=== PATIENT | female | born 1965 | race African-American/Black ===

== ENCOUNTER 2024-12-04 21:33 | Emergency (ER) | payer MEDICARE, OTHER, SELFPAY ==
[2024-12-04] VITALS (8 sets, daily range): BP systolic 94–129; BP diastolic 64–80; PULSE 68–78; RESP 17–19; TEMP 36.4; O2SAT 94–100
--- NOTE | 2024-12-04 21:43 | ECG_ITS ---
Test Date: 2024-12-04 21:49:19 Measurements Intervals [place] Rate: 69 P: 38 GA: 133 QRS: -4 QRSD: 92 T: 44 QT: 422 QTc: 454 Interpretive Statements SINUS RHYTHM VOLTAGE CRITERIA FOR LVH CONSIDER INFERIOR INFARCT, AGE INDETERMINATE ABNORMAL ECG No previous ECG available for comparison Electronically Signed On 12-05-2024 06:18:14 CDT by Butch Guadalupe D.O.
[2024-12-04] MEDS: SODIUM CHLORIDE 0.9% IV 1,000 ML 999 ML IV CONT (21:56)
[2024-12-04 22:01] LABS: Basophils Absolute Auto 0.1 K/mm3 (0.0-0.1); Basophils Percent Auto 0.8 % (0.2-1.2); Eosinophils Absolute Auto 0.1 K/mm3 (0-0.3); Eosinophils Percent Auto 1.2 % (0-4.4); Hematocrit 37.5 % (37.0-47.0); Hemoglobin 10.9 g/dL (12.0-15.0); Immature Granulocyte Absolute 0.06 K/mm3 (0.00-0.031); Immature Granulocyte Percent A 0.6 % (0-0.5); Lymphocytes Absolute Auto 1.97 K/mm3 (0.9-3.2); Lymphocytes Percent Auto 18.1 % (18.3-44.2); Mean Corpuscular HGB Conc 29.1 g/dl (32-36); Mean Corpuscular Hemoglobin 24.2 pg (26-34); Mean Corpuscular Volume 83.3 fl (80-100); Mean Platelet Volume 10.3 fl (7.4-10.4); Monocytes Absolute Auto 0.6 K/mm3 (0.1-0.6); Monocytes Percent Auto 5.7 % (2.6-8.5); Neutrophils Percent Auto 73.6 % (45.5-73.1); Platelet Count Result 242 k/mm3 (150-375); Red Cell Distribution Width 16.8 % (11.5-14.5); White Blood Count 10.9 K/mm3 (4.5-10.0)
[2024-12-04 22:11] LABS: Alanine Aminotransferase 29 U/L (6-35); Albumin Level 4.1 g/dL (3.5-5.1); Alkaline Phosphatase 106 U/L (38-126); Anion Gap 13 mmol/L (4-12); Aspartate Amino Transferase 27 U/L (14-36); Bilirubin,Total 0.2 mg/dL (0.2-1.3); Blood Urea Nitrogen 18 mg/dL (7-17); Calcium 9.1 mg/dL (8.4-10.2); Carbon Dioxide 19 mmol/L (22-30); Chloride 111 mmol/L (98-107); Estimated CRCL calculation 48 ml/min; Estimated Glomerular Filt Rate 40; Glucose 166 mg/dL (65-110); Potassium 3.7 mmol/L (3.4-5.0); Sodium 143 mmol/L (137-145)
[2024-12-04 22:18] LABS: Anisocytosis 1+; Band Neutrophils Percent 0 % (0-6); Hypochromasia 1+; Ovalocytes 1+; Platelet Estimate Adequate (Adequate); Schistocytes None Seen
--- OUTSIDE RECORDS SUMMARY | 2024-12-04 22:45 | XMS_ITS | Clinical Summary ---
Author Organization [facility] [employer] Address [address] [facility] [place] [address] Care Team Providers Care Machine Maintenance Servicer Name Role Phone Damián Montemayor MD Unavailable Teetee Khoury MD Unavailable [phone] Starla Garcia MD Unavailable [phone] Sadie Ryan MD Unavailable Pedro Mclain MD Primary Care Provider Antoinette Chan MD Unavailable [phone] Destiny Manzanares APRN-HEALTH ADVISOR Unavailable [phone] Source Comments [facility],non-owned Affiliates and Associated Physician Practices is amultiple site organization consisting of ambulatory clinics and hospital sitesin [place], [place], [place] and [place]. This disclosure is being madepursuant to the Care Everywhere program and may not contain all information available regarding this patient. Last updated 18.[facility] [employer] Allergies Active Allergy Reactions Criticality Noted Date Comments Pioglitazone Itching 08/11/2019 Metoclopramide Nausea and/or Vomiting,Unknown 12/22/2010 PT TOLERATES AND TAKE AT HOME Penicillins Rash Low 12/18/2008 Tolerates cephalosporins Dulaglutide Vomiting 08/19/2020 Medications * Be aware that medications may not be up to date on this document. Alwaysverify current medications with the patient. Medication Sig Dispensed Refills Start Date End Date Status Blood Pressure Monitoring (BLOOD PRESSURE KIT) DEVIIndications:E ssential hypertension Use 1 Each once daily 1 device 1 1 Active glucose (Dex4) 4 g chew tabletIndications :Type 2 diabetes mellitus with peripheral vascular disease (HCC) Take 4 (four) tablets by mouth as needed (Hypoglycemia) 400 tablet 3 3 Active Blood Glucose Monitoring Suppl (Blood Glucose Monitor System) w/Device KITIndications:Ty pe 2 diabetes mellitus with peripheral vascular disease (HCC) Use 1 Each once daily 1 Each 1 3 Active Lancets Micro Thin 33G MISCIndications:T ype 2 diabetes mellitus with peripheral vascular disease (HCC) Use 1 Each 4 times daily 400 Each 3 3 Active vitamin D, ergocalciferol, (Drisdol) 1.25 MG (74217 UT) capsuleIndication s:Vitamin D Deficiency Take 1 (one) capsule by mouth every 7 days Reasons: Vitamin D Deficiency 12 capsule 4 4 Active zolpidem (Ambien) 10 MG tabletIndications :Insomnia Take 0.5 (one-half) tablet to 1 (one) tablet by mouth at bedtime Reasons: Trouble Sleeping 45 tablet 1 4 Active ondansetron (Zofran) 4 MG tabletIndications :Cyclic vomiting syndrome Take 1 (one) tablet by mouth every 6 hours as needed for Nausea/Vomiting 30 tablet 5 4 Active insulin degludec (Tresiba FlexTouch) 200 UNIT/ML penIndications:Ty pe 2 diabetes mellitus with stage 3a chronic kidney disease, with long-term current use of insulin ([facility]) Inject 36 (thirty six) Units subcutaneously at bedtime 4 Active insulin aspart (NovoLOG FLEXPEN) penIndications:Ty pe 2 Diabetes Mellitus Inject subq before meals BRK-30 U, lunch 22U, and 22 dinner+ scale TDD 180 U. Reasons: Type 2 Diabetes 4 Active busPIRone (Buspar) 15 MG tablet Take 1 (one) tablet by mouth 3 times daily Active LORazepam (Ativan) 1 MG tablet Take 1 (one) tablet by mouth every 12 hours as needed for Anxiety Active acetaminophen (Tylenol) 325 MG tablet Take 2 (two) tablets by mouth every 6 hours as needed Maximum allowable Acetaminophen amount = 4 Grams (4000 mg) / 24 hours. 4 Active calcium carbonate (Tums) 500 MG chew tablet Take 2 (two) tablets by mouth every 4 hours as needed 4 Active paliperidone palmitate ER (Invega Sustenna) 234 MG/1.5ML injection Inject 234 (two hundred thirty four) mg into muscle every 28 days 1.5 mL 5 Active pantoprazole EC (Protonix) 40 MG tabletIndications :Gastroesophageal reflux disease without esophagitis Take 1 (one) tablet by mouth once daily 30 tablet 4 5 Active collagenase (Santyl) 250 UNIT/GM ointmentIndicatio ns:Decubitus ulcer of left foot, stage 3 (HCC),Decubitus ulcer of right foot, stage 3 (HCC) Apply to affected area once daily 30 g 3 5 Active Insulin Pen Needle (BD Pen Needle Joann U/F) 32G X 4 MM MISCIndications:T ype 2 diabetes mellitus with stage 3a chronic kidney disease, with long-term current use of insulin ([facility]) Use 1 Each 4 times daily With insulin DX E11.22 200 Each 11 5 Active blood glucose test stripIndications: Type 2 diabetes mellitus with stage 3a chronic kidney disease, with long-term current use of insulin ([facility]) Use 1 (one) strip 4 times daily - before meals & nightly Freestyle 400 strip 3 5 Active gabapentin (Neurontin) 600 MG tabletIndications :Type 2 diabetes mellitus with stage 3a chronic kidney disease, with long-term current use of insulin ([facility]) Take 1 (one) tablet by mouth 2 times daily 60 tablet 5 5 Active atorvastatin (Lipitor) 40 MG tablet Take 1 (one) tablet by mouth once daily 90 tablet 1 5 Active Continuous Glucose Sensor (FreeStyle Fay 3 Plus Sensor) MISCIndications:T ype 2 diabetes mellitus with stage 3a chronic kidney disease, with long-term current use of insulin ([facility]) Use 1 Each every 15 days 6 Each 1 5 Active loperamide (Imodium) 2 MG capsuleIndication s:Diarrhea TAKE ONE CAPSULE BY MOUTH FOUR TIMES A DAY NEEDED FOR DIARRHEA Reasons: Diarrhea 120 capsule 2 5 Active pancrelipase (Zenpep) 43707-747327 units capsule Take 2 (two) capsules by mouth 3 times daily with meals. May also take 1 (one) capsule as needed with food for Digestion (for snacks). Do not crush or chew.. 300 capsule 5 5 Active pancrelipase (Zenpep) 60933-432559 units capsule Take 2 (two) capsules by mouth 3 times daily with meals. May also take 1 (one) capsule as needed with food for Digestion (for snacks). Do not crush or chew.. 240 capsule 5 4 11/28/19 25 Discontinue d(Reorder) loperamide (Imodium) 2 MG capsuleIndication s:Diarrhea, unspecified type TAKE ONE CAPSULE BY MOUTH FOUR TIMES A DAY NEEDED FOR DIARRHEA 120 capsule 1 4 11/28/19 25 Discontinue d(Reorder) collagenase (Santyl) 250 UNIT/GM ointment Apply to affected area 2 times daily for 30 days 3.5cm Length x 4 cm width x 0.5 cm depth 30 g 2 5 11/08/19 25 Additional Information Patient not taking.Reported on 10/28/2024 atorvastatin (Lipitor) 40 MG tablet Take 1 (one) tablet by mouth once daily 90 tablet 1 5 11/09/19 25 Discontinue d(Reorder) gabapentin (Neurontin) 600 MG tabletIndications :Type 2 diabetes mellitus with stage 3a chronic kidney disease, with long-term current use of insulin (HCC) Take 1 (one) tablet by mouth 2 times daily 60 tablet 5 5 11/09/19 25 Discontinue d(Reorder) Active Problems Problem Noted Date Diagnosed Date Decubitus ulcer of right foot, stage 4 5 Decubitus ulcer of left foot, stage 3 09/25/2024 Type 2 diabetes mellitus wit h hyperglycemia, without long-term current use of insulin 09/19/2024 Type 2 diabetes mellitus with obesity 09/19/2024 Cellulitis, unspecified cellulitis site 08/19/20 Diabetic polyneuropathy asso ciated with diabetes mellitus due to underlying condition 08/19/2024 Wound of left foot 08/19/2024 Diarrhea of infectious origin 07/02/2023 Class 1 obesity due to exces s calories without serious comorbidity with body mass index (BMI) of 34.0 to 34.9 in adult 05/09/2023 S/P gastric bypass 10/04/2022 Chest pain, musculoskeletal 05/09/2022 Abscess, gluteal, right 05/02/2022 Fecal smearing 12/27/2021 Candidiasis of anus 12/13/2021 Blister 12/13/2021 Boil of buttock 11/29/2021 Primary insomnia 11/29/2021 SOB (shortness of breath) 05/24/2021 Medicare annual wellness visit, subsequent 05/24 Gastroesophageal reflux disease without esophagi tis 11/18/2020 Toe amputation status, right 05/09/2019 Great toe amputation status, left 05/09/2019 Hx of Clostridium difficile infection 09/10/2018 Chronic fatigue 09/10/2018 Vitamin D deficiency 07/03/2018 Malaise and fatigue 07/03/2018 Atherosclerosis of aorta 06/28/2018 Overview (06/28/2018): Ct abd pelvis 12/18/17 Esophagitis 03/04/2018 Mixed hyperlipidemia 12/03/2017 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 File category: Scan. Associated with: Note written by from [facility] on 07/06/2021. Type 2 diabetes mellitus with peripheral vascula r disease 07/24/2017 Overview (07/24/2017): Office Visit 04/20/15 Dr. Shady Jamil Bipolar I disorder with depression 01/17/2014 Overview (07/22/2021): IOP 07/19/2021 (12 hours) [facility] Jh Ellis MD Last attending Treatment team Bipolar I disorder with depression Principal problem Generalized anxiety disorder 11/11/2012 Cyclic vomiting syndrome 11/11/2012 Essential hypertension 05/21/2012 Overview (05/21/2012): Dx.ed 2012 Neuropathy in diabetes 05/21/2012 Resolved Problems Problem Noted Date Diagnosed Date Resolved Date BMI 38.0-38.9,adult 11/06/2022 05/09/20 23 Stage 3a chronic kidney disease 05/09/2022 09/19/2024 Other osteomyelitis of right foot 12/13/2021 09/19/2024 Vita infection 12/13/2021 12/13/2021 BMI 40.0-44.9, adult 11/29/2021 023 M Obesity 07/22/2021 11/29/2021 Overview (07/22/2021): Body Mass Index: 42.36 kg/m Abnormal 1.727 m (5' 8 ) as of 05/24/2021 126.4 kg (278 lb 9.6 oz) as of 05/24/2021 Type 2 diabetes mellitus wit h hypoglycemia, without long-term current use of insulin 05/24/2021 09/29/2021 Body mass index (BMI)40.0-44.9, adult 05/24/2021 09/19/2024 Obesity (BMI 35.0-39.9 without comorbidity) 02/20/2020 11/29/2021 Hypercholesterolemia 05/08/2019 021 Type 2 diabetes mellitus wit h stage 3a chronic kidney disease, with long-term current use of insulin 06/28/2018 09/19/2024 Overview (07/22/2021): Component Latest Ref Rng & Units 04/25/2021 12/06/2020 08/31/2020 02/10/2020 eGFR by MDRD >60 mL/min/1.73m2 40 (L) 57 (L) 47 (L) 46 (L) DARIUSZ (acute kidney injury) 06/02/2018 DARIUSZ (acute kidney injury) 01/21/2018 Cyclical vomiting with nausea 01/21/2018 03/04/2018 Nausea and vomiting 01/14/2018 02/05/20 18 Abdominal pain, epigastric 12/18/2017 0 12/19/2017 Nausea and vomiting 12/18/2017 12/20/19 18 Intractable vomiting with nausea 12/18/2017 12/19/2017 Moderate episode of recurren t major depressive disorder 02/01/2016 12/03/2017 Upper GI bleed 01/28/2016 12/03/2017 Acute blood loss anemia 01/28/201610/2017 SIRS (systemic inflammatory response syndrome) 01/28/2016 12/03/2017 Hyperglycemia due to type 2 diabetes mellitus 01/28/20 16 12/03/2017 Intractable vomiting 03/02/2015 018 Cyclical vomiting, intractable 05/07/2014 12/03/2017 Acute renal failure (ARF) 05/07/2014 Electrolyte imbalance 05/07/20142017 Diabetic foot ulcer 04/08/2014 12/04/19 18 Anxiety 03/03/2014 12/03/2017 Diabetes mellitus 03/03/2014 07/24/2017 Hyperglycemia 03/03/2014 09/12/2017 MDD (major depressive disorder) 09/01/2013 12/03/2017 Anxiety attack 12/08/2012 12/03/2017 Nausea and vomiting in adult 12/08/2012 12/03/2017 Depression 11/11/2012 12/03/2017 Diabetic hypoglycemia 08/15/20122017 Esophageal reflux 02/07/2012 12/03/2017 Irritable colon 02/07/2012 12/03/2017 Anemia 12/20/2010 12/03/2017 Constipation 08/26/2010 08/23/2015 [place]'s gland cyst 06/29/2010 8 Hypopotassemia 07/16/2009 12/03/2017 Nausea with vomiting 05/25/2009 018 Overview (05/21/2012): Dx.ed 2006 DM type 2 (diabetes mellitus, type 2) 12/18/2008 12/03/2017 Overview (05/21/2012): Dx.ed 2006 On insulin since 2008 Screening for cervical cancer 12/18/2008 12/03/2017 Overview (12/18/2008): 2007 results not in chart Encounters Date Type Department Care Team Description 12/02/2024 Telephone [facility] . [facility]ound [facility] [id number] [facility] [address] [phone] Matilda Lockhart, valve pipe irrigator 12/01/2024 8:34 AM CDT - 12/01/2024 10:06 AM CDT Hospital Encounter [facility] . Wound Care [address] [address] [place] [phone] Liam Miller MD Christensen, Kyle, Discharge Disposition: Home or Self Care 12/01/2024 Travel 11/27/2024 Refill [facility] - [address] [address] [place] [phone] Kerri Sotelo, CUSTOMS HOUSE BROKER-HEALTH ADVISOR MEDICATION REFILL 11/25/2024 Orders Only [facility] Endocrinology [address] [place] [address], [facility] [address] [place] [phone] Anabel Gay, C[employer] HOU[employer] BROKER-HEALTH ADVISOR Type 2 diabetes mellitus with stage 3a chronic kidney disease, with long-term current use of insulin 11/24/[address], [facility] [address] [place] [address] Teetee Khoury MD Refill Request 11/18/2024 6:37 AM CDT - 11/18/2024 11:59 PM CDT Hospital Encounter [facility] - Laboratory [address] [place] [address] Lenny Nava, Discharge Disposition: Home or Self Care 11/17/2024 9:13 AM CDT - 11/17/2024 11:59 PM CDT Hospital Encounter [facility] . Wound Care [address] [address] [place] [address] Lenny Nava, Discharge Disposition: Home or Self Care 11/17/2024 Travel 11/12/2024 Telephone [facility] . Wound Care [address] [address] [place] [phone] Portia Correa, patient safety sitter (Orthotics) 11/11/2024 Orders Only [facility] . Wound Care [address] [address] [place] [phone] Portia Correa, RN Decubitus ulcer of left foot, stage 3 ; Ulcers of both lower legs with fat layer exposed; Decubitus ulcer of right foot, stage 3; Wound of left foot; Diabetic polyneuropathy associated with diabetes mellitus due to underlying condition 11/08/2024 Refill [facility] Endocrinology [address] [place] [address], [address] [place] [phone] Teetee Khoury MD MEDICATION REFILL 11/08/2024 Refill [facility] Endocrinology [address] [place] [address], [facility] [address] [place] [phone] Anabel Gay, C[employer] BROKER-HEALTH ADVISOR MEDICATION REFILL 11/07/2024 Telephone [facility] - Surgery [address] [place] [address], [facility] [address] [place] [phone] Lenny Nava DO Question 11/03/2024 Travel 11/03/2024 Refill [facility] Endocrinology [address] [place] [address], [address] [place] [phone] Anabel Gay, C[employer] BROKER-HEALTH ADVISOR MEDICATION REFILL 10/31/2024 Refill [facility] - [place] [address] [address] , [facility] [address] [place] [phone] aDmián Montemayor MD MEDICATION REFILL 10/28/2024 1:00 PM FLANGING ROLL OPERATOR Office Visit [facility] Endocrinology [address] [place] [address], [facility] [address] [place] [phone] Anabel Gay, C[employer] BROKER-HEALTH ADVISOR Type 2 diabetes mellitus with stage 3a chronic kidney disease, with long-term current use of insulin (Primary Dx); Vitamin D deficiency; Mixed hyperlipidemia; Essential hypertension 10/27/2024 10:00 AM FLANGING ROLL OPERATOR - 10/27/2024 11:59 PM FLANGING ROLL OPERATOR Hospital Encounter [facility] . Wound Care [address] [address] [place] [phone] Nava, Lenny, DO Discharge Disposition: Home or Self Care 10/27/2024 Orders Only [facility] . Wound Care [address] [address] [place] [phone] Portia Correa RN 10/27/2024 Travel 10/23/2024 Refill [facility] [address] [address], [address] [place] [phone] Kerri Sotelo, C[employer]SE BROKER-HEALTH ADVISOR MEDICATION REFILL 10/23/2024 Refill [facility] - Endocrinology [address] [place] [address], [address] [place] [phone] Anabel Gay, C[employer] HOUSE BROKER-HEALTH ADVISOR MEDICATION REFILL 10/21/2024 Refill [facility] [address] [address] [place] [phone] Kerri Sotelo, C[employer] BROKER-HEALTH ADVISOR Refill Request 10/13/2024 10:25 AM FLANGING ROLL OPERATOR - 10/13/2024 11:59 PM FLANGING ROLL OPERATOR Hospital Encounter [facility] . Wound Care [address] [address], [address] [place] [phone] Lenny Nava, DO Discharge Disposition: Home or Self Care 10/13/2024 Travel 10/11/2024 Refill [facility] . Wound Care [address], [address] [place] [address] Lenny Nava, DO MEDICATION REFILL 10/08/2024 Refill [facility] [address], [address] [place] [address] Kerri Sotelo, C[employer]SE BROKER-HEALTH ADVISOR MEDICATION REFILL 10/08/2024 Refill [facility] [address] [place] [address] Kerri Sotelo, CUST[employer] HOUSE BROKER-HEALTH ADVISOR MEDICATION REFILL 10/08/2024 Refill [facility] . Wound Care [address], [address] [place] [phone] Padmini Chavez, C[employer] HOUSE BROKER-HEALTH ADVISOR MEDICATION REFILL 10/06/2024 Travel 10/03/2024 Refill [facility] [place] [address] [address] , [address] [place] [address] Kerri Sotelo, CUST[employer] HOUSE BROKER-HEALTH ADVISOR MEDICATION REFILL 09/29/2024 Telephone [facility] . Wound Care [address] [address] [place] [phone] Lenny Nava DO Medication Request 09/25/2024 8:12 AM FLANGING ROLL OPERATOR - 09/25/2024 11:59 PM FLANGING ROLL OPERATOR Hospital Encounter [facility] . Wound Care [address], [facility] [address] [place] [phone] Lenny Nava, Discharge Disposition: Home or Self Care 09/25/2024 Travel 09/22/2024 Refill [facility] - Endocrinology [address] [place] [address], [address] [place] [phone] Anabel Gay, C[employer] BROKER-HEALTH ADVISOR MEDICATION REFILL 09/19/2024 10:30 AM FLANGING ROLL OPERATOR Office Visit [facility] - Family Medicine [address] 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 Wound Care [address], [facility] [address] [place] [phone] Lenny Nava, Discharge Disposition: Home or Self Care 09/18/2024 Travel 09/17/2024 Telephone [facility] - Surgery [address] [facility], [address] [place] [phone] Lenny Nava DO Question 09/15/2024 Travel 09/15/2024 Orders Only [facility] [address] [place] [address] Jh Ellis MD 09/15/2024 Orders Only [facility] [address] [place] [address] Jh Ellis MD 09/11/2024 9:41 AM FLANGING ROLL OPERATOR - 09/11/2024 11:59 PM FLANGING ROLL OPERATOR Hospital Encounter [facility] . Wound Care [address] [facility] , [address] [place] [phone] Lenny Nava, Discharge Disposition: Home or Self Care 09/11/2024 Travel from Last 3 Months Immunizations Name Administration Dates Next Due [place] primary monoval ent 12+ yr 0.3mL Purple cap 08/03/2021,12/19/2020,11/28/2020 INFLUENZA VACCINE 10/04/2012 INFLUENZA VACCINE, QUADR. (F LUZONE; FLULAVAL; FLUARIX; AFLURIA QUADRIVALENT; 6MO+), 0.5 ML (IIV4) 11/06/2022 INFLUENZA VACCINE, TRIV. (FL UZONE; FLULAVAL; FLUARIX; AFLURIA TRIVALENT; 6MO+), 0.5 ML (IIV3) 09/19/2024 PNEUMOCOCCAL PCV7 CONJ, PEDS 11/06/2022( Deferred: Patient Refused),10/04/2012 Family History Medical History Relation Name Comments Cancer Father lung dx around age 68 Diabetes - Type 2 Father Stroke Father Cancer - Breast Maternal Aunt 1 Cancer - Breast Maternal Aunt 2 Diabetes Maternal Grandmother Diabetes Mother CVA Paternal Grandmother Diabetes - Type 2 Sister Heart Failure Sister CHF Hypertension Sister Relation Name Status Comments Father Maternal Aunt 1 Maternal Aunt 2 Maternal Grandmother Mother Alive Paternal Grandmother Sister Social History Tobacco Use Types Packs/Day Years Used Date Smoking Tobacco: Former Cigarettes Q uit: 09/27/1994 Passive Smoke Exposure: Never Smokeless Tobacco: Never Tobacco Cessation:Counseling Given: Not Answered Alcohol Use Standard Drinks/Week Comments No 0 (1 standard drink = 0.6 oz pur e alcohol) AUDIT-C Answer Date Recorded Q1: How often do you have a drink containing alcohol? Never 08/19/2024 Q2: How many drinks containi ng alcohol do you have on a typical day when you are drinking? Patient does not drink Q3: How often do you have si x or more drinks on one occasion? Never 08/19/2024 Overall Financial Resource Strain (CARDIA) Answe r Date Recorded How hard is it for you to pa y for the very basics like food, housing, medical care, and heating? Not very hard 08/20/2024 PHQ-2 Answer Date Recorded Patient Health Questionnaire-2 Score 3 09/19/2024 [facility] - Occupational Stress Questionnaire Answer Date Recorded Do you feel stress - tense, restless, nervous, or anxious, or unable to sleep at night because your mind is troubled all the time - these days? Only a little 08/20/2024 Hunger Vital Sign Answer Date Recorded Within the past 12 months, y ou worried that your food would run out before you got the money to buy more. Never true 08/20/20 24 Within the past 12 months, t he food you bought just didn't last and you didn't have money to get more. Never true 08/20/2024 PRAPARE - Transportation Answer Date Re corded In the past 12 months, has l ack of transportation kept you from medical appointments or from getting medications? No 08/03 In the past 12 months, has l ack of transportation kept you from meetings, work, or from getting things needed for daily living? No 08/20/2024 Housing Stability Vital Sign Answer Chaparro e Recorded In the last 12 months, was t here a time when you were not able to pay the mortgage or rent on time? No 03/13/2023 In the last 12 months, how many places have you lived? 1 03/13/2023 In the last 12 months, was t here a time when you did not have a steady place to sleep or slept in a residential (including now)? No 03/13/2023 Housing Stability Vital Sign Answer Chaparro e Recorded In the last 12 months, was t here a time when you were not able to pay the mortgage or rent on time? No 08/20/2024 In the past 12 months, how m any times have you moved where you were living? 0 08/20/2024 At any time in the past [address] [facility], were you homeless or living in a residential (including now)? No 08/20/2024 Sex and Gender Information Value Date Recorded Sex Assigned at Not on file Gender Identity Not on file Sexual Orientation Not on file Last Filed Vital Signs Vital Sign Reading Time Taken Comments Blood Pressure 153/95 12/01/2024 10:36 AM CDT Pulse 82 12/01/2024 10:36 AM CDT Temperature 36 C (96.8 F) 12/01/2024 8:54 AM CDT Respiratory Rate 20 12/01/2024 10:36 AM CDT Oxygen Saturation 98% 12/01/2024 8:54 AM CDT Inhaled Oxygen Concentration - - Weight 99 kg (218 lb 3.2 oz) 12/01/2024 10:36 AM CDT Height 172.7 cm (5' 8 ) 12/01/2024 10:36 AM CDT Body Mass Index 33.18 12/01/2024 10:36 AM CDT Plan of Treatment Upcoming Encounters Date Type Department Care Team (Late st Contact Info) Description 12/11/2024 10:30 AM CDT Appointment [facility] . Wound Care [address] [address]ch, [facility] [address] [place] [id number] 01/27/2025 1:00 PM CDT Office Visit [facility] - Endocrinology [address] [place] [address], [address] [place] [address] Teetee Khoury [place] [id number] [place] [address] [address] [place] [address] 02/26/2025 11:00 AM CDT Office Visit [facility] [place] [address] Sirisha Finch, [facility] [address] [place] [phone] Kerri Sotelo, [employer]ER-HEALTH ADVISOR [id number] [place] [address] [address] [place] [address] 03/19/2025 10:45 AM CDT Office Visit [facility] - Family [facility] [address] [place], [place] [id number] [place] [address] [place] [address] Health Maintenance Due Date Last Done Comments COLOGUARD (AGES 45-75) - COLON CA SCREENING 1965 CT COLONOGRAPHY - COLON CA SCREENING 1965 FIT - COLON CA SCREENING 1965 FLEX SIG - COLON CA SCREENING 1965 HIV SCREENING 1980 DTAP/TDAP/TD VACCINES (1 - Tdap) 1984 PNEUMOCOCCAL VACCINE 50+ (1 of 2 - PCV) 1984 COVID-19 VACCINE (4 - season) 2024 08/03/2021, 12/19/2020, 11/28/2020 DIABETES - URINE PROTEIN SCREENING 09/03/2024 12/21/2023, 10/12/2023, 04/20/2023, Additional history exists DIABETES RETINOPATHY SCREENING 03/12/2025 03/12/2024, 09/05/2023, 02/21/2023, Additional history exists DIABETES-HGB A1C 04/27/2025 10/28/2024, , 03/11/2024, Additional history exists DIABETES-SERUM CREATININE 08/20/20252023, 08/19/2024, 08/12/2024, Additional history exists MEDICARE AWV 12 MONTHS 09/19/2025 09/19/2024, 09/19/2024, 05/09/2023, Additional history exists MAMMOGRAM 10/16/2025 10/16/2023, 10/04, 10/16/2023, Additional history exists DIABETES-FOOT EXAM WITH MONOFILAMENT 10/29/2025 10/29/2024, 04/21/2014 PAP with HPV 06/06/2029 06/06/2024, 12/09/2020, 01/20/2015, Additional history exists COLON MONITORING 09/08/2030 09/08/2020, 09/08/2020 COLONOSCOPY - COLON CA SCREENING 09/08/2030 09/08/2020, 09/08/2020, 12/28/2008 (Previously completed) Colorectal Cancer Screening 09/08/2030 HEPATITIS C SCREENING Completed 07/29/2010 INFLUENZA VACCINE Completed 09/19/2024, , 10/04/2012 HEPATITIS B VACCINE Discontinued HIB VACCINE Aged Out No longer eligi ble based on patient's age to complete this topic HPV VACCINE Aged Out No longer eligi ble based on patient's age to complete this topic MENINGOCOCCAL (Group B) VACCINE SHARED DECISION-MAKING Aged Out No longer eligible based on patient's age to complete this topic MENINGOCOCCAL GROUPS A/C/Y/W VACCINE Aged Out No longer eligible based on patient's age to complete this topic ZOSTER VACCINE Discontinued Goals Goal Patient Goal Type Associated Problems Recent Progress Patient-Stated? Author Blood Pressure < 140/90 Blood Pressure 153/95(2024 10:36 AM CDT) No Tammy Gurrola HEMOGLOBIN A1C < 7.0 Result Component 8.5( 2:45 PM CDT) No Kerri Shay Procedures Procedure Name Priority Date/Time Associated Diagnosis Comments PATHOLOGY TISSUE EXAM (STL) Routine 11/17/2024 10:05 AM CDT Decubitus ulcer of left foot, stage 3 CULTURE ANAEROBE Routine 11/17/2024 10:0 4 AM CDT Decubitus ulcer of left foot, stage 3 CULTURE WOUND+GRAM STAIN Routine 11/17/2024 10:03 AM CDT Decubitus ulcer of left foot, stage 3 HEMOGLOBIN A1C - POINT OF CARE (AMB) Routine 10/28/2024 Type 2 diabetes mellitus with stage 3a chronic kidney disease, with long-term current use of insulin GLUCOSE - POINT OF CARE (AMB) STL Routine 10/28/2024 Type 2 diabetes mellitus with stage 3a chronic kidney disease, with long-term current use of insulin GLUCOSE TESTING AT HOME Routine 10/15/2024 10:32 AM FLANGING ROLL OPERATOR GLUCOSE TESTING AT HOME Routine 09/19/2024 10:18 AM FLANGING ROLL OPERATOR BASIC METABOLIC PANEL (CALCIUM TOTAL) Routine 08/20/2024 5:05 AM FLANGING ROLL OPERATOR PAP IG LB +HPV APTIMA REFLEX 16,18/45 Routine 06/06/2024 2:00 PM CDT Well woman exam with routine gynecological exam Screening for HPV (human papillomavirus) EYE EXAM 03/12/2024 MICROALB/CREAT RATIO URINE RANDOM PANEL Routine 12/21/2023 2:45 PM CDT Diabetic polyneuropathy associated with diabetes mellitus due to underlying condition MAMMOGRAM 10/16/2023 ENDOSCOPY, COLON, SCREENING Routine 09/08/2020 7:05 AM FLANGING ROLL OPERATOR Special screening for malignant neoplasms, colon from Last 3 Months or Most Recently Relevant to Health Maintenance Results * PATHOLOGY TISSUE EXAM (STL) (11/17/2024 10:05 AM CDT) Case Report Surgical Pathology Report Case: [id number] Authorizing Provider: Lenny Nava DO Collected: 11/17/2024 10:05 AM Ordering Location: [facility] Received: 11/18/2024 06:39 AM - Laboratory Pathologist: Michael Jackson MD Specimen: Tissue, right lateral foot wound 11/19/2024 10:54 AM CDT [facility] Final Diagnosis Right lateral foot wound, debridement: -- Acute osteomyelitis with necroinflammatory material and granulation tissue 11/19/2024 10:54 AM CDT [facility] Gross Description Received in formalin in a sterile container labeled Jatin Scott, right lateral foot wound, is a 0.9 x 0.5 x 0.1 cm red-stark skin shave. The specimen is bisected and entirely submitted in cassette A1. CH/eh 11/19/2024 10:54 AM CDT [facility] Microscopic Description Microscopic examination substantiates the above cited diagnosis. 11/19/2024 10:54 AM CDT [facility] Disclaimer All histochemical and/or immunohistochemical results are interpreted with controls that demonstrate appropriate staining reactions before reporting results. Note on use of immunocytochemistry reagents: This test was developed and its performance characteristic determined by [facility], Department of Laboratory Medicine. It has not been cleared or approved by the U.S. Food and Drug Administration (FDA). The FDA has determined that such clearance or approval is not necessary. The test is used for clinical purpose. It should not be regarded as investigational or for research. This laboratory is certified to perform high complexity testing. The performance characteristics of the IHC/ADRIEN assays have been validated on formalin-fixed paraffin embedded tissues only. The assays have not been validated on decalcified tissues. Results should be interpreted with caution. 11/19/2024 10:54 AM CDT [facility] Embedded Images 11/19/2024 10:54 AM CDT [facility] Pathology/Cytolo gy TISSUE SPECIMEN / Unknown 11/17/2024 10:05 AM CDT 11/18/2024 6:39 AM CDT Lenny Nava DO LAB - PATHOLOGY/CYTO LOGY ORDERABLES Performing Organization Address City/[facility]/ZIP Co de Phone Number [facility] [address] [place] [address] * (ABNORMAL) CULTURE ANAEROBE (11/17/2024 10:04 AM CDT) Culture Moderate Prevotella disiens(A) MATTHEW 11/26/2024 12:58 PM CDT [facility] MICRO[facility] Comment:Beta-lactamase posit kyung Microbiology TISSUE SPECIMEN / Unknown Collection / Unknown 11/17/2024 10:04 AM CDT 11/17/2024 5:18 PM CDT Lenny Nava DO LAB - MICROBIOLOGY O RDERABLES [facility] MICRO[facility]Y [address] [place], [place] [address], [facility] [phone] * (ABNORMAL) CULTURE WOUND+GRAM STAIN (11/17/2024 10:03 AM CDT) Culture Moderate Staphylococcus aureus(A) MATTHEW 11/21/2024 7:29 AM T [facility]CRO[facility] Comment:Staphylococcus aureu s methicillin-susceptible (MSSA) detected by penicillin binding protein immunoassay. Culture Moderate Streptococcus agalactiae (Group B)(A) MATTHEW 11/21/2024 7:29 AM T [facility]CRO[facility] Culture Moderate normal skin korina MATTHEW 11/21/2024 7:29 AM T [facility]CRO[facility] Gram Stain Light Gram-positive cocci 11/21/2024 7:29 AM T [facility] Gram Stain No polymorphonuclear cells 11/21/2024 7:29 AM T [facility]CRO[facility] Gram Stain Rare Squamous epithelial cells 11/21/2024 7:29 AM T [facility]CRO[facility] Microbiology TISSUE SPECIMEN / Unknown Collection / Unknown 11/17/2024 10:03 AM CDT 11/17/2024 5:18 PM CDT Narrative [facility] - 11/21/2024 7:29 AM CDT Susceptibility testing of penicillin, other beta-lactam antibiotics, and vancomycin is not necessary for beta-hemolytic streptococci groups A,B,C and G because resistant strains have not been recognized. Organism Antibiotic Method Susceptibility Staphylococcus aureus Cefazolin MATTHEW Susceptible Staphylococcus aureus Clindamycin MATTHEW 0.25 ug/mL: Susceptible Staphylococcus aureus Doxycycline MATTHEW <=0.5 ug/mL: Susceptible Staphylococcus aureus Inducible Clindamy ary Resistance MATTHEW NEG ug/mL: Neg Staphylococcus aureus Oxacillin MATTHEW 0.5 ug/mL: Susceptible Staphylococcus aureus Trimethoprim-sulfa methoxa zole MATTHEW <=10 ug/mL: Susceptible Staphylococcus aureus Vancomycin MATTHEW <=0.5 ug/mL: Susceptible Comment: Staphylococcus sensitivity to oxacillin predicts susceptibility for nafcillin, ampicillin/sulbactam, amoxicillin/clavulanate, piperacillin/tazobactam, all cephalosporins (except ceftazidime, ceftazidime/avibactam, ceftolozane/tazobactam), and all carbapenems. Streptococcus agalactiae (Group B) Ampicillin MATTHEW <=0.25 ug/mL: Susceptible Streptococcus agalactiae (Group B) Cefotaxime MATTHEW <=0.12 ug/mL: Susceptible Streptococcus agalactiae (Group B) Ceftriaxone MATTHEW <=0.12 ug/mL: Susceptible Streptococcus agalactiae (Group B) Clindamycin MATTHEW >=1 ug/mL: Resistant Streptococcus agalactiae (Group B) Erythromycin MATTHEW >=8 ug/mL: Resistant Streptococcus agalactiae (Group B) Inducible Clindamycin Resistance MATTHEW NEG ug/mL: Neg Streptococcus agalactiae (Group B) Penicillin G MATTHEW <=0.06 ug/mL: Susceptible Streptococcus agalactiae (Group B) Vancomycin MATTHEW 0.5 ug/mL: Susceptible Lenny Nava DO LAB - MICROBIOLOGY O RDERABLES [facility] MICRO[facility]OLOG[facility] [address] [place] [address], [facility] [phone] * (ABNORMAL) GLUCOSE - POINT OF CARE (AMB) STL (10/28/2024) Pathologist [facility] Glucose 69 60 - 100 mg/dL Lot # [id number] Expiration Date [id number] QC Verified No(A) Yes Blood BLOOD SPECIMEN / Unknown 10/28/2024 [facility] - POINT OF [facility] RE ORDERABLES * HEMOGLOBIN A1C - POINT OF CARE (HgbA1C) (10/28/2024) Pathologist [facility] Hemoglobin A1c POCT 6.9 % Expiration Date 04/03/2026 Lot # [id number] QC Verified Yes Yes Blood BLOOD SPECIMEN / Unknown 10/28/2024 [facility] - POINT OF PA RE ORDERABLES * GLUCOSE TESTING AT HOME (10/15/2024 10:32 AM FLANGING ROLL OPERATOR) Only the most recent of2 resultswithin the time period is included. Teetee Khoury MD NURSING - COMMUN ICATION * (ABNORMAL) BASIC METABOLIC PANEL (CALCIUM TOTAL) (08/20/2024 5:05 AM [facility]) Glucose 56(L) 70 - 99 mg/dL 08/20/2024 5:49 AM [facility] Sodium 142 136 - 145 mmol/L 08/20/2024 5:49 AM [facility] Potassium 3.9 3.5 - 5.1 mmol/L 08/20/2024 5:49 AM [facility] Chloride 111(H) 98 - 107 mmol/L 08/20/2024 5:49 AM [facility] CO2 24 22 - 29 mmol/L 08/20/2024 5:49 AM [facility] Calcium 8.9 8.4 - 10.4 mg/dL 08/20/2024 5:49 AM [facility] Anion Gap 7 6 - 16 mmol/L 08/20/2024 5:49 AM [facility] BUN 11 7 - 26 mg/dL 08/20/2024 5:49 AM [facility] Creatinine 1.11 0.57 - 1.11 mg/dL 08/20/2024 5:49 AM [facility] eGFR by CKD-EPI 57(L) >=90 mL/min/1.7 3 m2 08/20/2024 5:49 AM [facility] Blood BLOOD SPECIMEN / Unknown Venipuncture / Unknown 08/20/2024 5:05 AM FLANGING ROLL OPERATOR 08/20/2024 5:22 AM [facility] Adeola Werner C[employer]ER-HEALTH ADVISOR LAB - CHEMISTR Y ORDERABLES [facility] [address] [place] [address] * PAP IG LB +HPV APTIMA REFLEX 16,18/45 (06/06/2024 2:00 PM CDT) Diagnosis Comment [facility] INSURANCE BILL Comment:NEGATIVE FOR INTRAEP ITHELIAL LESION OR MALIGNANCY. Specimen Adequacy Comment [facility] INSURANCE BILL Comment: Satisfactory for evaluation. Endocervical and/or squamous metaplastic cells (endocervical component) are present. Clinician Provided ICD10 Comment [facility] INSURANCE BILL Comment: Z01.419 Z11.51 Performed by Comment [facility] INSURANCE BILL Comment:Yolanda Rai, Cyto technologist (ASCP) Comment . [facility] INSURANCE BILL Note Comment [facility] INSURANCE BILL Comment: The Pap smear is a screening test designed to aid in the detection of premalignant and malignant conditions of the uterine cervix. It is not a diagnostic procedure and should not be used as the sole means of detecting cervical cancer. Both false-positive and false-negative reports do occur. [facility] CPT Code Automation Comment [facility] INSURANCE BILL Comment: This liquid based ThinPrep(R) pap test was screened with the use of an image guided system. Human papillomavirus Aptima Negative Negative [facility] INSURANCE BILL Comment: This nucleic acid amplification test detects fourteen high-risk HPV types (16,18,31,33,35,39,45,51,52,56,58,59,66,68) without differentiation. HPV Genotype Reflexed Comment [facility] INSURANCE BILL Comment:Criteria not met, HP V Genotype not performed. PART OF UTERINE CERVIX / Unknown 06/06/2024 2:00 PM CDT 06/06/2024 Comment:Cervix Release to [facility] Narrative [facility] INSURANCE BILL - 06/12/2024 3:10 PM CDT Performed at: 01 - [address] [id number] Hairspring Inspector: Anahi Griffin MD, Phone: [phone] Performed at: 02 - [address] [id number] Hairspring Inspector: Anahi Griffin MD, Phone: [phone] Specimen Comment: [id number] Specimen Comment: No. of containers..01 ThinPrep Vial Trevor Newsome MD LAB - PATHOLOGY/CYTO LOGY ORDERABLES [facility] INSURANCE BILL [address] [place] [address] * EYE EXAM (03/12/2024) Anatomical Region Laterality Modality Other 03/12/2024 Narrative 03/12/2024 Ordered by an unspecified provider. Scanned Document SCANNING ONLY * MICROALB/CREAT RATIO URINE RANDOM PANEL (12/21/2023 2:45 PM CDT) Creatinine Urine 45.9 Not Estab. mg/dL [facility] INSURANCE BILL Microalbumin Urine 9.9 Not Estab. ug/mL [facility] INSURANCE BILL Microalbumin/Crea tinine Ratio 22 0 - 29 mg/g creat [facility] INSURANCE BILL Comment: Normal: 0 - 29 Moderately increased: 30 - 300 Severely increased: >300 Urine URINE SPECIMEN OBTAINED BY CLEAN CATCH PROCEDURE / Unknown 12/21/2023 2:45 PM CDT 12/21/2023 Narrative Resulting Agency Comment Lab Testing performed at: [email or web address] [address] [facility] [id number] Pedro Mclain MD LAB - URINE CHEMISTR Y ORDERABLES [facility] [address] [place] [address] * MAMMOGRAM (10/16/2023) Anatomical Region Laterality Modality Other 10/16/2023 Narrative 10/16/2023 Ordered by an unspecified provider. Scanned Document SCANNING ONLY * ENDOSCOPY, COLON, SCREENING (09/08/2020 7:05 AM FLANGING ROLL OPERATOR) Report Endoscopy POC _ Patient Name: Jatin Scott Procedure Date: 09/08/2020 7:05 AM Date of : 1965 Admit Type: Outpatient Age: 55 Gender: Female Attending MD: Damián Montemayor MD _ Procedure: Colonoscopy Indications: Screening for colorectal malignant neoplasm, Last colonoscopy: 2008 Providers: Damián Montemayor MD (Doctor) Referring MD: Pedro Mclain MD (Referring MD) Medicines: Monitored Anesthesia Care Complications: No immediate complications. Estimated blood loss: None. _ Procedure: Pre-Anesthesia Assessment: - Prior to the procedure, a History and Physical was performed, and patient medications and allergies were reviewed. The patient is competent. The risks and benefits of the procedure and the sedation options and risks were discussed with the patient. All questions were answered and informed consent was obtained. Patient identification and proposed procedure were verified by the physician, the nurse and the food dehydrator operator in the procedure room. Mental Status Examination: alert and oriented. Airway Examination: normal oropharyngeal airway and neck mobility. Respiratory Examination: clear to auscultation. CV Examination: normal. Prophylactic Antibiotics: The patient does not require prophylactic antibiotics. Prior Anticoagulants: The patient has taken no previous anticoagulant or antiplatelet agents. ASA Grade Assessment: III - A patient with severe systemic disease. After reviewing the risks and benefits, the patient was deemed in satisfactory condition to undergo the procedure. The anesthesia plan was to use monitored anesthesia care (MAC). Immediately prior to administration of medications, the patient was re-assessed for adequacy to receive sedatives. The heart rate, respiratory rate, oxygen saturations, blood pressure, adequacy of pulmonary ventilation, and response to care were monitored throughout the procedure. The physical status of the patient was re-assessed after the procedure. After I obtained informed consent, the scope was passed under direct vision. Throughout the procedure, the patient's blood pressure, pulse, and oxygen saturations were monitored continuously. The Colonoscope was introduced through the anus and advanced to the cecum, identified by appendiceal orifice and ileocecal valve. The colonoscopy was performed without difficulty. The patient tolerated the procedure well. The quality of the bowel preparation was excellent. The ileocecal valve, appendiceal orifice, and rectum were photographed. Findings: The digital rectal exam was normal. Pertinent negatives include no palpable rectal lesions. Two sessile polyps were found in the rectum. The polyps were 3 to 4 mm in size. These polyps were removed with a cold biopsy forceps. Resection and retrieval were complete. The sigmoid colon, descending colon, transverse colon, ascending colon, cecum, appendiceal orifice and ileocecal valve appeared normal. _ Impression: - Two 3 to 4 mm polyps in the rectum, removed with a cold biopsy forceps. Resected and retrieved. - The sigmoid colon, descending colon, transverse colon, ascending colon, cecum, appendiceal orifice and ileocecal valve are normal. Recommendation: - Await pathology results. - Repeat colonoscopy in 5 years for surveillance if polyps are adenomas. - Return to primary care physician as previously scheduled. - Try Benefiber 1 tbsp in 8oz water daily for intermittent diarrhea. Likely secondary to medication side effects vs D-IBS vs diabetic colonopathy. - Resume previous diet. - Continue present medications. - Patient has a contact number available for emergencies. The signs and symptoms of potential delayed complications were discussed with the patient. Return to normal activities tomorrow. Written discharge instructions were provided to the patient. Procedure Code(s): --- Professional --- 13960, Colonoscopy, flexible; with biopsy, single or multiple --- Technical --- 48529, Colonoscopy, flexible; with biopsy, single or multiple Diagnosis Code(s): --- Professional --- Z12.11, Encounter for screening for malignant neoplasm of colon K62.1, Rectal polyp --- Technical --- Z12.11, Encounter for screening for malignant neoplasm of colon K62.1, Rectal polyp CPT copyright 2017 [employer]. All rights reserved. The codes documented in this report are preliminary and upon [email or web address] driver review may be revised to meet current compliance requirements. Dr. Damián Montemayor MD Damián Montemayor MD 09/08/2020 8:29:57 AM This report has been signed electronically. Number of Addenda: 0 Note Initiated On: 09/08/2020 7:05 AM [facility] 09/08/2020 7:05 AM FLANGING ROLL OPERATOR Damián Montemayor MD GI PROCEDURE ORDERA BLES [facility] [place] [place] [address] from Last 3 Months or Most Recently Relevant to Health Maintenance Additional Health Concerns Infection Onset Date Last Indicated C Diff Hx 01/22/2018 10/04/2022 Advance Directives * Full Code (Latest Code Status on File) Date Activated Date Inactivated Comments 08/19/2024 11:19 AM 08/22/2024 9:29 PM * Full Code Date Activated Date Inactivated Comments 10/04/2022 1:58 PM 10/07/2022 4:59 PM * Full Code Date Activated Date Inactivated Comments 06/02/2018 7:40 AM 06/05/2018 4:14 PM * Full Code Date Activated Date Inactivated Comments 01/21/2018 9:12 PM 01/24/2018 2:36 PM * Full Code Date Activated Date Inactivated Comments 01/14/2018 4:55 PM 01/16/2018 1:28 PM Care Teams Machine Maintenance Servicer Relationship Specialty [place] [address] [place] [address] PCP - General Internal Medicine 02/20/20 Destiny Manzanares, C[employer]S HOUSE BROKER-HEALTH ADVISOR [address] [place] [address] PCP - Attributed-MSSP 06/03/24 Damián Montemayor MD Gastroenterology 08/07/12 [place] [address] [place] [address] Endocrinology 03/23/15 [place] [address] [place] [address] Ophthalmology 11/27/16 [place] [address] [place] [address] Psychiatry 04/02/17 [place] [address] [place] [address] Nephrology 09/21/21
--- OUTSIDE RECORDS SUMMARY | 2024-12-04 22:45 | XMS_ITS ---
Author Organization [facility] Address [address] [address] Care Team Providers Care Special Education Assistant Name Role Phone Pedro Mclain Primary Care Provider UnavailFUNMI Becerra Unavailable [phone] CHICHI ROBERTO Unavailable [phone] Allergies Allergen (clinical drug ingredient) Drug/Non Drug Allergy documented on EMR Reaction Allergy Type Onset Date Status pioglitazone Actos Unknown Drug Allergy Acti ve metoclopramide Reglan Unknown Drug Allergy Ac tive dulaglutide Trulicity Unknown Drug Allergy Activ e Penicillin Unknown Drug Allergy Active Medications Medication SIG (Take, Route, Frequency, Duration) Notes Start Date End Date Status Sodium Bicarbonate 650 MG as directed Or ally Twice a day 04/15/2024 Active Tresiba FlexTouch 200 UNIT/ML 54 Subcutaneous at bedtime A ctive Ondansetron HCl 4 MG 1 tablet as needed Orally Once a day Active Invega Sustenna 156 MG/ML 156 Intramuscular Active LORazepam 1 MG 1 Oral three times a day Active Lipitor 20 MG 1 tablet Orally Once a day Active NovoLOG FlexPen 100 UNIT/ML as directed Subcutaneous TID Active busPIRone HCl 7.5 MG 1 tablet Orally Twi ce a day Active Venlafaxine HCl ER 150 MG 1 capsule with food Orally Once a day Active Pantoprazole Sodium 40 MG 1 tablet Orally Once a day Active Vitamin D (Ergocalciferol) 1.25 MG (13404 UT) 1 capsule Orally ONCE A WEEK Active Zolpidem Tartrate 10 MG 1/2-1 tablet at bedtime as needed Orally Once a day Active Problems Problem Type SNOMED Code ICD Code Onset Dates Problem Status W/U Status Risk Notes Problem 47129705 Chronic metabolic acidosis (E87.22) Active confirmed Vital Signs Blood pressure systolic 110 mm Hg 04/15/20 24 Blood pressure diastolic 60 mm Hg 024 Heart Rate 80 /min 04/15/2024 Respiratory Rate 18 /min 04/15/2024 Height 68 in 04/15/2024 Weight 228 lbs 04/15/2024 BMI 34.66 kg/m2 04/15/2024 Weight-kg 103.42 kg 04/15/2024 Encounters Encounter Location Date Provider [facility] [address] [address] 04/15/2024 ROBERTO CADET Chronic kidney disea se, stage 3a N18.31 ; Proteinuria, unspecified R80.9 ; Hypertension with renal disease I12.9 ; Type 2 diabetes mellitus without complications E11.9 ; Atherosclerosis of aorta I70.0 ; Renal osteodystrophy N25.0 ; Nephrolithiasis N20.0 ; Dyslipidemia E78.5 and Chronic metabolic acidosis E87.22 Assessments Encounter Date Diagnosis (ICD Code) Assessment Notes Treatment Notes Treatment Clinical Notes Section Notes 04/15/2024 Chronic kidney disease, stage 3a (ICD-10 - N18.31) -secondary to long-standing hypertension and diabetes -Serum creatinine 1.2 -Discussed moderate protein restriction -completed dietitian visit.- 01/09/22- [facility]. -Continue PAIGE inhibitor -Continue Farxiga. Creatinine relatively stable. 04/15/2024 Proteinuria, unspecified (ICD-10 - R80.9) 24 hour urine revealed minimal proteinuria of 183 mg.Will check is periodically 04/15/2024 Hypertension with renal disease (ICD-10 - I12.9) -continue lisinopril Currently she is not requiring any antihypertensive meds 04/15/2024 Type 2 diabetes mellitus without complications (ICD-10 - E11.9) 04/15/2024 Atherosclerosis of aorta (ICD-10 - I70.0) 04/15/2024 Renal osteodystrophy (ICD-10 - N25.0) 04/15/2024 Nephrolithiasis (ICD-10 - N20.0) 04/15/2024 Dyslipidemia (ICD-10 - E78.5) Her ldl is good at 54.She is on lipitor 20 mg a day 04/15/2024 Chronic metabolic acidosis (ICD-10 - E87.22) Her bicarbonate has been persistently low.Will start her on sodium bicarbonate supplements.Correct ion of her acidemia will correct her high k as well.She has been advised on moderate protein restriction.She has been also told not to drink any dark jonelle Plan Of Treatment Medication Medication Name Sig Start Date Stop Date Notes Sodium Bicarbonate 650 MG as directed Orally Twice a day 0 04/15/2024 Treatment Notes Assessment Notes Chronic kidney disease, stage 3a Creatin ine relatively stable. Proteinuria, unspecified 24 hour urine r evealed minimal proteinuria of 183 mg.Will check is periodically Hypertension with renal disease Currentl y she is not requiring any antihypertensive meds Dyslipidemia Her ldl is good at 5 4.She is on lipitor 20 mg a day Chronic metabolic acidosis Her bicarbona te has been persistently low.Will start her on sodium bicarbonate supplements.Correction of her acidemia will correct her high k as well.She has been advised on moderate protein restriction.She has been also told not to drink any dark jonelle Next Appt Details Follow Up: 4 Months, Reason: Provider Name:FUNMI LEOE , 01/13/2025 11:15:00 AM, [address], [address], Progress Notes * TYLERJATIN RDOB:1965 (58 yo F)Acc No.[id number]:04/15/2024 Progress Notes Patient: JATIN KELLER Provider: Racheal CADET MD :1965 A ge:58 Y S ex:Female Date:04/15/2024 Address:[address] [place], [place] [id number] Pcp:Pedro Mclain Subjective: * Chief Complaints: * * HPI: H PI: 04/15/2024 [age] yof with ckd stage 3a,Htn,T2D,PVD here for followup.24 hour urine reealed 183 mg of proteinuria.Her creatinine has increased from 1.1 to 1.2.Her bicarbonate is around 19 with a k of 5.Her hbaic is 7.3 and her last ldl was 54.She is doing fine but does have a significant protein intake in her diet.She has gained two pounds since last visit. M ay 2023 [age]-year-old with medical history significant for CKD stage IIIa, hypertension, diabetes mellitus type 2, diabetic neuropathy neuropathy, retinopathy, peripheral vascular disease with history of right big toe amputation here for follow-up. . P atient serum creatinine usually runs 1.9 with GFR 71 but improvement of kidney function noted from 02/17. Was last seen here in July 2023 and again renal function has improved with creatinine now 1.3. She is still struggling with diabetic control with her last A1c being 8.5 . A ssessment notes . 07/10/2023-patient here for follow-up. Last [...] decrease that to once a day. * Medical History: * Surgical History: * Hospitalization/Major Diagno stic Procedure: * Medications: T akingZolpidem Tartrate 10 MG Tablet 1/2-1 tablet at bedtime as needed Orally Once a day Vitamin D (Ergocalciferol) 1.25 MG (99088 UT) Capsule 1 capsule Orally ONCE A WEEK Venlafaxine HCl ER 150 MG Capsule Extended Release 24 Hour 1 capsule with food Orally Once a day Pantoprazole Sodium 40 MG Tablet Delayed Release 1 tablet Orally Once a day NovoLOG FlexPen(Insulin Aspart) 100 UNIT/ML Solution Pen-injector as directed Subcutaneous TID busPIRone HCl 7.5 MG Tablet 1 tablet Orally Twice a day Lipitor(Atorvastatin Calcium) 20 MG Tablet 1 tablet Orally Once a day LORazepam 1 MG Tablet 1 Oral three times a day Ondansetron HCl 4 MG Tablet 1 tablet as needed Orally Once a day Invega Sustenna(Paliperidone Palmitate ER) 156 MG/ML Suspension Prefilled Syringe 156 Intramuscular Tresiba FlexTouch 200 UNIT/ML Solution Pen-injector 54 Subcutaneous at bedtime Medication List reviewed and reconciled with the patientTaking Zolpidem Tartrate 10 MG Tablet 1/2-1 tablet at bedtime as needed Orally Once a day Taking Vitamin D (Ergocalciferol) 1.25 MG (21658 UT) Capsule 1 capsule Orally ONCE A WEEK Taking Venlafaxine HCl ER 150 MG Capsule Extended Release 24 Hour 1 capsule with food Orally Once a day Taking Pantoprazole Sodium 40 MG Tablet Delayed Release 1 tablet Orally Once a day Taking NovoLOG FlexPen(Insulin Aspart) 100 UNIT/ML Solution Pen-injector as directed Subcutaneous TID Taking busPIRone HCl 7.5 MG Tablet 1 tablet Orally Twice a day Taking Lipitor(Atorvastatin Calcium) 20 MG Tablet 1 tablet Orally Once a day Taking LORazepam 1 MG Tablet 1 Oral three times a day Taking Ondansetron HCl 4 MG Tablet 1 tablet as needed Orally Once a day Taking Invega Sustenna(Paliperidone Palmitate ER) 156 MG/ML Suspension Prefilled Syringe 156 Intramuscular Taking Tresiba FlexTouch 200 UNIT/ML Solution Pen-injector 54 Subcutaneous at bedtime Medication List reviewed and reconciled with the patient * Allergies: A ctos: Unknown - AllergyReglan: Unknown - AllergyTrulicity: Unknown - AllergyPenicillin: Unknown - Allergyno[Allergies Verified] Objective: * Vitals: H t (ft'in): 5'8, Ht: 68 in, Wt:228lbs, BMI:34.66Index, BP:110/60mm Hg, HR:80/min, RR:18/min, Wt-k.42 kg, Body Surface Area: 2.23. * Examination: G eneral Examination: General appearance: a lert, pleasant, well-nourished and in no acute distress. Heart: r egular rate and rhythm without murmurs, gallops, clicks or rubs. Lungs: c lear to auscultation bilaterally, with good air movement and no rales, rhonchi or wheezes. Extremities: n ormal extremity with no clubbing, cyanosis or edema. Assessment: * Assessment: 1. C hronic kidney disease, stage 3a - N18.31 (Primary), -secondary to long-standing hypertension and diabetes-Serum creatinine 1.2-Discussed moderate protein restriction-completed dietitian visit.- 01/09/22- [facility].-Continue PAIGE inhibitor-Continue Farxiga. 2 . P roteinuria, unspecified - R80.9 3 . H ypertension with renal disease - I12.9, -continue lisinopril 4 . T ype 2 diabetes mellitus without complications - E11.9 5 . A therosclerosis of aorta - I70.0 6 . R enal osteodystrophy - N25.0 7 . N ephrolithiasis - N20.0 8 . D yslipidemia - E78.5 9 . C hronic metabolic acidosis - E87.22 Plan: * Treatment: 2. P roteinuria, unspecified Notes: 24 hour urine revealed minimal proteinuria of 183 mg.Will check is periodically 3. H ypertension with renal disease Notes: Currently she is not requiring any antihypertensive meds 4. D yslipidemia Notes: Her ldl is good at 54.She is on lipitor 20 mg a day 5. C hronic metabolic acidosis Notes: Her bicarbonate has been persistently low.Will start her on sodium bicarbonate supplements.Correction of her acidemia will correct her high k as well.She has been advised on moderate protein restriction.She has been also told not to drink any dark jonelle * Procedure Codes: * Follow Up: 4 Months * * Sign off status: Completed true * Provider: Racheal CADET MD Date: 0 04/15/2024 Generated for Harriet lira/Shannon/Evelineitting on: 0 12/04/2024 10:45 PM CDT History and Physical Notes * HPI (History of Present Illness) Category Sub-Category Detail Notes Category Not es HPI 04/15/2024 58 yof with ckd stage 3a,Htn,T2D,PVD [...] leasant, well-nourished and in no acute distress Heart: regular rate and rhy thm without murmurs, gallops, clicks or rubs Lungs: clear to auscultatio n bilaterally, with good air movement and no rales, rhonchi or wheezes Extremities: normal extremity wit h no clubbing, cyanosis or edema
--- OUTSIDE RECORDS SUMMARY | 2024-12-04 22:45 | XMS_ITS | Patient Health Record ---
Author Organization [facility] Address [address] [place] [address] Care Team Providers Care Attendant Self Service Store Name Role Phone Pedro Mclain Primary Care Provider UnavailFUNMI Becerra Unavailable [phone] CHICHIROBERTO CERNA Unavailable [phone] Allergies Allergen (clinical drug ingredient) Drug/Non Drug Allergy documented on EMR Reaction Allergy Type Onset Date Status pioglitazone Actos Unknown Drug Allergy Acti ve metoclopramide Reglan Unknown Drug Allergy Ac tive dulaglutide Trulicity Unknown Drug Allergy Activ e Penicillin Unknown Drug Allergy Active Results Component Value Reference Range Notes Renal Panel [id number] Reviewed date:04/16/2024 12:26:59 PM Interpretation: Performing Lab:[facility], [address] [facility], Phone - [phone], Director - Bala Notes/Report: A courtesy copy of this report has been sent to [phone] Glucose 242 70-99 mg/dL BUN 11 6-24 mg/dL Creatinine 1.21 0.57-1.00 mg/dL eGFR 52 >59 mL/min/1.73 BUN/Creatinine Ratio 9 9-23 Sodium 139 134-144 mmol/L Potassium 5.0 3.5-5.2 mmol/L Chloride 105 96-106 mmol/L Carbon Dioxide, Total 19 20-29 mmol/L Calcium 9.5 8.7-10.2 mg/dL Phosphorus 3.1 3.0-4.3 mg/dL Albumin 3.9 3.8-4.9 g/dL Protein Total, Qn, 24-Hr Uri [id number] Reviewed date:04/16/2024 12:26:59 PM Interpretation: Performing Lab:[facility], [address] [facility], Phone - [phone], Director - Bala Notes/Report: A courtesy copy of this report has been sent to [phone] Protein,Total,Urine 12.2 Not Estab. mg/dL Prot,24hr calculated 183 30-150 mg/24 hr Lipid Panel-[id number] Reviewed date:04/16/2024 12:26:59 PM Interpretation: Performing Lab:[facility] [place], [address] [facility], Phone - [phone], Director - Bala Notes/Report: A courtesy copy of this report has been sent to [phone] Cholesterol, Total 134 100-199 mg/dL Triglycerides 75 0-149 mg/dL HDL Cholesterol 65 >39 mg/dL VLDL Cholesterol Graeme 15 5-40 mg/dL LDL Chol Calc ([facility]) 54 0-99 mg/dL Reason For Referral No Information Medications Medication SIG (Take, Route, Frequency, Duration) Notes Start Date End Date Status Invega Sustenna 234 MG/1.5ML 1.5 mL Intramuscular Active Tresiba FlexTouch 200 UNIT/ML 54 Subcutaneous at bedtime A ctive Zolpidem Tartrate 10 MG 1/2-1 tablet at bedtime as needed Orally Once a day Active Vitamin D (Ergocalciferol) 1.25 MG (47533 UT) 1 capsule Orally ONCE A WEEK Active Venlafaxine HCl ER 150 MG 1 capsule with food Orally Once a day Active Pantoprazole Sodium 40 MG 1 tablet Orally Once a day Active NovoLOG FlexPen 100 UNIT/ML as directed Subcutaneous TID Active busPIRone HCl 7.5 MG 1 tablet Orally Twi ce a day Active Lipitor 20 MG 1 tablet Orally Once a day Active LORazepam 1 MG 1 Oral three times a day Active Ondansetron HCl 4 MG 1 tablet as needed Orally Once a day Active Immunizations Vaccine Route Administration Date Status Comme nts Influenza, high dose seasonal Unknown 12/21/2020 Refuse d Problems Problem Type SNOMED Code ICD Code Onset Dates Problem Status W/U Status Risk Notes Problem Renal osteodystrophy (08931392) Renal osteodystrophy (N25.0) Active confirmed Problem 529681000 Chronic kidney disease, stage 3a (N18.31) Active confirmed -secondary to long-standing hypertension and diabetes -Serum creatinine 1.2 -Discussed moderate protein restriction -completed dietitian visit.- 01/09/22- [facility]. -Continue PAIGE inhibitor -Continue Farxiga. Problem Dyslipidemia (518549617) Dyslipidemia (E78.5) Active confirmed Problem Nephrolithiasis (41670150) Nephrolithiasis (N20.0) Active confirmed Problem Chronic kidney disease due to hypertension (947341886481474) Hypertension with renal disease (I12.9) Active confirmed -continue lisinopril Problem 02757433 Chronic metaboli c acidosis (E87.22) Active confirmed Problem Type II diabetes mellitus without complication (307569888) Type 2 diabetes mellitus without complications (E11.9) 2020 Active confirmed Problem Atherosclerosis of aorta (23269040) Atherosclerosis of aorta (I70.0) 2020 Active confirmed Problem Proteinuria (56483017) Proteinuria, unspecified (R80.9) 2020 Active confirmed Vital Signs Heart Rate 82 /min 09/16/2024 Respiratory Rate 18 /min 09/16/2024 Blood pressure diastolic 60 mm Hg 09/16/2024 Weight-kg 101.42 kg 09/16/2024 Height 68 in 09/16/2024 Blood pressure systolic 110 mm Hg 09/16/2024 Weight 223.6 lbs 09/16/2024 BMI 33.99 kg/m2 09/16/2024 Encounters Encounter Location Date Provider Diagnosis [address] [address] 09/16/2024 FUNMIZULEYMA DAWKINS Chronic kidney disea se, stage 3a N18.31 ; Proteinuria, unspecified R80.9 ; Hypertension with renal disease I12.9 ; Type 2 diabetes mellitus without complications E11.9 ; Atherosclerosis of aorta I70.0 ; Renal osteodystrophy N25.0 ; Nephrolithiasis N20.0 ; Dyslipidemia E78.5 and Chronic metabolic acidosis E87.[address] [address] 01/15/2024 FUNMIZULEYMA DAWKINS Chronic kidney disea se, stage 3a N18.31 ; Proteinuria, unspecified R80.9 ; Hypertension with renal disease I12.9 ; Type 2 diabetes mellitus without complications E11.9 ; Atherosclerosis of aorta I70.0 ; Renal osteodystrophy N25.0 ; Nephrolithiasis N20.0 and Dyslipidemia E78.5 [facility] [address] [address] 04/15/2024 ROBERTO CADET Chronic kidney disea se, stage 3a N18.31 ; Proteinuria, unspecified R80.9 ; Hypertension with renal disease I12.9 ; Type 2 diabetes mellitus without complications E11.9 ; Atherosclerosis of aorta I70.0 ; Renal osteodystrophy N25.0 ; Nephrolithiasis N20.0 ; Dyslipidemia E78.5 and Chronic metabolic acidosis E87.22 Assessments Encounter Date Diagnosis (ICD Code) Assessment Notes Treatment Notes Treatment Clinical Notes Section Notes 01/15/2024 Proteinuria, unspecified (ICD-10 - R80.9) . #Chronic kidney disease with improved renal function with GFR improving from 47% in November 2021 and now 71. Etiology renal renal disease longstanding hypertension and diabetes. Better diabetic control over the past 1 to 2 years. Serum creatinine has also improved from 1.3 in 2021 and is now 0.93. #Dyslipidemia #Type 2 diabetes mellitus #Anxiety #Proteinuria screening . Recommendation Continue current medications We will check 24-hour urine for protein on next visit Diabetic control stressed Continue current plan 01/15/2024 Chronic kidney disease, stage 3a (ICD-10 - N18.31) -secondary to long-standing hypertension and diabetes -Serum creatinine 1.2 -Discussed moderate protein restriction -completed dietitian visit.- 01/09/22- [facility]. -Continue PAIGE inhibitor -Continue [facility]. . #Chronic kidney disease with improved renal function with GFR improving from 47% in November 2021 and now 71. Etiology renal renal disease longstanding hypertension and diabetes. Better diabetic control over the past 1 to 2 years. Serum creatinine has also improved from 1.3 in 2021 and is now 0.93. #Dyslipidemia #Type 2 diabetes mellitus #Anxiety #Proteinuria screening . Recommendation Continue current medications We will check 24-hour urine for protein on next visit Diabetic control stressed Continue current plan 04/15/2024 Proteinuria, unspecified (ICD-10 - R80.9) 24 hour urine revealed minimal proteinuria of 183 mg.Will check is periodically 04/15/2024 Chronic kidney disease, stage 3a (ICD-10 - N18.31) -secondary to long-standing hypertension and diabetes -Serum creatinine 1.2 -Discussed moderate protein restriction -completed dietitian visit.- 01/09/22- [facility]. -Continue PAIGE inhibitor -Continue Farxiga. Creatinine relatively stable. 09/16/2024 Chronic kidney disease, stage 3a (ICD-10 - N18.31) -secondary to long-standing hypertension and diabetes -Serum creatinine 1.2 -Discussed moderate protein restriction -completed dietitian visit.- 01/09/22- [facility]. -Continue PAIGE inhibitor -Continue Farxiga. 09/16/2024 Proteinuria, unspecified (ICD-10 - R80.9) 04/15/2024 Hypertension with renal disease (ICD-10 - I12.9) -continue lisinopril Currently she is not requiring any antihypertensive meds 01/15/2024 Hypertension with renal disease (ICD-10 - I12.9) -continue lisinopril . #Chronic kidney disease with improved renal function with GFR improving from 47% in November 2021 and now 71. Etiology renal renal disease longstanding hypertension and diabetes. Better diabetic control over the past 1 to 2 years. Serum creatinine has also improved from 1.3 in 2021 and is now 0.93. #Dyslipidemia #Type 2 diabetes mellitus #Anxiety #Proteinuria screening . Recommendation Continue current medications We will check 24-hour urine for protein on next visit Diabetic control stressed Continue current plan 01/15/2024 Type 2 diabetes mellitus without complications (ICD-10 - E11.9) . #Chronic kidney disease with improved renal function with GFR improving from 47% in November 2021 and now 71. Etiology renal renal disease longstanding hypertension and diabetes. Better diabetic control over the past 1 to 2 years. Serum creatinine has also improved from 1.3 in 2021 and is now 0.93. #Dyslipidemia #Type 2 diabetes mellitus #Anxiety #Proteinuria screening . Recommendation Continue current medications We will check 24-hour urine for protein on next visit Diabetic control stressed Continue current plan 04/15/2024 Type 2 diabetes mellitus without complications (ICD-10 - E11.9) 09/16/2024 Hypertension with renal disease (ICD-10 - I12.9) -continue lisinopril 04/15/2024 Atherosclerosis of aorta (ICD-10 - I70.0) 09/16/2024 Type 2 diabetes mellitus without complications (ICD-10 - E11.9) 01/15/2024 Atherosclerosis of aorta (ICD-10 - I70.0) . #Chronic kidney disease with improved renal function with GFR improving from 47% in November 2021 and now 71. Etiology renal renal disease longstanding hypertension and diabetes. Better diabetic control over the past 1 to 2 years. Serum creatinine has also improved from 1.3 in 2021 and is now 0.93. #Dyslipidemia #Type 2 diabetes mellitus #Anxiety #Proteinuria screening . Recommendation Continue current medications We will check 24-hour urine for protein on next visit Diabetic control stressed Continue current plan 01/15/2024 Renal osteodystrophy (ICD-10 - N25.0) . #Chronic kidney disease with improved renal function with GFR improving from 47% in November 2021 and now 71. Etiology renal renal disease longstanding hypertension and diabetes. Better diabetic control over the past 1 to 2 years. Serum creatinine has also improved from 1.3 in 2021 and is now 0.93. #Dyslipidemia #Type 2 diabetes mellitus #Anxiety #Proteinuria screening . Recommendation Continue current medications We will check 24-hour urine for protein on next visit Diabetic control stressed Continue current plan 09/16/2024 Atherosclerosis of aorta (ICD-10 - I70.0) 04/15/2024 Renal osteodystrophy (ICD-10 - N25.0) 09/16/2024 Renal osteodystrophy (ICD-10 - N25.0) 01/15/2024 Nephrolithiasis (ICD-10 - N20.0) . #Chronic kidney disease with improved renal function with GFR improving from 47% in November 2021 and now 71. Etiology renal renal disease longstanding hypertension and diabetes. Better diabetic control over the past 1 to 2 years. Serum creatinine has also improved from 1.3 in 2021 and is now 0.93. #Dyslipidemia #Type 2 diabetes mellitus #Anxiety #Proteinuria screening . Recommendation Continue current medications We will check 24-hour urine for protein on next visit Diabetic control stressed Continue current plan 04/15/2024 Nephrolithiasis (ICD-10 - N20.0) 09/16/2024 Nephrolithiasis (ICD-10 - N20.0) 04/15/2024 Dyslipidemia (ICD-10 - E78.5) Her ldl is good at 54.She is on lipitor 20 mg a day 01/15/2024 Dyslipidemia (ICD-10 - E78.5) . #Chronic kidney disease with improved renal function with GFR improving from 47% in November 2021 and now 71. Etiology renal renal disease longstanding hypertension and diabetes. Better diabetic control over the past 1 to 2 years. Serum creatinine has also improved from 1.3 in 2021 and is now 0.93. #Dyslipidemia #Type 2 diabetes mellitus #Anxiety #Proteinuria screening . Recommendation Continue current medications We will check 24-hour urine for protein on next visit Diabetic control stressed Continue current plan 04/15/2024 Chronic metabolic acidosis (ICD-10 - E87.22) Her bicarbonate has been persistently low.Will start her on sodium bicarbonate supplements.Correc tion of her acidemia will correct her high k as well.She has been advised on moderate protein restriction.She has been also told not to drink any dark jonelle 09/16/2024 Dyslipidemia (ICD-10 - E78.5) 09/16/2024 Chronic metabolic acidosis (ICD-10 - E87.22) Plan Of Treatment Next Appt Details Provider Name:FUNMI DAWKINS , 01/13/2025 11:15:00 AM, [address], [address], Insurance Providers Payer Name Payer Address Payer Phone Subscriber Number Group Number Insured Name Patient Relationship to Insured Coverage Start Date Coverage End Date MEDICARE PART A AND B [id number] JATIN SCOTT Self - patient is the insured [facility] [id number] JATIN SCOTT Self - patient is the insured Medical (General) History Medical History History ICD Code hypertension Type 2 diabetes mellitus with neuropathy and nephropathy and retinopathy Retinopathy with left eye laser Photocoa gulation peripheral vascular disease with left bi g toe and right big toe amputation dyslipidemia
--- OUTSIDE RECORDS SUMMARY | 2024-12-04 22:45 | XMS_ITS | Encounter Summary ---
Author Organization [facility] Address [address] [facility] [place] [address] Care Team Providers Care Telephone Station Repairer Name Role Phone Damián Montemayor MD Unavailable [phone] Teetee Khoury MD Unavailable Starla Garcia MD Unavailable [phone] Sadie Ryan MD Unavailable [phone] Pedro Mclain MD Primary Care Provider [phone] Antoinette Chan MD Unavailable Destiny Manzanares TAKER OUT-OIL LEASE BROKER Unavailable [phone] Encounter Details Date Type Department Care Team (Late st Contact Info) Description 11/25/2024 Orders Only [facility] - Endocrinology [address] [place] [address], [address] [place] [address] Anabel Gay, TAKER OUT-OIL LEASE BROKER [address] [facility] [address] [place] [address] Type 2 diabetes mellitus with stage 3a chronic kidney disease, with long-term current use of insulin Social History Tobacco Use Types Packs/Day Years Used Date Smoking Tobacco: Former Cigarettes Q uit: 09/27/1994 Passive Smoke Exposure: Never Smokeless Tobacco: Never Alcohol Use Standard Drinks/Week Comments No 0 [...] Recorded Patient Health Questionnaire-2 Score 3 09/19/2024 [facility] - Occupational Stress [...] place to sleep or slept in a intermediate (including now)? No 03/13/2023 Housing Stability Vital Sign Answer Chaparro e Recorded In the last 12 months, was t here a time when you were not able to pay the mortgage or rent on time? No 08/20/2024 In the past 12 months, how m any times have you moved where you were living? 0 08/20/2024 At any time in the past 12 m [facility], were you homeless or living in a intermediate (including now)? No 08/20/2024 Sex and Gender Information Value Date Recorded Sex Assigned at Not on file Gender Identity Not on file Sexual Orientation Not on file documented as of this encounter Functional Status Functional Status Response Date of Assess ment Is person deaf or have serious hearing difficult y? No 08/20/2024 Is person blind or have serious difficulty seein g? No 08/20/2024 Does person have serious dif ficulty walking/climbing stairs? No 08/20/2024 Does person have difficulty dressing/bathing? No 08/20/2024 Does person have difficulty doing errands alone? No 08/20/2024 Cognitive Status Response Date of Assessm ent Does person have difficulty concentrating/remembering/making decisions? No 08/20/2024 documented as of this encounter Plan of Treatment Upcoming Encounters Date Type Department Care Team (Late st Contact Info) Description 12/11/2024 10:30 AM CDT Appointment [facility] . Wound Care [address] [address], [facility] [address] [place] [address] 01/27/2025 1:00 PM CDT Office Visit [facility] - Endocrinology [address] [place] [address], [address] [place] [address] [place]ee [place]houry [place] [address] [place] [address] [address] [place], [place] [id number] 02/26/2025 11:00 AM CDT Office [place] [facility] [place] [address] Sirisha Finch, [facility] [address] [place] [phone] Kerri Sotelo, TAKER OUT-OIL LEASE BROKER [address] [facility] [address] [place] [address] 03/19/2025 10:45 AM CDT Office Visit [facility] - Family Medicine [address] [facility] [address] [place], [place] [phone] Pedro Mclain MD [facility] SIRISHA FINCH [facility] [address] [place] [address] documented as of this encounter Goals Goal Patient Goal Type Associated Problems Recent Progress Patient-Stated? Author Blood Pressure < 140/90 Blood Pressure 153/95(2024 10:36 AM CDT) No Tammy Gurrola HEMOGLOBIN A1C < 7.0 Result Component 8.5( 2:45 PM CDT) No Kerri Shay documented as of this encounter Visit Diagnoses Diagnosis Type 2 diabetes mellitus with stage 3a chronic kidney disease, with long-term current use of insulin (HCC)- Primary documented in this encounter Additional Health Concerns Infection Onset Date Last Indicated Resolved Time C Diff Hx 01/22/2018 10/04/2022 documented as of this encounter Care Teams Telephone Station Repairer Relationship Specialty Start [place] [address] [place] [address] PCP - General Internal Medicine 02/20/20 Destiny Manzanares, TAKER OUT-OIL LEASE BROKER [address] [place] [address] PCP - Attributed-MSSP 06/03/24 Damián Montemayor MD Gastroenterology 08/07/12 [place] [address] [place] [address] Endocrinology 03/23/15 [place] [address] [facility] [address] [place] [address] Ophthalmology 11/27/16 [place] [address] [facility] [address] [place] [address] Psychiatry 04/02/17 [place] [address] [address] Nephrology 09/21/21 documented as of this encounter
--- OUTSIDE RECORDS SUMMARY | 2024-12-04 22:45 | XMS_ITS ---
Author Organization [facility] Address [address] [place] [address] Care Team Providers Care Wind Turbine Erector Name Role Phone Pedro Mclain Primary Care Provider FUNMI Griffin [phone] Encounters Encounter Location Date Provider Diagnosis [facility] [id number] [place] [address] 07/15/2024 FUNMI CHAN Plan Of Treatment Next Appt Details Provider Name:FUNMI CHAN , 01/13/2025 11:15:00 AM, [address] [facility], [place], [address], Progress Notes * JATIN SCOTT RDOB:1965 (59 yo F)Acc No.[id number]:07/15/2024 Progress Notes Patient: Diane VAISHALIJATIN Provider: Rah Chan MD :1965 A ge:59 Y S ex:Female Date:07/15/2024 [facility] [facility] [facility] Pcp:Pedro Mclain Subjective: * Chief Complaints: * * Active Problem List N18.31 Chronic kidney disea se, stage 3a Modified On:12/01/2022W/U Status:confirmed R80.9 Proteinuria, unspeci fied Onset Date:12/17/2020Modified On:12/01/2022/U Status:confirmedClinical Status:active I12.9 Hypertension with re nal disease Modified On:12/01/2022U Status:confirmed E11.9 Type 2 diabetes malik itus without complications Onset Date:12/17/2020Modified On:12/01/2022 Status:confirmedClinical Status:active I70.0 Atherosclerosis of a justin Onset Date:12/17/2020Modified On:12/01/2022 Status:confirmedClinical Status:active N25.0 Renal osteodystrophy Modified On:12/01/2022 Status:confirmed N20.0 Nephrolithiasis Modified On:12/01/2022 Status:confirmed E78.5 Dyslipidemia Modified On:12/01/2022 Status:confirmed E87.22 Chronic metabolic ac idosis Modified On:04/16/2024U Status:confirmed * Medical History: Objective: * Vitals: Assessment: Plan: * Treatment: * * Electronic signature of JONH CHAN MD on 12/04/2024 at 10:45 PM CDT Sign off status: Pending * Provider: Rah Chan MD Date: 1 09/14/2023 Generated for Harriet lira/Shannon/Evelineitting on: 0 12/04/2024 10:45 PM CDT
--- OUTSIDE RECORDS SUMMARY | 2024-12-04 22:45 | XMS_ITS | Encounter Summary ---
Author Organization [facility] Address [address] [facility] [place] [address] Care Team Providers Care Shear Scrapman Name Role Phone Damián Montemayor MD Unavailable [phone] Primo Jamil MD Primary Care Provider [phone] Teetee Khoury MD Unavailable [phone] Primo Jamil MD Primary Care Provider [phone] Brandy Alvarado RN Unavailable [phone] Kerri Hampton RN Unavailable Starla Garcia MD Unavailable [phone] Sadie Ryan MD Unavailable [phone] Shahriar Naranjo MD Primary Care Provider [phone] Shahriar Naranjo MD Unavailable [phone] Pedro Mclain MD Primary Care Provider [phone] Antoinette Chan MD Unavailable [phone] Pedro Mclain MD Unavailable Shannan Walker MATERIALS MANAGEMENT SUPERVISOR-STRIKER OFF Unavailable Un available Pedro Mclain MD Unavailable Shannan Walker MATERIALS MANAGEMENT SUPERVISOR-STRIKER OFF Unavailable Un available Pedro Mclain MD Unavailable Ciera Nava RN Unavailable [phone] Brandy, Ciera L RN Unavailable [phone] Ciera Nava RN Unavailable [phone] Kerri Sotelo MATERIALS MANAGEMENT SUPERVISOR-STRIKER OFF Unavailable Pedro Mclain MD Unavailable Noah Juliana Sadie RN Unavailable [phone] Destiny Manzanares MATERIALS MANAGEMENT SUPERVISOR-STRIKER OFF Unavailable Bibi Ojeda MATERIALS MANAGEMENT SUPERVISOR-STRIKER OFF Unavailable Shahriar Naranjo MD Unavailable Primo Jamil MD Unavailable Encounter Details Date Type Department Care Team (Late Contact Info) Description 08/25/2013 [facility] Outpatient Visit [facility] Endocrinology [address] [address] Teetee Khoury MD [address] [place] [address] Social History Tobacco Use Types Packs/Day Years Used Date Smoking Tobacco: Former Cigarettes Q uit: 09/27/1994 Smokeless Tobacco: Never Alcohol Use Standard Drinks/Week Comments No 0 (1 standard drink = 0.6 oz pur e alcohol) Sex and Gender Information Value Date Recorded Sex Assigned at Not on file Gender Identity Not on file Sexual Orientation Not on file documented as of this encounter Plan of Treatment Upcoming Encounters Date Type Department Care Team (Late Contact Info) Description 12/11/2024 10:30 AM CDT Appointment [facility] . Wound Care [address] [address] , [address] [phone] 01/27/2025 1:00 PM CDT Office Visit [facility] Endocrinology [address] [place] [address], [address] [address] [place] [address] [place] [address] 02/26/2025 11:00 AM CDT Office [place] [facility] [place] [address] [address] [place] [address] Kerri Sotelo, MATERIALS MANAGEMENT SUPERVISOR-STRIKER OFF [address] [facility] [address] [place] [address] 03/19/2025 10:45 AM CDT Office Visit [facility] - Family Medicine [address] [facility] [address] [place] [address] [place] [address] [facility] [address] [place] [address] documented as of this encounter Visit Diagnoses Not on filedocumented in this encounter Additional Health Concerns Infection Onset Date Last Indicated Resolved Time C DIFF 01/22/2018 06/02/2018 10/04/2022 8:52 AM BLACK PULLER C Diff Hx 01/22/2018 10/04/2022 CDIFF Under Investigation 07/02/2023 07/05/2023 12:09 PM CDT documented as of this encounter Care Teams Shear Scrapman Relationship Specialty Start Date End Date Primo Jamli MD PCP - General Internal Medicine 03/02/15 05/20/15 Primo Jamil MD PCP - General Internal Medicine 07/26/15 07/02/18 [place]riar Naranjo [place] [id number] [place] [address] [address] [place] [address] PCP - General Family Medicine 07/03/18 02/09/20 Shahriar Naranjo MD [facility] [place] [address] PCP - Attributed-MSSP 06/03/19 12/07/19 [place] [address] [place] [address] PCP - General Internal Medicine 02/20/20 [place] [address] [place] [address] PCP - Attributed-MSSP 09/03/21 10/03/21 Shannan Walker, MATERIALS MANAGEMENT SUPERVISOR-STRIKER OFF Retired per [id number] PCP - Attributed-MSSP 10/04/2111/03 [place] [address] [place] [address] PCP - Attributed-MSSP 12/02/21 12/31/21 Shannan Walker, MATERIALS MANAGEMENT SUPERVISOR-STRIKER OFF Retired per [id number] PCP - Attributed-MSSP 01/01/2202/03 [place] [address] [place] [address] PCP - Attributed-MSSP 03/03/22 12/02/23 Kerri Sotelo, MATERIALS MANAGEMENT SUPERVISOR-STRIKER OFF [address] [place] [address] PCP - Attributed-MSSP 12/03/23 05/03/24 [place] [address] [place] [address] PCP - Attributed-MSSP 05/04/24 06/02/24 Destiny Manzanares, MATERIALS MANAGEMENT SUPERVISOR-STRIKER OFF [address] [facility] [address] [place] [address] PCP - Attributed-MSSP 06/03/24 Bibi Ojeda MATERIALS MANAGEMENT SUPERVISOR-STRIKER OFF [address] [facility] [address] [place] [address] PCP - Attributed-MSSP 04/03/19 06/02/19 Shahriar Naranjo MD [address] [place] [address] PCP - Attributed-MSSP 02/01/19 04/02/19 Primo Jamil MD [address] [facility] [address] [place] [address] PCP - Attributed-[employer] [place] [employer] 10/26/17 02/04/19 Damián Montemayor MD Gastroenterology 08/07/12 [place] [address] [place] [address] Endocrinology 03/23/15 [place] [address] [facility] [address] [place], [place] [phone] Tractor DriverBrush Clearer Surveying 08/03/15 06/02/18 [place] [address] [facility] [address] [place] [address] Marina PorterCustomer Relationship Specialist 10/12/15 03/02/16 [place] [address] [facility] [address] [place] [address] Ophthalmology 11/27/16 [place] [address] [phone] Psychiatry 04/02/17 [place] [address] [place] [address] Nephrology 09/21/21 Ciera Nava RN Marina PorterCustomer Relationship Specialist 10/09/22 11/01/22 Ciera Nava RN Marina PorterCustomer Relationship Specialist 12/15/22 01/11/23 Ciera Nava RN Marina PorterCustomer Relationship Specialist 01/12/23 12/05/23 Juliana Zamora RN Marina PorterCustomer Relationship Specialist 08/25/24 08/26/24 documented as of this encounter
--- OUTSIDE RECORDS SUMMARY | 2024-12-04 22:45 | XMS_ITS ---
Author Organization [facility] Address [address] [address] Care Team Providers Care 911 Emergency Dispatcher Name Role Phone Pedro Mclain Primary Care Provider FUNMI Griffin Unavailable [phone] Allergies Allergen (clinical drug ingredient) Drug/Non Drug [...] day Active Vitamin D (Ergocalciferol) 1.25 MG (18945 UT) 1 capsule Orally ONCE A WEEK [...] 09/16/2024 Encounters Encounter Location Date Provider Diagnosis [facility] [place] [address] 09/16/2024 FUNMI CHAN Chronic kidney disea se, [...] Treatment Future Test Test Name Order Date [id number] 12/28/2024 Next Appt Details Follow Up: 4 Months, Reason: Provider Name:FUNMI CHAN , 01/13/2025 11:15:00 AM, [address] [facility] [address], [place], [address], Progress Notes * JATIN SCOTT RDOB:1965 (59 yo F)Acc No.[id number]:09/16/2024 Progress Notes Patient: JATIN KELLER Provider: Rah Chan MD :1965 A ge:59 Y S ex:Female Date:09/16/2024 Address:[address] [place], [place] [address] Pcp:Pedro Mclain Subjective: * Chief Complaints: * [...] I12.9 Hypertension with re nal disease Modified On:12/01/2022/U Status:confirmed E11.9 Type 2 diabetes malik itus without complications Onset Date:12/17/2020Modified On:12/01/2022/U Status:confirmedClinical Status:active I70.0 Atherosclerosis of a justin Onset Date:12/17/2020Modified On:12/01/2022U Status:confirmedClinical Status:active N25.0 Renal osteodystrophy Modified On:12/01/2022U Status:confirmed N20.0 Nephrolithiasis Modified On:12/01/2022/U Status:confirmed E78.5 Dyslipidemia Modified On:12/01/2022U Status:confirmed E87.22 [...] , Taking Vitamin D (Ergocalciferol) 1.25 MG (90677 UT) Capsule 1 capsule Orally ONCE A [...] tablet Orally Twice a day , Taking Lipitor(Atorvastatin Calcium) 20 MG Tablet 1 [...] MD Date: 0 09/16/2024 Generated for Harriet lira/Shannon/Dean on: 0 12/04/2024 10:45 PM CDT History [...]
--- OUTSIDE RECORDS SUMMARY | 2024-12-04 22:45 | XMS_ITS | Clinical Summary ---
Author Organization [facility] Address [address] [place] [address] Phone Care Team Providers Care Manager Motor Name Role Phone Balbir Jaimes DO, Reynal Leon Primary Care Provi karen Allergies Active Allergy Reactions Criticality Noted Date Comments Metoclopramide Nausea and Vomiting Low 12/22/2010 Morphine Confusion Low 07/14/2009 Penicillins Unknown 05/28/2009 Medications metformin (GLUCOPHAGE) 500 mg Oral Tab Take 500 mg by mouth 2 times daily with meals. Active lisinopril (PRINIVIL) 10 mg Oral Tab Take 1 Tab by mouth daily. 30 Tab 0 9 Active pantoprazole (PROTONIX) 40 mg Oral TbEC Take 1 Tab by mouth 2 times daily. 60 Tab 2 0 Active busPIRone (BUSPAR) 5 mg Oral tablet Take 5 mg by mouth 4 times daily. 1 Active insulin glargine (LANTUS) 100 unit/mL Inject 18 Units by subcutaneous injection daily at bedtime. 10 mL 2 1 Active ondansetron (ZOFRAN ODT) [address] 1 Tab inside cheek every 8 hours as needed. 45 Tab 0- 1 Active amLODIPine (NORVASC) 10 mg Oral tablet Take 1 Tab by mouth daily. 30 Tab 1 1 Active rizatriptan (MAXALT) 10 mg Oral Tab Take 0.5 Tabs by mouth every 2 hours as needed (Maximum 30 mg in 24 hours.). 10 Tab 0 1 Active Active Problems Problem Noted Date Diagnosed Date Cyclic vomiting syndrome 01/20/2011 Anemia 12/20/2010 Metabolic acidosis, increased anion gap (IAG) Dehydration 08/26/2010 Constipation 08/26/2010 Nausea & vomiting 08/01/2010 HTN (hypertension) 07/16/2009 Diabetes type 2, uncontrolled 07/16/2009 Hypokalemia 07/16/2009 Leukocytosis 07/16/2009 Resolved Problems Problem Noted Date Diagnosed Date Resolved Date Vomiting 01/17/2011 01/26/2011 Hyponatremia 12/31/2010 01/26/2011 Nausea alone 12/22/2010 01/26/2011 Hyperglycemia 12/19/2010 01/26/2011 Nausea, vomiting and diarrhea 12/19/2010 01/26/2011 Nausea & vomiting 09/02/2010 01/26/2011 Hypokalemia 09/02/2010 01/26/2011 DM (diabetes mellitus) 09/02/201001/26 HTN (hypertension) 09/02/2010 1 Encounters Date Type Department Care Team Description 10/07/2024 External Device Data STL ABSTRACTION Provider, Abstract 09/25/2024 External Device Data STL ABSTRACTION Provider, Abstract 09/09/2024 External Device Data ST[facility] ABSTRACTION Provider, Abstract from Last 3 Months Family History Medical History Relation Name Comments Healthy Brother 1 Healthy Brother 2 Healthy Daughter 1 Healthy Daughter 2 Hypertension Father Unknown Maternal Grandfather Hypertension Maternal Grandmother Unknown Maternal Grandmother Hypertension Mother Healthy Paternal Grandfather Unknown Paternal Grandmother Healthy Sister 1 Diabetes Sister 2 Unknown Sister 2 Relation Name Status Comments Brother 1 Alive Brother 2 Alive Daughter 1 Alive Daughter 2 Alive Father Alive Maternal Grandfather Maternal Grandmother Mother Alive Paternal Grandfather Alive Paternal Grandmother Sister 1 Alive Sister 2 Social History Tobacco Use Types Packs/Day Years Used Date Smoking Tobacco: Former Cigarettes 0 05/29/1985 - 05/29/1995 Smokeless Tobacco: Never Alcohol Use Standard Drinks/Week Comments No 0 (1 standard drink = 0.6 oz pur e alcohol) Comments No Sex and Gender Information Value Date Recorded Sex Assigned at Not on file Legal Sex Female 5:47 AM AFTERNOON NANNY Gender Identity Not on file Sexual Orientation Not on file Last Filed Vital Signs Vital Sign Reading Time Taken Comments Blood Pressure 120/74 01/27/2011 9:00 AM CDT Pulse 77 01/27/2011 9:00 AM CDT Temperature 36.6 C (97.9 F) 01/27/2011 9:00 AM CDT Respiratory Rate 14 01/27/2011 9:00 AM CDT Oxygen Saturation 97% 01/27/2011 9:00 AM CDT Inhaled Oxygen Concentration - - Weight 90.7 kg (200 lb) 01/26/2011 2:15 AM CDT Height 177.8 cm (5' 10 ) 01/26/2011 10:21 AM CDT Body Mass Index 28.7 01/26/2011 2:15 AM CDT Plan of Treatment Health Maintenance Due Date Last Done Comments DIABETES MICROALBUMIN ANNUAL SCREEN 1983 LDL CHOLESTEROL ANNUAL 1983 DTAP/TDAP/TD VACCINES (1 - Tdap) 1984 HEPATITIS B VACCINES (1 of 3 - 19+ 3-dose series) 1984 HPV/Cotest (21-29) 1986 CERVICAL CANCER SCREENING 1995 HPV/Cotest (30-65) 1995 PAP SMEAR 1995 FIT-DNA Q 3 years 2010 FIT/FOBT Q 1 year 2010 Flex Sig/CT Colonography Q 5 years 2010 ZOSTER VACCINE (1 of 2) 2015 COVID-19 Vaccine (2023-2 5 season) 2024 08/03/2021, 12/19/2020, 11/28/2020 BREAST CANCER SCREENING 10/16/2024 10/16/19 24, 08/22/2022, 08/22/2022, Additional history exists DIABETES HBA1C Q 6 MONTHS 01/20/20252023, 03/11/2024, 12/21/2023, Additional history exists DIABETES ANNUAL RETINAL EXAM 03/12/2025 03/12/2024 DIABETES ANNUAL FOOT EXAM 07/23/2025 07/23/2024 COLORECTAL SCREENING 09/08/2030 09/08/2020 Colorectal Cancer Screening 09/08/2030 INFLUENZA VACCINE Completed 09/19/2024, 11/06/2022 Procedures Procedure Name Priority Date/Time Associated Diagnosis Comments MAMMO 3D CARLA SCREEN BILAT W OR WO CAD Routine 10/16/2023 1:27 PM AFTERNOON NANNY Encounter for screening mammogram for malignant neoplasm of breast HEMOGLOBIN A1C Routine 01/23/2011 7:26 AM CDT from Last 3 Months or Most Recently Relevant to Health Maintenance Results * MAMMO 3D CARLA SCREEN BILAT W OR WO CAD (10/16/2023 1:27 PM AFTERNOON NANNY) Anatomical Region Laterality Modality Breast Bilateral Mammography 10/16/2023 1:27 PM AFTERNOON NANNY Impressions 10/16/2023 2:56 PM AFTERNOON NANNY IMPRESSION: BI-RADS Category 1, negative mammogram. Recommend yearly bilateral screening mammogram. Narrative 10/16/2023 2:56 PM AFTERNOON NANNY EXAM: MAMMO 3D CARLA SCREEN BILAT W OR WO CAD DATE: 10/16/2023 CLINICAL HISTORY: Screening in an asymptomatic patient with no personal or family history of breast cancer TECHNIQUE: Bilateral full field digital mammography and digital tomosynthesis were performed in the CC and MLO projections. Comparison was made to prior bilateral mammograms performed August 22, 2022 and August 18, 2021. CAD was utilized. FINDINGS: Scattered fibroglandular densities are present. The parenchymal pattern is unchanged compared to the prior exams. There is no new suspicious asymmetry or mass, area of architectural distortion or suspicious microcalcification. Pedro Mclain MD MAMMO ORDERABLES Final Result * (ABNORMAL) HEMOGLOBIN A1C (01/23/2011 7:26 AM CDT) HEMOGLOBIN A1C 8.5(H) 4.1 - 6.1 % of Hgb [facility] EST. AVG GLUCOSE, A1C 197 mg/dL [facility] Comment: The reported estimated average glucose (eAG) based on the HbA1c determination is calculated using the ADAG study equation. Further interpretative information is available in the Laboratory Services Policy Manual on the [facility] Intranet at: [email or web address] Blood specimen (specimen) 01/23/2011 7:26 AM CDT 01/23/2011 7:32 AM CDT us Marixa Melendez MD CHEMISTRY ORDERABLES Final Re sult [facility] CLIA# [id number] [address] [place] [address] from Last 3 Months or Most Recently Relevant to Health Maintenance Insurance Member Subscriber Plan / Payer (Ef fective 2021-Present) Name:Cinthya Scott Relation to Subscriber:Self Name:Cinthya Scott Payer ID:Not on file Group ID:Not on file Type:OR Address: [address] [facility] [place] [address] MEDICARE PART A AND B Advance Directives For more information, please contact: [phone] * Full Code (Latest Code Status on File) Date Activated Date Inactivated Comments 01/26/2011 8:34 AM 01/27/2011 2:00 PM * Full Code Date Activated Date Inactivated Comments 01/23/2011 4:01 AM 01/24/2011 1:38 PM * Full Code Date Activated Date Inactivated Comments 01/22/2011 11:07 PM 01/23/2011 4:01 AM * Full Code Date Activated Date Inactivated Comments 01/17/2011 9:01 AM 01/21/2011 2:17 PM * Full Code Date Activated Date Inactivated Comments 12/31/2010 12:52 AM 01/03/2011 11:04 AM Care Teams Manager Motor Relationship Specialty Start Date End Date Nikita Mcgregor Sr., DO PCP - General 05/28/09
--- OUTSIDE RECORDS SUMMARY | 2024-12-04 22:45 | XMS_ITS | Encounter Summary ---
Author Organization [facility] Address [address] [place] [address] Care Team Providers Care Avionics Test Technician Name Role Phone Damián Montemayor MD Unavailable [phone] Teetee Khoury MD Unavailable [phone] Primo Jamil MD Primary Care Provider [phone] Brandy Alvarado RN Unavailable [phone] Starla Garcia MD Unavailable [phone] Sadie Ryan MD Unavailable [phone] Shahriar Naranjo MD Primary Care Provider [phone] Shahriar Naranjo MD Unavailable [phone] Pedro Mclain MD Primary Care Provider [phone] Antoinette Chan MD Unavailable [phone] Pedro Mclain MD Unavailable Shannan Walker COREMAKER EXPERIMENTAL-ROCKET SCIENTIST Unavailable Un available Pedro Mclain MD Unavailable Shannan Walker COREMAKER EXPERIMENTAL-ROCKET SCIENTIST Unavailable Un available Pedro Mclain MD Unavailable Ciera Nava RN Unavailable [phone] Ciera Nava RN Unavailable [phone] Ciera Nava RN Unavailable [phone] Kerri Sotelo COREMAKER EXPERIMENTAL-ROCKET SCIENTIST Unavailable Pedro Mclain MD Unavailable Juliana Zamora RN Unavailable [phone] LeightonDestiny sibley COREMAKER EXPERIMENTAL-ROCKET SCIENTIST Unavailable Bibi Ojeda COREMAKER EXPERIMENTAL-ROCKET SCIENTIST Unavailable Shahriar Naranjo MD Unavailable Primo Jamil MD Unavailable Encounter Details Date Type Department Care Team (Late Contact Info) Description 01/11/2018 Lab Requisition [facility] [address] [place] [address] Shahriar Naranjo MD [address] [place] [address] Social History Tobacco Use Types Packs/Day Years [...] or have serious hearing difficult y? No 12/18/2017 Is person blind or have serious difficulty seein g? No 12/18/2017 Does person have serious dif ficulty walking/climbing stairs? No 12/18/2017 Does person have difficulty dressing/bathing? No 12/18/2017 Does person have difficulty doing errands alone? No 12/18/2017 Cognitive Status Response Date of Assessm ent Does person have difficulty concentrating/remembering/making decisions? No 12/18/2017 documented as of this encounter Plan of Treatment Upcoming Encounters Date Type Department Care Team (Late Contact Info) Description 12/11/2024 10:30 AM CDT Appointment [facility] . Wound Care [address] [facility] , [address] [phone] 01/27/2025 1:00 PM CDT Office Visit [facility] - Endocrinology [address], [address] [place] [address] [place] [address] [facility] [address] [place] [address] 02/26/2025 11:00 AM CDT Office Visit [facility] [place] [id number] [place] [address] , [address] [place] [address] Kerri Sotelo, COREMAKER EXPERIMENTAL-ROCKET SCIENTIST [address] [facility] [address] [place] [address] 03/19/2025 10:45 AM CDT Office Visit [facility] - Family Medicine [address] [facility] [address] [place] [address] Pedro Mclain MD [id number] [place] [address] [address] [place] [address] documented as of this encounter Goals Goal Patient Goal Type Associated Problems Recent Progress Patient-Stated? Author Blood Pressure < 140/90 Blood Pressure 153/95(2024 10:36 AM CDT) No Tammy Gurrola HEMOGLOBIN A1C < 7.0 Result Component 8.5( 2:45 PM CDT) No Kerri Shay documented as of this encounter Procedures Procedure Name Priority Date/Time Associated Diagnosis Comments CK BLOOD Routine 01/11/2018 3:43 PM CDT documented in this encounter Results * CK BLOOD (01/11/2018 3:43 PM CDT) CK 190 35 - 232 U/L 01/11/2018 3:43 PM CDT [facility] Blood BLOOD SPECIMEN / Unknown Venipuncture / Unknown 01/11/2018 3:43 PM CDT 01/11/2018 2:58 PM CDT Shahriar Naranjo MD LAB - CHEMISTRY IFEOMA BUCHANAN [facility] [address] [place] [address] documented in this encounter Visit Diagnoses Not on filedocumented in this encounter Additional Health Concerns Infection Onset Date Last Indicated Resolved Time C DIFF 01/22/2018 06/02/2018 10/04/2022 8:52 AM COIL FINISHER C Diff Hx 01/22/2018 10/04/2022 CDIFF Under Investigation 07/02/2023 07/05/2023 12:09 PM CDT documented as of this encounter Care Teams Avionics Test Technician Relationship Specialty Start [place] [address] [facility] [address] [place], [place] [id number] PCP - General Internal Medicine 07/26/15 07/02/18 [place] [address] [facility] [address] [place] [address] PCP - General Family Medicine 07/03/18 02/09/20 Shahriar Naranjo MD [facility] [place] [address] PCP - Attributed-MSSP 06/03/19 12/07/19 [place] [address] [place] [address] PCP - General Internal Medicine 02/20/20 [place] [address] [place] [address] PCP - Attributed-MSSP 09/03/21 10/03/21 Shannan Walker, COREMAKER EXPERIMENTAL-ROCKET SCIENTIST Retired per [id number] PCP - Attributed-MSSP 10/04/2111/03 [place] [address] [place] [address] PCP - Attributed-MSSP 12/02/21 12/31/21 Shannan Walker, COREMAKER EXPERIMENTAL-ROCKET SCIENTIST Retired per [id number] PCP - Attributed-MSSP 01/01/2202/03 [place] [address] [place] [address] PCP - Attributed-MSSP 03/03/22 12/02/23 Kerri Sotelo, COREMAKER EXPERIMENTAL-ROCKET SCIENTIST [address] [facility] [address] [place] [address] PCP - Attributed-MSSP 12/03/23 05/03/24 [place] [address] [place] [address] PCP - Attributed-MSSP 05/04/24 06/02/24 Destiny Manzanares, COREMAKER EXPERIMENTAL-ROCKET SCIENTIST [address] [place] [address] PCP - Attributed-MSSP 06/03/24 Bibi Ojeda, COREMAKER EXPERIMENTAL-ROCKET SCIENTIST [address] [place] [address] PCP - Attributed-MSSP 04/03/19 06/02/19 Shahriar Naranjo MD [address] [place] [address] PCP - Attributed-MSSP 02/01/19 04/02/19 Primo Jamil MD [address] [facility] [address] [place] [address] PCP - Attributed-[place] [employer] 10/26/17 02/04/19 Damián Montemayor MD Gastroenterology 08/07/12 [place] [address] [place] [address] Endocrinology 03/23/15 [place] [address] [facility] [address] [place], [place] [id number] [employer] Boat CaptainBottle Packing Machine Cleaner 08/03/15 06/02/18 [place] [address] [facility] [address] [address] [place] [address] Ophthalmology 11/27/16 [place] [address] [facility] [address] [place] [address] Psychiatry 04/02/17 [place] [address] [place] [address] Nephrology 09/21/21 Ciera Nava RN Videotape Recording EngineerFitter Machinist 10/09/22 11/01/22 Ciera Nava RN Videotape Recording EngineerFitter Machinist 12/15/22 01/11/23 Ciera Nava RN Videotape Recording EngineerFitter Machinist 01/12/23 12/05/23 Juliana Zamora RN Videotape Recording EngineerFitter Machinist 08/25/24 08/26/24 documented as of this encounter
--- NOTE | 2024-12-04 22:48 | ED.SYNCOPE ---
HPI - Syncope General Chief Complaint: Syncope Stated Complaint: SYNCOPAL EPISODE S/P BM Time Seen by Provider: 12/04/24 22:25 History of Present Illness HPI narrative: 59-year-old female with a past medical history including diabetes. Patient presents to the emergency department after a syncopal episode at home. Patient reports that she was bearing down to have a bowel movement and began feeling dizzy. She stood up quickly after this episode and had a syncopal event. Patient lost consciousness briefly and regained consciousness without any significant concerns. Patient adamantly did not want to go the hospital but her family made her come. Patient has no symptoms at this time, denies any nausea, vomiting, headache, vision change, neck pain, abdominal pain, back pain. She has a wound VAC to her right lower extremity from recent diabetic ulcer that was debrided but she is not having any issues with this and there is no purulent drainage. She has outpatient follow-up regularly scheduled with her doctors. Patient was noted to have some slight relative hypotension in triage which improved without any intervention while placed on the monitor. No tachycardia or fever. Patient denies any symptoms at this time. No head trauma or falls. No anticoagulation use. Related Data Allergies Allergy/AdvReac Type Severity Reaction Status Date / Time Penicillins Allergy Mild Unknown Verified 12/04/24 21:40 Review of Systems Review of Systems: As reviewed above in HPI Exam Narrative: GENERAL: [Well-appearing, well-nourished, and in no acute distress.] HEAD: [Normocephalic, atraumatic.] EYES: [PERRLA and EOMI.] ENT: Nares clear, no rhinorrhea or epistaxis. Mucous membranes moist. Poor dentition NECK: Supple. CHEST: [Clear to auscultation. No respiratory distress.] HEART: [Regular rate and rhythm]. No murmur heard. [Normal peripheral pulses.] ABDOMEN: [Soft, nondistended], [nontender], [No rigidity or guarding] EXTREMITIES: Normal range of motion. [No edema.] Wound VAC to the right lower extremity calf, no purulent drainage, no tenderness with palpation. No distal leg swelling. 2+ pulses. SKIN: Warm, dry, no rash. NEURO: [No focal deficits]. Alert and oriented [x3.] PSYCH: [Normal mood and affect.] Course Vital Signs Vital signs: Vital Signs Temperature 36.4 C 12/04/24 21:30 Pulse Rate 72 12/04/24 21:30 Respiratory Rate 17 12/04/24 21:30 Blood Pressure 94/65 L 12/04/24 21:30 Pulse Oximetry 100 12/04/24 21:30 Oxygen Delivery Room Air 12/04/24 21:30 Temperature 36.4 C 12/04/24 21:30 Pulse Rate 78 12/04/24 22:38 Respiratory Rate 19 12/04/24 22:18 Blood Pressure 103/80 12/04/24 22:38 Pulse Oximetry 100 12/04/24 22:18 Oxygen Delivery Room Air 12/04/24 21:42 MDM - Syncope MDM Narrative Medical decision making narrative: 59-year-old female with a past medical history including diabetes. She presents after syncopal event that sounds vasovagal in origin. She states that she was bearing down to have a large bowel movement and began feeling dizzy. She stood up suddenly and then syncopized. No head trauma or falls. She regained consciousness quickly. Did not want to come to the hospital by her family encouraged her to. She has no symptoms at this time. Denies any headache, vision change, nausea, vomiting, abdominal pain. No complications from her wound VAC that she has to her right lower extremity. No signs of infection. She follows up regularly for this. Patient's initial blood pressure was soft in triage but resolved without any intervention. She was provided fluid bolus and workup was ordered including electrolytes, CBC, EKG. Suspicion presently is for vasovagal event secondary to the increased intrathoracic pressure from bearing down having a large bowel movement and this could be combined with the fact that she stood up suddenly and possibly had a orthostatic event. Orthostatic vitals were done here without any concern. Workup shows no significant leukocytosis. Hemoglobin of 10.9 with no baseline. Normal platelet count. Electrolytes are largely within normal limits. No anion gap. Creatinine 1.36 with no baseline. Likely CKD as she has a history of diabetes. Glucose 166. Normal LFTs. EKG shows sinus rhythm, no ST segment elevations, depressions or inversions. No signs of ectopy. Patient re-evaluated after fluids, remains hemodynamically stable and asymptomatic while here in the emergency department. Ambulates unassisted. Repeat vital signs show blood pressure 129/73, heart rate 76, 99 on room air. Patient wishes to go home at this time. Given patient's unremarkable workup and lack of symptoms I believe she can be safely discharged home as she has a benign explanation to her syncopal event. Patient and family were comfortable with this plan and they were given strict return precautions. Medical Records Attestation: I reviewed the patient's medical records. Lab Data Attestation: I reviewed the patient's lab results. 12/04/24 21:57 12/04/24 21:57 Labs: Lab Results 12/04/24 Range/Units 21:57 WBC 10.9 H (4.5-10.0) K/mm3 RBC 4.50 (4.2-5.4) M/mm3 Hgb 10.9 L (12.0-15.0) g/dL Hct 37.5 (37.0-47.0) % MCV 83.3 (80-100) fl MCH 24.2 L (26-34) pg MCHC 29.1 L (32-36) g/dl RDW 16.8 H (11.5-14.5) % Plt Count 242 (150-375) k/mm3 MPV 10.3 (7.4-10.4) fl Immature Gran % (Auto) 0.6 H (0-0.5) % Neut % (Auto) 73.6 H (45.5-73.1) % Lymph % (Auto) 18.1 L (18.3-44.2) % [place] % (Auto) 5.7 (2.6-8.5) % Eos % (Auto) 1.2 (0-4.4) % Baso % (Auto) 0.8 (0.2-1.2) % Lymph # (Auto) 1.97 (0.9-3.2) K/mm3 [place] # (Auto) 0.6 (0.1-0.6) K/mm3 Eos # (Auto) 0.1 (0-0.3) K/mm3 Baso # (Auto) 0.1 (0.0-0.1) K/mm3 Abs Immat Gran (auto) 0.06 H (0.00-0.031) K/mm3 Absolute Neuts (auto) 8.0 H (1.3-6.7) K/mm3 Absolute Nucleated RBC 0.000 (0.0-0.012) K/mm3 Band Neutrophils % 0 (0-6) % Nucleated RBC % 0.0 (0.0-0.2) % Platelet Estimate Adequate (Adequate) Hypochromasia 1+ Anisocytosis 1+ Ovalocytes 1+ Schistocytes None seen Sodium 143 (137-145) mmol/L Potassium 3.7 (3.4-5.0) mmol/L Chloride 111 H (98-107) mmol/L Carbon Dioxide 19 L (22-30) mmol/L Anion Gap 13 H (4-12) mmol/L BUN 18 H (7-17) mg/dL Creatinine 1.36 H (0.7-1.0) mg/dL Estim Creat Clear Calc 48 ml/min Estimated GFR 40 L (59 - ) Glucose 166 H (65-110) mg/dL Calcium 9.1 (8.4-10.2) mg/dL Total Bilirubin 0.2 (0.2-1.3) mg/dL AST 27 (14-36) U/L ALT 29 (6-35) U/L Alkaline Phosphatase 106 (38-126) U/L Total Protein 8.0 (6.3-8.2) g/dL Albumin 4.1 (3.5-5.1) g/dL Discharge Plan Discharge Clinical Impression: Vasovagal syncope, Syncope due to orthostatic hypotension Patient Disposition: Home, Self-Care Condition: Stable Instructions: Antibiotic Form, Syncope (ED) Additional Instructions: Follow-up with your regular doctor. Return with any new or worsening concerns or any recurrence of your syncopal event. Maintain good hydration, electrolyte solutions or water for rehydration. Patient Language: Japanese Follow-up/Referrals: UNKNOWN,DOCTOR [Primary Care Provider] - Time of Disposition: 23:00
== END 2024-12-04 23:16 | disposition home or self-care (01) ==
PROVIDERS: Emergency Provider Student in an Organized Health Care Education/Training Program
DX: I95.1 Orthostatic hypotension (principal); E11.9 Type 2 diabetes mellitus without complications
CPT/HCPCS: 36415; 80053; 85025; 93005; 96360; 99284; J7030

== ENCOUNTER 2025-07-02 08:51 | Inpatient (IN) | payer MEDICARE, OTHER, SELFPAY ==
--- OUTSIDE RECORDS SUMMARY | 2024-07-15 06:00 | XMS_ITS ---
Author Organization [facility] Address [address] [place] [id number] Care Team Providers Care Motor Room Controller Name Role Phone Pedro Mclain Primary Care Provider FUNMI Griffin [phone] Encounters Encounter Location Date Provider Diagnosis [address] [id number] 07/15/2024 FUNMI CHAN Plan Of Treatment No Information Progress Notes * JATIN SCOTT RDOB:1965 (60 yo F)Acc No.[id number]:07/15/2024 Progress Notes Patient: Diane VAISHALI JATIN Kent Provider: Rah Chan MD :1965 A ge:59 Y S ex:Female Date:07/15/2024 Address:[address] [facility] Pcp:Pedro Mclain Subjective: * Chief Complaints: * * Active Problem List N18.31 Chronic kidney disea se, stage 3a Modified On:12/01/2022/U Status:confirmed R80.9 Proteinuria, unspeci fied Onset Date:12/17/2020Modified On:12/01/2022U Status:confirmedClinical Status:active I12.9 Hypertension with re nal disease Modified On:12/01/2022U Status:confirmed E11.9 Type 2 diabetes malik itus without complications Onset Date:12/17/2020Modified On:12/01/2022U Status:confirmedClinical Status:active I70.0 Atherosclerosis of a justin Onset Date:12/17/2020Modified On:12/01/2022U Status:confirmedClinical Status:active N25.0 Renal osteodystrophy Modified On:12/01/2022U Status:confirmed N20.0 Nephrolithiasis Modified On:12/01/2022U Status:confirmed E78.5 Dyslipidemia Modified On:12/01/2022U Status:confirmed E87.22 Chronic metabolic ac idosis Modified On:04/16/2024/U Status:confirmed * Medical History: Objective: * Vitals: Assessment: Plan: * Treatment: * * Electronic signature of JONH CHAN MD on 07/02/2025 at 09:10 AM CDT Sign off status: Pending * Provider: Rah Chan MD Date: 09/14/2023 Generated for Harriet lira/Shannon/Evelineitting on: 09:10 AM CDT
--- OUTSIDE RECORDS SUMMARY | 2024-09-16 08:00 | XMS_ITS ---
Author Organization [facility] Address [address] [address] Care Team Providers Care Burlap Worker Name Role Phone Pedro Mclain Primary Care Provider FUNMI Griffin Unavailable [phone] Allergies Allergen (clinical drug ingredient) Drug/Non Drug Allergy documented on EMR Reaction Allergy Type Onset Date Status pioglitazone Actos Unknown Drug Allergy Acti ve metoclopramide Reglan Unknown Drug Allergy Ac tive dulaglutide Trulicity Unknown Drug Allergy Activ e Penicillin Unknown Drug Allergy Active REASON FOR VISIT FOLLOW-UP VISIT, General ROS/Exam Medications Medication SIG (Take, Route, Frequency, Duration) Notes Start Date End Date Status Invega Sustenna 234 MG/1.5ML 1.5 mL Intramuscular Active Tresiba FlexTouch 200 UNIT/ML 54 Subcutaneous at bedtime A ctive Lipitor 20 MG 1 tablet Orally Once a day Active LORazepam 1 MG 1 Oral three times a day Active Ondansetron HCl 4 MG 1 tablet as needed Orally Once a day Active Vitamin D (Ergocalciferol) 1.25 MG (74947 UT) 1 capsule Orally ONCE A WEEK Active Venlafaxine HCl ER 150 MG 1 capsule with food Orally Once a day Active Pantoprazole Sodium 40 MG 1 tablet Orally Once a day Active NovoLOG FlexPen 100 UNIT/ML as directed Subcutaneous TID Active busPIRone HCl 7.5 MG 1 tablet Orally Twi ce a day Active Zolpidem Tartrate 10 MG 1/2-1 tablet at bedtime as needed Orally Once a day Active Vital Signs Blood pressure systolic 110 mm Hg 09/16/19 25 Blood pressure diastolic 60 mm Hg 025 Heart Rate 82 /min 09/16/2024 Respiratory Rate 18 /min 09/16/2024 Height 68 in 09/16/2024 Weight 223.6 lbs 09/16/2024 BMI 33.99 kg/m2 09/16/2024 Weight-kg 101.42 kg 09/16/2024 Encounters Encounter Location Date Provider Diagnosis [facility] [address] [address] 09/16/2024 FUNMI CHAN Chronic kidney disea se, stage 3a N18.31 ; Proteinuria, unspecified R80.9 ; Hypertension with renal disease I12.9 ; Type 2 diabetes mellitus without complications E11.9 ; Atherosclerosis of aorta I70.0 ; Renal osteodystrophy N25.0 ; Nephrolithiasis N20.0 ; Dyslipidemia E78.5 and Chronic metabolic acidosis E87.22 Assessments Encounter Date Diagnosis (ICD Code) Assessment Notes Treatment Notes Treatment Clinical Notes Section Notes 09/16/2024 Chronic kidney disease, stage 3a (ICD-10 - N18.31) -secondary to long-standing hypertension and diabetes -Serum creatinine 1.2 -Discussed moderate protein restriction -completed dietitian visit.- 01/09/22- [facility]. -Continue PAIGE inhibitor -Continue Farxiga. 09/16/2024 Proteinuria, unspecified (ICD-10 - R80.9) 09/16/2024 Hypertension with renal disease (ICD-10 - I12.9) -continue lisinopril 09/16/2024 Type 2 diabetes mellitus without complications (ICD-10 - E11.9) 09/16/2024 Atherosclerosis of aorta (ICD-10 - I70.0) 09/16/2024 Renal osteodystrophy (ICD-10 - N25.0) 09/16/2024 Nephrolithiasis (ICD-10 - N20.0) 09/16/2024 Dyslipidemia (ICD-10 - E78.5) 09/16/2024 Chronic metabolic acidosis (ICD-10 - E87.22) Plan Of Treatment Future Test Test Name Order Date [id number] 12/28/2024 Next Appt Details Follow Up: 4 Months, Reason: Progress Notes * JATIN SCOTT RDOB:1965 (60 yo F)Acc No.[id number]:09/16/2024 Progress Notes Patient: JATIN KELLER Provider: Rah Chan MD :1965 A ge:59 Y S ex:Female Date:09/16/2024 [facility] [facility] Pcp:Pedro Mclain Subjective: * Chief Complaints: * 1 . FOLLOW-UP VISIT. 2. General ROS/Exam. * HPI: H PI: . 59-year-old with medical history significant for CKD hypertension diabetes peripheral vascular disease peripheral neuropathy proteinuria metabolic acidosis here for follow-up. Since her last visit patient has developed bilateral heel ulcers and is following up with surgery for that. Apparently according to her her ulcers are pretty deep and she is supposed to see surgery every week. Currently she is doing wet-to-dry dressings. She has been advised to not bear any weight. Labs reviewed, renal function stable, acidosis at this time has resolved. According the patient she is not taking sodium bicarbonate tablets at this time. No changes made in medications I will see her back in 4 months. 04/15/2024 58 yof with ckd stage 3a,Htn,T2D,PVD here for followup.24 hour urine reealed 183 mg of proteinuria.Her creatinine has increased from 1.1 to 1.2.Her bicarbonate is around 19 with a k of 5.Her hbaic is 7.3 and her last ldl was 54.She is doing fine but does have a significant protein intake in her diet.She has gained two pounds since last visit. January 15, 2024 58-year-old with medical history significant for CKD stage IIIa, hypertension, diabetes mellitus type 2, diabetic neuropathy neuropathy, retinopathy, peripheral vascular disease with history of right big toe amputation here for follow-up. . Patient serum creatinine usually runs 1.9 with GFR 71 but improvement of kidney function noted from 02/17. Was last seen here in July 2023 and again renal function has improved with creatinine now 1.3. She is still struggling with diabetic control with her last A1c being 8.5 . Assessment notes . 07/10/2023-patient here for follow-up. Last seen here in March 2023. Patient with chronic kidney disease stage IIIa with GFR 53 creatinine 1.2, type 2 diabetes mellitus, diabetic nephropathy, diabetic retinopathy, peripheral vascular disease with left big toe wound right big toe amputation. Since her last visit no new complaints. Reviewed all her test results with her with creatinine 1.93 and GFR now 71. Overall renal function has improved. Diabetic control is slowly improving with A1c 7.2 now and previously 7.5. 24-hour urine protein has improved from 675 mg in 2020 and is now 90. 03/20/2023-patient here for follow-up. No complaints of chest tightness shortness of breath fevers or chills. Serum creatinine 1.2 with GFR 53 mm/min. Urine protein to creatinine ratio at 124, vitamin D at 32.9, PTH at 70. Patient has been doing protein shakes a day with each shake and eating 30 g of protein. I have asked her to decrease that to once a day. * ROS: G eneral / Constitutional: Change in appetite d enies. L ightheadedness d enies. W eakness d enies. R espiratory: Hemoptysis d enies. S hortness of breath at rest d enies. G astrointestinal: Abdominal pain d enies. C hange in bowel habits d enies. V omiting d enies. H ematology: Bleeding problems d enies. W eight loss d enies.? M usculoskeletal: Joint stiffness d enies. S kin: Ulcerations d enies. * Active Problem List N18.31 Chronic kidney disea se, stage 3a Modified On:12/01/2022U Status:confirmed R80.9 Proteinuria, unspeci fied Onset Date:12/17/2020Modified On:12/01/2022U Status:confirmedClinical Status:active I12.9 Hypertension with re nal disease Modified On:12/01/2022U Status:confirmed E11.9 Type 2 diabetes malik itus without complications Onset Date:12/17/2020Modified On:12/01/2022U Status:confirmedClinical Status:active I70.0 Atherosclerosis of a justin Onset Date:12/17/2020Modified On:12/01/2022/U Status:confirmedClinical Status:active N25.0 Renal osteodystrophy Modified On:03/31/2023W/U Status:confirmed N20.0 Nephrolithiasis Modified On:12/01/2022/U Status:confirmed E78.5 Dyslipidemia Modified On:12/01/2022/U Status:confirmed E87.22 Chronic metabolic ac idosis Modified On:04/16/2024/U Status:confirmed * Medical History: H ypertension, 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 * Medications: T aking Zolpidem Tartrate 10 MG Tablet 1/2-1 tablet at bedtime as needed Orally Once a day , Taking Vitamin D (Ergocalciferol) 1.25 MG (50955 UT) Capsule 1 capsule Orally ONCE A WEEK , Taking Venlafaxine HCl ER 150 MG Capsule Extended Release 24 Hour 1 capsule with food Orally Once a day , Taking Pantoprazole Sodium 40 MG Tablet Delayed Release 1 tablet Orally Once a day , Taking NovoLOG FlexPen(Insulin Aspart) 100 UNIT/ML Solution Pen-injector as directed Subcutaneous TID , Taking busPIRone HCl 7.5 MG Tablet 1 tablet Orally Twice a day , Taking Lipitor 20 MG Tablet 1 tablet Orally Once a day , Taking LORazepam 1 MG Tablet 1 Oral three times a day , Taking Ondansetron HCl 4 MG Tablet 1 tablet as needed Orally Once a day , Taking Invega Sustenna(Paliperidone Palmitate ER) 234 MG/1.5ML Suspension Prefilled Syringe 1.5 mL Intramuscular , Taking Tresiba FlexTouch 200 UNIT/ML Solution Pen-injector 54 Subcutaneous at bedtime , Medication List reviewed and reconciled with the patient * Allergies: A ctos: Unknown - Allergy, Reglan: Unknown - Allergy, Trulicity: Unknown - Allergy, Penicillin: Unknown - Allergy. Objective: * Vitals: H t (ft'in): 5'8, Ht: 68 in, Wt:223.6lbs, BMI:33.99Index, BP:110/60mm Hg, HR:82/min, RR:18/min, Wt-k.42 kg, Body Surface Area: 2.2. * Examination: G eneral Examination: General appearance: a lert, pleasant, well-nourished and in no acute distress . Head: n ormocephalic, atraumatic. Eyes: p upils equal, round, reactive to light and accommodation. Ears: n ormal. Throat: c lear. Neck / thyroid: c arotid pulses are normal and without bruits neck is supple, with full range of motion and no cervical lymphadenopathy trachea midline . Skin: s kin is warm and dry, with no rashes, good skin turgor and normal hair distribution with no suspicious skin lesions . Heart: r egular rate and rhythm without murmurs, gallops, clicks or rubs no jugular venous distention . Lungs: c lear to auscultation bilaterally, with good air movement and no rales, rhonchi or wheezes . Chest: c hest wall with no costochondral junction tenderness, no rib deformity and normal shape and expansion . Breasts: n ot examined . Abdomen: s oft with good bowel sounds, nontender, and no masses or hepatosplenomegaly . Extremities: n ormal extremity with no clubbing, cyanosis or edema . Peripheral pulses: n ormal 2+ arterial pulses . Neurologic: n onfocal alert and oriented . Psych: a lert and oriented x 3 . Assessment: * Assessment: 1. C hronic kidney disease, stage 3a - N18.31 (Primary) N otes :-secondary to long-standing hypertension and diabetes-Serum creatinine 1.2-Discussed moderate protein restriction-completed dietitian visit.- 01/09/22- [facility].-Continue PAIGE inhibitor-Continue Farxiga. 2 . P roteinuria, unspecified - R80.9 3 . H ypertension with renal disease - I12.9 N otes :-continue lisinopril 4 . T ype 2 diabetes mellitus without complications - E11.9 5 . A therosclerosis of aorta - I70.0 6 . R enal osteodystrophy - N25.0 ? 7 . N ephrolithiasis - N20.0 8 . D yslipidemia - E78.5 ?9. C hronic metabolic acidosis - E87.22 Plan: * Treatment: * Follow Up: 4 Months * * Electronic signature of JONH CHAN MD on 07/02/2025 at 09:11 AM CDT Sign off status: Pending * Provider: Rah Chan MD Date: 0 09/16/2024 Generated for Harriet lira/Shannon/eTransmitting on: 1 09:11 AM CDT History and Physical Notes * HPI (History of Present Illness) Category Sub-Category Detail Notes Category Not es HPI . 59-year-old with medical history significant for CKD hypertension diabetes peripheral vascular disease peripheral neuropathy proteinuria metabolic acidosis here for follow-up. Since her last visit patient has developed bilateral heel ulcers and is following up with surgery for that. Apparently according to her her ulcers are pretty deep and she is supposed to see surgery every week. Currently she is doing wet-to-dry dressings. She has been advised to not bear any weight. Labs reviewed, renal function stable, acidosis at this time has resolved. According the patient she is not taking sodium bicarbonate tablets at this time. No changes made in medications I will see her back in 4 months. 04/15/2024 58 yof with ckd stage 3a,Htn,T2D,PVD here for followup.24 hour urine reealed 183 mg of proteinuria.Her creatinine has increased from 1.1 to 1.2.Her bicarbonate is around 19 with a k of 5.Her hbaic is 7.3 and her last ldl was 54.She is doing fine but does have a significant protein intake in her diet.She has gained two pounds since last visit. January 15, 2024 58-year-old with medical history significant for CKD stage IIIa, hypertension, diabetes mellitus type 2, diabetic neuropathy neuropathy, retinopathy, peripheral vascular disease with history of right big toe amputation here for follow-up. . Patient serum creatinine usually runs 1.9 with GFR 71 but improvement of kidney function noted from 02/17. Was last seen here in July 2023 and again renal function has improved with creatinine now 1.3. She is still struggling with diabetic control with her last A1c being 8.5 . Assessment notes . 07/10/2023-patient here for follow-up. Last seen here in March 2023. Patient with chronic kidney disease stage IIIa with GFR 53 creatinine 1.2, type 2 diabetes mellitus, diabetic nephropathy, diabetic retinopathy, peripheral vascular disease with left big toe wound right big toe amputation. Since her last visit no new complaints. Reviewed all her test results with her with creatinine 1.93 and GFR now 71. Overall renal function has improved. Diabetic control is slowly improving with A1c 7.2 now and previously 7.5. 24-hour urine protein has improved from 675 mg in 2020 and is now 90. 03/20/2023-patient here for follow-up. No complaints of chest tightness shortness of breath fevers or chills. Serum creatinine 1.2 with GFR 53 mm/min. Urine protein to creatinine ratio at 124, vitamin D at 32.9, PTH at 70. Patient has been doing protein shakes a day with each shake and eating 30 g of protein. I have asked her to decrease that to once a day. Examination Category Sub-Category Detail Notes Category Not es General Examination General appearance: alert, p leasant, well-nourished and in no acute distress Head: normocephalic, atrau matic Eyes: pupils equal, round, reactive to light and accommodation Ears: normal Throat: clear Neck / thyroid: carotid pulses are n ormal and without bruits neck is supple, with full range of motion and no cervical lymphadenopathy trachea midline Heart: regular rate and rhy thm without murmurs, gallops, clicks or rubs no jugular venous distention Chest: chest wall with no c ostochondral junction tenderness, no rib deformity and normal shape and expansion Lungs: clear to auscultatio n bilaterally, with good air movement and no rales, rhonchi or wheezes Abdomen: soft with good bowel sounds, nontender, and no masses or hepatosplenomegaly Neurologic: nonfocal alert and o riented Skin: skin is warm and dry , with no rashes, good skin turgor and normal hair distribution with no suspicious skin lesions Extremities: normal extremity wit h no clubbing, cyanosis or edema Peripheral pulses: normal 2+ arterial p ulses Breasts: not examined Psych: alert and oriented x 3
--- OUTSIDE RECORDS SUMMARY | 2025-01-13 06:15 | XMS_ITS ---
Author Organization [facility] Address [address] [address] Care Team Providers Care Cold Mill Supervisor Name Role Phone Pedro Mclain Primary Care Provider FUNMI Griffin Unavailable [phone] Allergies Allergen (clinical drug ingredient) Drug/Non Drug Allergy documented on EMR Reaction Allergy Type Onset Date Status pioglitazone Actos Unknown Drug Allergy Acti ve metoclopramide Reglan Unknown Drug Allergy Ac tive dulaglutide Trulicity Unknown Drug Allergy Activ e Penicillin Unknown Drug Allergy Active REASON FOR VISIT FOLLOW-UP VISIT, General ROS/Exam Medications Medication SIG (Take, Route, Frequency, Duration) Notes Start Date End Date Status Tresiba FlexTouch 200 UNIT/ML 54 Subcutaneous at bedtime A ctive Invega Sustenna 234 MG/1.5ML 1.5 mL Intramuscular Active Ondansetron HCl 4 MG 1 tablet as needed Orally Once a day Active LORazepam 1 MG 1 Oral three times a day Active Lipitor 20 MG 1 tablet Orally Once a day Active Vitamin D (Ergocalciferol) 1.25 MG (84670 UT) 1 capsule Orally ONCE A WEEK Active busPIRone HCl 7.5 MG 1 tablet Orally Twi ce a day Active NovoLOG FlexPen 100 UNIT/ML as directed Subcutaneous TID Active Pantoprazole Sodium 40 MG 1 tablet Orally Once a day Active Venlafaxine HCl ER 150 MG 1 capsule with food Orally Once a day Active Zolpidem Tartrate 10 MG 1/2-1 tablet at bedtime as needed Orally Once a day Active Encounters Encounter Location Date Provider Diagnosis [address] [address] 01/13/2025 FUNMI CHAN Chronic kidney disea se, stage 3a N18.31 ; Proteinuria, unspecified R80.9 ; Hypertension with renal disease I12.9 ; Type 2 diabetes mellitus without complications E11.9 ; Atherosclerosis of aorta I70.0 ; Renal osteodystrophy N25.0 ; Nephrolithiasis N20.0 ; Dyslipidemia E78.5 and Chronic metabolic acidosis E87.22 Assessments Encounter Date Diagnosis (ICD Code) Assessment Notes Treatment Notes Treatment Clinical Notes Section Notes 01/13/2025 Chronic kidney disease, stage 3a (ICD-10 - N18.31) -secondary to long-standing hypertension and diabetes -Serum creatinine 1.2 -Discussed moderate protein restriction -completed dietitian visit.- 01/09/22- [facility]. -Continue PAIGE inhibitor -Continue Farxiga. 01/13/2025 Proteinuria, unspecified (ICD-10 - R80.9) 01/13/2025 Hypertension with renal disease (ICD-10 - I12.9) -continue lisinopril 01/13/2025 Type 2 diabetes mellitus without complications (ICD-10 - E11.9) 01/13/2025 Atherosclerosis of aorta (ICD-10 - I70.0) 01/13/2025 Renal osteodystrophy (ICD-10 - N25.0) 01/13/2025 Nephrolithiasis (ICD-10 - N20.0) 01/13/2025 Dyslipidemia (ICD-10 - E78.5) 01/13/2025 Chronic metabolic acidosis (ICD-10 - E87.22) Plan Of Treatment No Information Progress Notes * JATIN SCOTT RDOB:1965 (60 yo F)Acc No.[id number]:01/13/2025 Progress Notes Patient: Diane VAISHALIJATIN Provider: Rah Chan MD :1965 A ge:59 Y S ex:Female Date:01/13/2025 [facility] [facility] Pcp:Pedro Mclain Subjective: * Chief Complaints: * 1 . FOLLOW-UP VISIT. 2. General ROS/Exam. * ROS: G eneral / Constitutional: Change [...] I12.9 Hypertension with re nal disease Modified On:12/01/2022 Status:confirmed E11.9 Type 2 diabetes malik itus without complications Onset Date:12/17/2020Modified On:12/01/2022U Status:confirmedClinical Status:active I70.0 Atherosclerosis of a justin Onset Date:12/17/2020Modified On:12/01/2022U Status:confirmedClinical Status:active N25.0 Renal osteodystrophy Modified On:12/01/2022U Status:confirmed N20.0 Nephrolithiasis Modified On:12/01/2022U Status:confirmed E78.5 Dyslipidemia Modified On:12/01/2022U Status:confirmed E87.22 Chronic metabolic ac idosis Modified On:04/16/2024U Status:confirmed * Medical History: H ypertension, 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 * Medications: T aking Zolpidem Tartrate 10 MG Tablet 1/2-1 tablet at bedtime as needed Orally Once a day , Taking Vitamin D (Ergocalciferol) 1.25 MG (88746 UT) Capsule 1 capsule Orally ONCE A [...] Penicillin: Unknown - Allergy. Objective: * Vitals: * Examination: G eneral Examination: General appearance: [...] acidosis - E87.22 Plan: * Treatment: * * Electronic signature of JONH CHAN MD on 07/02/2025 at 09:10 AM CDT Sign off status: Pending * Provider: Rah Chan MD Date: 0 01/13/2025 Generated for Harriet lira/Shannon/eTransmitting on: 09:10 AM CDT History and Physical Notes * Examination Category Sub-Category Detail Notes Category Not [...]
[2025-07-02] VITALS (15 sets, daily range): BP systolic 76–169; BP diastolic 53–87; PULSE 87–115; RESP 14–25; TEMP 36.6–37.1; O2SAT 96–100; BMI 33.1
--- NOTE | ~2025-07-02 | NM_ITS ---
EXAMINATION: NM_HEPATWOEF_NM DATE: 07/03/2025 10:51 INDICATION: Gallstones, nausea and vomiting COMPARISON: None. TECHNIQUE: 5 mCi Tc-99m mebrofenin (Choletec) was administered intravenously. Scintigraphic images of the abdomen were obtained for one hour. Additional scintigram obtained at 1 hour and 15 minute. FINDINGS: There is normal clearance of radiotracer from the blood pool. There is homogeneous tracer uptake by the liver. Activity progresses to the gallbladder and common bile duct. Minimal activity seen within the duodenum on the 1 hour 15 minute delayed images. IMPRESSION: 1. Patent cystic duct evidenced by activity accumulation in the gallbladder. 2. Delayed passage of activity from the common bile duct into the small bowel with only trace activity evident in the duodenum on the 1 hour and 15 minute images raising some concern for biliary obstruction at the level of the distal common bile duct. Correlate with liver function tests and if there is clinical concern for biliary obstruction would consider MRCP for further evaluation. Reviewed, dictated and finalized at location A. IMPRESSION: 1. Patent cystic duct evidenced by activity accumulation in the gallbladder. 2. Delayed passage of activity from the common bile duct into the small bowel w ith only trace activity evident in the duodenum on the 1 hour and 15 minute fadi ges raising some concern for biliary obstruction at the level of the distal com mon bile duct. Correlate with liver function tests and if there is clinical con cern for biliary obstruction would consider MRCP for further evaluation.
--- NOTE | ~2025-07-02 | US_ITS ---
US abdomen limited Indication: gallstones, nausea and vomitting Comparison: None Technique: Kidd-scale and color Doppler images were obtained. Findings: LIVER: Unremarkable, liver contours intact, no lesions. Normal echogenicity. . The liver measures 14.4 cm, no liver lesions identified. GALLBLADDER/BILIARY: There is a probable gallbladder polyp measuring 8 x 7 x 7 mm, there is no wall thickening or pericholecystic fluid. CBD 2.9 mm. [place] sign negative. PANCREAS: Pancreas limited by bowel gas. Right Kidney: Right kidney was not imaged. Impression: Probable gallbladder polyp. No acute process. Reviewed, dictated and finalized at location P. Impression: Probable gallbladder polyp. No acute process.
--- NOTE | ~2025-07-02 | MR_ITS ---
EXAMINATION: MR MRCP wo/w con/w 3D wo ind DATE: 07/05/2025 08:07 INDICATION: Dilated bile duct. TECHNIQUE: Magnetic resonance imaging (MRI) of the abdomen was performed without and with 20 mL MultiHance intravenous contrast. Sequences included coronal T2- weighted FS FSE, coronal T2-weighted FSE, axial T1-weighted LAVA, coronal FS FIESTA, axial dual-echo T1-weighted SPGR, coronal lava-FLEX, sagittal T2- weighted FSE, axial T2-weighted FSE, and axial DWI. Thick-slab T2-weighted FSE images were obtained for magnetic resonance cholangiopancreatography (MRCP). Maximum intensity projection 3-D reconstructions of the volumetric data were created by the technologist. Postcontrast sequences included coronal LAVA-flex and time course of axial T1-weighted LAVA. COMPARISON: CT 07/02/2025 FINDINGS: ABDOMEN MRI: The liver is normal. There are gallstones in the gallbladder, which is normal in size. The spleen, pancreas, adrenal glands, and kidneys are normal. There are no dilated loops of bowel. There are no pathologically enlarged lymph nodes. There is no free intraperitoneal fluid. ABDOMEN MRCP: The common duct is dilated to 10 mm. No choledocholithiasis. IMPRESSION: 1. Enlarged common duct. No choledocholithiasis. 2. Cholelithiasis. Reviewed, dictated and finalized at location E. GN TRANSFERRER
--- NOTE | ~2025-07-02 | CT_ITS ---
EXAMINATION: CT chest abdomen pelvis w con DATE: 07/02/2025 10:56 INDICATION: Nausea, vomiting, and diarrhea. Leukocytosis. TECHNIQUE: Computed tomography (CT) of the chest, abdomen, and pelvis was performed with 100 mL Omnipaque 350 intravenous contrast. Automated exposure control and iterative reconstruction technique were employed. The dose-length product was 957.84 mGy-cm. COMPARISON: None FINDINGS: CHEST CT: The lungs demonstrate mild atelectasis. There are pneumatoceles in right lower lobe. No pleural effusion. The heart size is normal. There are coronary artery calcifications. No pericardial effusion. There is mild thoracic spondylosis. ABDOMEN/PELVIS CT: The liver and spleen are normal. There are gallstones in the gallbladder, which is distended. The common duct is dilated to 10 mm. There are changes of gastric bypass procedure. The pancreas, adrenal glands, and kidneys are normal. There are small fibroids in the uterus. The appendix is normal. There are no dilated loops of bowel. There are no pathologically enlarged lymph nodes. There is no free intraperitoneal fluid. There is a left inguinal hernia containing fat. There is mild lumbar spondylosis. IMPRESSION: 1. Cholelithiasis. Gallbladder distention may be secondary to fasting or acute cholecystitis. Correlate with physical exam. 2. Mildly dilated common duct. Reviewed, dictated and finalized at location E.
--- OUTSIDE RECORDS SUMMARY | 2025-07-02 09:11 | XMS_ITS | Patient Health Record ---
Author Organization [facility] Address [address] [place] [address] Care Team Providers Care Geophysical Drafter Name Role Phone Pedro Mclain Primary Care Provider FUNMI Griffin Unavailable [phone] Allergies Allergen (clinical drug ingredient) Drug/Non Drug Allergy documented on EMR Reaction Allergy Type Onset Date Status pioglitazone Actos Unknown Drug Allergy Acti ve metoclopramide Reglan Unknown Drug Allergy Ac tive dulaglutide Trulicity Unknown Drug Allergy Activ e Penicillin Unknown Drug Allergy Active Reason For Referral No Information Medications Medication SIG (Take, Route, Frequency, Duration) Notes Start Date End Date Status Vitamin D (Ergocalciferol) 1.25 MG (69538 UT) 1 capsule Orally ONCE A WEEK Active Zolpidem Tartrate 10 MG 1/2-1 tablet at bedtime as needed Orally Once a day Active Tresiba FlexTouch 200 UNIT/ML 54 Subcutaneous at bedtime A ctive Invega Sustenna 234 MG/1.5ML 1.5 mL Intramuscular Active Ondansetron HCl 4 MG 1 tablet as needed Orally Once a day Active LORazepam 1 MG 1 Oral three times a day Active Lipitor 20 MG 1 tablet Orally Once a day Active busPIRone HCl 7.5 MG 1 tablet Orally Twi ce a day Active NovoLOG FlexPen 100 UNIT/ML as directed Subcutaneous TID Active Pantoprazole Sodium 40 MG 1 tablet Orally Once a day Active Venlafaxine HCl ER 150 MG 1 capsule with food Orally Once a day Active Immunizations Vaccine Route Administration Date Status Comme nts Influenza, high dose seasonal Unknown 12/21/2020 Refuse d Problems Problem Type SNOMED Code ICD Code Onset Dates Problem Status W/U Status Risk Notes Problem Renal osteodystrophy (81971331) Renal osteodystrophy (N25.0) Active confirmed Problem Chronic kidney disease stage 3A (disorder) (404605628) Chronic kidney disease, stage 3a (N18.31) Active confirmed -secondary to long-standing hypertension and diabetes -Serum creatinine 1.2 -Discussed moderate protein restriction -completed dietitian visit.- 01/09/22- [facility]. -Continue PAIGE inhibitor -Continue Far. Problem Dyslipidemia (503827068) Dyslipidemia (E78.5) Active confirmed Problem Nephrolithiasis (52882830) Nephrolithiasis (N20.0) Active confirmed Problem Chronic kidney disease due to hypertension (989356888166199) Hypertension with renal disease (I12.9) Active confirmed -continue lisinopril Problem Chronic metabolic acidosis (7654123819556626 ) Chronic metabolic acidosis (E87.22) Active confirmed Problem Type II diabetes mellitus without complication (177677186) Type 2 diabetes mellitus without complications (E11.9) 2020 Active confirmed Problem Atherosclerosis of aorta (64064688) Atherosclerosis of aorta (I70.0) 2020 Active confirmed Problem Proteinuria (72702268) Proteinuria, unspecified (R80.9) 2020 Active confirmed Vital Signs Heart Rate 82 /min 09/16/2024 Respiratory Rate 18 /min 09/16/2024 Blood pressure diastolic 60 mm Hg 09/16/2024 Weight-kg 101.42 kg 09/16/2024 Height 68 in 09/16/2024 Blood pressure systolic 110 mm Hg 09/16/2024 Weight 223.6 lbs 09/16/2024 BMI 33.99 kg/m2 09/16/2024 Encounters Encounter Location Date Provider Diagnosis 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
--- OUTSIDE RECORDS SUMMARY | 2025-07-02 09:11 | XMS_ITS | Clinical Summary ---
Author Organization [facility] Address [address] [place] [address] Phone Care Team Providers Care Student Development Advisor Name Role Phone Balbir Jaimes DO, Reynal [...] (diabetes mellitus) 09/02/201001/26 HTN (hypertension) 09/02/2010 1 Family History Medical History Relation Name Comments [...] on file Legal Sex Female 5:47 AM [employer] HAT [employer] Gender Identity Not on file Sexual Orientation [...] 2:15 AM CDT Height 177.8 cm (5' 10) 01/26/2011 10:21 AM CDT Body Mass Index 28.7 01/26/2011 2:15 AM CDT Plan of Treatment Health Maintenance Due Date Last Done Comments DIABETES MICROALBUMIN ANNUAL SCREEN 1983 LDL CHOLESTEROL ANNUAL 1983 DTAP/TDAP/TD VACCINES (1 - Tdap) 1984 HPV/Cotest (21-29) 1986 CERVICAL CANCER SCREENING 1995 HPV/Cotest (30-65) 1995 PAP SMEAR 1995 FIT-DNA Q 3 years 2010 FIT/FOBT Q 1 year 2010 Flex Sig/CT Colonography Q 5 years 2010 RSV VACCINE (60+ or ) (1 - Risk 50-74 years 1-dose series) 2015 ZOSTER VACCINE (1 of 2) 2015 BREAST CANCER SCREENING 10/16/2024 10/16/19 24, 08/22/2022, 08/22/2022, Additional history exists INFLUENZA VACCINE (#1) 2025 09/19/2024, 2022 COVID-19 Vaccine (2024- season) 2025 08/03/2021, 12/19/2020, 11/28/2020 DIABETES HBA1C Q 6 MONTHS 10/30/20252024, 01/27/2025, 10/28/2024, Additional history exists DIABETES ANNUAL RETINAL EXAM 01/08/2026 01/08/2025 DIABETES ANNUAL FOOT EXAM 04/29/2026 04/29/2025 COLORECTAL SCREENING 09/08/2030 09/08/2020 Colorectal Cancer Screening 09/08/2030 HEPATITIS B VACCINES Aged Out No long er eligible based on patient's age to complete this topic Procedures Procedure Name Priority Date/Time Associated Diagnosis Comments MAMMO 3D CARLA SCREEN BILAT W OR WO CAD Routine 10/16/2023 1:27 PM [employer] Encounter for screening mammogram for malignant neoplasm of breast HEMOGLOBIN A1C Routine 01/23/2011 7:26 AM CDT from Last 3 Months or Most Recently Relevant to Health Maintenance Results * MAMMO 3D CARLA SCREEN BILAT W OR WO CAD (10/16/2023 1:27 PM [employer]KER) Anatomical Region Laterality Modality Breast Bilateral Mammography 10/16/2023 1:27 PM [employer]KER Impressions 10/16/2023 2:56 PM [employer] H[employer] B[employer]KER IMPRESSION: BI-RADS Category 1, negative mammogram. Recommend yearly bilateral screening mammogram. Narrative 10/16/2023 2:56 PM [employer] H[employer] B[employer] MAKER EXAM: MAMMO 3D CARLA SCREEN BILAT W [...] 8.5(H) 4.1 - 6.1 % of Hgb [facility] EST. AVG GLUCOSE, A1C 197 mg/dL [facility] Comment: The reported estimated average glucose (eAG) based on the HbA1c determination is calculated using the ADAG study equation. Further interpretative information is available in the Laboratory Services Policy Manual on the [facility] Intranet at: [email or web address] Blood specimen (specimen) 01/23/2011 7:26 AM CDT 01/23/2011 7:32 AM CDT Marixa Melendez MD CHEMISTRY ORDERABLES Final Re sult [facility] CLIA# [id number] [address] [place] [address] from Last 3 Months or Most Recently Relevant to Health Maintenance Insurance Member Subscriber Plan / Payer (Ef fective 2021-Present) Name:Cinthya Scott Relation to Subscriber:Self Name:Cinthya Scott Payer ID:Not on file Group ID:Not on file Type:[place] Address: [address] [facility] MEDICARE PART A AND B Advance Directives For more information, please contact: [phone] * Full Code (Latest Code Status on [...] 12:52 AM 01/03/2011 11:04 AM Care Teams Student Development Advisor Relationship Specialty Start Date End Date Nikita Mcgregor Sr., DO PCP - General 05/28/09
--- NOTE | 2025-07-02 09:14 | ED.NAVMDI ---
HPI - Nausea/Vomiting/Diarrhea General Chief complaint: Nausea/Vomiting/Diarrhea <Kyle Mendoza APRN - Last Filed: 07/02/25 15:02> Stated complaint: N/V <Kyle Mendoza APRN - Last Filed: 07/02/25 15:02> Time Seen by Provider: 07/02/25 09:00 <Kyle Mendoza APRN - Last Filed: 07/02/25 15:02> Source: patient <Kyle Mendoza APRN - Last Filed: 07/02/25 15:02> Mode of arrival: ambulatory <Kyle Mendoza APRN - Last Filed: 07/02/25 15:02> Limitations: no limitations <Kyle Mendoza APRN - Last Filed: 07/02/25 15:02> History of Present Illness HPI Narrative: Cinthya is a 60-year-old female patient presenting to the clinic today with complaints of nausea, vomiting, dizziness, diarrhea, and low BP x2 days. She denies any blood in her stool or vomit. She denies any fevers, chills, body aches, abdominal pain, URI symptoms, or any urinary symptoms. No chest pain or shortness of breath. History diabetes. Has not taken any medications to alleviate her symptoms. <Kyle Mendoza APRN - Last Filed: 07/02/25 15:02> Related Data Home medications: Home Medications ?Medication ?Instructions ?Recorded ?Confirmed ?Last Taken ?Type atorvastatin 40 mg tablet (Lipitor) 40 mg PO DAILY 07/02/25 07/02/25 Unknown History buspirone 15 mg tablet 15 mg PO TID 07/02/25 07/02/25 Unknown History ergocalciferol (vitamin D2) 1,250 1,250 mcg PO WEEKLY 07/02/25 07/02/25 Unknown History mcg (50,000 unit) capsule gabapentin 600 mg tablet 600 mg PO Q6H PRN neuropathy 07/02/25 07/02/25 Unknown History insulin aspart U-100 100 unit/mL 32 unit subcut TID 07/02/25 07/02/25 Unknown History (3 mL) subcutaneous pen (Novolog FlexPen U-100 Insulin aspart) insulin degludec 100 unit/mL (3 64 unit subcut DAILY@0800 07/02/25 07/02/25 Unknown History mL) subcutaneous pen (Tresiba FlexTouch U-100 insulin) [id number]-[id number] 2 cap PO TID 07/02/25 07/02/25 Unknown History (pork)36,000-114,000-180k unit capsule,del rel (Creon) drtkmm-[id number](pork) 2 cap PO TID 07/02/25 07/02/25 Unknown History 40,000-126,000-168k unit capsule,del rel (Zenpep) loperamide 2 mg tablet 2 mg PO QID PRN loose stool 07/02/25 07/02/25 Unknown History (Anti-Diarrheal (loperamide)) lorazepam 2 mg tablet (Ativan) 2 mg PO Q6H PRN anxiety 07/02/25 07/02/25 Unknown History meclizine 25 mg tablet 25 mg PO BID 07/02/25 07/02/25 Unknown History ondansetron 4 mg disintegrating 4 mg PO Q6H 07/02/25 07/02/25 Unknown History tablet paliperidone 3 mg tablet,extended 3 mg PO ONCE 07/02/25 07/02/25 Unknown History release 24 hr (Invega) pantoprazole 40 mg tablet,delayed 40 mg PO QAM 07/02/25 07/02/25 Unknown History release venlafaxine 100 mg tablet 100 mg PO DAILY@0800 07/02/25 07/02/25 Unknown History venlafaxine 75 mg capsule,extended 150 mg PO DAILY 07/02/25 07/02/25 Unknown History release 24 hr zolpidem 10 mg tablet 10 mg PO HS PRN insomnia 07/02/25 07/02/25 Unknown History <Kyle Mendoza APRN - Last Filed: 07/02/25 15:02> Allergies/Adverse reactions: Allergies Allergy/AdvReac Type Severity Reaction Status Date / Time Penicillins Allergy Mild Unknown Verified 07/02/25 15:06 <Kyle Mendoza APRN - Last Filed: 07/02/25 15:02> Review of Systems Review of Systems: Pertinent positives per HPI. Patient denies any fever, chills, rash, headache, visual changes, dizziness, cough, runny nose, sore throat, shortness of breath, chest pain, palpitations, nausea, vomiting, diarrhea, constipation, abdominal pain, or any urinary issues. <Kyle Mendoza APRN - Last Filed: 07/02/25 15:02> [facility] Past Medical History Medical History: Medical History (Updated 07/02/25 @ 13:20 by Marilee Dyer PA-C) Insulin dependent diabetes mellitus <Kyle Mendoza APRN - Last Filed: 07/02/25 15:02> Family History Family History: Family History (Updated 07/02/25 @ 15:48 by Ignacia Garrett RN) Other Unknown family medical history <Kyle Mendoza APRN - Last Filed: 07/02/25 15:02> Social History Social History: Social History Smoking status: Former smoker Tobacco type: cigarettes Alcohol intake: former Substance use: never Lack of Transportation: No Lack of Food: Never True Current Housing: I Have Housing Concerned About Future Housing: No Difficulty Paying Gas/Electric Bills: No Difficulty Paying for Meds: No Currently Unemployed: No Education: High School Diploma/GED Difficulty w/ Childcare or Family Care: No Spiritual care concerns: No <Kyle Mendoza APRN - Last Filed: 07/02/25 15:02> Comments At the time of my signature, I reviewed and agree with the nursing past medical, surgical, social, and family history. There is no relevant family history pertinent to the patient complaint. <Kyle Mendoza APRN - Last Filed: 07/02/25 15:02> Exam Narrative: General: Well-developed, obese, in no apparent distress Head: Normocephalic, atraumatic Eyes: Pupils equally round and reactive to light bilaterally, EOM intact, sclera and conjunctive clear, no discharge, lids normal Ears: TMs intact and clear, ear canals clear, no drainage, grossly hearing normal. Nose: Nares patent, no discharge, no inflammation, no sinus tenderness. Mouth: Oropharynx without lesions or masses, good dentition, mucous membranes dry Neck: Supple, trachea midline, no enlargement of anterior or posterior cervical nodes, no thyroid masses or goiter palpable. Cardio: Regular rate and rhythm, s1 and s2 normal, no murmur appreciated. Resp: Clear to auscultation bilaterally anteriorly and posteriorly, no rhonchi, rales, wheezing or rubs Abdomen: Soft, pliable, bowel sounds present in all quadrants, non-tender to palpation, no organomegly, no CVAT tenderness. <Kyle Mendoza APRN - Last Filed: 07/02/25 15:02> Course Course Emergency Course: Portions of this record may have been created with voice recognition software. <Kyle Mendoza APRN - Last Filed: 07/02/25 15:02> MATERIAL MAN/PA Physician Supervision I reviewed the notes, discussed with patient and agree with the management <Du Hurtado MD - Last Filed: 07/02/25 19:10> Vital Signs Vital signs: Vital Signs Pulse Rate 115 H 07/02/25 09:19 Respiratory Rate 15 07/02/25 09:19 Blood Pressure 89/59 L 07/02/25 09:19 Pulse Oximetry 100 07/02/25 09:19 Temperature 36.6 C 07/02/25 14:40 Pulse Rate 105 H 07/02/25 14:40 Respiratory Rate 18 07/02/25 14:40 Blood Pressure 153/87 H 07/02/25 14:40 Pulse Oximetry 97 07/02/25 14:40 Oxygen Delivery Room Air 07/02/25 09:33 Vital signs reviewed <Kyle Mendoza APRN - Last Filed: 07/02/25 15:02> Vital Signs Pulse Rate 115 H 07/02/25 09:19 Respiratory Rate 15 07/02/25 09:19 Blood Pressure 89/59 L 07/02/25 09:19 Pulse Oximetry 100 07/02/25 09:19 Temperature 36.6 C 07/02/25 14:40 Pulse Rate 105 H 07/02/25 14:40 Respiratory Rate 18 07/02/25 14:40 Blood Pressure 153/87 H 07/02/25 14:40 Pulse Oximetry 97 07/02/25 14:40 Oxygen Delivery Room Air 07/02/25 09:33 <Du Hurtado MD - Last Filed: 10/30/25 19:10> MDM - Nausea/Vomiting/Diarrhea MDM Narrative Medical decision making narrative: At the time of visit patient is resting on the exam stretcher. Patient appears to be nontoxic. Presenting to the clinic today with complaints of nausea, vomiting, dizziness, diarrhea, and low BP x2 days. She denies any blood in her stool or vomit. She denies any fevers, chills, body aches, abdominal pain, URI symptoms, or any urinary symptoms. No chest pain or shortness of breath. History diabetes. Has not taken any medications to alleviate her symptoms. On exam patient has soft pliable abdomen, nontender to palpation, patient appears dry. Bowel sounds present all 4 quadrants Labs: CBC shows white blood cell count was 17.1, H&H of 12.3 in 39.3, platelet count is 276, left side shift, sodium levels 137, potassium is 4.1, chloride 100, carbon dioxide 23, BUN 16, creatinine is elevated at 1.42, GFR is 38, glucose is 299, AST is 58, ALT is 64, lipase is 131, urinalysis shows cloudy urine with 4+ protein, 3+ glucose, trace of ketone, 3+ blood, negative for leuko Estrace, 3-5 red blood cells, 6-10 white blood cells, rare bacteria. Diagnostics: CTA of chest, abdomen and pelvis shows acute cholelithiasis with gallstones. Medications: Cefepime 1 g IV piggyback ordered Plan: Patient has hypovolemia related to nausea vomiting, weakness, gallstones with possible acute cholecystitis. Discussed patient's case with Dr. Parham. Recommend admission to the hospital for IV fluids, and IV antibiotics, and general surgery consult. Patient updated of results and is agreeable to admission. Discussed patient's case with Carlos MATERIAL MAN-hospitalist and she accepts patient for admission to Med/Surg. Discussed patient's case with Dr. Mcgrath- will have someone see her in the hospital- hida scan ordered. Dr. Mcgrath PA here at patient bedside to assess patient at 1240. <Kyle Mendoza APRN - Last Filed: 07/02/25 15:02> Differential Diagnosis Differential diagnosis: Likely traveler's diarrhea, food poisoning, gastroenteritis, clostridium difficile infection, drug-induced nausea and vomiting, dehydration and other (Acute cholecystitis, gallstones) <Kyle Mendoza APRN - Last Filed: 07/02/25 15:02> Lab Data Result diagrams: 07/02/25 10:12 07/02/25 10:12 <Kyle Mendoza APRN - Last Filed: 07/02/25 15:02> Labs: Lab Results 07/02/25 07/02/25 07/02/25 Range/Units 09:23 10:12 11:20 WBC 17.1 H (4.5-10.0) K/mm3 RBC 4.84 (4.2-5.4) M/mm3 Hgb 12.3 (12.0-15.0) g/dL Hct 39.3 (37.0-47.0) % MCV 81.2 (80-100) fl MCH 25.4 L (26-34) pg MCHC 31.3 L (32-36) g/dl RDW 14.1 (11.5-14.5) % Plt Count 276 (150-375) k/mm3 MPV 10.8 H (7.4-10.4) fl Immature Gran % (Auto) 0.5 (0-0.5) % Neut % (Auto) 83.4 H (45.5-73.1) % Lymph % (Auto) 10.6 L (18.3-44.2) % [place] % (Auto) 5.4 (2.6-8.5) % Eos % (Auto) 0.0 (0-4.4) % Baso % (Auto) 0.1 L (0.2-1.2) % Lymph # (Auto) 1.82 (0.9-3.2) K/mm3 [place] # (Auto) 0.9 H (0.1-0.6) K/mm3 Eos # (Auto) 0.0 (0-0.3) K/mm3 Baso # (Auto) 0.0 (0.0-0.1) K/mm3 Abs Immat Gran (auto) 0.09 H (0.00-0.031) K/mm3 Absolute Neuts (auto) 14.2 H (1.3-6.7) K/mm3 Absolute Nucleated RBC 0.000 (0.0-0.012) K/mm3 Nucleated RBC % 0.0 (0.0-0.2) % Sodium 137 (137-145) mmol/L Potassium 4.1 (3.4-5.0) mmol/L Chloride 100 (98-107) mmol/L Carbon Dioxide 23 (22-30) mmol/L Anion Gap 14 H (4-12) mmol/L BUN 16 (7-17) mg/dL Creatinine 1.42 H (0.7-1.0) mg/dL Estim Creat Clear Calc 45 ml/min Estimated GFR 38 L (59 - ) Glucose 299 H (65-110) mg/dL POC Capillary Glucose 313 H (65-105) mg/dl Calcium 9.9 (8.4-10.2) mg/dL Total Bilirubin 0.6 (0.2-1.3) mg/dL AST 58 H (14-36) U/L ALT 64 H (6-35) U/L Alkaline Phosphatase 111 (38-126) U/L Total Protein 9.2 H (6.3-8.2) g/dL Albumin 4.6 (3.5-5.1) g/dL Lipase 131 (23-300) U/L Urine Color Yellow (Yellow) Urine Appearance Cloudy H (Clear) Urine pH 5.5 (5.0-9.0) Ur Specific [place] 1.038 H (1.001-1.035) Urine Protein 4+ H (Negative) mg/dL Urine Glucose (UA) 3+ H (Negative) mg/dL Urine Ketones Trace H (Negative) mg/dL Ur Blood (Man) 3+ H (Negative) Urine Nitrate Negative (Negative) Urine Bilirubin Negative (Negative) Urine Urobilinogen 0.2 (<2.0) mg/dL Add Ur Microanalysis Reviewed Leukocyte Esterase Rfl Negative (Negative) NÉSTOR/UL Urine RBC 3-5 H (0-2) /hpf Urine WBC 6-10 H (0-3) /hpf Ur Squamous Epith Cells Few (Few) /hpf Urine Bacteria Rare /hpf Urine Casts >20 Hyaline Casts Present (None) /lpf Urine Yeast (Budding) Present H (None) /hpf POC Urine HCG, Qual (Negative) 10/30/25 Range/Units 11:32 WBC (4.5-10.0) K/mm3 RBC (4.2-5.4) M/mm3 Hgb (12.0-15.0) g/dL Hct (37.0-47.0) % MCV (80-100) fl MCH (26-34) pg MCHC (32-36) g/dl RDW (11.5-14.5) % Plt Count (150-375) k/mm3 MPV (7.4-10.4) fl Immature Gran % (Auto) (0-0.5) % Neut % (Auto) (45.5-73.1) % Lymph % (Auto) (18.3-44.2) % [place] % (Auto) (2.6-8.5) % Eos % (Auto) (0-4.4) % Baso % (Auto) (0.2-1.2) % Lymph # (Auto) (0.9-3.2) K/mm3 [place] # (Auto) (0.1-0.6) K/mm3 Eos # (Auto) (0-0.3) K/mm3 Baso # (Auto) (0.0-0.1) K/mm3 Abs Immat Gran (auto) (0.00-0.031) K/mm3 Absolute Neuts (auto) (1.3-6.7) K/mm3 Absolute Nucleated RBC (0.0-0.012) K/mm3 Nucleated RBC % (0.0-0.2) % Sodium (137-145) mmol/L Potassium (3.4-5.0) mmol/L Chloride (98-107) mmol/L Carbon Dioxide (22-30) mmol/L Anion Gap (4-12) mmol/L BUN (7-17) mg/dL Creatinine (0.7-1.0) mg/dL Estim Creat Clear Calc ml/min Estimated GFR (59 - ) Glucose (65-110) mg/dL POC Capillary Glucose (65-105) mg/dl Calcium (8.4-10.2) mg/dL Total Bilirubin (0.2-1.3) mg/dL AST (14-36) U/L ALT (6-35) U/L Alkaline Phosphatase (38-126) U/L Total Protein (6.3-8.2) g/dL Albumin (3.5-5.1) g/dL Lipase (23-300) U/L Urine Color (Yellow) Urine Appearance (Clear) Urine pH (5.0-9.0) Ur Specific [place] (1.001-1.035) Urine Protein (Negative) mg/dL Urine Glucose (UA) (Negative) mg/dL Urine Ketones (Negative) mg/dL Ur Blood (Man) (Negative) Urine Nitrate (Negative) Urine Bilirubin (Negative) Urine Urobilinogen (<2.0) mg/dL Add Ur Microanalysis Leukocyte Esterase Rfl (Negative) NÉSTOR/UL Urine RBC (0-2) /hpf Urine WBC (0-3) /hpf Ur Squamous Epith Cells (Few) /hpf Urine Bacteria /hpf Urine Casts Hyaline Casts (None) /lpf Urine Yeast (Budding) (None) /hpf POC Urine HCG, Qual Negative (Negative) <Kyle Mendoza, DATA DELIVERABLES MANAGER - Last Filed: 07/02/25 15:02> Lab Results 07/02/25 07/02/25 07/02/25 Range/Units 09:23 10:12 11:20 WBC 17.1 H (4.5-10.0) K/mm3 RBC 4.84 (4.2-5.4) M/mm3 Hgb 12.3 (12.0-15.0) g/dL Hct 39.3 (37.0-47.0) % MCV 81.2 (80-100) fl MCH 25.4 L (26-34) pg MCHC 31.3 L (32-36) g/dl RDW 14.1 (11.5-14.5) % Plt Count 276 (150-375) k/mm3 MPV 10.8 H (7.4-10.4) fl Immature Gran % (Auto) 0.5 (0-0.5) % Neut % (Auto) 83.4 H (45.5-73.1) % Lymph % (Auto) 10.6 L (18.3-44.2) % [place] % (Auto) 5.4 (2.6-8.5) % Eos % (Auto) 0.0 (0-4.4) % Baso % (Auto) 0.1 L (0.2-1.2) % Lymph # (Auto) 1.82 (0.9-3.2) K/mm3 [place] # (Auto) 0.9 H (0.1-0.6) K/mm3 Eos # (Auto) 0.0 (0-0.3) K/mm3 Baso # (Auto) 0.0 (0.0-0.1) K/mm3 Abs Immat Gran (auto) 0.09 H (0.00-0.031) K/mm3 Absolute Neuts (auto) 14.2 H (1.3-6.7) K/mm3 Absolute Nucleated RBC 0.000 (0.0-0.012) K/mm3 Nucleated RBC % 0.0 (0.0-0.2) % Sodium 137 (137-145) mmol/L Potassium 4.1 (3.4-5.0) mmol/L Chloride 100 (98-107) mmol/L Carbon Dioxide 23 (22-30) mmol/L Anion Gap 14 H (4-12) mmol/L BUN 16 (7-17) mg/dL Creatinine 1.42 H (0.7-1.0) mg/dL Estim Creat Clear Calc 45 ml/min Estimated GFR 38 L (59 - ) Glucose 299 H (65-110) mg/dL POC Capillary Glucose 313 H (65-105) mg/dl Calcium 9.9 (8.4-10.2) mg/dL Total Bilirubin 0.6 (0.2-1.3) mg/dL AST 58 H (14-36) U/L ALT 64 H (6-35) U/L Alkaline Phosphatase 111 (38-126) U/L Total Protein 9.2 H (6.3-8.2) g/dL Albumin 4.6 (3.5-5.1) g/dL Lipase 131 (23-300) U/L Urine Color Yellow (Yellow) Urine Appearance Cloudy H (Clear) Urine pH 5.5 (5.0-9.0) Ur Specific [place] 1.038 H (1.001-1.035) Urine Protein 4+ H (Negative) mg/dL Urine Glucose (UA) 3+ H (Negative) mg/dL Urine Ketones Trace H (Negative) mg/dL Ur Blood (Man) 3+ H (Negative) Urine Nitrate Negative (Negative) Urine Bilirubin Negative (Negative) Urine Urobilinogen 0.2 (<2.0) mg/dL Add Ur Microanalysis Reviewed Leukocyte Esterase Rfl Negative (Negative) NÉSTOR/UL Urine RBC 3-5 H (0-2) /hpf Urine WBC 6-10 H (0-3) /hpf Ur Squamous Epith Cells Few (Few) /hpf Urine Bacteria Rare /hpf Urine Casts >20 Hyaline Casts Present (None) /lpf Urine Yeast (Budding) Present H (None) /hpf POC Urine HCG, Qual (Negative) 07/02/25 Range/Units 11:32 WBC (4.5-10.0) K/mm3 RBC (4.2-5.4) M/mm3 Hgb (12.0-15.0) g/dL Hct (37.0-47.0) % MCV (80-100) fl MCH (26-34) pg MCHC (32-36) g/dl RDW (11.5-14.5) % Plt Count (150-375) k/mm3 MPV (7.4-10.4) fl Immature Gran % (Auto) (0-0.5) % Neut % (Auto) (45.5-73.1) % Lymph % (Auto) (18.3-44.2) % [place] % (Auto) (2.6-8.5) % Eos % (Auto) (0-4.4) % Baso % (Auto) (0.2-1.2) % Lymph # (Auto) (0.9-3.2) K/mm3 [place] # (Auto) (0.1-0.6) K/mm3 Eos # (Auto) (0-0.3) K/mm3 Baso # (Auto) (0.0-0.1) K/mm3 Abs Immat Gran (auto) (0.00-0.031) K/mm3 Absolute Neuts (auto) (1.3-6.7) K/mm3 Absolute Nucleated RBC (0.0-0.012) K/mm3 Nucleated RBC % (0.0-0.2) % Sodium (137-145) mmol/L Potassium (3.4-5.0) mmol/L Chloride (98-107) mmol/L Carbon Dioxide (22-30) mmol/L Anion Gap (4-12) mmol/L BUN (7-17) mg/dL Creatinine (0.7-1.0) mg/dL Estim Creat Clear Calc ml/min Estimated GFR (59 - ) Glucose (65-110) mg/dL POC Capillary Glucose (65-105) mg/dl Calcium (8.4-10.2) mg/dL Total Bilirubin (0.2-1.3) mg/dL AST (14-36) U/L ALT (6-35) U/L Alkaline Phosphatase (38-126) U/L Total Protein (6.3-8.2) g/dL Albumin (3.5-5.1) g/dL Lipase (23-300) U/L Urine Color (Yellow) Urine Appearance (Clear) Urine pH (5.0-9.0) Ur Specific [place] (1.001-1.035) Urine Protein (Negative) mg/dL Urine Glucose (UA) (Negative) mg/dL Urine Ketones (Negative) mg/dL Ur Blood (Man) (Negative) Urine Nitrate (Negative) Urine Bilirubin (Negative) Urine Urobilinogen (<2.0) mg/dL Add Ur Microanalysis Leukocyte Esterase Rfl (Negative) NÉSTOR/UL Urine RBC (0-2) /hpf Urine WBC (0-3) /hpf Ur Squamous Epith Cells (Few) /hpf Urine Bacteria /hpf Urine Casts Hyaline Casts (None) /lpf Urine Yeast (Budding) (None) /hpf POC Urine HCG, Qual Negative (Negative) <Du Hurtado MD - Last Filed: 07/02/25 19:10> Discharge Plan Discharge Clinical Impression: Hypovolemia, Acute nausea with nonbilious vomiting, Elevated liver function tests, Acute cholecystitis, Gallstones, Weakness <Kyle Mendoza APRN - Last Filed: 07/02/25 15:02> Patient Disposition: Still a Patient <Kyle Mendoza APRN - Last Filed: 07/02/25 15:02> Condition: Stable <Kyle Mendoza APRN - Last Filed: 07/02/25 15:02> Time of Disposition: 12:32 <Kyle Mendoza APRN - Last Filed: 07/02/25 15:02> 12:32 <Du Hurtado MD - Last Filed: 07/02/25 19:10> Quality NIHSS Nursing Documentation ED NIHSS nursing documentation: reviewed/agree <Kyle Mendoza APRN - Last Filed: 07/02/25 15:02>
[2025-07-02] MEDS: ONDANSETRON INJ 4 MG/2 ML VIAL IV PUSH ×4 (10:15→21:08)
[2025-07-02] MEDS: SODIUM CHLORIDE 0.9% IV 1,000 ML 999 ML IV CONT ×2 (10:15→11:39)
[2025-07-02 10:20] LABS: Hematocrit 39.3 % (37.0-47.0); Hemoglobin 12.3 g/dL (12.0-15.0); Immature Granulocyte Percent A 0.5 % (0-0.5); Lymphocytes Absolute Auto 1.82 K/mm3 (0.9-3.2); Mean Corpuscular HGB Conc 31.3 g/dl (32-36); Mean Corpuscular Hemoglobin 25.4 pg (26-34); Mean Corpuscular Volume 81.2 fl (80-100); Nucleated Red Blood Cells Absolute Auto 0.000 K/mm3 (0.0-0.012); Nucleated Red Blood Cells Perc 0.0 % (0.0-0.2); Platelet Count Result 276 k/mm3 (150-375); Red Blood Count 4.84 M/mm3 (4.2-5.4); White Blood Count 17.1 K/mm3 (4.5-10.0)
--- OUTSIDE RECORDS SUMMARY | 2025-07-02 10:23 | XMS_ITS | Encounter Summary ---
Author Organization [facility] Address [address] [facility] [place] [address] Care Team Providers Care Road Test Examiner Name Role Phone Damián Montemayor MD Unavailable [phone] Teetee Khoury MD Unavailable [phone] Primo Jamil MD Primary Care Provider [phone] Brandy Alvarado RN Unavailable [phone] Starla Garcia MD Unavailable [phone] Sadie Ryan MD Unavailable [phone] Shahriar Naranjo MD Primary Care Provider [phone] Shahriar Naranjo MD Unavailable [phone] Pedro Mclain MD Primary Care Provider [phone] Antoinette Chan MD Unavailable Pedro Mclain MD Unavailable Shannan Walker PROCESS SAFETY ENGINEER-GAMES DEALER Unavailable Un available Pedro Mclain MD Unavailable Shannan Walker PROCESS SAFETY ENGINEER-GAMES DEALER Unavailable Un available Pedro Mclain MD Unavailable Ciera Nava RN Unavailable [phone] Ciera Nava RN Unavailable [phone] Ciera Nava RN Unavailable [phone] Kerri Sotelo PROCESS SAFETY ENGINEER-GAMES DEALER Unavailable Pedro Mclain MD Unavailable Juliana Zamora RN Unavailable [phone] Destiny Manzanares PROCESS SAFETY ENGINEER-GAMES DEALER Unavailable [phone] Bibi Ojeda PROCESS SAFETY ENGINEER-GAMES DEALER Unavailable Shahriar Naranjo MD Unavailable [phone] Primo Jamil MD Unavailable Pedro Mclain MD Unavailable Encounter Details Date Type Department Care Team (Late st Contact Info) Description 01/11/[address] [facility] [address] [place], [place] [id number] Shahriar Naranjo MD [address] [place] [address] Social History Tobacco Use Types Packs/Day Years Used Date Smoking Tobacco: Former Cigarettes Q uit: 09/27/1994 Smokeless Tobacco: Never Alcohol Use Standard Drinks/Week Comments No 0 (1 standard drink = 0.6 oz pur e alcohol) Comments No Sex and Gender Information Value Date Recorded Sex Assigned at Not on file Legal Sex Female 6:08 AM RUBBER BOOTS AND SHOES REPAIRER Gender Identity Not on file Sexual Orientation Not on file documented as of this encounter Functional Status * Is person deaf or have serious hearing difficulty? Answer Date of Assessment Author No 12/18/2017 11:38 AM Elin Khan RN * Is person blind or have serious difficulty seeing? Answer Date of Assessment Author No 12/18/2017 11:38 AM Elin Khan RN * Does person have serious difficulty walking/climbing stairs? Answer Date of Assessment Author No 12/18/2017 11:38 AM Elin Khan RN * Does person have difficulty dressing/bathing? Answer Date of Assessment Author No 12/18/2017 11:38 AM Elin Khan RN * Does person have difficulty doing errands alone? Answer Date of Assessment Author No 12/18/2017 11:38 AM Elin Khan, RN documented as of this encounter Mental Status * Does person have difficulty concentrating/remembering/making decisions? Answer Entry Date Author No 12/18/2017 11:38 AM CDT Elin Austin RN documented in this encounter Plan of Treatment Upcoming Encounters Date Type Department Care Team (Late st Contact Info) Description 08/31/2025 11:00 AM RUBBER BOOTS AND SHOES REPAIRER Office Visit [facility] - Endocrinology [id number] [place] [address], [address] [place] [address] [place] [id number] [place] [address] [address] [place] [address] 09/24/2025 10:45 AM RUBBER BOOTS AND SHOES REPAIRER Office Visit [facility] - Family Medicine [address] [place] [address] [address] [place] [address] Pedro Mclain MD [address] [place] [address] [address] [place] [address] 12/17/2025 11:00 AM CDT Office Visit [facility] - GI [address] [place] [address] , [facility] [address] [place] [address] Kerri Sotelo, PROCESS SAFETY ENGINEER-GAMES DEALER [id number] [place] [address] [address] [place] [address] documented as of this encounter Goals Goal Patient Goal Type Associated Problems Recent Progress Patient-Stated? Author Blood Pressure < 140/90 Blood Pressure 115/79(2024 10:47 AM CDT) No Tammy Gurrola HEMOGLOBIN A1C < 7.0 Result Component 8.5( 2:45 PM CDT) No Kerri Shay documented as of this encounter Procedures Procedure Name Priority Date/Time Associated Diagnosis Comments CK BLOOD Routine 01/11/2018 3:43 PM CDT documented in this encounter Results * CK BLOOD (01/11/2018 3:43 PM CDT) CK 190 35 - 232 U/L 01/11/2018 3:[address] [facility] Blood BLOOD SPECIMEN / Unknown Venipuncture / Unknown 01/11/2018 3:43 PM CDT 01/11/2018 2:58 PM CDT Shahriar Naranjo MD LAB - CHEMISTRY ORDERABLES F inal Result [facility] [address] [place] [address] documented in this encounter Visit Diagnoses Not on filedocumented in this encounter Additional Health Concerns Infection Onset Date Last Indicated Resolved Time C DIFF 01/22/2018 06/02/2018 10/04/2022 8:52 AM RUBBER BOOTS AND SHOES REPAIRER C Diff Hx 01/22/2018 10/04/2022 CDIFF Under Investigation 07/02/2023 07/05/2023 12:09 PM CDT documented as of this encounter Care Teams Road Test Examiner Relationship Specialty [place] [address] [address] PCP - General Internal Medicine 07/26/15 07/02/18 [place] [address] [address] PCP - General Family Medicine 07/03/18 02/09/20 Shahriar Naranjo MD [facility] [place] [address] PCP - Attributed-MSSP 06/03/19 12/07/19 [place] [address] [address] PCP - General Internal Medicine 02/20/20 [place] [address] [place] [address] PCP - Attributed-MSSP 09/03/21 10/03/21 Shannan Walker, PROCESS SAFETY ENGINEER-GAMES DEALER Retired per [id number] PCP - Attributed-MSSP 10/04/2111/03 [place] [address] [address] [facility] [address] [place] [address] PCP - Attributed-MSSP 12/02/21 12/31/21 Shannan Walker, PROCESS SAFETY ENGINEER-GAMES DEALER Retired per [id number] PCP - Attributed-MSSP 01/01/2202/03 [place] [address] [place] [address] PCP - Attributed-MSSP 03/03/22 12/02/23 Kerri Sotelo, PROCESS SAFETY ENGINEER-GAMES DEALER [address] [facility] [address] [place] [address] PCP - Attributed-MSSP 12/03/23 05/03/24 [place] [address] [address] [facility] [address] [place] [address] PCP - Attributed-MSSP 05/04/24 06/02/24 Destiny Manzanares, PROCESS SAFETY ENGINEER-GAMES DEALER [address] [place] [address] PCP - Attributed-MSSP 06/03/24 12/31/24 Bibi Ojeda, PROCESS SAFETY ENGINEER-GAMES DEALER [address] [place] [address] PCP - Attributed-MSSP 04/03/19 06/02/19 Shahriar Naranoj MD [address] [place] [address] PCP - Attributed-MSSP 02/01/19 04/02/19 Primo Jamil MD [address] [facility] [address] [place] [address] PCP - Attributed-[place] [employer] 10/26/17 02/04/19 [place] [address] [facility] [address] [place] [address] PCP - Attributed-MSSP 01/01/25 Damián Montemayor MD Gastroenterology 08/07/12 [place] [address] [facility] [address] [place] [address] Endocrinology 03/23/15 [place] [address] [address] [place] [address] Pesticide ChemistTube Rebuilder 08/03/15 06/02/18 [place] [address] [place] [address] Ophthalmology 11/27/16 [place] [address] [place] [address] Psychiatry 04/02/17 [place] [address] [place] [address] Nephrology 09/21/21 Ciera Nava RN Copier OperatorFactory Manager 10/09/22 11/01/22 Ciera Nava RN Copier OperatorFactory Manager 12/15/22 01/11/23 Ciera Nava RN Copier OperatorFactory Manager 01/12/23 12/05/23 Juliana Zamora RN Copier OperatorFactory Manager 08/25/24 08/26/24 documented as of this encounter
--- OUTSIDE RECORDS SUMMARY | 2025-07-02 10:23 | XMS_ITS | Encounter Summary ---
Author Organization [facility] Address [address] [facility] [place] [address] Care Team Providers Care Cloth Folder Machine Name Role Phone Damián Montemayor MD Unavailable [phone] Primo Jamil MD Primary Care Provider [phone] Teetee Khoury MD Unavailable [phone] Primo Jamil MD Primary Care Provider [phone] Brandy Alvarado RN Unavailable [phone] Kerri Hampton RN Unavailable Starla Garcia MD Unavailable [phone] Sadie Ryan MD Unavailable [phone] Shahriar Naranjo MD Primary Care Provider [phone] Shahriar Naranjo MD Unavailable [phone] Pedro Mclain MD Primary Care Provider [phone] Antoinette Chan MD Unavailable [phone] Pedro Mclain MD Unavailable Shannan Walker MAILING CLERK-NEWS VIDEOTAPE EDITOR Unavailable Un available Pedro Mclain MD Unavailable Shannan Walker MAILING CLERK-NEWS VIDEOTAPE EDITOR Unavailable Un available Pedro Mclain MD Unavailable Ciera Nava RN Unavailable [phone] Brandy, Ciera L RN Unavailable [phone] Ciera Nava RN Unavailable [phone] RajKerri jarvis MAILING CLERK-NEWS VIDEOTAPE EDITOR Unavailable Pedro Mclain MD Unavailable Juliana Zamora Sadie RN Unavailable [phone] Destiny Manzanares MAILING CLERK-NEWS VIDEOTAPE EDITOR Unavailable Bibi Ojeda MAILING CLERK-NEWS VIDEOTAPE EDITOR Unavailable [phone] Shahriar Naranjo MD Unavailable Primo Jamil MD Unavailable Pedro Mclain MD Unavailable Encounter Details Date Type Department Care Team (Late st Contact Info) Description 08/25/2013 [facility] Outpatient Visit [facility] - Endocrinology [address] [place] [address] Teetee Khoury MD [address] [place] [address] Social History Tobacco Use Types Packs/Day Years Used Date Smoking Tobacco: Former Cigarettes Q uit: 09/27/1994 Smokeless Tobacco: Never Alcohol Use Standard Drinks/Week Comments No 0 (1 standard drink = 0.6 oz pur e alcohol) Comments No Sex and Gender Information Value Date Recorded Sex Assigned at Not on file Legal Sex Female 6:08 AM STENCIL CUTTER Gender Identity Not on file Sexual Orientation Not on file documented as of this encounter Plan of Treatment Upcoming Encounters Date Type Department Care Team (Late Contact Info) Description 08/31/2025 11:00 AM STENCIL CUTTER Office Visit [facility] - Endocrinology [address] [place] [address] Teetee Khoury MD [address] [place] [address] 09/24/2025 10:45 AM STENCIL CUTTER Office Visit [facility] - Family Medicine [address] [place], [place] [address], [place] [address] [place] [address] [facility] [address] [place] [address] 12/17/2025 11:00 AM CDT Office Visit [facility] - [address] [facility] , [facility] [address] [place] [address] Kerri Sotelo, MAILING CLERK-NEWS VIDEOTAPE EDITOR [address] [facility] [address] [place] [address] documented as of this encounter Visit Diagnoses Not on filedocumented in this encounter Additional Health Concerns Infection Onset Date Last Indicated Resolved Time C DIFF 01/22/2018 06/02/2018 10/04/2022 8:52 AM STENCIL CUTTER C Diff Hx 01/22/2018 10/04/2022 CDIFF Under Investigation 07/02/2023 07/05/2023 12:09 PM CDT documented as of this encounter Care Teams Cloth Folder Machine Relationship Specialty Start Date End Date Primo Jamil MD PCP - General Internal Medicine 03/02/15 05/20/15 Primo Jamil MD PCP - General Internal Medicine 07/26/15 07/02/18 Shahriar Naranjo MD [address] [place] [address] [address] [place] [address] PCP - General Family Medicine 07/03/18 02/09/20 Shahriar Naranjo MD [facility] [place] [address] PCP - Attributed-MSSP 06/03/19 12/07/19 [place] [address] [place] [address] PCP - General Internal Medicine 02/20/20 [place] [address] [place] [address] PCP - Attributed-MSSP 09/03/21 10/03/21 Shannan Walker, MAILING CLERK-NEWS VIDEOTAPE EDITOR Retired per [id number] PCP - Attributed-MSSP 10/04/2111/03 [place] [address] [place] [address] PCP - Attributed-MSSP 12/02/21 12/31/21 Shannan Walker, MAILING CLERK-NEWS VIDEOTAPE EDITOR Retired per [id number] PCP - Attributed-MSSP 01/01/2202/03 [place] [address] [place] [address] PCP - Attributed-MSSP 03/03/22 12/02/23 Kerri Sotelo, MAILING CLERK-NEWS VIDEOTAPE EDITOR [address] [facility] [address] [place] [address] PCP - Attributed-MSSP 12/03/23 05/03/24 [place] [address] [place] [address] PCP - Attributed-MSSP 05/04/24 06/02/24 Destiny Manzanares, MAILING CLERK-NEWS VIDEOTAPE EDITOR [address] [place] [address] PCP - Attributed-MSSP 06/03/24 12/31/24 Bibi Ojeda APRN-NEWS VIDEOTAPE EDITOR [address] [facility] [address] [place] [address] PCP - Attributed-MSSP 04/03/19 06/02/19 Shahriar Naranjo MD [address] [place] [address] PCP - Attributed-MSSP 02/01/19 04/02/19 Primo Jamil MD [address] [facility] [address] [place] [address] PCP - Attributed-[place] [employer] 10/26/17 02/04/[address] [place] [address] [facility] [address] [place] [address] PCP - Attributed-MSSP 01/01/25 Damián Montemayor MD Gastroenterology 08/07/12 [place] [address] [facility] [address] [place], [place] [address] Endocrinology 03/23/15 [place] [address] [facility] [address] [place] [address] Dicer Machine OperatorMailing Jogger 08/03/15 06/02/18 [place] [address] [facility] [address] [place] [address] Pe Electrical EngineerRadioactive Waste Disposal Dispatcher 10/12/15 03/02/16 [place] [address] [facility] [address] [place] [address] Ophthalmology 11/27/16 [place] [address] [facility] [address] [place] [address] Psychiatry 04/02/17 [place] [address] [facility] [place] [address] Nephrology 09/21/21 Ciera Nava RN Pe Electrical EngineerRadioactive Waste Disposal Dispatcher 10/09/22 11/01/22 Ciera Nava RN Pe Electrical EngineerRadioactive Waste Disposal Dispatcher 12/15/22 01/11/23 Ciera Nava RN Pe Electrical EngineerRadioactive Waste Disposal Dispatcher 01/12/23 12/05/23 Juliana Zamora RN Pe Electrical EngineerRadioactive Waste Disposal Dispatcher 08/25/24 08/26/24 documented as of this encounter
--- OUTSIDE RECORDS SUMMARY | 2025-07-02 10:23 | XMS_ITS | Encounter Summary ---
Author Organization [facility] Address [address] [place] [address] Care Team Providers Care Game Programer Name Role Phone Damián Montemayor MD Unavailable [phone] Teetee Khoury MD Unavailable Starla Garcia MD Unavailable [phone] Sadie Ryan MD Unavailable [phone] Pedro Mclain MD Primary Care Provider [phone] Antoinette Chan MD Unavailable [phone] Pedro Mclain MD Unavailable Reason for Referral * Evaluate & Treat - Authorized Specialty Diagnoses / Procedures Referred By Contac t Referred To Contact Endocrinology Diagnoses Diabetic polyneuropathy associated with diabetes mellitus due to underlying condition (HCC) Type 2 diabetes mellitus with peripheral vascular disease (HCC) H/[place] diabetic [place] [address] [address] Phone: tel: fax: [facility] [address] [place] [address] Phone: tel: fax: Referral ID Status Reason Start Date Expiration Date Visits Requested Visits Authorized [id number] Authorized Specialty Services Required 01/07/2025 01/07/2026 1 1 Scheduling Instructions [facility] [place] [address] [id number] Sig: Measure and fit for orthotic and shoes: Extra depth, Extra width Diagnosis: Diabetic polyneuropathy associated with diabetes mellitus due to underlying condition (HCC) (primary encounter diagnosis) Type 2 diabetes mellitus with peripheral vascular disease (HCC) H/O diabetic foot ulcer Teetee Khoury MD 01/07/2025 9:21 PM Encounter Details Date Type Department Care Team (Late st Contact Info) Description 01/05/2025 Telephone [facility] - Endocrinology [address] [place] [address], [address] [place] [address] [place]ee [place] [id number] [place] [address] [address] [place] [address] Social History Tobacco Use Types Packs/Day [...] Recorded Patient Health Questionnaire-2 Score 3 09/19/2024 [facility] - Occupational Stress [...] place to sleep or slept in a custodial (including now)? No 03/13/2023 Housing Stability Vital [...] time in the past [address] [facility], were you homeless or living in a custodial (including now)? No 08/20/2024 Comments No Sex and Gender Information Value Date Recorded Sex Assigned at Not on file Legal Sex Female 6:08 AM CHRONIC SPECIALIST Gender Identity Not on file Sexual Orientation Not on file Occupation Industry Job Start Date Job End Date Not on file Not on file Not on file Not on file documented as of this encounter Functional Status * Is person deaf or have serious hearing difficulty? Answer Date of Assessment Author No 08/20/2024 12:11 PM Kika Praedes RN * Is person blind or have serious difficulty seeing? Answer Date of Assessment Author No 08/20/2024 12:11 PM Kika Paredes RN * Does person have serious difficulty walking/climbing stairs? Answer Date of Assessment Author No 08/20/2024 12:11 PM CHRONIC SPECIALIST Flaker, Kika R, RN * Does person have difficulty dressing/bathing? Answer Date of Assessment Author No 08/20/2024 12:11 PM Kika Paredes RN * Does person have difficulty doing errands alone? Answer Date of Assessment Author No 08/20/2024 12:11 PM Kika Paredes RN documented as of this encounter Mental Status * Does person have difficulty concentrating/remembering/making decisions? Answer Entry Date Author No 08/20/2024 12:11 PM Kika Paredes RN documented in this encounter Miscellaneous Notes * Telephone Encounter - Dick Rod MA - 01/08/2025 8:49 AM CDT Spoke with patient and . They requested referral for Orthotics go to [facility]. Faxed order and chart notes to fax number on form that patient dropped off to the office. * Telephone Encounter - Teetee Khoury MD - 01/07/2025 9:15 PM CDT Shoes ordered * Telephone Encounter - Angela Sutherland - 01/05/2025 11:28 AM CDT Pt is requesting a rx for diabetic shoes. Insurance copy requires dr. Khoury to send the rx. Form has been scanned into media and this is an urgent request. documented in this encounter Plan of Treatment Upcoming Encounters Date Type Department Care Team (Late st Contact Info) Description 08/31/2025 11:00 AM CHRONIC SPECIALIST Office Visit [facility] - Endocrinology [address] [place] [address], [address] [place] [address] Teetee Khoury MD [address] [place] [address] [place] [address] 09/24/2025 10:45 AM CHRONIC SPECIALIST Office Visit [facility] - Family Medicine [address] [facility] [address] [place] [address] [place] [address] [address] [facility] [address] [place] [address] 12/17/2025 11:00 AM CDT Office [place] [facility] [place] [address] [address] [place] [place] [address] Kerri Sotelo, SALES OFFICE ADMINISTRATOR-LATIN TEACHER [address] [facility] [address] [place] [address] Scheduled Referrals Name Type Priority Associated Diagnoses Orde r Schedule AMB REFERRAL FOR ORTHOTICS/PROSTHE TICS Outpatient Referral Routine Diabetic polyneuropathy associated with diabetes mellitus due to underlying condition (HCC) Type 2 diabetes mellitus with peripheral vascular disease (HCC) H/O diabetic foot ulcer 1 Occurrences starting 01/07/2025 until 01/07/2026 documented as of this encounter Goals Goal Patient Goal Type Associated Problems Recent Progress Patient-Stated? Author Blood Pressure < 140/90 Blood Pressure 115/79(2024 10:47 AM CDT) Tammy Dozier HEMOGLOBIN A1C < 7.0 Result Component 8.5( 2:45 PM CDT) No Kerri Shay documented as of this encounter Visit Diagnoses Diagnosis Diabetic polyneuropathy associated with diabetes mellitus due to underlying condition (HCC)- Primary Type 2 diabetes mellitus with peripheral vascular disease (HCC) H/O diabetic foot ulcer Personal history of other endocrine, metabolic, and immunity disorders documented in this encounter Additional Health Concerns Infection Onset Date Last Indicated Resolved Time C Diff Hx 01/22/2018 10/04/2022 documented as of this encounter Care Teams Game Programer Relationship Specialty Start [place] [address] [address] [facility] [address] [place] [address] PCP - General Internal Medicine 02/20/20 [place] [address] [address] [place] [address] PCP - Attributed-MSSP 01/01/25 Damián Montemayor MD Gastroenterology 08/07/12 [place] [address] [employer] [address] [place] [address] Endocrinology 03/23/15 [place] [address] [facility] [address] [place] [address] Ophthalmology 11/27/16 [place] [address] [facility] [employer] [address] [place] [address] Psychiatry 04/02/17 [place] [address] [facility] [place] [address] Nephrology 09/21/21 documented as of this encounter
--- OUTSIDE RECORDS SUMMARY | 2025-07-02 10:23 | XMS_ITS | Clinical Summary ---
Author Organization [facility] Address [address] [place] [address] Phone Care Team Providers Care Drug Safety Assistant Name Role Phone Balbir Jaimes DO, Reynal [...] on file Legal Sex Female 5:47 AM INTEGRATED LOGIST[employer] PROGRAMS DIRECTOR Gender Identity Not on file Sexual Orientation [...] OR WO CAD Routine 10/16/2023 1:27 PM INTEGRATED LOGIST[employer] PROGRAMS DIRECTOR Encounter for screening mammogram for malignant neoplasm of breast HEMOGLOBIN A1C Routine 01/23/2011 7:26 AM CDT from Last 3 Months or Most Recently Relevant to Health Maintenance Results * MAMMO 3D CARLA SCREEN BILAT W OR WO CAD (10/16/2023 1:27 PM INTEGRATED LOGISTICS PROGRAMS DIRECTOR) Anatomical Region Laterality Modality Breast Bilateral Mammography 10/16/2023 1:27 PM INTEGRATED LOGISTICS PROGRAMS DIRECTOR Impressions 10/16/2023 2:56 PM INTEGRATED LOGISTICS PROGRAMS DIRECTOR IMPRESSION: BI-RADS Category 1, negative mammogram. Recommend yearly bilateral screening mammogram. Narrative 10/16/2023 2:56 PM INTEGRATED LOGISTICS PROGRAMS DIRECTOR EXAM: MAMMO 3D CARLA SCREEN BILAT W [...] 8.5(H) 4.1 - 6.1 % of Hgb [facility] EST. AVG GLUCOSE, A1C 197 mg/dL [facility] Comment: The reported estimated average glucose (eAG) based on the HbA1c determination is calculated using the ADAG study equation. Further interpretative information is available in the Laboratory Services Policy Manual on the [facility] Intranet at: [email or web address] Blood specimen (specimen) 01/23/2011 7:26 AM CDT 01/23/2011 7:32 AM CDT Marixa Melendez MD CHEMISTRY ORDERABLES Final Re sult [facility] CLIA# [id number] [address] [place] [address] from Last 3 Months or Most Recently Relevant to Health Maintenance Insurance Member Subscriber Plan / Payer (Ef fective 2021-Present) Name:Cinthya Scott Relation to Subscriber:Self Name:Cinthya Scott Payer ID:Not on file Group ID:Not on file Type:MD Address: [address] [facility] MEDICARE PART A AND B Advance Directives For more information, please contact: [phone] * Full Code (Latest Code Status on [...] 12:52 AM 01/03/2011 11:04 AM Care Teams Drug Safety Assistant Relationship Specialty Start Date End Date Nikita Mcgregor Sr., DO PCP - General 05/28/09
--- OUTSIDE RECORDS SUMMARY | 2025-07-02 10:23 | XMS_ITS | Clinical Summary ---
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 This disclosure is being madepursuant to the Care Everywhere program and may not contain all information available regarding this patient. Last updated 18.[facility] Allergies Active Allergy Reactions Criticality Noted Date Comments Pioglitazone Itching 08/11/2019 Metoclopramide Nausea and/or Vomiting,Unknown 12/22/2010 PT TOLERATES AND TAKE AT HOME Penicillins Rash Low 12/18/2008 Tolerates cephalosporins Dulaglutide Vomiting 08/19/2020 Medications * This document contains information received from the source organization and may not represent a complete record from that organization. * Be aware that medications may not be up to date on this document. Alwaysverify current medications with the patient. glucose (Dex4) 4 g chew tabletIndication s:Type 2 diabetes mellitus with peripheral vascular disease (HCC) Take 4 (four) tablets by mouth as needed (Hypoglycemia) 400 tablet 3 10/03/19 23 Active Blood Glucose Monitoring Suppl (Blood Glucose Monitor System) w/Device KITIndications:T ype 2 diabetes mellitus with peripheral vascular disease (HCC) Use 1 Each once daily 1 Each 1 10/03/19 23 Active Lancets Micro Thin 33G MISCIndications: Type 2 diabetes mellitus with peripheral vascular disease (HCC) Use 1 Each 4 times daily 400 Each 3 10/03/19 23 Active zolpidem (Ambien) 10 MG tabletIndication s:Insomnia Take 0.5 (one-half) tablet to 1 (one) tablet by mouth at bedtime Reasons: Trouble Sleeping 45 tablet 1 06/23/20 24 Active ondansetron (Zofran) 4 MG tabletIndication s:Cyclic vomiting syndrome Take 1 (one) tablet by mouth every 6 hours as needed for Nausea/Vomiting 30 tablet 5 06/26/20 24 Active busPIRone (Buspar) 15 MG tablet Take 1 (one) tablet by mouth 3 times daily Active LORazepam (Ativan) 1 MG tablet Take 1 (one) tablet by mouth every 12 hours as needed for Anxiety Active acetaminophen (Tylenol) 325 MG tablet Take 2 (two) tablets by mouth every 6 hours as needed Maximum allowable Acetaminophen amount = 4 Grams (4000 mg) / 24 hours. 08/22/20 24 Active calcium carbonate (Tums) 500 MG chew tablet Take 2 (two) tablets by mouth every 4 hours as needed 08/22/20 24 Active paliperidone palmitate ER (Invega Sustenna) 234 MG/1.5ML injection Inject 234 (two hundred thirty four) mg into muscle every 28 days 1.5 mL 09/15/19 25 Active collagenase (Santyl) 250 UNIT/GM ointmentIndicati ons:Decubitus ulcer of left foot, stage 3 (HCC),Decubitus ulcer of right foot, stage 3 (HCC) Apply to affected area once daily 30 g 3 10/14/19 25 Active Insulin Pen Needle (BD Pen Needle Joann U/F) 32G X 4 MM MISCIndications: Type 2 diabetes mellitus with stage 3a chronic kidney disease, with long-term current use of insulin (HCC) Use 1 Each 4 times daily With insulin DX E11.22 200 Each 11 10/28/19 25 Active blood glucose test stripIndications :Type 2 diabetes mellitus with stage 3a chronic kidney disease, with long-term current use of insulin ([facility]) Use 1 (one) strip 4 times daily - before meals & nightly Freestyle 400 strip 3 10/28/19 25 Active gabapentin (Neurontin) 600 MG tabletIndication s:Type 2 diabetes mellitus with stage 3a chronic kidney disease, with long-term current use of insulin ([facility]) Take 1 (one) tablet by mouth 2 times daily 60 tablet 5 11/11/19 25 Active atorvastatin (Lipitor) 40 MG tablet Take 1 (one) tablet by mouth once daily 90 tablet 1 11/11/19 25 Active insulin aspart (NovoLOG FLEXPEN) penIndications:T ype 2 Diabetes Mellitus Inject subq before meals BRK-30 U, lunch 22U, and 22 dinner+ scale TDD 180 U. Reasons: Type 2 Diabetes 80 mL 3 12/30/19 25 Active glucagon (Glucagen) injection Inject 1 (one) mg into muscle as directed If needed to use this also call 911: May repeat in 10 - 15 min if no respond and EMS has not arrived: 6 Each 3 01/28/20 25 Active Continuous Glucose Sensor (FreeStyle Fay 3 Plus Sensor) MISCIndications: Type 2 diabetes mellitus with stage 3a chronic kidney disease, with long-term current use of insulin ([facility]) Use 1 Each every 15 days 6 Each 2 03/13/20 25 Active insulin degludec (Tresiba FlexTouch) 200 UNIT/ML penIndications:T ype 2 diabetes mellitus with stage 3a chronic kidney disease, with long-term current use of insulin ([facility]) Inject 36 (thirty six) Units subcutaneously at bedtime 30 mL 1 03/27/20 25 Active vitamin D, ergocalciferol, (Drisdol) 1.25 MG (37931 UT) capsule Take 1 (one) capsule by mouth every 7 days (once a week) 12 capsule 3 04/22/20 25 Active meclizine (Antivert) 25 MG tablet Take 1 (one) tablet by mouth 2 times daily 60 tablet 4 04/24/20 25 Active pantoprazole EC (Protonix) 40 MG tabletIndication s:Gastroesophage al reflux disease without esophagitis Take 1 (one) tablet by mouth once daily 90 tablet 3 06/18/20 25 Active pancrelipase (Creon 36,000) 56193-199177 units capsuleIndicatio ns:Pancreatic Insufficiency Take 2 (two) capsules by mouth 3 times daily with meals. May also take 1 (one) capsule as needed with food for Digestion (for snacks). Reasons: Pancreatic Insufficiency. 300 capsule 11 06/18/20 25 Active loperamide (Imodium) 2 MG capsuleIndicatio ns:Diarrhea, unspecified type TAKE ONE CAPSULE BY MOUTH FOUR TIMES A DAY NEEDED FOR DIARRHEA 120 capsule 06/18/20 25 Active pancrelipase (Creon 36,000) 29394-169494 units capsuleIndicatio ns:Pancreatic Insufficiency Take 2 (two) capsules by mouth 3 times daily with meals. May also take 1 (one) capsule as needed with food for Digestion (for snacks). Reasons: Pancreatic Insufficiency. 300 capsule 11 03/30/20 25 025 Discontin ued(Reord er) loperamide (Imodium) 2 MG capsuleIndicatio ns:Diarrhea, unspecified type TAKE ONE CAPSULE BY MOUTH FOUR TIMES A DAY NEEDED FOR DIARRHEA 120 capsule 04/24/20 25 025 Discontin ued(Reord er) pantoprazole EC (Protonix) 40 MG tabletIndication s:Gastroesophage al reflux disease without esophagitis Take 1 (one) tablet by mouth once daily 30 tablet 11 04/24/20 25 025 Discontin ued(Reord er) Active Problems Problem Noted Date Diagnosed Date Decubitus ulcer of right foot, stage 4 5 Decubitus ulcer of left foot, stage 3 09/25/2024 Type 2 diabetes mellitus wit h hyperglycemia, without long-term current use of insulin 09/19/2024 Type 2 diabetes mellitus with obesity 09/19/2024 Overview (06/03/2025): IMO 06/03/2025 Cellulitis, unspecified cellulitis site 08/19/20 24 Wound of left foot 08/19/2024 Diarrhea of [...] 01/17/2014 Overview (07/22/2021): IOP 07/19/2021 (12 hours) [facility] Jh Ellis MD Last attending Treatment team Bipolar I disorder with depression Principal problem Generalized anxiety disorder 11/11/2012 Cyclic vomiting syndrome 11/11/2012 Essential hypertension 05/21/2012 Overview (05/21/2012): Dx.ed 2011 Neuropathy in diabetes 05/21/2012 Resolved Problems Problem Noted Date Diagnosed Date Resolved Date Diabetic polyneuropathy asso ciated with diabetes mellitus due to underlying condition 08/19/2024 03/24/2025 BMI 38.0-38.9,adult 11/06/2022 05/09/20 23 Stage 3a chronic kidney disease 05/09/2022 09/19/2024 Other osteomyelitis of right foot 12/13/2021 09/19/2024 Vita infection 12/13/2021 12/13/2021 BMI 40.0-44.9, adult 11/29/2021 023 M Obesity 07/22/2021 11/29/2021 Overview (07/22/2021): Body Mass Index: 42.36 kg/m Abnormal 1.727 m (5' 8) as of 05/24/2021 126.4 kg (278 lb [...] 12/18/2017 0 12/19/2017 Nausea and vomiting 12/18/2017 04/18/20 18 Intractable vomiting with nausea 12/18/2017 12/19/2017 Moderate episode of recurren t major depressive disorder 02/01/2016 12/03/2017 Upper GI bleed 01/28/2016 12/03/2017 Acute blood loss anemia 01/28/2016 0410/2017 SIRS (systemic inflammatory response syndrome) 01/28/2016 12/03/2017 [...] 12/03/2017 Anemia 12/20/2010 12/03/2017 Constipation 08/26/2010 08/23/2015 [place]'s gland cyst 06/29/2010 8 Hypopotassemia 07/16/2009 12/03/2017 Nausea with vomiting 05/25/2009 018 Overview (05/21/2012): Dx.ed 2006 DM type 2 (diabetes mellitus, type 2) 12/18/2008 12/03/2017 Overview (05/21/2012): Dx.ed 2006 On insulin since 2008 Screening for cervical cancer 12/18/2008 12/03/2017 Overview (12/18/2008): 2007 results not in chart Encounters * This document contains information received from the source organization and may not represent a complete record from that organization. Date Type Department Care Team Description 06/18/2025 11:00 AM CDT Office Visit [facility] [address] [place] [phone] Kerri Sotelo APRN-ALLYSON Cyclic vomiting syndrome (Primary Dx); Gastroesophageal reflux disease without esophagitis; Diarrhea, unspecified type; S/P gastric bypass; Pancreatic insufficiency (HCC) 06/18/2025 Travel 05/21/2025 Travel 04/29/2025 11:00 AM CDT Office Visit [facility] - Endocrinology [address] [place] [address], [address] [place] [phone] Anabel Gay, LINER ASSEMBLER-ALLYSON Type 2 diabetes mellitus with stage 3a chronic kidney disease, with long-term current use of insulin (HCC) (Primary Dx); Mixed hyperlipidemia 04/24/2025 Refill [facility] [address] [place] [phone] Kerri Sotelo APRN-ALLYSON MEDICATION REFILL 04/24/2025 Refill [facility] Medicine [address] [place] [address] [address] [place] [address] Pedro Mclain MD MEDICATION REFILL 04/23/2025 Refill [facility] [address] [place] [phone] Kerri Sotelo APRN-SIMULATION TECH MEDICATION REFILL 04/23/2025 Travel 04/22/[address] [place] [address] Pedro Mclain MD MEDICATION REFILL 04/09/2025 10:50 AM CDT - 04/09/2025 11:59 PM CDT Hospital Encounter [facility] . Wound Care [address] [place] [phone] Lenny Nava DO Discharge Disposition: Home or Self Care 04/09/2025 Travel 04/01/2025 Refill [facility] [address], [address] [address] Kerri Sotelo, LINER ASSEMBLER-SIMULATION TECH Refill Request from Last 3 Months Immunizations Immunization Administration Dates Next Due Covid Who is Undercover Spy primary monoval ent 12+ yr 0.3mL Purple [...] Recorded Patient Health Questionnaire-2 Score 3 09/19/2024 [facility] [place] of Occupat ional Health - Occupational Stress [...] place to sleep or slept in a usp (including now)? No 03/13/2023 Housing Stability Vital Sign Answer Chaparro e Recorded In the last 12 months, was t here a time when you were not able to pay the mortgage or rent on time? No 08/20/2024 In the past 12 months, how m any times have you moved where you were living? 0 08/20/2024 At any time in the past 12 m [facility], were you homeless or living in a usp (including now)? No 08/20/2024 Comments No Sex and Gender Information Value Date Recorded Sex Assigned at Not on file Legal Sex Female 6:08 AM STUCCO APPLICATOR Gender Identity Not on file Sexual Orientation Not on file Occupation Industry Job Start Date Job End Date Not on file Not on file Not on file Not on file Last Filed Vital Signs Vital Sign Reading Time Taken Comments Blood Pressure 115/79 06/18/2025 10:47 AM CDT Pulse 74 06/18/2025 10:47 AM CDT Temperature 36.6 C (97.8 F) 04/09/2025 10:55 AM CDT Respiratory Rate 18 04/23/2025 2:34 PM CDT Oxygen Saturation 97% 06/18/2025 10:47 AM CDT Inhaled Oxygen Concentration - - Weight 99.5 kg (219 lb 6.4 oz) 06/18/2025 10:47 AM CDT Height 172.7 cm (5' 8) 06/18/2025 10:14 AM CDT Body Mass Index 33.36 06/18/2025 10:14 AM CDT Plan of Treatment Upcoming Encounters Date Type Department Care Team (Late st Contact Info) Description 08/31/2025 11:00 AM STUCCO APPLICATOR Office Visit [facility] - Endocrinology [address] [place] [address], [address] [place] [phone] [place] [address] [place] [address] [address] [place], [place] [id number] 09/24/2025 10:45 AM STUCCO APPLICATOR Office Visit [facility] - Family Medicine [id number] [place] [address] [address] [place], [place] [id number] Pedro Mclain MD [address] [place] [address] [address] [place] [phone] 12/17/2025 11:00 AM CDT Office Visit [facility] [place] [id number] [place], [place] [address]letha [address], [facility] [address] [place] [address] Kerri Sotelo, LINER ASSEMBLER-SIMULATION TECH [id number] [place] [address] [address] [place] [address] Health Maintenance Due Date Last Done Comments COLOGUARD (AGES 45-75) - COLON CA SCREENING 1965 CT COLONOGRAPHY - COLON CA SCREENING 1965 FIT - COLON CA SCREENING 1965 FLEX SIG - COLON CA SCREENING 1965 HIV SCREENING 1980 DTAP/TDAP/TD VACCINES (1 - Tdap) 1984 PNEUMOCOCCAL VACCINE 50+ (1 of 2 - PCV) 1984 COVID-19 VACCINE (4 - season) 2025 08/03/2021, 12/19/2020, 11/28/2020 INFLUENZA VACCINE (#1) 2025 , 11/06/2022, 10/04/2012 Respiratory Syncytial Virus (RSV) Vaccine Pt: or over 60 yrs (1 - Risk 60-74 years 1-dose series) 2025 MEDICARE AWV 12 MONTHS 09/19/2025 09/19/2024, 09/19/2024, 05/09/2023, Additional history exists MAMMOGRAM 10/16/2025 10/16/2023, 10/04, 10/16/2023, Additional history exists DIABETES-HGB A1C 10/30/2025 04/29/2025, , 10/28/2024, Additional history exists DIABETES RETINOPATHY SCREENING 01/08/2026 01/08/2025 (Done Outside Per Report), 01/08/2025, 12/23/2024, Additional history exists DIABETES - URINE PROTEIN SCREENING 04/27/2026 04/27/2025, 12/21/2023, 10/12/2023, Additional history exists DIABETES-SERUM CREATININE 04/27/20262024, 08/20/2024, 08/19/2024, Additional history exists DIABETES-FOOT EXAM WITH MONOFILAMENT 04/29/2026 04/29/2025, 04/21/2014 PAP with HPV 06/06/2029 06/06/2024, 12/0 09/2020, 01/20/2015, Additional history exists COLON MONITORING 09/08/2030 09/08/2020, 09/08/2020 COLONOSCOPY - COLON CA SCREENING 09/08/2030 09/08/2020, 09/08/2020, 12/28/2008 (Previously completed) Colorectal Cancer Screening 09/08/2030 HEPATITIS C SCREENING Completed 07/29/2010 HEPATITIS B VACCINE Discontinued HIB VACCINE Aged [...] Procedure Name Priority Date/Time Associated Diagnosis Comments GLUCOSE TESTING AT HOME Routine 06/01/2025 11:13 AM CDT HEMOGLOBIN A1C - POINT OF CARE (AMB) Routine 04/29/2025 12:07 PM CDT Type 2 diabetes mellitus with stage 3a chronic kidney disease, with long-term current use of insulin ([facility]) GLUCOSE - POINT OF CARE (AMB) STL Routine 04/29/2025 12:06 PM CDT Type 2 diabetes mellitus with stage 3a chronic kidney disease, with long-term current use of insulin ([facility]) MICROALB/CREAT RATIO URINE RANDOM PANEL Routine 04/27/2025 10:01 AM CDT Type 2 diabetes mellitus with stage 3a chronic kidney disease, with long-term current use of insulin ([facility]) VITAMIN D 25-HYDROXY Routine 04/27/2025 10:01 AM CDT Type 2 diabetes mellitus with stage 3a chronic kidney disease, with long-term current use of insulin ([facility]) Vitamin D deficiency LIPID PROFILE Routine 04/27/2025 10:01 AM CDT Type 2 diabetes mellitus with stage 3a chronic kidney disease, with long-term current use of insulin ([facility]) COMPREHENSIVE METABOLIC PANEL Routine 04/27/2025 10:01 AM CDT Type 2 diabetes mellitus with stage 3a chronic kidney disease, with long-term current use of insulin ([facility]) FRUCTOSAMINE Routine 04/27/2025 10:01 AM CDT Type 2 diabetes mellitus with stage 3a chronic kidney disease, with long-term current use of insulin (HCC) EYE EXAM 01/08/2025 PAP IG LB +HPV APTIMA REFLEX 16,18/45 Routine 06/06/2024 2:00 PM CDT Well woman exam with routine gynecological exam Screening for HPV (human papillomavirus) MAMMOGRAM 10/16/2023 ENDOSCOPY, COLON, SCREENING Routine 09/08/2020 7:05 AM STUCCO APPLICATOR Special screening for malignant neoplasms, colon from Last 3 Months or Most Recently Relevant to Health Maintenance Results * GLUCOSE TESTING AT HOME (06/01/2025 11:13 AM CDT) Teetee Khoury MD NURSING - COMMUNICATION Final Result * HEMOGLOBIN A1C - POINT OF CARE (HgbA1C) (04/29/2025 12:07 PM CDT) Hemoglobin A1c POCT 7.2 % Expiration Date 10/29/2026 Lot # [id number] QC Verified Yes Yes Blood BLOOD SPECIMEN / Unknown 04/29/2025 12:07 PM CDT Anabel Gay APRN-SIMULATION TECH LAB - POINT OF CARE ORDER CALEB Final Result * GLUCOSE - POINT OF CARE (AMB) STL (04/29/2025 12:06 PM CDT) Glucose 69 60 - 100 mg/dL Comment:gave apple juice Lot # [id number] Expiration Date 06/02/2026 QC Verified Yes Yes Blood BLOOD SPECIMEN / Unknown 04/29/2025 12:06 PM CDT Anabel Gay APRN-SIMULATION TECH LAB - POINT OF CARE ORDER CALEB Final Result * MICROALB/CREAT RATIO URINE RANDOM PANEL (04/27/2025 10:01 AM CDT) Creatinine Urine 170.2 Not Estab. mg/dL [facility] INSURANCE BILL Microalbumin Urine 29.3 Not Estab. ug/mL [facility] INSURANCE BILL Microalbumin/Crea tinine Ratio 17 0 - 29 mg/g creat [facility] INSURANCE BILL Comment: Normal: 0 - 29 Moderately increased: 30 - 300 Severely increased: >300 Urine URINE SPECIMEN OBTAINED BY CLEAN CATCH PROCEDURE / Unknown 04/27/2025 10:01 AM CDT 04/27/2025 Narrative [facility] INSURANCE BILL - 04/28/2025 1:10 PM CDT Performed at: [address] [id number] Strategic Account Executive: Iam Avila PhD, Phone: [phone] [facility] - URINE CHEMISTRY ORD ERABLES Final Result Performing Organization Address [facility] Co de Phone Number [facility] INSURANCE BILL [address] [place] [address] * (ABNORMAL) FRUCTOSAMINE (04/27/2025 10:01 AM CDT) Fructosamine 316(H) 0 - 285 umol/L [facility] INSURANCE BILL Comment: Published reference interval for apparently healthy subjects between age 20 and 60 is 205 - 285 umol/L and in a poorly controlled diabetic population is 228 - 563 umol/L with a mean of 396 umol/L. Blood BLOOD SPECIMEN / Unknown 04/27/2025 10:01 AM CDT 04/27/2025 Narrative [facility] INSURANCE BILL - 04/28/2025 8:11 AM CDT Performed at: [address] [id number] Strategic Account Executive: Iam Avila PhD, Phone: [phone] Anabel Gay [facility] - CHEMISTRY ORDERABLE S Final Result Performing Organization Address [facility] Co de Phone Number [facility] INSURANCE BILL [address] [place] [address] * VITAMIN D 25-HYDROXY (04/27/2025 10:01 AM CDT) Vitamin D, 25 Hydroxy 36.6 30.0 - 100.0 ng/mL [facility] INSURANCE BILL Comment: Vitamin D deficiency has been defined by the [place] of Medicine and an Endocrine Society practice guideline as a level of serum 25-OH vitamin D less than 20 ng/mL (1,2). The Endocrine Society went on to further define vitamin D insufficiency as a level between 21 and 29 ng/mL (2). 1. IOM ([place] of Medicine). 2010. Dietary reference intakes for calcium and D. [place]: The National Academies Press. 2. Jessica MF, Eugenie CHURCH, Kylah WEBBER, et al. Evaluation, treatment, and prevention of vitamin D deficiency: an Endocrine Society clinical practice guideline. JCEM. 2010; 96(7):1911-30. Blood BLOOD SPECIMEN / Unknown 04/27/2025 10:01 AM CDT 04/27/2025 Narrative [facility] INSURANCE BILL - 04/28/2025 7:09 AM CDT Performed at: [address] [id number] Strategic Account Executive: Iam Avila PhD, Phone: [phone] us Anabel Gay LINER ASSEMBLER-SIMULATION TECH LAB - CHEMISTRY ORDERABLE S Final Result [facility] INSURANCE BILL [address] [place] [address] * (ABNORMAL) COMPREHENSIVE METABOLIC PANEL (04/27/2025 10:01 AM CDT) Glucose 221(H) 70 - 99 mg/dL [facility] INSURANCE BILL BUN 13 6 - 24 mg/dL [facility] INSURANCE BILL Creatinine 1.35(H) 0.57 - 1.00 mg/dL [facility] INSURANCE BILL eGFR by CKD-EPI 45(L) >59 mL/min/1.7 3 [facility] INSURANCE BILL BUN/Creatinine Ratio 10 9 - 23 [facility] INSURANCE BILL Sodium 139 134 - 144 mmol/L [facility] INSURANCE BILL Potassium 5.2 3.5 - 5.2 mmol/L [facility] INSURANCE BILL Chloride 106 96 - 106 mmol/L [facility] INSURANCE BILL CO2 19(L) 20 - 29 mmol/L [facility] INSURANCE BILL Calcium 9.6 8.7 - 10.2 mg/dL [facility] INSURANCE BILL Protein Total 7.5 6.0 - 8.5 g/dL [facility] INSURANCE BILL Albumin 3.8 3.8 - 4.9 g/dL [facility] INSURANCE BILL Globulin Total 3.7 1.5 - 4.5 g/dL [facility] INSURANCE BILL Bilirubin Total 0.4 0.0 - 1.2 mg/dL [facility] INSURANCE BILL Alkaline Phosphatase 113 44 - 121 IU/L [facility] INSURANCE BILL AST 24 0 - 40 IU/L [facility] INSURANCE BILL ALT 21 0 - 32 IU/L [facility] INSURANCE BILL Blood BLOOD SPECIMEN / Unknown 04/27/2025 10:01 AM CDT 04/27/2025 Narrative [facility] INSURANCE BILL - 04/28/2025 7:09 AM CDT Performed at: [address] [id number] Strategic Account Executive: Iam Avila PhD, Phone: [phone] us Anabel Gay LINER ASSEMBLER-SIMULATION TECH LAB - CHEMISTRY ORDERABLE S Final Result [facility] INSURANCE BILL [address] [place] [address] * LIPID PROFILE (04/27/2025 10:01 AM CDT) Cholesterol 140 100 - 199 mg/dL [facility] INSURANCE BILL Triglycerides 98 0 - 149 mg/dL [facility] INSURANCE BILL HDL Cholesterol 62 >39 mg/dL [facility] INSURANCE BILL VLDL Calculated 18 5 - 40 mg/dL [facility] INSURANCE BILL LDL Calculated 60 0 - 99 mg/dL [facility] INSURANCE BILL Blood BLOOD SPECIMEN / Unknown 04/27/2025 10:01 AM CDT 04/27/2025 Narrative [facility] INSURANCE BILL - 04/28/2025 7:09 AM CDT Performed at: [address] [id number] Strategic Account Executive: Iam Avila PhD, Phone: [phone] us Anabel Gay LINER ASSEMBLER-SIMULATION TECH LAB - CHEMISTRY ORDERABLE S Final Result [facility] INSURANCE BILL [address] [place] [address] * EYE EXAM (01/08/2025) Anatomical Region Laterality Modality Other 01/08/2025 Narrative 01/08/2025 Ordered by an unspecified provider. us Scanned Document SCANNING ONLY Final Result * PAP IG LB +HPV APTIMA REFLEX 16,18/45 (06/06/2024 2:00 PM CDT) Diagnosis Comment [facility] INSURANCE BILL Comment:NEGATIVE FOR INTRAEP ITHELIAL LESION OR MALIGNANCY. Specimen Adequacy Comment [facility] INSURANCE BILL Comment: Satisfactory for evaluation. Endocervical and/or squamous metaplastic cells (endocervical component) are present. Clinician Provided ICD10 Comment [facility] INSURANCE BILL Comment: Z01.419 Z11.51 Performed by Comment [facility] INSURANCE BILL Comment:Yolanda Rai, Cyto technologist (ASCP) Comment . [facility] INSURANCE BILL Note Comment [facility] INSURANCE BILL Comment: The Pap smear is a screening test designed to aid in the detection of premalignant and malignant conditions of the uterine cervix. It is not a diagnostic procedure and should not be used as the sole means of detecting cervical cancer. Both false-positive and false-negative reports do occur. [facility] CPT Code Automation Comment [facility] INSURANCE BILL Comment: This liquid based ThinPrep(R) pap test was screened with the use of an image guided system. Human papillomavirus Aptima Negative Negative [facility] INSURANCE BILL Comment: This nucleic acid amplification test detects fourteen high-risk HPV types (16,18,31,33,35,39,45,51,52,56,58,59,66,68) without differentiation. HPV Genotype Reflexed Comment [facility] INSURANCE BILL Comment:Criteria not met, HP V Genotype not performed. PART OF UTERINE CERVIX / Unknown 06/06/2024 2:00 PM CDT 06/06/2024 Comment:Cervix Release to pa t Narrative [facility] INSURANCE BILL - 06/12/2024 3:10 PM CDT Performed at: 01 [address] [id number] Strategic Account Executive: Anahi Griffin MD, Phone: [phone] Performed at: - [address] [place], [place] [id number] Strategic Account Executive: Anahi Griffin MD, Phone: [phone] Specimen Comment: [id number] Specimen Comment: No. of containers..01 ThinPrep Vial us Trevor Newsome MD LAB - PATHOLOGY/CYTOLOGY IFEOMA BUCHANAN Final Result [facility] INSURANCE BILL [address] [place] [address] * MAMMOGRAM (10/16/2023) Anatomical Region Laterality Modality Other 10/16/2023 Narrative 10/16/2023 Ordered by an unspecified provider. us Scanned Document SCANNING ONLY Final Result * ENDOSCOPY, COLON, SCREENING (09/08/2020 7:05 AM STUCCO APPLICATOR) Report Endoscopy POC _ Patient Name: Jatin [...] by the physician, the nurse and the seam stay stitcher in the procedure room. Mental Status Examination: [...] the patient. Procedure Code(s): --- Professional --- 78661, Colonoscopy, flexible; with biopsy, single or multiple --- Technical --- 11624, Colonoscopy, flexible; with biopsy, single or multiple Diagnosis Code(s): --- Professional --- Z12.11, Encounter for screening for malignant neoplasm of colon K62.1, Rectal polyp --- Technical --- Z12.11, Encounter for screening for malignant neoplasm of colon K62.1, Rectal polyp CPT copyright 2017 [employer]. All rights reserved. The codes documented in this report are preliminary and upon cement rubber review may be revised to meet current compliance requirements. Dr. Damián Montemayor MD Damián Montemayor MD 09/08/2020 8:29:57 AM This report has been signed electronically. 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 [place] [id number] [place] [address] PCP - General Internal Medicine 02/20/20 [place] [id number] [place] [address] PCP - Attributed-MSSP 01/01/25 Damián Montemayor MD Gastroenterology 08/07/12 [place] [id number] [employer] [place] [address] Endocrinology 03/23/15 [place] [id number] [facility] [address] [place] [address] Ophthalmology 11/27/16 [place] [id number] [address] [place] [address] Psychiatry 04/02/17 [place] [id number] [facility] [place] [address] Nephrology 09/21/21
[2025-07-02 10:31] LABS: Alanine Aminotransferase 64 U/L (6-35); Albumin Level 4.6 g/dL (3.5-5.1); Alkaline Phosphatase 111 U/L (38-126); Anion Gap 14 mmol/L (4-12); Aspartate Amino Transferase 58 U/L (14-36); Bilirubin,Total 0.6 mg/dL (0.2-1.3); Blood Urea Nitrogen 16 mg/dL (7-17); Calcium 9.9 mg/dL (8.4-10.2); Carbon Dioxide 23 mmol/L (22-30); Chloride 100 mmol/L (98-107); Estimated CRCL calculation 45 ml/min; Estimated Glomerular Filt Rate 38; Glucose 299 mg/dL (65-110); Lipase 131 U/L (23-300); Potassium 4.1 mmol/L (3.4-5.0); Sodium 137 mmol/L (137-145); Total Protein 9.2 g/dL (6.3-8.2)
[2025-07-02 11:36] LABS: BEDSIDEPREGUCG Negative (Negative)
[2025-07-02 12:00] LABS: Add Urine Microscopic? YES; Appearance Urine Cloudy (Clear); Budding Yeast Urine Present /hpf; Glucose Urine UA 3+ mg/dL (Negative); Leukocyte Esterase Ur Negative LEU/UL (Negative); Need Manual Microscopic Reviewed; Nitrate Urine Negative (Negative); Non Pathogenic Casts >20; Specific Grav Ur 1.038 (1.001-1.035)
[2025-07-02] MEDS: CEFEPIME 1 GM in SODIUM CHLORIDE 0.9% IV 50 ML 100 ML IVPB (12:22)
--- NOTE | 2025-07-02 12:56 | P.CONGS_ITS ---
Assessment and Plan Assessment and plan (1) Gallstones: Code(s): K80.20 - Calculus of gallbladder without cholecystitis without obstruction Status: Acute Assessment and Plan: Patient presented to the ED with 2 days of mid-abdominal pain and nausea/vomiting. She also endorses some diarrhea, but notes that this has been chronic. She has history of gastric bypass surgery in 2022. Labs in the ED revealed a white blood cell count of 17.1. Normal bilirubin, but slightly elevated AST/ALT. Imaging revealed cholelithiasis with gallbladder distention. Mildly dilated common duct at 10 mm. Upon exam, patient is not focally tender to right upper quadrant. She localizes her pain more to her periumbilical/epigastric region. Denies any pain radiating to her back. Still feeling very nauseous. * Patient is being admitted to the hospital. HIDA scan ordered. Will await results and plan treatment accordingly - conservative management vs laparoscopic cholecystectomy vs cholecystostomy tube. * Continue IV antibiotics, as well as pain and nausea control. * Keep patient NPO for time being. (2) Elevated liver function tests: Code(s): R79.89 - Other specified abnormal findings of blood chemistry Status: Acute Assessment and Plan: See above. (3) Insulin dependent diabetes mellitus: Status: Acute (4) Hypovolemia: Code(s): E86.1 - Hypovolemia Status: Acute Assessment and Plan: Tachycardic and hypotensive of upon arrival. Continuing to improve. Continue IV fluids. Plan Discussed patient's case and plan of care with Dr. Mcgrath. History of Present Illness Consult details Consult date: 07/02/25 Reason for consult: other (gallstones) Requesting physician: Kyle Mendoza APRN Narrative: Patient is a 60-year-old female with history of insulin-dependent diabetes who we have been asked to see in surgical consultation for gallstones. Patient states she began having mid abdominal pain, as well as nausea and vomiting 2 days ago. Symptoms continued to worsen, ultimately leading her to present to the ED today. Upon arrival, labs revealed a white blood cell count of 17.1. Bilirubin normal, but AST and ALT slightly elevated at 58 and 64 respectively. Normal lipase. Afebrile. A CT was obtained and demonstrated cholelithiasis within a distended gallbladder. Common duct dilated to 10 mm. Patient denies any recent sick contacts, travel outside of the country, new foods. Abdominal surgical history includes a gastric bypass in 2022. She does endorse some chronic diarrhea. Last bowel movement around 4:00 a.m. Patient last ate 2 days ago. She had ribs, spinach, and potatoes, which she has eaten in the past without any issues. Denies ever being told she had any gallbladder issues. Denies any back pain. Upon interview with patient today she states that she is still feeling very nauseous. She localizes the pain to her periumbilical and epigastric region. FOR[facility]LY [facility], [facility] Past Medical History Medical History (Updated 07/02/25 @ 13:20 by Marilee Dyer PA-C) Insulin dependent diabetes mellitus Meds Home Medications and Allergies Allergies Allergy/AdvReac Type Severity Reaction Status Date / Time Penicillins Allergy Mild Unknown Verified 07/02/25 09:36 Vital Signs Vital Signs - 24 hr 07/02/25 09:19 07/02/25 09:23 07/02/25 09:25 Temperature Pulse Rate 115 H 87 93 Respiratory Rate 15 22 H 21 H Blood Pressure 89/59 L 103/62 76/53 L Pulse Oximetry 100 100 100 Oxygen Delivery 07/02/25 09:33 07/02/25 09:33 07/02/25 09:38 Temperature 98.7 F Pulse Rate 111 H 88 88 Respiratory Rate 14 25 H Blood Pressure 97/53 L 84/58 L 103/62 Pulse Oximetry 98 98 Oxygen Delivery Room Air 07/02/25 09:39 07/02/25 10:02 07/02/25 10:48 Temperature Pulse Rate 93 101 H 97 Respiratory Rate 24 H 25 H Blood Pressure 76/53 L 135/71 103/70 Pulse Oximetry 98 98 Oxygen Delivery 07/02/25 11:20 Temperature Pulse Rate 100 Respiratory Rate 14 Blood Pressure 118/65 Pulse Oximetry 98 Oxygen Delivery Exam 2 Const: General: uncomfortable Eyes: General: appearance normal, both eyes and all related structures Neck: Neck: supple and no JVD Resp: Effort & Inspection: normal respiratory effort Cardio: Rate: tachycardic GI: Inspection: non-distended and obesity GI Palp: Yes abdominal tenderness (periumbilical/epigastric) and Yes Soft to palpation Auscultation: Hypoactive bowel sounds present Rectal Exam: deferred Skin: General skin exam: normal color Extrem: General: normal to inspection Psych: Mental Status: mental status grossly normal Results Labs 07/02/25 10:12 07/02/25 10:12 Labs: Abnormal lab results 07/02/25 07/02/25 07/02/25 Range/Units 09:23 10:12 11:20 WBC 17.1 H (4.5-10.0) K/mm3 MCH 25.4 L (26-34) pg MCHC 31.3 L (32-36) g/dl MPV 10.8 H (7.4-10.4) fl Neut % (Auto) 83.4 H (45.5-73.1) % Lymph % (Auto) 10.6 L (18.3-44.2) % Baso % (Auto) 0.1 L (0.2-1.2) % [place] # (Auto) 0.9 H (0.1-0.6) K/mm3 Abs Immat Gran (auto) 0.09 H (0.00-0.031) K/mm3 Absolute Neuts (auto) 14.2 H (1.3-6.7) K/mm3 Anion Gap 14 H (4-12) mmol/L Creatinine 1.42 H (0.7-1.0) mg/dL Estimated GFR 38 L (59 - ) Glucose 299 H (65-110) mg/dL POC Capillary Glucose 313 H (65-105) mg/dl AST 58 H (14-36) U/L ALT 64 H (6-35) U/L Total Protein 9.2 H (6.3-8.2) g/dL Urine Appearance Cloudy H (Clear) Ur Specific [place] 1.038 H (1.001-1.035) Urine Protein 4+ H (Negative) mg/dL Urine Glucose (UA) 3+ H (Negative) mg/dL Urine Ketones Trace H (Negative) mg/dL Ur Blood (Man) 3+ H (Negative) Urine RBC 3-5 H (0-2) /hpf Urine WBC 6-10 H (0-3) /hpf Urine Yeast (Budding) Present H (None) /hpf Diabetes panel 07/02/25 Range/Units 10:12 Sodium 137 (137-145) mmol/L Potassium 4.1 (3.4-5.0) mmol/L Chloride 100 (98-107) mmol/L Carbon Dioxide 23 (22-30) mmol/L BUN 16 (7-17) mg/dL Creatinine 1.42 H (0.7-1.0) mg/dL Glucose 299 H (65-110) mg/dL Calcium 9.9 (8.4-10.2) mg/dL AST 58 H (14-36) U/L ALT 64 H (6-35) U/L Alkaline Phosphatase 111 (38-126) U/L Total Protein 9.2 H (6.3-8.2) g/dL Albumin 4.6 (3.5-5.1) g/dL Calcium panel 07/02/25 Range/Units 10:12 Calcium 9.9 (8.4-10.2) mg/dL Albumin 4.6 (3.5-5.1) g/dL Pituitary panel 07/02/25 Range/Units 10:12 Sodium 137 (137-145) mmol/L Potassium 4.1 (3.4-5.0) mmol/L Chloride 100 (98-107) mmol/L Carbon Dioxide 23 (22-30) mmol/L BUN 16 (7-17) mg/dL Creatinine 1.42 H (0.7-1.0) mg/dL Glucose 299 H (65-110) mg/dL Calcium 9.9 (8.4-10.2) mg/dL Adrenal panel 07/02/25 Range/Units 10:12 Sodium 137 (137-145) mmol/L Potassium 4.1 (3.4-5.0) mmol/L Chloride 100 (98-107) mmol/L Carbon Dioxide 23 (22-30) mmol/L BUN 16 (7-17) mg/dL Creatinine 1.42 H (0.7-1.0) mg/dL Glucose 299 H (65-110) mg/dL Calcium 9.9 (8.4-10.2) mg/dL Total Bilirubin 0.6 (0.2-1.3) mg/dL AST 58 H (14-36) U/L ALT 64 H (6-35) U/L Alkaline Phosphatase 111 (38-126) U/L Total Protein 9.2 H (6.3-8.2) g/dL Albumin 4.6 (3.5-5.1) g/dL All other labs normal.
--- NOTE | 2025-07-02 14:30 | ADMGEN ---
This patient, Cinthya Morocho, was admitted to [facility] Surg Room 328-01. Patient/family oriented to hospital policies and general routines including ID bracelet, bed and alarms, visiting hours, pain management, procedures, bathroom and other care routines, personal items, smoking policy, room service/diet, and visiting hours. Information on how to activate the Rapid Response Team has been discussed. Patient/Family are encouraged to report perceived risks to care and to ask questions if they do not understand what they are told or what they should do.
[2025-07-02] MEDS: SODIUM CHLORIDE 0.9% IV 1,000 ML 125 ML IV CONT ×2 (15:31→23:58)
[2025-07-02] MEDS: INSULIN ASPART (*BKC) 100 UNITS/ML SUB-Q ×2 (17:02→23:53)
--- NOTE | 2025-07-02 18:03 | PM.IMHP ---
H&P: HPI History of Present Illness Date/Time: 07/02/25 18:03 Chief Complaint: N/V/D Narrative: 60-year-old female past medical history of DM 2, ? schizophrenia, neuropathy, hyperlipidemia, cyclic vomiting syndrome presents to the ED on 07/02/2025 with complaints of nausea, vomiting, dizziness, diarrhea and hypotension for the past 2 days. Denies any abdominal pain. Denies chest pain or shortness of breath. Patient states she has not seen any blood in her vomit or stool. Denies fevers, chills, body aches. Orthostatic blood pressures positive. It appears [facility] as [facility]. Initial vital signs 89/59, HR 115, respirations 15, afebrile and 100% on room air Labs significant for leukocytosis, anion gap 14, creatinine 1.4, glucose 299, AST 58, ALT 64 UA with 4+ protein, 3+ glucose, trace ketones, 3+ blood, WBC 6-10, urine yeast. Rare bacteria. Culture pending Chest abdomen pelvis CT shows cholelithiasis. Gallbladder distention may be secondary to fasting or acute cholecystitis. Mildly dilated common duct Abdominal ultrasound reads a probable gallbladder polyp. No acute process Review of Systems Review of Systems: All systems reviewed & are unremarkable except as noted in HPI and below PMFSH Past Medical History Medical History (Updated 07/02/25 @ 22:55 by Suzette Cheng APRN) Diabetic gastroparesis Schizophrenia Insulin dependent diabetes mellitus Family History Family History (Updated 07/02/25 @ 15:48 by Ignacia Garrett RN) Other Unknown family medical history Social History Social History Smoking status: Former smoker Tobacco type: cigarettes Alcohol intake: former Substance use: never Lack of Transportation: No Lack of Food: Never True Current Housing: I Have Housing Concerned About Future Housing: No Difficulty Paying Gas/Electric Bills: No Difficulty Paying for Meds: No Currently Unemployed: No Education: High School Diploma/GED Difficulty w/ Childcare or Family Care: No Spiritual care concerns: No Meds Home Medications and Allergies Home Medications ?Medication ?Instructions ?Recorded ?Confirmed ?Type atorvastatin 40 mg tablet (Lipitor) 40 mg PO DAILY 07/02/25 07/02/25 History buspirone 15 mg tablet 15 mg PO TID 07/02/25 07/02/25 History ergocalciferol (vitamin D2) 1,250 1,250 mcg PO WEEKLY 07/02/25 07/02/25 History mcg (50,000 unit) capsule gabapentin 600 mg tablet 600 mg PO Q6H PRN neuropathy 07/02/25 07/02/25 History insulin aspart U-100 100 unit/mL 32 unit subcut TID 07/02/25 07/02/25 History (3 mL) subcutaneous pen (Novolog FlexPen U-100 Insulin aspart) insulin degludec 100 unit/mL (3 64 unit subcut DAILY@0800 07/02/25 07/02/25 History mL) subcutaneous pen (Tresiba FlexTouch U-100 insulin) khlmjq-eowvefua-vayqmfv 2 cap PO TID 07/02/25 07/02/25 History (pork)36,000-114,000-180k unit capsule,del rel (Creon) pwscob-vnhiisqz-nyjwwio(pork) 2 cap PO TID 07/02/25 07/02/25 History 40,000-126,000-168k unit capsule,del rel (Zenpep) loperamide 2 mg tablet 2 mg PO QID PRN loose stool 07/02/25 07/02/25 History (Anti-Diarrheal (loperamide)) lorazepam 2 mg tablet (Ativan) 2 mg PO Q6H PRN anxiety 07/02/25 07/02/25 History meclizine 25 mg tablet 25 mg PO BID 07/02/25 07/02/25 History ondansetron 4 mg disintegrating 4 mg PO Q6H 07/02/25 07/02/25 History tablet paliperidone 3 mg tablet,extended 3 mg PO ONCE 07/02/25 07/02/25 History release 24 hr (Invega) pantoprazole 40 mg tablet,delayed 40 mg PO QAM 07/02/25 07/02/25 History release venlafaxine 100 mg tablet 100 mg PO DAILY@0800 07/02/25 07/02/25 History venlafaxine 75 mg capsule,extended 150 mg PO DAILY 07/02/25 07/02/25 History release 24 hr zolpidem 10 mg tablet 10 mg PO HS PRN insomnia 07/02/25 07/02/25 History Allergies Allergy/AdvReac Type Severity Reaction Status Date / Time Penicillins Allergy Mild Unknown Verified 07/02/25 15:06 Vital Signs Vital Signs - 24 hr 07/02/25 09:19 07/02/25 09:23 07/02/25 09:25 Temperature Pulse Rate 115 H 87 93 Respiratory Rate 15 22 H 21 H Blood Pressure 89/59 L 103/62 76/53 L Pulse Oximetry 100 100 100 Oxygen Delivery 07/02/25 09:33 07/02/25 09:33 07/02/25 09:38 Temperature 98.7 F Pulse Rate 111 H 88 88 Respiratory Rate 14 25 H Blood Pressure 97/53 L 84/58 L 103/62 Pulse Oximetry 98 98 Oxygen Delivery Room Air 07/02/25 09:39 07/02/25 10:02 07/02/25 10:48 Temperature Pulse Rate 93 101 H 97 Respiratory Rate 24 H 25 H Blood Pressure 76/53 L 135/71 103/70 Pulse Oximetry 98 98 Oxygen Delivery 07/02/25 11:20 07/02/25 13:04 07/02/25 13:55 Temperature Pulse Rate 100 106 H 101 H Respiratory Rate 14 15 18 Blood Pressure 118/65 161/68 H 169/69 H Pulse Oximetry 98 100 97 Oxygen Delivery 07/02/25 14:21 07/02/25 14:40 Temperature 97.9 F Pulse Rate 99 105 H Respiratory Rate 17 18 Blood Pressure 165/87 H 153/87 H Pulse Oximetry 100 97 Oxygen Delivery Exam Narrative: GENERAL: Appears uncomfortable HEAD: Normocephalic, atraumatic. EYES: PERRLA. Conjunctivae clear. NOSE: Normal no drainage. THROAT: Pharynx clear, no exudate. NECK: Trachea midline. No adenopathy, no masses. RESPIRATORY: Airway patent, respirations nonlabored. CTA. CARDIOVASCULAR: Regular rate and rhythm BREASTS: Defer GASTROINTESTINAL: Abdomen is soft and nontender. No organomegaly. Bowel sounds normal in all quadrants. GENITOURINARY: Defer MUSCULOSKELETAL: Moves all extremities. No gross deformities. No calf tenderness. SKIN: Warm, dry, normal color. NEURO: A&O X4. Patient slow to respond PSYCHIATRIC: Flat affect H&P: Results Labs Labs: Short CBC 07/02/25 Range/Units 10:12 WBC 17.1 H (4.5-10.0) K/mm3 Hgb 12.3 (12.0-15.0) g/dL Hct 39.3 (37.0-47.0) % Plt Count 276 (150-375) k/mm3 BMP 07/02/25 10:12 Sodium 137 Potassium 4.1 Chloride 100 Carbon Dioxide 23 BUN 16 Creatinine 1.42 H Glucose 299 H Calcium 9.9 Liver Function 07/02/25 Range/Units 10:12 Total Bilirubin 0.6 (0.2-1.3) mg/dL AST 58 H (14-36) U/L ALT 64 H (6-35) U/L Alkaline Phosphatase 111 (38-126) U/L Albumin 4.6 (3.5-5.1) g/dL Urine 07/02/25 Range/Units 11:20 Urine Color Yellow (Yellow) Urine Appearance Cloudy H (Clear) Urine pH 5.5 (5.0-9.0) Ur Specific [place] 1.038 H (1.001-1.035) Urine Protein 4+ H (Negative) mg/dL Urine Glucose (UA) 3+ H (Negative) mg/dL Assessment and Plan Assessment and plan (1) Cyclical vomiting syndrome: Code(s): R11.15 - Cyclical vomiting syndrome unrelated to migraine Status: Acute Assessment and Plan: Nausea, vomiting, dizziness, diarrhea and hypotension for the past 2 days without abdominal pain. No blood seen in vomit or stool. Patient tells me this has been happening for years and was told that she has cyclic vomiting syndrome. Her most recent episode last month. She states that this happens almost monthly but she does not always require a visit to the emergency department. Vomiting initially thought to be possibly a bleed due to cholecystitis. General surgery consulted. However, imaging is not consistent with cholecystitis and patient has no abdominal pain. Church sign negative. Chest abdomen pelvis CT shows cholelithiasis. Gallbladder distention may be secondary to fasting or acute cholecystitis. Mildly dilated common duct. Abdominal ultrasound reads a probable gallbladder polyp. No acute process. General surgery does not recommend any interventions. HIDA scan ordered and will likely be performed on 07/03. -NPO except for meds-advanced as tolerated -Reglan IV push q.6 hours scheduled. -control nausea with Zofran p.r.n. -Patient likely has gastroparesis as well (2) Insulin dependent diabetes mellitus: Status: Acute Assessment and Plan: Hyperglycemic on admit. No A1c on record. - hypoglycemia protocol - POC blood glucose q.6h while NPO - home medication: NovoLog 32 units t.i.d., Tresiba 64 units daily - correct regimen ordered: High-dose corrective scale - A1C ordered (3) Hypovolemia: Code(s): E86.1 - Hypovolemia Status: Acute Assessment and Plan: Related to nausea and vomiting. Initial BP 89/59, HR 115 -2 L NS bolus -NS @ 125 started on 07/02 -trend blood glucose and add dextrose to fluids if patient remains NPO Plan Diet: NPO with sips for meds GI prophylaxis: Pantoprazole DVT prophylaxis: SCDs lines/drains: PIV Fluids: 2 L NS bolus. NS at 125 started on 07/02 Code status: Full
[2025-07-02] MEDS: METOCLOPRAMIDE HCL INJ 10 MG/2 ML VIAL 5 MG IV PUSH (23:51)
[2025-07-03] MEDS: ZOLPIDEM TARTRATE (*CRX) 5 MG TABLET 10 MG PO (01:21)
[2025-07-03] MEDS: INSULIN ASPART (*BKC) 100 UNITS/ML SUB-Q ×4 (05:22→23:28)
[2025-07-03 06:00] VITALS: BP 172/64; PULSE 102; RESP 16; TEMP 36.3; O2SAT 96
[2025-07-03 06:21] LABS: Hematocrit 36.7 % (37.0-47.0); Hemoglobin 11.7 g/dL (12.0-15.0); Immature Granulocyte Percent A 0.3 % (0-0.5); Lymphocytes Absolute Auto 1.42 K/mm3 (0.9-3.2); Mean Corpuscular HGB Conc 31.9 g/dl (32-36); Mean Corpuscular Hemoglobin 25.8 pg (26-34); Mean Corpuscular Volume 80.8 fl (80-100); Nucleated Red Blood Cells Absolute Auto 0.000 K/mm3 (0.0-0.012); Nucleated Red Blood Cells Perc 0.0 % (0.0-0.2); Platelet Count Result 249 k/mm3 (150-375); Red Blood Count 4.54 M/mm3 (4.2-5.4); White Blood Count 13.3 K/mm3 (4.5-10.0)
[2025-07-03 06:44] LABS: Alanine Aminotransferase 46 U/L (6-35); Albumin Level 4.0 g/dL (3.5-5.1); Alkaline Phosphatase 113 U/L (38-126); Anion Gap 8 mmol/L (4-12); Aspartate Amino Transferase 72 U/L (14-36); Bilirubin,Total 0.5 mg/dL (0.2-1.3); Blood Urea Nitrogen 15 mg/dL (7-17); Calcium 8.9 mg/dL (8.4-10.2); Carbon Dioxide 26 mmol/L (22-30); Chloride 102 mmol/L (98-107); Estimated CRCL calculation 56 ml/min; Estimated Glomerular Filt Rate 49; Glucose 291 mg/dL (65-110); Magnesium 1.7 mg/dL (1.6-2.3); Potassium 3.5 mmol/L (3.4-5.0); Sodium 136 mmol/L (137-145); Total Protein 7.8 g/dL (6.3-8.2)
[2025-07-03 06:49] LABS: Hemoglobin A1C 7.0 % (<5.7)
[2025-07-03] MEDS: SODIUM CHLORIDE 0.9% IV 1,000 ML 125 ML IV CONT ×2 (08:37→21:05)
--- NOTE | 2025-07-03 09:03 | P.PNGS_ITS ---
Progress Note: A&P Assessment and Plan (1) Gallstones: Code(s): K80.20 - Calculus of gallbladder without cholecystitis without obstruction Status: Acute Assessment and Plan: * RUQ US demonstrated a gallbladder polyp with no other acute process. Patient denies nay abdominal pain or nausea. HIDA scan ordered. Will await results and plan treatment accordingly. Unlikely gallbladder-related as patient's clinical picture, labs and imaging point towards alternate etiology of patient's initial symptoms. * Keep patient NPO until HIDA scan. Will likely advance diet once results are back. (2) Elevated liver function tests: Code(s): R79.89 - Other specified abnormal findings of blood chemistry Status: Acute Assessment and Plan: See above. (3) Insulin dependent diabetes mellitus: Status: Acute (4) Hypovolemia: Code(s): E86.1 - Hypovolemia Status: Acute Assessment and Plan: Tachycardic and hypotensive of upon arrival. Continuing to improve. Continue IV fluids. Plan Discussed patient's case and plan of care with Dr. Mcgrath. Subjective Subjective Date/Time Seen: 07/03/25 09:03 Patient reports: no new complaints Interval history: Patient sleeping comfortably in bed. Difficult to arouse, but more responsive once sat up. Denies any abdominal pain, nausea or vomiting. Endorses BM overnight. WBC 13.3. Exam Const: General: comfortable and no acute distress Eyes: General: appearance normal, both eyes and all related structures GI: Inspection: obesity GI Palp: No abdominal tenderness and Yes Soft to palpation Auscultation: Hypoactive bowel sounds present Rectal Exam: deferred Objective Data Vital Signs Vital Signs: Vital Signs - 24 hr 07/02/25 09:19 07/02/25 09:23 07/02/25 09:25 Temperature Pulse Rate 115 H 87 93 Respiratory Rate 15 22 H 21 H Blood Pressure 89/59 L 103/62 76/53 L Pulse Oximetry 100 100 100 Oxygen Delivery 07/02/25 09:33 07/02/25 09:33 07/02/25 09:38 Temperature 98.7 F Pulse Rate 111 H 88 88 Respiratory Rate 14 25 H Blood Pressure 97/53 L 84/58 L 103/62 Pulse Oximetry 98 98 Oxygen Delivery Room Air 07/02/25 09:39 07/02/25 10:02 07/02/25 10:48 Temperature Pulse Rate 93 101 H 97 Respiratory Rate 24 H 25 H Blood Pressure 76/53 L 135/71 103/70 Pulse Oximetry 98 98 Oxygen Delivery 07/02/25 11:20 07/02/25 13:04 07/02/25 13:55 Temperature Pulse Rate 100 106 H 101 H Respiratory Rate 14 15 18 Blood Pressure 118/65 161/68 H 169/69 H Pulse Oximetry 98 100 97 Oxygen Delivery 07/02/25 14:21 07/02/25 14:40 07/02/25 21:08 Temperature 97.9 F Pulse Rate 99 105 H Respiratory Rate 17 18 Blood Pressure 165/87 H 153/87 H Pulse Oximetry 100 97 Oxygen Delivery Room Air 07/02/25 21:40 07/02/25 23:36 07/03/25 06:00 Temperature 98.1 F 97.3 F L Pulse Rate 98 102 H Respiratory Rate 16 16 Blood Pressure 165/85 H 172/64 H Pulse Oximetry 96 96 96 Oxygen Delivery Room Air Intake/Output Intake/Output: Intake & Output 06/30/25 07/01/25 07/02/25 07/03/25 23:59 23:59 23:59 23:59 Intake Total 2981.3 1000 Output Total 650 Balance 2331.3 1000 Meds/Results Medications: Active Medications Generic Name Dose Route Start Last Admin Trade Name Freq PRN Reason Stop Dose Admin Lipase/Protease/Amylase 6 cap 07/03/25 08:00 Lipase/Amylase/Protease 12,000 Units Cap PO TIDWM [facility] [place] Atorvastatin Calcium 40 mg 07/03/25 09:00 Atorvastatin 40 Mg Tablet PO DAILY [facility] Buspirone HCl 15 mg 07/03/25 09:00 Buspirone Hcl 5 Mg Tablet PO TID [facility] Dextrose 12.5 gm 07/02/25 16:42 Dextrose 50% 25 Gm/50 Ml Syringe IV PUSH PRN PRN Hypoglycemia Protocol Gabapentin 600 mg 07/02/25 21:43 Gabapentin 300 Mg Capsule PO Q6H PRN neuropathy Glucagon 1 mg 07/02/25 16:42 Glucagon For Inj 1 Mg Vial IM PRN PRN Hypoglycemia Protocol Glucose 15 gm 07/02/25 16:42 Glucose Oral Gel 15 Gm Of Glucse In 37.5 Gm Tube PO PRN PRN Hypoglycemia Protocol Sodium Chloride 1,000 mls @ 125 mls/hr 07/02/25 12:35 07/03/25 08:37 Normal Saline Iv IV CONT 125 mls/hr .Q8H CLARISSA Administration Dextrose 1,000 mls @ 100 mls/hr 07/02/25 16:42 Dextrose 5% 1,000 Ml IVPB PRN PRN Hypoglycemia Protocol Insulin Aspart 4 - 8 units 07/02/25 18:00 07/03/25 05:22 Insulin Aspart (*Bkc) 100 Units/Ml SUB-Q 5 units Q6HR CLARISSA Administration Protocol Loperamide HCl 2 mg 07/02/25 21:43 Loperamide Hcl 2 Mg Capsule PO QID PRN Loose Stool Lorazepam 2 mg 07/02/25 21:43 Lorazepam (*Crx) 1 Mg Tablet PO Q6H PRN Anxiety Metoclopramide HCl 5 mg 07/03/25 00:00 07/03/25 05:23 Metoclopramide Hcl Inj 10 Mg/2 Ml Vial IV PUSH Not Given Q6HR CLARISSA Ondansetron HCl 4 mg 07/02/25 16:35 07/02/25 21:08 Ondansetron Inj 4 Mg/2 Ml Vial IV PUSH 4 mg Q4H PRN Administration Nausea And Vomiting Pantoprazole Sodium 40 mg 07/03/25 09:00 Pantoprazole 40 Mg Tablet PO QAM CLARISSA Zolpidem Tartrate 10 mg 07/02/25 21:43 07/03/25 01:21 Zolpidem Tartrate (*Crx) 5 Mg Tablet PO 10 mg HS PRN Administration Insomnia Radiology Results: ITS Impressions Chest/Abdomen/Pelvis CT 07/02/25 11:01 IMPRESSION: 1. Cholelithiasis. Gallbladder distention may be secondary to fasting or acute cholecystitis. Correlate with physical exam. 2. Mildly dilated common duct. Abdomen Ultrasound 07/02/25 17:50 Impression: Probable gallbladder polyp. No acute process. Labs Labs: Laboratory Results - last 24 hr 07/02/25 07/02/25 07/02/25 09:23 10:12 11:20 WBC 17.1 H RBC 4.84 Hgb 12.3 Hct 39.3 MCV 81.2 MCH 25.4 L MCHC 31.3 L RDW 14.1 Plt Count 276 MPV 10.8 H Immature Gran % (Auto) 0.5 Neut % (Auto) 83.4 H Lymph % (Auto) 10.6 L [place] % (Auto) 5.4 Eos % (Auto) 0.0 Baso % (Auto) 0.1 L Lymph # (Auto) 1.82 [place] # (Auto) 0.9 H Eos # (Auto) 0.0 Baso # (Auto) 0.0 Abs Immat Gran (auto) 0.09 H Absolute Neuts (auto) 14.2 H Absolute Nucleated RBC 0.000 Nucleated RBC % 0.0 Sodium 137 Potassium 4.1 Chloride 100 Carbon Dioxide 23 Anion Gap 14 H BUN 16 Creatinine 1.42 H Estim Creat Clear Calc 45 Estimated GFR 38 L Glucose 299 H POC Capillary Glucose 313 H Hemoglobin A1c Calcium 9.9 Phosphorus Magnesium Total Bilirubin 0.6 Direct Bilirubin AST 58 H ALT 64 H Alkaline Phosphatase 111 Total Protein 9.2 H Albumin 4.6 Lipase 131 Urine Color Yellow Urine Appearance Cloudy H Urine pH 5.5 Ur Specific [place] 1.038 H Urine Protein 4+ H Urine Glucose (UA) 3+ H Urine Ketones Trace H Ur Blood (Man) 3+ H Urine Nitrate Negative Urine Bilirubin Negative Urine Urobilinogen 0.2 Add Ur Microanalysis Reviewed Leukocyte Esterase Rfl Negative Urine RBC 3-5 H Urine WBC 6-10 H Ur Squamous Epith Cells Few Urine Bacteria Rare Urine Casts >20 Hyaline Casts Present Urine Yeast (Budding) Present H POC Urine HCG, Qual 07/02/25 07/02/25 07/02/25 11:32 16:55 23:38 WBC RBC Hgb Hct MCV MCH MCHC RDW Plt Count MPV Immature Gran % (Auto) Neut % (Auto) Lymph % (Auto) [place] % (Auto) Eos % (Auto) Baso % (Auto) Lymph # (Auto) [place] # (Auto) Eos # (Auto) Baso # (Auto) Abs Immat Gran (auto) Absolute Neuts (auto) Absolute Nucleated RBC Nucleated RBC % Sodium Potassium Chloride Carbon Dioxide Anion Gap BUN Creatinine Estim Creat Clear Calc Estimated GFR Glucose POC Capillary Glucose 299 H 268 H Hemoglobin A1c Calcium Phosphorus Magnesium Total Bilirubin Direct Bilirubin AST ALT Alkaline Phosphatase Total Protein Albumin Lipase Urine Color Urine Appearance Urine pH Ur Specific [place] Urine Protein Urine Glucose (UA) Urine Ketones Ur Blood (Man) Urine Nitrate Urine Bilirubin Urine Urobilinogen Add Ur Microanalysis Leukocyte Esterase Rfl Urine RBC Urine WBC Ur Squamous Epith Cells Urine Bacteria Urine Casts Hyaline Casts Urine Yeast (Budding) POC Urine HCG, Qual Negative 07/03/25 07/03/25 04:46 06:07 WBC 13.3 H RBC 4.54 Hgb 11.7 L Hct 36.7 L MCV 80.8 MCH 25.8 L MCHC 31.9 L RDW 14.1 Plt Count 249 MPV 10.8 H Immature Gran % (Auto) 0.3 Neut % (Auto) 85.4 H Lymph % (Auto) 10.7 L [place] % (Auto) 3.4 Eos % (Auto) 0.0 Baso % (Auto) 0.2 Lymph # (Auto) 1.42 [place] # (Auto) 0.5 Eos # (Auto) 0.0 Baso # (Auto) 0.0 Abs Immat Gran (auto) 0.04 H Absolute Neuts (auto) 11.4 H Absolute Nucleated RBC 0.000 Nucleated RBC % 0.0 Sodium 136 L Potassium 3.5 Chloride 102 Carbon Dioxide 26 Anion Gap 8 BUN 15 Creatinine 1.14 H Estim Creat Clear Calc 56 Estimated GFR 49 L Glucose 291 H POC Capillary Glucose 286 H Hemoglobin A1c 7.0 H Calcium 8.9 Phosphorus 3.0 Magnesium 1.7 Total Bilirubin 0.5 Direct Bilirubin 0.0 AST 72 H ALT 46 H Alkaline Phosphatase 113 Total Protein 7.8 Albumin 4.0 Lipase Urine Color Urine Appearance Urine pH Ur Specific [place] Urine Protein Urine Glucose (UA) Urine Ketones Ur Blood (Man) Urine Nitrate Urine Bilirubin Urine Urobilinogen Add Ur Microanalysis Leukocyte Esterase Rfl Urine RBC Urine WBC Ur Squamous Epith Cells Urine Bacteria Urine Casts Hyaline Casts Urine Yeast (Budding) POC Urine HCG, Qual
[2025-07-03] MEDS: ONDANSETRON INJ 4 MG/2 ML VIAL IV PUSH (10:51)
[2025-07-03] MEDS: LIPASE/AMYLASE/PROTEASE 12,000 UNITS CAP 6 CAP PO ×2 (12:00→17:12)
[2025-07-03] MEDS: PANTOPRAZOLE 40 MG TABLET PO (12:01)
[2025-07-03] MEDS: LORazepam (*CRX) 1 MG TABLET 2 MG PO ×2 (12:01→18:31)
[2025-07-03] MEDS: ATORVASTATIN 40 MG TABLET PO (12:01)
--- NOTE | 2025-07-03 13:28 | P.PNIM_ITS ---
Progress Note: A&P Assessment and Plan (1) Cyclical vomiting syndrome: Code(s): R11.15 - Cyclical vomiting syndrome unrelated to migraine Status: Acute Assessment and Plan: Nausea, vomiting, dizziness, diarrhea and hypotension for the past 2 days without abdominal pain. No blood seen in vomit or stool. Patient tells me this has been happening for years and was told that she has cyclic vomiting syndrome. Her most recent episode last month. She states that this happens almost monthly but she does not always require a visit to the emergency department. Vomiting initially thought to be possibly due to cholecystitis. General surgery consulted. However, imaging is not consistent with cholecystitis and patient has no abdominal pain. Church sign negative. Chest abdomen pelvis CT shows cholelithiasis. Gallbladder distention may be secondary to fasting or acute cholecystitis. Mildly dilated common duct. Abdominal ultrasound reads a probable gallbladder polyp. No acute process. General surgery does not recommend any interventions. HIDA scan with patent cystic duct however delayed passes of activity from common bile duct into small- bowel with concern off CBD obstruction. Will do MRCP to further evaluate. Diet advanced as tolerated Patient also has history of gastroparesis (2) Insulin dependent diabetes mellitus: Status: Acute Assessment and Plan: Hyperglycemic on admit. No A1c on record. - hypoglycemia protocol - POC blood glucose q.6h while NPO - home medication: NovoLog 32 units t.i.d., Tresiba 64 units daily - correct regimen ordered: High-dose corrective scale - A1C 7.0 Resume Tresiba since NPO will hold prandial insulin (3) Hypovolemia: Code(s): E86.1 - Hypovolemia Status: Acute Assessment and Plan: Related to nausea and vomiting. Initial BP 89/59, HR 115 -2 L NS bolus -NS @ 125 started on 07/02 -trend blood glucose and add dextrose to fluids if patient remains NPO Plan History of schizophrenia on Invega/venlafaxine Anxiety disorder on venlafaxine Ativan chronically buspirone Possible UTI no urinary symptoms. Urine culture pending. DVT prophylaxis SCDs Code status: Full Subjective Date/time seen: 07/03/25 13:28 Interval history: Continues to have intermittent nausea but feels overall better. Denies any abdominal pain. Underwent HIDA scan earlier today. Review of Systems Review of Systems: All systems reviewed & are unremarkable except as noted in HPI and below Exam Narrative: GENERAL: Alert and conversant, not in acute distress HEAD: Normocephalic, atraumatic. EYES: PERRLA. Conjunctivae clear. NECK: Trachea midline. No adenopathy, no masses. RESPIRATORY: Airway patent, respirations nonlabored. CTA. CARDIOVASCULAR: Regular rate and rhythm GASTROINTESTINAL: Abdomen is soft and nontender. No organomegaly. Bowel sounds normal in all quadrants. MUSCULOSKELETAL: Moves all extremities. No gross deformities. No calf tenderness. SKIN: Warm, dry, normal color. NEURO: A&O X4. Patient slow to respond PSYCHIATRIC: Flat affect Objective Data Vital Signs Vital Signs: Vital Signs - 24 hr 07/02/25 13:55 07/02/25 14:21 07/02/25 14:40 Temperature 97.9 F Pulse Rate 101 H 99 105 H Respiratory Rate 18 17 18 Blood Pressure 169/69 H 165/87 H 153/87 H Pulse Oximetry 97 100 97 Oxygen Delivery 07/02/25 21:08 07/02/25 21:40 07/02/25 23:36 Temperature 98.1 F Pulse Rate 98 Respiratory Rate 16 Blood Pressure 165/85 H Pulse Oximetry 96 96 Oxygen Delivery Room Air Room Air 07/03/25 06:00 Temperature 97.3 F L Pulse Rate 102 H Respiratory Rate 16 Blood Pressure 172/64 H Pulse Oximetry 96 Oxygen Delivery Intake/Output Intake/Output: Intake & Output 06/30/25 07/01/25 07/02/25 07/03/25 23:59 23:59 23:59 23:59 Intake Total 2981.3 1000 Output Total 650 Balance 2331.3 1000 Meds/Results Medications: Active Medications Generic Name Dose Route Start Last Admin Trade Name Freq PRN Reason Stop Dose Admin Lipase/Protease/Amylase 6 cap 07/03/25 08:00 07/03/25 13:10 Lipase/Amylase/Protease 12,000 Units Cap PO Not Given TIDWM [facility] Atorvastatin Calcium 40 mg 07/03/25 09:00 07/03/25 12:01 Atorvastatin 40 Mg Tablet PO 40 mg DAILY CLARISSA Administration Buspirone HCl 15 mg 07/03/25 09:00 07/03/25 13:10 Buspirone Hcl 5 Mg Tablet PO Not Given TID [facility] Dextrose 12.5 gm 07/02/25 16:42 Dextrose 50% 25 Gm/50 Ml Syringe IV PUSH PRN PRN Hypoglycemia Protocol Gabapentin 600 mg 07/02/25 21:43 Gabapentin 300 Mg Capsule PO Q6H PRN neuropathy Glucagon 1 mg 07/02/25 16:42 Glucagon For Inj 1 Mg Vial IM PRN PRN Hypoglycemia Protocol Glucose 15 gm 07/02/25 16:42 Glucose Oral Gel 15 Gm Of Glucse In 37.5 Gm Tube PO PRN PRN Hypoglycemia Protocol Sodium Chloride 1,000 mls @ 125 mls/hr 07/02/25 12:35 07/03/25 08:37 Normal Saline Iv IV CONT 125 mls/hr .Q8H CLARISSA Administration Dextrose 1,000 mls @ 100 mls/hr 07/02/25 16:42 Dextrose 5% 1,000 Ml IVPB PRN PRN Hypoglycemia Protocol Insulin Aspart 4 - 8 units 07/02/25 18:00 07/03/25 13:23 Insulin Aspart (*Bkc) 100 Units/Ml SUB-Q 6 units Q6HR CLARISSA Administration Protocol Loperamide HCl 2 mg 07/02/25 21:43 Loperamide Hcl 2 Mg Capsule PO QID PRN Loose Stool Lorazepam 2 mg 07/02/25 21:43 07/03/25 12:01 Lorazepam (*Crx) 1 Mg Tablet PO 2 mg Q6H PRN Administration Anxiety Metoclopramide HCl 5 mg 07/03/25 00:00 07/03/25 05:23 Metoclopramide Hcl Inj 10 Mg/2 Ml Vial IV PUSH Not Given Q6HR CLARISSA Ondansetron HCl 4 mg 07/02/25 16:35 07/03/25 10:51 Ondansetron Inj 4 Mg/2 Ml Vial IV PUSH 4 mg Q4H PRN Administration Nausea And Vomiting Pantoprazole Sodium 40 mg 07/03/25 09:00 07/03/25 12:01 Pantoprazole 40 Mg Tablet PO 40 mg QAM CLARISSA Administration Zolpidem Tartrate 10 mg 07/02/25 21:43 07/03/25 01:21 Zolpidem Tartrate (*Crx) 5 Mg Tablet PO 10 mg HS PRN Administration Insomnia Radiology Results: ITS Impressions Chest/Abdomen/Pelvis CT 07/02/25 11:01 IMPRESSION: 1. Cholelithiasis. Gallbladder distention may be secondary to fasting or acute cholecystitis. Correlate with physical exam. 2. Mildly dilated common duct. Abdomen Ultrasound 07/02/25 17:50 Impression: Probable gallbladder polyp. No acute process. Hepatobiliary Scan Nuclear Medicine 07/03/25 10:54 IMPRESSION: 1. Patent cystic duct evidenced by activity accumulation in the gallbladder. 2. Delayed passage of activity from the common bile duct into the small bowel with only trace activity evident in the duodenum on the 1 hour and 15 minute images raising some concern for biliary obstruction at the level of the distal common bile duct. Correlate with liver function tests and if there is clinical concern for biliary obstruction would consider MRCP for further evaluation. Labs Labs: Laboratory Results - last 24 hr 07/02/25 07/02/25 07/03/25 16:55 23:38 04:46 WBC RBC Hgb Hct MCV MCH MCHC RDW Plt Count MPV Immature Gran % (Auto) Neut % (Auto) Lymph % (Auto) [place] % (Auto) Eos % (Auto) Baso % (Auto) Lymph # (Auto) [place] # (Auto) Eos # (Auto) Baso # (Auto) Abs Immat Gran (auto) Absolute Neuts (auto) Absolute Nucleated RBC Nucleated RBC % Sodium Potassium Chloride Carbon Dioxide Anion Gap BUN Creatinine Estim Creat Clear Calc Estimated GFR Glucose POC Capillary Glucose 299 H 268 H 286 H Hemoglobin A1c Calcium Phosphorus Magnesium Total Bilirubin Direct Bilirubin AST ALT Alkaline Phosphatase Total Protein Albumin 07/03/25 07/03/25 06:07 13:12 WBC 13.3 H RBC 4.54 Hgb 11.7 L Hct 36.7 L MCV 80.8 MCH 25.8 L MCHC 31.9 L RDW 14.1 Plt Count 249 MPV 10.8 H Immature Gran % (Auto) 0.3 Neut % (Auto) 85.4 H Lymph % (Auto) 10.7 L [place] % (Auto) 3.4 Eos % (Auto) 0.0 Baso % (Auto) 0.2 Lymph # (Auto) 1.42 [place] # (Auto) 0.5 Eos # (Auto) 0.0 Baso # (Auto) 0.0 Abs Immat Gran (auto) 0.04 H Absolute Neuts (auto) 11.4 H Absolute Nucleated RBC 0.000 Nucleated RBC % 0.0 Sodium 136 L Potassium 3.5 Chloride 102 Carbon Dioxide 26 Anion Gap 8 BUN 15 Creatinine 1.14 H Estim Creat Clear Calc 56 Estimated GFR 49 L Glucose 291 H POC Capillary Glucose 306 H Hemoglobin A1c 7.0 H Calcium 8.9 Phosphorus 3.0 Magnesium 1.7 Total Bilirubin 0.5 Direct Bilirubin 0.0 AST 72 H ALT 46 H Alkaline Phosphatase 113 Total Protein 7.8 Albumin 4.0
[2025-07-03 15:41] VITALS: BP 192/88; PULSE 106; RESP 16; TEMP 37.1; O2SAT 97
[2025-07-03 16:01] LABS: Toxigenic C. Diff POSITIVE (NEGATIVE)
[2025-07-03 16:38] LABS: CDiff Toxin A&B Ag Negative (Negative); Clostridium Difficile GDH Ag Positive (Negative)
[2025-07-03] MEDS: VANCOMYCIN HCL 125 MG ORAL CAPSULE PO ×2 (17:11→23:28)
[2025-07-03] MEDS: ONDANSETRON HCL ODT 4 MG TABLET PO ×2 (17:11→23:28)
[2025-07-03 17:20] VITALS: BP 191/85; PULSE 82
[2025-07-03 17:30] VITALS: BP 145/63; PULSE 80; RESP 18
--- NOTE | 2025-07-03 18:51 | WPDGICN ---
Assessment and Plan Assessment and plan (1) Acute nausea with nonbilious vomiting: Code(s): R11.2 - Nausea with vomiting, unspecified Status: Acute Assessment and Plan: The patient's nausea might be related to acute gastroenteritis, however her elevated white count in the presence of recently found C difficile might explain part of this problem. Her liver biochemistry shows minimally elevated transaminases, which can be related to underlying diabetes with fatty liver. However, given that HIDA scan results, an MRCP was already ordered. Given her gastric bypass anatomy, if an MRCP shows choledocholithiasis, she might have to be transferred to [facility] or [place] for Special ERCP. (2) Elevated liver function tests: Code(s): R79.89 - Other specified abnormal findings of blood chemistry Status: Acute GI Consult Note Consult date/time: 07/03/25 18:51 Reason for consult: Nausea and vomiting HPI: Cinthya Morocho is a 60 year old female with an underlying diagnosis of schizophrenia, status post gastric bypass in 2022, and diabetes. She also has a diagnosis of possible cyclic vomiting syndrome. She was admitted on 07/02/2025 with 2 days of persistent nausea and vomiting and some episodes of diarrhea which have partially subsided after hospitalization. There is cholelithiasis detected on imaging studies, and today a HIDA scan was obtained showing delayed passage of activity from the common bile duct to the duodenum, only trace activity was evident in the duodenum after 1 hour 15 minutes, suggesting obtaining an MRCP for clarification and to rule out a retained common bile duct stone. Laboratory data shows: White count 13.3, hemoglobin 11.7, platelet count 149, sodium 136, potassium 3.5, creatinine 1.14, AST 72, ALT 46, albumin 4.0. Today a stool sample revealed the presence of toxin and PCR positive for C difficile. She is currently starting to take vancomycin orally. Review of Systems Review of Systems: All systems reviewed & are unremarkable except as noted in HPI and below PMFSH Past Medical History Medical History (Updated 07/02/25 @ 22:55 by Suzette Cheng APRN) Diabetic gastroparesis Schizophrenia Insulin dependent diabetes mellitus Family History Family History (Updated 07/02/25 @ 15:48 by Ignacia Garrett RN) Other Unknown family medical history Social History Social History Smoking status: Former smoker Tobacco type: cigarettes Alcohol intake: former Substance use: never Lack of Transportation: No Lack of Food: Never True Current Housing: I Have Housing Concerned About Future Housing: No Difficulty Paying Gas/Electric Bills: No Difficulty Paying for Meds: No Currently Unemployed: No Education: High School Diploma/GED Difficulty w/ Childcare or Family Care: No Spiritual care concerns: No Meds Home Medications and Allergies Home Medications ?Medication ?Instructions ?Recorded ?Confirmed ?Type atorvastatin 40 mg tablet (Lipitor) 40 mg PO DAILY 07/02/25 07/02/25 History buspirone 15 mg tablet 15 mg PO TID 07/02/25 07/02/25 History ergocalciferol (vitamin D2) 1,250 1,250 mcg PO WEEKLY 07/02/25 07/02/25 History mcg (50,000 unit) capsule gabapentin 600 mg tablet 600 mg PO Q6H PRN neuropathy 07/02/25 07/02/25 History insulin aspart U-100 100 unit/mL 30 unit subcut .before breakfast 07/02/25 07/03/25 History (3 mL) subcutaneous pen (Novolog FlexPen U-100 Insulin aspart) insulin degludec 100 unit/mL (3 36 unit subcut QPM 07/02/25 07/03/25 History mL) subcutaneous pen (Tresiba FlexTouch U-100 insulin) [id number] 2 cap PO TID 07/02/25 07/03/25 History (pork)36,000-114,000-180k unit capsule,del rel (Creon) loperamide 2 mg tablet 2 mg PO QID PRN loose stool 07/02/25 07/02/25 History (Anti-Diarrheal (loperamide)) lorazepam 2 mg tablet (Ativan) 2 mg PO Q6H PRN anxiety 07/02/25 07/02/25 History meclizine 25 mg tablet 25 mg PO BID 07/02/25 07/02/25 History ondansetron 4 mg disintegrating 4 mg PO Q6H 07/02/25 07/02/25 History tablet paliperidone 3 mg tablet,extended 3 mg PO DAILY 07/02/25 07/03/25 History release 24 hr (Invega) pantoprazole 40 mg tablet,delayed 40 mg PO QAM 07/02/25 07/02/25 History release venlafaxine 100 mg tablet 150 mg PO DAILY@0800 PRN anxiety 07/02/25 07/03/25 History venlafaxine 75 mg capsule,extended 150 mg PO DAILY 07/02/25 07/02/25 History release 24 hr zolpidem 10 mg tablet 10 mg PO HS PRN insomnia 07/02/25 07/02/25 History insulin aspart U-100 100 unit/mL 22 unit subcut .before lunch 07/03/25 07/03/25 History (3 mL) subcutaneous pen (Novolog FlexPen U-100 Insulin aspart) insulin aspart U-100 100 unit/mL 22 unit subcut .before dinner 07/03/25 07/03/25 History subcutaneous solution (Novolog U-100 Insulin aspart) Allergies Allergy/AdvReac Type Severity Reaction Status Date / Time Penicillins Allergy Mild Unknown Verified 07/02/25 15:06 Vital Signs Vital Signs - 24 hr 07/02/25 21:08 07/02/25 21:40 07/02/25 23:36 Temperature 98.1 F Pulse Rate 98 Respiratory Rate 16 Blood Pressure 165/85 H Pulse Oximetry 96 96 Oxygen Delivery Room Air Room Air 07/03/25 06:00 07/03/25 15:41 07/03/25 17:20 Temperature 97.3 F L 98.8 F Pulse Rate 102 H 106 H 82 Respiratory Rate 16 16 Blood Pressure 172/64 H 192/88 H 191/85 H Pulse Oximetry 96 97 Oxygen Delivery 07/03/25 17:30 Temperature Pulse Rate 80 Respiratory Rate 18 Blood Pressure 145/63 H Pulse Oximetry Oxygen Delivery Exam Const: General: cooperative and healthy appearing Resp: Effort & Inspection: normal respiratory effort and able to speak in complete sentences Auscultation: clear to auscultation bilaterally Cardio: Rate: regular rate Rhythm: regular rhythm GI: Inspection: normal to inspection GI Palp: No No hepatosplenomegaly present Auscultation: normal bowel sounds Rectal Exam: deferred Skin: General skin exam: normal color Psych: Appearance: grossly normal Mental Status: mental status grossly normal Results Labs 07/03/25 06:07 07/03/25 06:07 Labs: Short CBC 07/03/25 Range/Units 06:07 WBC 13.3 H (4.5-10.0) K/mm3 Hgb 11.7 L (12.0-15.0) g/dL Hct 36.7 L (37.0-47.0) % Plt Count 249 (150-375) k/mm3 BMP 07/03/25 06:07 Sodium 136 L Potassium 3.5 Chloride 102 Carbon Dioxide 26 BUN 15 Creatinine 1.14 H Glucose 291 H Calcium 8.9 Liver Function 07/03/25 Range/Units 06:07 Total Bilirubin 0.5 (0.2-1.3) mg/dL Direct Bilirubin 0.0 (0-0.3) mg/dL AST 72 H (14-36) U/L ALT 46 H (6-35) U/L Alkaline Phosphatase 113 (38-126) U/L Albumin 4.0 (3.5-5.1) g/dL
[2025-07-03] MEDS: INSULIN GLARGINE (*BKC) 100 UNITS/ML 29 UNITS SUB-Q (20:55)
[2025-07-03] MEDS: MECLIZINE HCL 25 MG TABLET PO (20:57)
[2025-07-03 21:56] VITALS: BP 169/65; PULSE 101; RESP 17; TEMP 36.8; O2SAT 96
[2025-07-04] MEDS: SODIUM CHLORIDE 0.9% IV 1,000 ML 125 ML IV CONT ×2 (02:14→11:24)
[2025-07-04] MEDS: VANCOMYCIN HCL 125 MG ORAL CAPSULE PO ×3 (05:24→17:34)
[2025-07-04] MEDS: ONDANSETRON HCL ODT 4 MG TABLET PO ×3 (05:24→17:34)
[2025-07-04 05:55] VITALS: BP 143/66; PULSE 88; RESP 17; TEMP 36.6; O2SAT 98
[2025-07-04 07:27] LABS: Hematocrit 38.6 % (37.0-47.0); Hemoglobin 12.1 g/dL (12.0-15.0); Immature Granulocyte Percent A 0.3 % (0-0.5); Lymphocytes Absolute Auto 2.80 K/mm3 (0.9-3.2); Mean Corpuscular HGB Conc 31.3 g/dl (32-36); Mean Corpuscular Hemoglobin 25.4 pg (26-34); Mean Corpuscular Volume 81.1 fl (80-100); Nucleated Red Blood Cells Absolute Auto 0.000 K/mm3 (0.0-0.012); Nucleated Red Blood Cells Perc 0.0 % (0.0-0.2); Platelet Count Result 258 k/mm3 (150-375); Red Blood Count 4.76 M/mm3 (4.2-5.4); White Blood Count 11.6 K/mm3 (4.5-10.0)
[2025-07-04 07:34] LABS: Alanine Aminotransferase 49 U/L (6-35); Albumin Level 3.9 g/dL (3.5-5.1); Alkaline Phosphatase 102 U/L (38-126); Anion Gap 6 mmol/L (4-12); Aspartate Amino Transferase 72 U/L (14-36); Bilirubin,Total 0.6 mg/dL (0.2-1.3); Blood Urea Nitrogen 17 mg/dL (7-17); Calcium 8.9 mg/dL (8.4-10.2); Carbon Dioxide 29 mmol/L (22-30); Chloride 103 mmol/L (98-107); Estimated CRCL calculation 53 ml/min; Estimated Glomerular Filt Rate 46; Glucose 155 mg/dL (65-110); Magnesium 1.9 mg/dL (1.6-2.3); Potassium 3.1 mmol/L (3.4-5.0); Sodium 138 mmol/L (137-145); Total Protein 7.8 g/dL (6.3-8.2)
[2025-07-04] MEDS: ONDANSETRON INJ 4 MG/2 ML VIAL IV PUSH (08:31)
--- NOTE | 2025-07-04 12:28 | P.PNGS_ITS ---
Progress Note: A&P Assessment and Plan (1) Acute nausea with nonbilious vomiting: Code(s): R11.2 - Nausea with vomiting, unspecified Status: Chronic Assessment and Plan: Episodes of nausea vomiting diarrhea and dizziness have been going on for years in this patient. She was told she has cyclic vomiting syndrome. She does not smoke marijuana. She tolerated clear liquids fairly well and has not had any vomiting while in the hospital. Plan per hospitalist and Gastroenterology. Testing is negative for cholecystitis, either acute or chronic, as the cause of her admitting complaints. I will go ahead and sign off. Please call if I can be of further assistance. (2) Gallbladder polyp: Code(s): K82.4 - Cholesterolosis of gallbladder Status: Chronic Assessment and Plan: Repeat ultrasound and follow-up with primary care doctor to evaluate for polyp enlarging. Not causing cholecystitis at this point. Not large enough to indicate the need for cholecystectomy. (3) Insulin dependent diabetes mellitus: Status: Chronic Assessment and Plan: Blood sugars poorly controlled, even in the hospital she has been running blood sugars over 250 although today it seems a little better. (4) Schizophrenia: Qualifiers: Schizophrenia type: unspecified Qualified Code(s): F20.9 - Schizophrenia, unspecified Code(s): F20.9 - Schizophrenia, unspecified Status: Chronic (5) Clostridium difficile toxin not detected: Code(s): Z11.0 - Encounter for screening for intestinal infectious diseases Status: Acute Assessment and Plan: Testing shows positive C diff antigen and negative toxin. Defer to Gastroentero logy regarding the need for treatment. Subjective Subjective Date/Time Seen: 07/04/25 12:28 Patient reports: no new complaints, feels better, tolerating liquids well and bowel movement Interval history: Stool testing showed positive antigen for C difficile but negative C difficile toxin suggesting possible C diff colitis. Review of Systems Review of Systems: All systems reviewed & are unremarkable except as noted in HPI and below (HPI) Exam Const: General: comfortable, no acute distress and tired appearing GI: Inspection: non-distended, scaphoid and no visible herniation GI Palp: Yes Soft to palpation, No Tenderness to palpation present (GI), No Hernia present and No Palpable mass present Objective Data Vital Signs Vital Signs: Vital Signs - 24 hr 07/03/25 15:41 07/03/25 17:20 07/03/25 17:30 Temperature 37.1 C Pulse Rate 106 H 82 80 Respiratory Rate 16 18 Blood Pressure 192/88 H 191/85 H 145/63 H Pulse Oximetry 97 Oxygen Delivery 07/03/25 20:00 07/03/25 21:56 07/04/25 05:55 Temperature 36.8 C 36.6 C Pulse Rate 101 H 88 Respiratory Rate 17 17 Blood Pressure 169/65 H 143/66 H Pulse Oximetry 96 98 Oxygen Delivery Room Air 07/04/25 08:00 Temperature Pulse Rate Respiratory Rate Blood Pressure Pulse Oximetry Oxygen Delivery Room Air Intake/Output Intake/Output: Intake & Output 07/01/25 07/02/25 07/03/25 07/04/25 23:59 23:59 23:59 23:59 Intake Total 2981.3 19993.8 Output Total 650 Balance 2331.3 19993.8 Meds/Results Medications: Active Medications Generic Name Dose Route Start Last Admin Trade Name Freq PRN Reason Stop Dose Admin Lipase/Protease/Amylase 6 cap 07/03/25 08:00 07/04/25 08:00 Lipase/Amylase/Protease 12,000 Units Cap PO Not Given TIDWM CLARISSA Atorvastatin Calcium 40 mg 07/03/25 09:00 07/03/25 12:01 Atorvastatin 40 Mg Tablet PO 40 mg DAILY CLARISSA Administration Buspirone HCl 15 mg 07/03/25 09:00 07/04/25 09:00 Buspirone Hcl 5 Mg Tablet PO Not Given TID CLARISSA Dextrose 12.5 gm 07/02/25 16:42 Dextrose 50% 25 Gm/50 Ml Syringe IV PUSH PRN PRN Hypoglycemia Protocol Gabapentin 600 mg 07/02/25 21:43 Gabapentin 300 Mg Capsule PO Q6H PRN neuropathy Glucagon 1 mg 07/02/25 16:42 Glucagon For Inj 1 Mg Vial IM PRN PRN Hypoglycemia Protocol Glucose 15 gm 07/02/25 16:42 Glucose Oral Gel 15 Gm Of Glucse In 37.5 Gm Tube PO PRN PRN Hypoglycemia Protocol Hydralazine HCl 10 mg 07/03/25 16:34 07/03/25 17:16 Hydralazine Hcl 20 Mg/Ml Vial IV PUSH 10 mg Q8H PRN Administration Blood Pressure - High Sodium Chloride 1,000 mls @ 75 mls/hr 07/02/25 12:35 07/04/25 11:24 Normal Saline Iv IV CONT 125 mls/hr .[id number] CLARISSA Administration Dextrose 1,000 mls @ 100 mls/hr 07/02/25 16:42 Dextrose 5% 1,000 Ml IVPB PRN PRN Hypoglycemia Protocol Insulin Aspart 4 - 8 units 07/02/25 18:00 07/04/25 05:21 Insulin Aspart (*Bkc) 100 Units/Ml SUB-Q Not Given Q6HR CLARISSA Protocol Insulin Glargine 29 units 07/03/25 21:00 07/03/25 20:55 Insulin Glargine (*Bkc) 100 Units/Ml SUB-Q 29 units HS CLARISSA Administration Loperamide HCl 2 mg 07/02/25 21:43 Loperamide Hcl 2 Mg Capsule PO QID PRN Loose Stool Lorazepam 2 mg 07/02/25 21:43 07/03/25 18:31 Lorazepam (*Crx) 1 Mg Tablet PO 2 mg Q6H PRN Administration Anxiety Meclizine HCl 25 mg 07/03/25 21:00 07/03/25 20:57 Meclizine Hcl 25 Mg Tablet PO 25 mg Q12HR CLARISSA Administration Ondansetron HCl 4 mg 07/02/25 16:35 07/04/25 08:31 Ondansetron Inj 4 Mg/2 Ml Vial IV PUSH 4 mg Q4H PRN Administration Nausea And Vomiting Ondansetron HCl 4 mg 07/03/25 18:00 07/04/25 05:24 Ondansetron Hcl Odt 4 Mg Tablet PO 4 mg Q6HR CLARISSA Administration Vancomycin HCl 125 mg 07/03/25 18:00 07/04/25 05:24 Vancomycin Hcl 125 Mg Oral Capsule PO 07/13/25 17:59 125 mg Q6HR CLARISSA Administration Venlafaxine HCl 150 mg 07/04/25 09:00 Venlafaxine Hcl Xr 75 Mg Cap.Er.24h PO DAILY CLARISSA Venlafaxine HCl 150 mg 07/03/25 08:00 Venlafaxine Hcl 75 Mg Tablet PO DAILY@0800 PRN anxiety Zolpidem Tartrate 10 mg 07/02/25 21:43 07/03/25 01:21 Zolpidem Tartrate (*Crx) 5 Mg Tablet PO 10 mg HS PRN Administration Insomnia Radiology Results: ITS Impressions Chest/Abdomen/Pelvis CT 10/30/25 11:01 IMPRESSION: 1. Cholelithiasis. Gallbladder distention may be secondary to fasting or acute cholecystitis. Correlate with physical exam. 2. Mildly dilated common duct. Abdomen Ultrasound 07/02/25 17:50 Impression: Probable gallbladder polyp. No acute process. 8 mm gallbladder polyp suggested Hepatobiliary Scan Nuclear Medicine 07/03/25 10:54 IMPRESSION: 1. Patent cystic duct evidenced by activity accumulation in the gallbladder. 2. Delayed passage of activity from the common bile duct into the small bowel with only trace activity evident in the duodenum on the 1 hour and 15 minute images raising some concern for biliary obstruction at the level of the distal common bile duct. Correlate with liver function tests and if there is clinical concern for biliary obstruction would consider MRCP for further evaluation. MRCP has been ordered but has not been completed. Labs Labs: Laboratory Results - last 24 hr 07/03/25 07/03/25 07/03/25 13:12 14:01 17:05 WBC RBC Hgb Hct MCV MCH MCHC RDW Plt Count MPV Immature Gran % (Auto) Neut % (Auto) Lymph % (Auto) [place] % (Auto) Eos % (Auto) Baso % (Auto) Lymph # (Auto) [place] # (Auto) Eos # (Auto) Baso # (Auto) Abs Immat Gran (auto) Absolute Neuts (auto) Absolute Nucleated RBC Nucleated RBC % Sodium Potassium Chloride Carbon Dioxide Anion Gap BUN Creatinine Estim Creat Clear Calc Estimated GFR Glucose POC Capillary Glucose 306 H 248 H Calcium Magnesium Total Bilirubin AST ALT Alkaline Phosphatase Total Protein Albumin C. difficile (PCR) Positive A* C. difficile Ag & Toxin Negative C. difficile GDH Ag Positive A 07/03/25 07/04/25 07/04/25 23:34 04:31 06:03 WBC 11.6 H RBC 4.76 Hgb 12.1 Hct 38.6 MCV 81.1 MCH 25.4 L MCHC 31.3 L RDW 14.2 Plt Count 258 MPV 11.1 H Immature Gran % (Auto) 0.3 Neut % (Auto) 68.2 Lymph % (Auto) 24.1 [place] % (Auto) 6.8 Eos % (Auto) 0.2 Baso % (Auto) 0.4 Lymph # (Auto) 2.80 [place] # (Auto) 0.8 H Eos # (Auto) 0.0 Baso # (Auto) 0.1 Abs Immat Gran (auto) 0.04 H Absolute Neuts (auto) 7.9 H Absolute Nucleated RBC 0.000 Nucleated RBC % 0.0 Sodium 138 Potassium 3.1 L Chloride 103 Carbon Dioxide 29 Anion Gap 6 BUN 17 Creatinine 1.20 H Estim Creat Clear Calc 53 Estimated GFR 46 L Glucose 155 H POC Capillary Glucose 244 H 174 H Calcium 8.9 Magnesium 1.9 Total Bilirubin 0.6 AST 72 H ALT 49 H Alkaline Phosphatase 102 Total Protein 7.8 Albumin 3.9 C. difficile (PCR) C. difficile Ag & Toxin C. difficile GDH Ag 07/04/25 11:51 WBC RBC Hgb Hct MCV MCH MCHC RDW Plt Count MPV Immature Gran % (Auto) Neut % (Auto) Lymph % (Auto) [place] % (Auto) Eos % (Auto) Baso % (Auto) Lymph # (Auto) [place] # (Auto) Eos # (Auto) Baso # (Auto) Abs Immat Gran (auto) Absolute Neuts (auto) Absolute Nucleated RBC Nucleated RBC % Sodium Potassium Chloride Carbon Dioxide Anion Gap BUN Creatinine Estim Creat Clear Calc Estimated GFR Glucose POC Capillary Glucose 211 H Calcium Magnesium Total Bilirubin AST ALT Alkaline Phosphatase Total Protein Albumin C. difficile (PCR) C. difficile Ag & Toxin C. difficile GD Ag AST and ALT remains slightly elevated which does not really indicative of anything in particular.
[2025-07-04] MEDS: VENLAFAXINE HCL XR 75 MG CAP.ER.24H 150 MG PO (12:36)
[2025-07-04] MEDS: LIPASE/AMYLASE/PROTEASE 12,000 UNITS CAP 6 CAP PO ×2 (12:37→16:21)
[2025-07-04] MEDS: ATORVASTATIN 40 MG TABLET PO (12:37)
[2025-07-04] MEDS: MECLIZINE HCL 25 MG TABLET PO ×2 (12:37→20:51)
[2025-07-04] MEDS: POTASSIUM CHLORIDE 20 MEQ ER TABLET 40 MEQ PO (12:51)
[2025-07-04] MEDS: INSULIN ASPART (*BKC) 100 UNITS/ML SUB-Q (13:02)
[2025-07-04 14:00] VITALS: BP 181/72; PULSE 99; RESP 12; TEMP 37.2; O2SAT 97
--- NOTE | 2025-07-04 14:11 | P.PNGI_ITS ---
Progress Note: A&P Assessment and Plan (1) Elevated liver function tests: Code(s): R79.89 - Other specified abnormal findings of blood chemistry Status: Acute Assessment and Plan: The patient is still waiting for an MRCP to rule out a retained common bile duct stone, according to the HIDA scan result, describing a delay in the passage of radio tracer activity from the common bile duct to the duodenum. However, this is clinically unlikely given her normal bilirubin and alkaline phosphatase, and transaminases are unchanged and probably representing her baseline given her condition of morbid obesity and multiple home medications including statins. Plan - Await results of the MRCP Subjective Date/time seen: 07/04/25 14:11 Interval history: Patient tolerated food well, no nausea or vomiting. Objective Data Vital Signs Vital Signs: Vital Signs - 24 hr 07/03/25 15:41 07/03/25 17:20 07/03/25 17:30 Temperature 98.8 F Pulse Rate 106 H 82 80 Respiratory Rate 16 18 Blood Pressure 192/88 H 191/85 H 145/63 H Pulse Oximetry 97 Oxygen Delivery 07/03/25 20:00 07/03/25 21:56 07/04/25 05:55 Temperature 98.3 F 97.9 F Pulse Rate 101 H 88 Respiratory Rate 17 17 Blood Pressure 169/65 H 143/66 H Pulse Oximetry 96 98 Oxygen Delivery Room Air 07/04/25 08:00 Temperature Pulse Rate Respiratory Rate Blood Pressure Pulse Oximetry Oxygen Delivery Room Air Intake/Output Intake/Output: Intake & Output 07/01/25 07/02/25 07/03/25 07/04/25 23:59 23:59 23:59 23:59 Intake Total 2981.3 1999 2043.8 Output Total 650 Balance 2331.3 1999 2043.8 Meds/Results Medications: Active Medications Generic Name Dose Route Start Last Admin Trade Name Freq PRN Reason Stop Dose Admin Lipase/Protease/Amylase 6 cap 07/03/25 08:00 07/04/25 12:37 Lipase/Amylase/Protease 12,000 Units Cap PO 2 cap TIDWM CLARISSA Administration Atorvastatin Calcium 40 mg 07/03/25 09:00 07/04/25 12:37 Atorvastatin 40 Mg Tablet PO 40 mg DAILY CLARISSA Administration Buspirone HCl 15 mg 07/03/25 09:00 07/04/25 12:36 Buspirone Hcl 5 Mg Tablet PO 15 mg TID CLARISSA Administration Dextrose 12.5 gm 07/02/25 16:42 Dextrose 50% 25 Gm/50 Ml Syringe IV PUSH PRN PRN Hypoglycemia Protocol Gabapentin 600 mg 07/02/25 21:43 Gabapentin 300 Mg Capsule PO Q6H PRN neuropathy Glucagon 1 mg 07/02/25 16:42 Glucagon For Inj 1 Mg Vial IM PRN PRN Hypoglycemia Protocol Glucose 15 gm 07/02/25 16:42 Glucose Oral Gel 15 Gm Of Glucse In 37.5 Gm Tube PO PRN PRN Hypoglycemia Protocol Hydralazine HCl 10 mg 07/03/25 16:34 07/03/25 17:16 Hydralazine Hcl 20 Mg/Ml Vial IV PUSH 10 mg Q8H PRN Administration Blood Pressure - High Sodium Chloride 1,000 mls @ 75 mls/hr 07/02/25 12:35 07/04/25 11:24 Normal Saline Iv IV CONT 125 mls/hr .[id number] CLARISSA Administration Dextrose 1,000 mls @ 100 mls/hr 07/02/25 16:42 Dextrose 5% 1,000 Ml IVPB PRN PRN Hypoglycemia Protocol Insulin Aspart 4 - 8 units 07/02/25 18:00 07/04/25 13:02 Insulin Aspart (*Bkc) 100 Units/Ml SUB-Q 4 units Q6HR CLARISSA Administration Protocol Insulin Glargine 29 units 07/03/25 21:00 07/03/25 20:55 Insulin Glargine (*Bkc) 100 Units/Ml SUB-Q 29 units HS CLARISSA Administration Loperamide HCl 2 mg 07/02/25 21:43 Loperamide Hcl 2 Mg Capsule PO QID PRN Loose Stool Lorazepam 2 mg 07/02/25 21:43 07/03/25 18:31 Lorazepam (*Crx) 1 Mg Tablet PO 2 mg Q6H PRN Administration Anxiety Meclizine HCl 25 mg 07/03/25 21:00 07/04/25 12:37 Meclizine Hcl 25 Mg Tablet PO 25 mg Q12HR CLARISSA Administration Ondansetron HCl 4 mg 07/02/25 16:35 07/04/25 08:31 Ondansetron Inj 4 Mg/2 Ml Vial IV PUSH 4 mg Q4H PRN Administration Nausea And Vomiting Ondansetron HCl 4 mg 07/03/25 18:00 07/04/25 12:37 Ondansetron Hcl Odt 4 Mg Tablet PO 4 mg Q6HR CLARISSA Administration Vancomycin HCl 125 mg 07/03/25 18:00 07/04/25 12:35 Vancomycin Hcl 125 Mg Oral Capsule PO 07/13/25 17:59 125 mg Q6HR CLARISSA Administration Venlafaxine HCl 150 mg 07/04/25 09:00 07/04/25 12:36 Venlafaxine Hcl Xr 75 Mg Cap.Er.24h PO 150 mg DAILY CLARISSA Administration Venlafaxine HCl 150 mg 07/03/25 08:00 Venlafaxine Hcl 75 Mg Tablet PO DAILY@0800 PRN anxiety Zolpidem Tartrate 10 mg 07/02/25 21:43 07/03/25 01:21 Zolpidem Tartrate (*Crx) 5 Mg Tablet PO 10 mg HS PRN Administration Insomnia Radiology Results: ITS Impressions Chest/Abdomen/Pelvis CT 07/02/25 11:01 IMPRESSION: 1. Cholelithiasis. Gallbladder distention may be secondary to fasting or acute cholecystitis. Correlate with physical exam. 2. Mildly dilated common duct. Abdomen Ultrasound 07/02/25 17:50 Impression: Probable gallbladder polyp. No acute process. Hepatobiliary Scan Nuclear Medicine 07/03/25 10:54 IMPRESSION: 1. Patent cystic duct evidenced by activity accumulation in the gallbladder. 2. Delayed passage of activity from the common bile duct into the small bowel with only trace activity evident in the duodenum on the 1 hour and 15 minute images raising some concern for biliary obstruction at the level of the distal common bile duct. Correlate with liver function tests and if there is clinical concern for biliary obstruction would consider MRCP for further evaluation. Labs Labs: Laboratory Results - last 24 hr 07/03/25 07/03/25 07/03/25 14:01 17:05 23:34 WBC RBC Hgb Hct MCV MCH MCHC RDW Plt Count MPV Immature Gran % (Auto) Neut % (Auto) Lymph % (Auto) [place] % (Auto) Eos % (Auto) Baso % (Auto) Lymph # (Auto) [place] # (Auto) Eos # (Auto) Baso # (Auto) Abs Immat Gran (auto) Absolute Neuts (auto) Absolute Nucleated RBC Nucleated RBC % Sodium Potassium Chloride Carbon Dioxide Anion Gap BUN Creatinine Estim Creat Clear Calc Estimated GFR Glucose POC Capillary Glucose 248 H 244 H Calcium Magnesium Total Bilirubin AST ALT Alkaline Phosphatase Total Protein Albumin C. difficile (PCR) Positive A* C. difficile Ag & Toxin Negative C. difficile GDH Ag Positive A 07/04/25 07/04/25 07/04/25 04:31 06:03 11:51 WBC 11.6 H RBC 4.76 Hgb 12.1 Hct 38.6 MCV 81.1 MCH 25.4 L MCHC 31.3 L RDW 14.2 Plt Count 258 MPV 11.1 H Immature Gran % (Auto) 0.3 Neut % (Auto) 68.2 Lymph % (Auto) 24.1 [place] % (Auto) 6.8 Eos % (Auto) 0.2 Baso % (Auto) 0.4 Lymph # (Auto) 2.80 [place] # (Auto) 0.8 H Eos # (Auto) 0.0 Baso # (Auto) 0.1 Abs Immat Gran (auto) 0.04 H Absolute Neuts (auto) 7.9 H Absolute Nucleated RBC 0.000 Nucleated RBC % 0.0 Sodium 138 Potassium 3.1 L Chloride 103 Carbon Dioxide 29 Anion Gap 6 BUN 17 Creatinine 1.20 H Estim Creat Clear Calc 53 Estimated GFR 46 L Glucose 155 H POC Capillary Glucose 174 H 211 H Calcium 8.9 Magnesium 1.9 Total Bilirubin 0.6 AST 72 H ALT 49 H Alkaline Phosphatase 102 Total Protein 7.8 Albumin 3.9 C. difficile (PCR) C. difficile Ag & Toxin C. difficile GDH Ag
[2025-07-04] MEDS: LORazepam (*CRX) 1 MG TABLET 2 MG PO (14:24)
--- NOTE | 2025-07-04 15:19 | PM.IMPN ---
Progress Note: A&P Assessment and Plan (1) Cyclical vomiting syndrome: Code(s): R11.15 - Cyclical vomiting syndrome unrelated to migraine Status: Acute Assessment and Plan: Nausea, vomiting, dizziness, diarrhea and hypotension for the past 2 days without abdominal pain. No blood seen in vomit or stool. Patient tells me this has been happening for years and was told that she has cyclic vomiting syndrome. Her most recent episode last month. She states that this happens almost monthly but she does not always require a visit to the emergency department. Vomiting initially thought to be possibly due to cholecystitis. General surgery consulted. However, imaging is not consistent with cholecystitis and patient has no abdominal pain. Church sign negative. Chest abdomen pelvis CT shows cholelithiasis. Gallbladder distention may be secondary to fasting or acute cholecystitis. Mildly dilated common duct. Abdominal ultrasound reads a probable gallbladder polyp. No acute process. General surgery does not recommend any interventions. HIDA scan with patent cystic duct however delayed passes of activity from common bile duct into small-bowel with concern off CBD obstruction. MRCP planned but its pending at this time. Diet advanced as tolerated Patient also has history of gastroparesis (2) Insulin dependent diabetes mellitus: Status: Chronic Assessment and Plan: Hyperglycemic on admit. No A1c on record. - hypoglycemia protocol - POC blood glucose q.6h while NPO - home medication: NovoLog 32 units t.i.d., Tresiba 64 units daily - correct regimen ordered: High-dose corrective scale - A1C 7.0 Resume Tresiba since NPO will hold prandial insulin (3) Hypovolemia: Code(s): E86.1 - Hypovolemia Status: Acute Assessment and Plan: Related to nausea and vomiting. Initial BP 89/59, HR 115 -2 L NS bolus treated with ivf. will stop ivf. now hypertensive Plan History of schizophrenia on Invega/venlafaxine Anxiety disorder on venlafaxine Ativan chronically buspirone Possible UTI no urinary symptoms. Urine culture pending. c diff infection: diarrhea with positive c diff. started on oral vancomycin. 07/03/2025 DVT prophylaxis SCDs Code status: Full Subjective Date/time seen: 07/04/25 15:19 Interval history: reports some nausea, had diarrhea yesterday, none today so far. abdominal discomfort rpeorted. no fever, chills. Review of Systems Review of Systems: All systems reviewed & are unremarkable except as noted in HPI and below Exam Narrative: GENERAL: Alert and conversant, not in acute distress HEAD: Normocephalic, atraumatic. EYES: PERRLA. Conjunctivae clear. NECK: Trachea midline. No adenopathy, no masses. RESPIRATORY: Airway patent, respirations nonlabored. CTA. CARDIOVASCULAR: Regular rate and rhythm GASTROINTESTINAL: Abdomen is soft and nontender. No organomegaly. Bowel sounds normal in all quadrants. MUSCULOSKELETAL: Moves all extremities. No gross deformities. No calf tenderness. SKIN: Warm, dry, normal color. NEURO: A&O X4. Patient slow to respond PSYCHIATRIC: Flat affect Objective Data Vital Signs Vital Signs: Vital Signs - 24 hr 07/03/25 15:41 07/03/25 17:20 07/03/25 17:30 Temperature 98.8 F Pulse Rate 106 H 82 80 Respiratory Rate 16 18 Blood Pressure 192/88 H 191/85 H 145/63 H Pulse Oximetry 97 Oxygen Delivery 07/03/25 20:00 07/03/25 21:56 07/04/25 05:55 Temperature 98.3 F 97.9 F Pulse Rate 101 H 88 Respiratory Rate 17 17 Blood Pressure 169/65 H 143/66 H Pulse Oximetry 96 98 Oxygen Delivery Room Air 07/04/25 08:00 07/04/25 14:00 Temperature 98.9 F Pulse Rate 99 Respiratory Rate 12 Blood Pressure 181/72 H Pulse Oximetry 97 Oxygen Delivery Room Air Intake/Output Intake/Output: Intake & Output 07/01/25 07/02/25 07/03/25 07/04/25 23:59 23:59 23:59 23:59 Intake Total 2981.3 1999 2043.8 Output Total 650 Balance 2331.3 1999 2043.8 Meds/Results Medications: Active Medications Generic Name Dose Route Start Last Admin Trade Name Freq PRN Reason Stop Dose Admin Lipase/Protease/Amylase 6 cap 07/03/25 08:00 07/04/25 12:37 Lipase/Amylase/Protease 12,000 Units Cap PO 2 cap TIDWM CLARISSA Administration Atorvastatin Calcium 40 mg 07/03/25 09:00 07/04/25 12:37 Atorvastatin 40 Mg Tablet PO 40 mg DAILY CLARISSA Administration Buspirone HCl 15 mg 07/03/25 09:00 07/04/25 12:36 Buspirone Hcl 5 Mg Tablet PO 15 mg TID CLARISSA Administration Dextrose 12.5 gm 07/02/25 16:42 Dextrose 50% 25 Gm/50 Ml Syringe IV PUSH PRN PRN Hypoglycemia Protocol Gabapentin 600 mg 07/02/25 21:43 Gabapentin 300 Mg Capsule PO Q6H PRN neuropathy Glucagon 1 mg 07/02/25 16:42 Glucagon For Inj 1 Mg Vial IM PRN PRN Hypoglycemia Protocol Glucose 15 gm 07/02/25 16:42 Glucose Oral Gel 15 Gm Of Glucse In 37.5 Gm Tube PO PRN PRN Hypoglycemia Protocol Hydralazine HCl 10 mg 07/03/25 16:34 07/03/25 17:16 Hydralazine Hcl 20 Mg/Ml Vial IV PUSH 10 mg Q8H PRN Administration Blood Pressure - High Sodium Chloride 1,000 mls @ 75 mls/hr 07/02/25 12:35 07/04/25 11:24 Normal Saline Iv IV CONT 125 mls/hr .[id number] CLARISSA Administration Dextrose 1,000 mls @ 100 mls/hr 07/02/25 16:42 Dextrose 5% 1,000 Ml IVPB PRN PRN Hypoglycemia Protocol Insulin Aspart 4 - 8 units 07/02/25 18:00 07/04/25 13:02 Insulin Aspart (*Bkc) 100 Units/Ml SUB-Q 4 units Q6HR CLARISSA Administration Protocol Insulin Glargine 29 units 07/03/25 21:00 07/03/25 20:55 Insulin Glargine (*Bkc) 100 Units/Ml SUB-Q 29 units HS CLARISSA Administration Loperamide HCl 2 mg 07/02/25 21:43 Loperamide Hcl 2 Mg Capsule PO QID PRN Loose Stool Lorazepam 2 mg 07/02/25 21:43 07/04/25 14:24 Lorazepam (*Crx) 1 Mg Tablet PO 2 mg Q6H PRN Administration Anxiety Meclizine HCl 25 mg 07/03/25 21:00 07/04/25 12:37 Meclizine Hcl 25 Mg Tablet PO 25 mg Q12HR CLARISSA Administration Ondansetron HCl 4 mg 07/02/25 16:35 07/04/25 08:31 Ondansetron Inj 4 Mg/2 Ml Vial IV PUSH 4 mg Q4H PRN Administration Nausea And Vomiting Ondansetron HCl 4 mg 07/03/25 18:00 07/04/25 12:37 Ondansetron Hcl Odt 4 Mg Tablet PO 4 mg Q6HR CLARISSA Administration Vancomycin HCl 125 mg 07/03/25 18:00 07/04/25 12:35 Vancomycin Hcl 125 Mg Oral Capsule PO 07/13/25 17:59 125 mg Q6HR CLARISSA Administration Venlafaxine HCl 150 mg 07/04/25 09:00 07/04/25 12:36 Venlafaxine Hcl Xr 75 Mg Cap.Er.24h PO 150 mg DAILY CLARISSA Administration Venlafaxine HCl 150 mg 07/03/25 08:00 Venlafaxine Hcl 75 Mg Tablet PO DAILY@0800 PRN anxiety Zolpidem Tartrate 10 mg 07/02/25 21:43 07/03/25 01:21 Zolpidem Tartrate (*Crx) 5 Mg Tablet PO 10 mg HS PRN Administration Insomnia Radiology Results: ITS Impressions Chest/Abdomen/Pelvis CT 07/02/25 11:01 IMPRESSION: 1. Cholelithiasis. Gallbladder distention may be secondary to fasting or acute cholecystitis. Correlate with physical exam. 2. Mildly dilated common duct. Abdomen Ultrasound 07/02/25 17:50 Impression: Probable gallbladder polyp. No acute process. Hepatobiliary Scan Nuclear Medicine 07/03/25 10:54 IMPRESSION: 1. Patent cystic duct evidenced by activity accumulation in the gallbladder. 2. Delayed passage of activity from the common bile duct into the small bowel with only trace activity evident in the duodenum on the 1 hour and 15 minute images raising some concern for biliary obstruction at the level of the distal common bile duct. Correlate with liver function tests and if there is clinical concern for biliary obstruction would consider MRCP for further evaluation. Labs Labs: Laboratory Results - last 24 hr 07/03/25 07/03/25 07/03/25 14:01 17:05 23:34 WBC RBC Hgb Hct MCV MCH MCHC RDW Plt Count MPV Immature Gran % (Auto) Neut % (Auto) Lymph % (Auto) [place] % (Auto) Eos % (Auto) Baso % (Auto) Lymph # (Auto) [place] # (Auto) Eos # (Auto) Baso # (Auto) Abs Immat Gran (auto) Absolute Neuts (auto) Absolute Nucleated RBC Nucleated RBC % Sodium Potassium Chloride Carbon Dioxide Anion Gap BUN Creatinine Estim Creat Clear Calc Estimated GFR Glucose POC Capillary Glucose 248 H 244 H Calcium Magnesium Total Bilirubin AST ALT Alkaline Phosphatase Total Protein Albumin C. difficile (PCR) Positive A* C. difficile Ag & Toxin Negative C. difficile GDH Ag Positive A 07/04/25 07/04/25 07/04/25 04:31 06:03 11:51 WBC 11.6 H RBC 4.76 Hgb 12.1 Hct 38.6 MCV 81.1 MCH 25.4 L MCHC 31.3 L RDW 14.2 Plt Count 258 MPV 11.1 H Immature Gran % (Auto) 0.3 Neut % (Auto) 68.2 Lymph % (Auto) 24.1 [place] % (Auto) 6.8 Eos % (Auto) 0.2 Baso % (Auto) 0.4 Lymph # (Auto) 2.80 [place] # (Auto) 0.8 H Eos # (Auto) 0.0 Baso # (Auto) 0.1 Abs Immat Gran (auto) 0.04 H Absolute Neuts (auto) 7.9 H Absolute Nucleated RBC 0.000 Nucleated RBC % 0.0 Sodium 138 Potassium 3.1 L Chloride 103 Carbon Dioxide 29 Anion Gap 6 BUN 17 Creatinine 1.20 H Estim Creat Clear Calc 53 Estimated GFR 46 L Glucose 155 H POC Capillary Glucose 174 H 211 H Calcium 8.9 Magnesium 1.9 Total Bilirubin 0.6 AST 72 H ALT 49 H Alkaline Phosphatase 102 Total Protein 7.8 Albumin 3.9 C. difficile (PCR) C. difficile Ag & Toxin C. difficile GDH Ag
[2025-07-04 19:50] VITALS: PULSE 99; RESP 12; O2SAT 97
[2025-07-04] MEDS: INSULIN GLARGINE (*BKC) 100 UNITS/ML 29 UNITS SUB-Q (20:51)
[2025-07-04 21:08] VITALS: BP 145/65; PULSE 93; RESP 20; TEMP 36.6; O2SAT 94
[2025-07-05] MEDS: ONDANSETRON HCL ODT 4 MG TABLET PO ×3 (00:32→11:28)
[2025-07-05] MEDS: VANCOMYCIN HCL 125 MG ORAL CAPSULE PO ×3 (00:33→11:28)
[2025-07-05] MEDS: LORazepam (*CRX) 1 MG TABLET 2 MG PO ×2 (01:02→11:34)
--- NOTE | 2025-07-05 02:54 | PC.NURSE ---
Daylight Savings Time For Daylight Savings Time Ending in the Fall - Clocks are moved back. For Daylight Savings Time Beginning in the Spring - Clocks are moved ahead. For [facility], the time of change occurs at 0200 hrs. Time is taken from the room service food server. This entry on the patient's chart recognizes the change in time reflected during documentation. Example: 2 entries for vital signs may be charted for 0200 hrs.
[2025-07-05] MEDS: INSULIN ASPART (*BKC) 100 UNITS/ML SUB-Q (05:43)
[2025-07-05 06:00] VITALS: BP 146/74; PULSE 79; RESP 18; TEMP 36.3; O2SAT 94
[2025-07-05 06:10] LABS: Hematocrit 37.3 % (37.0-47.0); Hemoglobin 11.7 g/dL (12.0-15.0); Immature Granulocyte Percent A 0.4 % (0-0.5); Lymphocytes Absolute Auto 1.74 K/mm3 (0.9-3.2); Mean Corpuscular HGB Conc 31.4 g/dl (32-36); Mean Corpuscular Hemoglobin 25.4 pg (26-34); Mean Corpuscular Volume 80.9 fl (80-100); Nucleated Red Blood Cells Absolute Auto 0.000 K/mm3 (0.0-0.012); Nucleated Red Blood Cells Perc 0.0 % (0.0-0.2); Platelet Count Result 254 k/mm3 (150-375); Red Blood Count 4.61 M/mm3 (4.2-5.4); White Blood Count 9.9 K/mm3 (4.5-10.0)
[2025-07-05 06:22] LABS: Alanine Aminotransferase 49 U/L (6-35); Albumin Level 3.7 g/dL (3.5-5.1); Alkaline Phosphatase 86 U/L (38-126); Anion Gap 7 mmol/L (4-12); Aspartate Amino Transferase 50 U/L (14-36); Bilirubin,Total 0.5 mg/dL (0.2-1.3); Blood Urea Nitrogen 17 mg/dL (7-17); Calcium 8.8 mg/dL (8.4-10.2); Carbon Dioxide 30 mmol/L (22-30); Chloride 100 mmol/L (98-107); Estimated CRCL calculation 59 ml/min; Estimated Glomerular Filt Rate 52; Glucose 196 mg/dL (65-110); Magnesium 1.6 mg/dL (1.6-2.3); Potassium 3.3 mmol/L (3.4-5.0); Sodium 137 mmol/L (137-145); Total Protein 7.5 g/dL (6.3-8.2)
[2025-07-05] MEDS: LIPASE/AMYLASE/PROTEASE 12,000 UNITS CAP 6 CAP PO ×2 (08:29→11:27)
[2025-07-05] MEDS: MECLIZINE HCL 25 MG TABLET PO (08:29)
[2025-07-05] MEDS: ATORVASTATIN 40 MG TABLET PO (08:29)
[2025-07-05] MEDS: VENLAFAXINE HCL XR 75 MG CAP.ER.24H 150 MG PO (08:29)
--- NOTE | 2025-07-05 09:17 | P.PNGI_ITS ---
Progress Note: A&P Assessment and Plan (1) Gallbladder polyp: Code(s): K82.4 - Cholesterolosis of gallbladder Status: Chronic Assessment and Plan: Imaging and report of MRCP reviewed. No evidence of choledocholithiasis. Will sign off for now, please let us know if there are any other issues pertaining to our specialty. Otherwise, we can follow her up as an outpatient. Subjective Date/time seen: 07/05/25 09:17 Objective Data Vital Signs Vital Signs: Vital Signs - 24 hr 07/04/25 14:00 07/04/25 19:50 07/04/25 21:08 Temperature 98.9 F 97.9 F Pulse Rate 99 99 93 Respiratory Rate 12 12 20 Blood Pressure 181/72 H 145/65 H Pulse Oximetry 97 97 94 Oxygen Delivery Room Air 07/05/25 06:00 Temperature 97.3 F L Pulse Rate 79 Respiratory Rate 18 Blood Pressure 146/74 H Pulse Oximetry 94 Oxygen Delivery Intake/Output Intake/Output: Intake & Output 07/02/25 07/03/25 07/04/25 07/05/25 23:59 23:59 23:59 22:59 Intake Total 2981.3 1999 2043.8 240 Output Total 650 Balance 2331.3 1999 2043.8 240 Meds/Results Medications: Active Medications Generic Name Dose Route Start Last Admin Trade Name Freq PRN Reason Stop Dose Admin Lipase/Protease/Amylase 6 cap 07/03/25 08:00 07/05/25 08:29 Lipase/Amylase/Protease 12,000 Units Cap PO 2 cap TIDWM CLARISSA Administration Atorvastatin Calcium 40 mg 07/03/25 09:00 07/05/25 08:29 Atorvastatin 40 Mg Tablet PO 40 mg DAILY CLARISSA Administration Buspirone HCl 15 mg 07/03/25 09:00 07/05/25 08:29 Buspirone Hcl 5 Mg Tablet PO 15 mg TID CLARISSA Administration Dextrose 12.5 gm 07/02/25 16:42 Dextrose 50% 25 Gm/50 Ml Syringe IV PUSH PRN PRN Hypoglycemia Protocol Gabapentin 600 mg 07/02/25 21:43 Gabapentin 300 Mg Capsule PO Q6H PRN neuropathy Glucagon 1 mg 07/02/25 16:42 Glucagon For Inj 1 Mg Vial IM PRN PRN Hypoglycemia Protocol Glucose 15 gm 07/02/25 16:42 Glucose Oral Gel 15 Gm Of Glucse In 37.5 Gm Tube PO PRN PRN Hypoglycemia Protocol Hydralazine HCl 10 mg 07/03/25 16:34 07/03/25 17:16 Hydralazine Hcl 20 Mg/Ml Vial IV PUSH 10 mg Q8H PRN Administration Blood Pressure - High Dextrose 1,000 mls @ 100 mls/hr 07/02/25 16:42 Dextrose 5% 1,000 Ml IVPB PRN PRN Hypoglycemia Protocol Insulin Aspart 4 - 8 units 07/02/25 18:00 07/05/25 05:43 Insulin Aspart (*Bkc) 100 Units/Ml SUB-Q 4 units Q6HR CLARISSA Administration Protocol Insulin Glargine 29 units 07/03/25 21:00 07/04/25 20:51 Insulin Glargine (*Bkc) 100 Units/Ml SUB-Q 29 units HS CLARISSA Administration Loperamide HCl 2 mg 07/02/25 21:43 Loperamide Hcl 2 Mg Capsule PO QID PRN Loose Stool Lorazepam 2 mg 07/02/25 21:43 07/05/25 01:02 [employer] Lorazepam (*Crx) 1 Mg Tablet PO 2 mg Q6H PRN Administration Anxiety Meclizine HCl 25 mg 07/03/25 21:00 07/05/25 08:29 Meclizine Hcl 25 Mg Tablet PO 25 mg Q12HR CLARISSA Administration Ondansetron HCl 4 mg 07/02/25 16:35 07/04/25 08:31 Ondansetron Inj 4 Mg/2 Ml Vial IV PUSH 4 mg Q4H PRN Administration Nausea And Vomiting Ondansetron HCl 4 mg 07/03/25 18:00 07/05/25 05:43 Ondansetron Hcl Odt 4 Mg Tablet PO 4 mg Q6HR CLARISSA Administration Vancomycin HCl 125 mg 07/03/25 18:00 07/05/25 05:43 Vancomycin Hcl 125 Mg Oral Capsule PO 07/13/25 17:59 125 mg Q6HR CLARISSA Administration Venlafaxine HCl 150 mg 07/04/25 09:00 07/05/25 08:29 Venlafaxine Hcl Xr 75 Mg Cap.Er.24h PO 150 mg DAILY CLARISSA Administration Venlafaxine HCl 150 mg 07/03/25 08:00 Venlafaxine Hcl 75 Mg Tablet PO DAILY@0800 PRN anxiety Zolpidem Tartrate 10 mg 07/02/25 21:43 07/03/25 01:21 Zolpidem Tartrate (*Crx) 5 Mg Tablet PO 10 mg HS PRN Administration Insomnia Radiology Results: ITS Impressions Chest/Abdomen/Pelvis CT 07/02/25 11:01 IMPRESSION: 1. Cholelithiasis. Gallbladder distention may be secondary to fasting or acute cholecystitis. Correlate with physical exam. 2. Mildly dilated common duct. Abdomen Ultrasound 07/02/25 17:50 Impression: Probable gallbladder polyp. No acute process. Hepatobiliary Scan Nuclear Medicine 07/03/25 10:54 IMPRESSION: 1. Patent cystic duct evidenced by activity accumulation in the gallbladder. 2. Delayed passage of activity from the common bile duct into the small bowel with only trace activity evident in the duodenum on the 1 hour and 15 minute images raising some concern for biliary obstruction at the level of the distal common bile duct. Correlate with liver function tests and if there is clinical concern for biliary obstruction would consider MRCP for further evaluation. MRCP 07/05/25 09:07 IMPRESSION: 1. Enlarged common duct. No choledocholithiasis. 2. Cholelithiasis. Labs Labs: Laboratory Results - last 24 hr 07/04/25 07/04/25 07/05/25 11:51 17:33 00:28 WBC RBC Hgb Hct MCV MCH MCHC RDW Plt Count MPV Immature Gran % (Auto) Neut % (Auto) Lymph % (Auto) [place] % (Auto) Eos % (Auto) Baso % (Auto) Lymph # (Auto) [place] # (Auto) Eos # (Auto) Baso # (Auto) Abs Immat Gran (auto) Absolute Neuts (auto) Absolute Nucleated RBC Nucleated RBC % Sodium Potassium Chloride Carbon Dioxide Anion Gap BUN Creatinine Estim Creat Clear Calc Estimated GFR Glucose POC Capillary Glucose 211 H 188 H 197 H Calcium Magnesium Total Bilirubin AST ALT Alkaline Phosphatase Total Protein Albumin 07/05/25 07/05/25 05:36 05:45 WBC 9.9 RBC 4.61 Hgb 11.7 L Hct 37.3 MCV 80.9 MCH 25.4 L MCHC 31.4 L RDW 13.9 Plt Count 254 MPV 10.7 H Immature Gran % (Auto) 0.4 Neut % (Auto) 76.5 H Lymph % (Auto) 17.6 L [place] % (Auto) 4.9 Eos % (Auto) 0.1 Baso % (Auto) 0.5 Lymph # (Auto) 1.74 [place] # (Auto) 0.5 Eos # (Auto) 0.0 Baso # (Auto) 0.1 Abs Immat Gran (auto) 0.04 H Absolute Neuts (auto) 7.5 H Absolute Nucleated RBC 0.000 Nucleated RBC % 0.0 Sodium 137 Potassium 3.3 L Chloride 100 Carbon Dioxide 30 Anion Gap 7 BUN 17 Creatinine 1.07 H Estim Creat Clear Calc 59 Estimated GFR 52 L Glucose 196 H POC Capillary Glucose 201 H Calcium 8.8 Magnesium 1.6 Total Bilirubin 0.5 AST 50 H ALT 49 H Alkaline Phosphatase 86 Total Protein 7.5 Albumin 3.7
--- NOTE | 2025-07-05 10:16 | P.PNIM_ITS ---
Progress Note: A&P Assessment and Plan (1) Cyclical vomiting syndrome: Code(s): R11.15 - Cyclical vomiting syndrome unrelated to migraine Status: Acute Assessment and Plan: Nausea, vomiting, dizziness, diarrhea and hypotension for the past 2 days without abdominal pain. No blood seen in vomit or stool. Patient tells me this has been happening for years and was told that she has cyclic vomiting syndrome. Her most recent episode last month. She states that this happens almost monthly but she does not always require a visit to the emergency department. Vomiting initially thought to be possibly due to cholecystitis. General surgery consulted. However, imaging is not consistent with cholecystitis and patient has no abdominal pain. Church sign negative. Chest abdomen pelvis CT shows cholelithiasis. Gallbladder distention may be secondary to fasting or acute cholecystitis. Mildly dilated common duct. Abdominal ultrasound reads a probable gallbladder polyp. No acute process. General surgery does not recommend any interventions. HIDA scan with patent cystic duct however delayed passes of activity from common bile duct into small- bowel with concern off CBD obstruction. MRCP planned but its pending at this time. Diet advanced as tolerated, 07/05 to soft & bland Patient also has history of gastroparesis 07/05 C. difficile Ag and PCR POSITIVE but toxin NEGATIVE, no diarrhea or abdomin al pain, c/w COLONIZATION and no treatment required (2) Insulin dependent diabetes mellitus: Status: Chronic Assessment and Plan: Hyperglycemic on admit. No A1c on record. - hypoglycemia protocol - POC blood glucose q.6h while NPO - home medication: NovoLog 32 units t.i.d., Tresiba 64 units daily - correct regimen ordered: High-dose corrective scale - A1C 7.0 Continue Tresiba and SSI (3) Hypovolemia: Code(s): E86.1 - Hypovolemia Status: Acute Assessment and Plan: Related to nausea and vomiting. Initial BP 89/59, HR 115 -2 L NS bolus treated with ivf. Resolved Subjective Date/time seen: 07/05/25 10:16 Interval history: Tolerating clear denied abdominal pain chest pain shortness a breath diarrhea or vomiting. Only mild nausea. No abnormal bleeding. No focal weakness or numbness. Has been up to the bathroom without difficulties. Would like to go home she is able to tolerate solid food. Review of Systems Review of Systems: All systems reviewed & are unremarkable except as noted in HPI and below Exam Narrative: HEENT: PERRL, sclerae nonicteric, pharyngeal mucosa pink and intact NECK: No JVD, adenopathy; thyroid palpable w/o masses CHEST: Clear to auscultation. Normal effort. HEART: NL S1/S2, regular, no murmur ABDOMEN: BS+, soft, nontender, no mass, no bruits EXTREMITIES: No cyanosis, edema, or clubbing NEUROLOGIC: CN intact and symmetric to inspection. MUSCULOSKELETAL: Tone and strength symmetric. PSYCH: Alert. Oriented to person, place, and time. Objective Data Vital Signs Vital Signs: Vital Signs - 24 hr 07/04/25 14:00 07/04/25 19:50 07/04/25 21:08 Temperature 98.9 F 97.9 F Pulse Rate 99 99 93 Respiratory Rate 12 12 20 Blood Pressure 181/72 H 145/65 H Pulse Oximetry 97 97 94 Oxygen Delivery Room Air 07/05/25 06:00 Temperature 97.3 F L Pulse Rate 79 Respiratory Rate 18 Blood Pressure 146/74 H Pulse Oximetry 94 Oxygen Delivery Intake/Output Intake/Output: Intake & Output 07/02/25 07/03/25 07/04/25 07/05/25 23:59 23:59 23:59 22:59 Intake Total 2981.3 1999 2043.8 240 Output Total 650 Balance 2331.3 1999 2043.8 240 Meds/Results Medications: Active Medications Generic Name Dose Route Start Last Admin Trade Name Freq PRN Reason Stop Dose Admin Lipase/Protease/Amylase 6 cap 07/03/25 08:00 07/05/25 08:29 Lipase/Amylase/Protease 12,000 Units Cap PO 2 cap TIDWM CLARISSA Administration Atorvastatin Calcium 40 mg 07/03/25 09:00 07/05/25 08:29 Atorvastatin 40 Mg Tablet PO 40 mg DAILY CLARISSA Administration Buspirone HCl 15 mg 07/03/25 09:00 07/05/25 08:29 Buspirone Hcl 5 Mg Tablet PO 15 mg TID CLARISSA Administration Dextrose 12.5 gm 07/02/25 16:42 Dextrose 50% 25 Gm/50 Ml Syringe IV PUSH PRN PRN Hypoglycemia Protocol Gabapentin 600 mg 07/02/25 21:43 Gabapentin 300 Mg Capsule PO Q6H PRN neuropathy Glucagon 1 mg 07/02/25 16:42 Glucagon For Inj 1 Mg Vial IM PRN PRN Hypoglycemia Protocol Glucose 15 gm 07/02/25 16:42 Glucose Oral Gel 15 Gm Of Glucse In 37.5 Gm Tube PO PRN PRN Hypoglycemia Protocol Hydralazine HCl 10 mg 07/03/25 16:34 07/03/25 17:16 Hydralazine Hcl 20 Mg/Ml Vial IV PUSH 10 mg Q8H PRN Administration Blood Pressure - High Dextrose 1,000 mls @ 100 mls/hr 07/02/25 16:42 Dextrose 5% 1,000 Ml IVPB PRN PRN Hypoglycemia Protocol Insulin Aspart 4 - 8 units 07/02/25 18:00 07/05/25 05:43 Insulin Aspart (*Bkc) 100 Units/Ml SUB-Q 4 units Q6HR CLARISSA Administration Protocol Insulin Glargine 29 units 07/03/25 21:00 07/04/25 20:51 Insulin Glargine (*Bkc) 100 Units/Ml SUB-Q 29 units HS CLARISSA Administration Loperamide HCl 2 mg 07/02/25 21:43 Loperamide Hcl 2 Mg Capsule PO QID PRN Loose Stool Lorazepam 2 mg 07/02/25 21:43 07/05/25 01:02 [employer] Lorazepam (*Crx) 1 Mg Tablet PO 2 mg Q6H PRN Administration Anxiety Meclizine HCl 25 mg 07/03/25 21:00 07/05/25 08:29 Meclizine Hcl 25 Mg Tablet PO 25 mg Q12HR CLARISSA Administration Ondansetron HCl 4 mg 07/02/25 16:35 07/04/25 08:31 Ondansetron Inj 4 Mg/2 Ml Vial IV PUSH 4 mg Q4H PRN Administration Nausea And Vomiting Ondansetron HCl 4 mg 07/03/25 18:00 07/05/25 05:43 Ondansetron Hcl Odt 4 Mg Tablet PO 4 mg Q6HR CLARISSA Administration Vancomycin HCl 125 mg 07/03/25 18:00 07/05/25 05:43 Vancomycin Hcl 125 Mg Oral Capsule PO 07/13/25 17:59 125 mg Q6HR CLARISSA Administration Venlafaxine HCl 150 mg 07/04/25 09:00 07/05/25 08:29 Venlafaxine Hcl Xr 75 Mg Cap.Er.24h PO 150 mg DAILY CLARISSA Administration Venlafaxine HCl 150 mg 07/03/25 08:00 Venlafaxine Hcl 75 Mg Tablet PO DAILY@0800 PRN anxiety Zolpidem Tartrate 10 mg 07/02/25 21:43 07/03/25 01:21 Zolpidem Tartrate (*Crx) 5 Mg Tablet PO 10 mg HS PRN Administration Insomnia Radiology Results: ITS Impressions Chest/Abdomen/Pelvis CT 07/02/25 11:01 IMPRESSION: 1. Cholelithiasis. Gallbladder distention may be secondary to fasting or acute cholecystitis. Correlate with physical exam. 2. Mildly dilated common duct. Abdomen Ultrasound 07/02/25 17:50 Impression: Probable gallbladder polyp. No acute process. Hepatobiliary Scan Nuclear Medicine 07/03/25 10:54 IMPRESSION: 1. Patent cystic duct evidenced by activity accumulation in the gallbladder. 2. Delayed passage of activity from the common bile duct into the small bowel with only trace activity evident in the duodenum on the 1 hour and 15 minute images raising some concern for biliary obstruction at the level of the distal common bile duct. Correlate with liver function tests and if there is clinical concern for biliary obstruction would consider MRCP for further evaluation. MRCP 07/05/25 09:07 IMPRESSION: 1. Enlarged common duct. No choledocholithiasis. 2. Cholelithiasis. Labs Labs: Laboratory Results - last 24 hr 07/04/25 07/04/25 07/05/25 11:51 17:33 00:28 WBC RBC Hgb Hct MCV MCH MCHC RDW Plt Count MPV Immature Gran % (Auto) Neut % (Auto) Lymph % (Auto) [place] % (Auto) Eos % (Auto) Baso % (Auto) Lymph # (Auto) [place] # (Auto) Eos # (Auto) Baso # (Auto) Abs Immat Gran (auto) Absolute Neuts (auto) Absolute Nucleated RBC Nucleated RBC % Sodium Potassium Chloride Carbon Dioxide Anion Gap BUN Creatinine Estim Creat Clear Calc Estimated GFR Glucose POC Capillary Glucose 211 H 188 H 197 H Calcium Magnesium Total Bilirubin AST ALT Alkaline Phosphatase Total Protein Albumin 07/05/25 07/05/25 05:36 05:45 WBC 9.9 RBC 4.61 Hgb 11.7 L Hct 37.3 MCV 80.9 MCH 25.4 L MCHC 31.4 L RDW 13.9 Plt Count 254 MPV 10.7 H Immature Gran % (Auto) 0.4 Neut % (Auto) 76.5 H Lymph % (Auto) 17.6 L [place] % (Auto) 4.9 Eos % (Auto) 0.1 Baso % (Auto) 0.5 Lymph # (Auto) 1.74 [place] # (Auto) 0.5 Eos # (Auto) 0.0 Baso # (Auto) 0.1 Abs Immat Gran (auto) 0.04 H Absolute Neuts (auto) 7.5 H Absolute Nucleated RBC 0.000 Nucleated RBC % 0.0 Sodium 137 Potassium 3.3 L Chloride 100 Carbon Dioxide 30 Anion Gap 7 BUN 17 Creatinine 1.07 H Estim Creat Clear Calc 59 Estimated GFR 52 L Glucose 196 H POC Capillary Glucose 201 H Calcium 8.8 Magnesium 1.6 Total Bilirubin 0.5 AST 50 H ALT 49 H Alkaline Phosphatase 86 Total Protein 7.5 Albumin 3.7
[2025-07-05] MEDS: POTASSIUM CHLORIDE 20 MEQ ER TABLET 40 MEQ PO (11:27)
--- NOTE | 2025-07-05 15:57 | PM.DS ---
DS: Admitting Diagnosis Discharge Date 07/05/2025 Admitting Diagnosis Intractable nausea with emesis DS: Discharge Diagnosis Discharge Diagnosis (1) Cyclical vomiting syndrome: Code(s): R11.15 - Cyclical vomiting syndrome unrelated to migraine Status: Acute Assessment and Plan: Nausea, vomiting, dizziness, diarrhea and hypotension for the past 2 days without abdominal pain. No blood seen in vomit or stool. Patient tells me this has been happening for years and was told that she has cyclic vomiting syndrome. Her most recent episode last month. She states that this happens almost monthly but she does not always require a visit to the emergency department. Vomiting initially thought to be possibly due to cholecystitis. General surgery consulted. However, imaging is not consistent with cholecystitis and patient has no abdominal pain. Church sign negative. Chest abdomen pelvis CT shows cholelithiasis. Gallbladder distention may be secondary to fasting or acute cholecystitis. Mildly dilated common duct. Abdominal ultrasound reads a probable gallbladder polyp. No acute process. General surgery does not recommend any interventions. HIDA scan with patent cystic duct however delayed passes of activity from common bile duct into small-bowel with concern off CBD obstruction. MRCP planned but its pending at this time. Diet advanced as tolerated, 07/05 to soft & bland Patient also has history of gastroparesis 07/05 C. difficile Ag and PCR POSITIVE but toxin NEGATIVE, no diarrhea or abdominal pain, c/w COLONIZATION; is already completing a course of PO vanc (2) Insulin dependent diabetes mellitus: Status: Chronic Assessment and Plan: Hyperglycemic on admit. No A1c on record. - hypoglycemia protocol - POC blood glucose q.6h while NPO - home medication: NovoLog 32 units t.i.d., Tresiba 64 units daily - correct regimen ordered: High-dose corrective scale - A1C 7.0 Continue Tresiba and SSI Resumed home regimen upon discharge (3) Hypovolemia: Code(s): E86.1 - Hypovolemia Status: Acute Assessment and Plan: Related to nausea and vomiting. Initial BP 89/59, HR 115 -2 L NS bolus treated with ivf. Resolved DS: Summary Hospital Course Hospital Course: 62 y/o female was admitted 07/02 due to intractable painless nausea with emesis. She experienced similar episodes in the past. Creatinine was 1.42 at admission and after hydration improved to 1.07 by discharge. Imaging revealed dilated CBD. But MRCP revealed no choledocholithiasis. Her symptoms resolved with conserviative therapy and by day of discharge she was tolerating a soft bland diet without emesis. She wished to go home. Discharge labs showed a Hgb 11.7, Potassium was 3.3. She tolerated KCl 40 mEq PO x 1 and was to f/u with her PCP. Glucose was 131 prior to lunch. AST was 50, ALT 49, both improved. Time Spent with Patient Time attestation: Total time spent providing and/or coordinating discharge services: Exam Narrative: HEENT: PERRL, sclerae nonicteric, pharyngeal mucosa pink and intact NECK: No JVD, adenopathy; thyroid palpable w/o masses CHEST: Clear to auscultation. Normal effort. HEART: NL S1/S2, regular, no murmur ABDOMEN: BS+, soft, nontender, no mass, no bruits EXTREMITIES: No cyanosis, edema, or clubbing NEUROLOGIC: CN intact and symmetric to inspection. MUSCULOSKELETAL: Tone and strength symmetric. PSYCH: Alert. Oriented to person, place, and time. DS: Data Data Completed and Pending Labs on day of discharge: Labs from last 24 hours 07/05/25 07/05/25 07/05/25 11:29 05:45 05:36 WBC 9.9 RBC 4.61 Hgb 11.7 L Hct 37.3 MCV 80.9 MCH 25.4 L MCHC 31.4 L RDW 13.9 Plt Count 254 MPV 10.7 H Immature Gran % (Auto) 0.4 Neut % (Auto) 76.5 H Lymph % (Auto) 17.6 L [place] % (Auto) 4.9 Eos % (Auto) 0.1 Baso % (Auto) 0.5 Lymph # (Auto) 1.74 [place] # (Auto) 0.5 Eos # (Auto) 0.0 Baso # (Auto) 0.1 Abs Immat Gran (auto) 0.04 H Absolute Neuts (auto) 7.5 H Absolute Nucleated RBC 0.000 Nucleated RBC % 0.0 Sodium 137 Potassium 3.3 L Chloride 100 Carbon Dioxide 30 Anion Gap 7 BUN 17 Creatinine 1.07 H Estim Creat Clear Calc 59 Estimated GFR 52 L Glucose 196 H POC Capillary Glucose 131 H 201 H Calcium 8.8 Magnesium 1.6 Total Bilirubin 0.5 AST 50 H ALT 49 H Alkaline Phosphatase 86 Total Protein 7.5 Albumin 3.7 07/05/25 07/04/25 00:28 17:33 WBC RBC Hgb Hct MCV MCH MCHC RDW Plt Count MPV Immature Gran % (Auto) Neut % (Auto) Lymph % (Auto) [place] % (Auto) Eos % (Auto) Baso % (Auto) Lymph # (Auto) [place] # (Auto) Eos # (Auto) Baso # (Auto) Abs Immat Gran (auto) Absolute Neuts (auto) Absolute Nucleated RBC Nucleated RBC % Sodium Potassium Chloride Carbon Dioxide Anion Gap BUN Creatinine Estim Creat Clear Calc Estimated GFR Glucose POC Capillary Glucose 197 H 188 H Calcium Magnesium Total Bilirubin AST ALT Alkaline Phosphatase Total Protein Albumin Discharge Plan Discharge Discharging Clinician: Javier Linod Patient Disposition: Home Activity: no straining and no driving Diet: heart healthy and other - see discharge instructions Discharge Instructions: Soft, bland foods Patient Instructions: Antibiotic Form Patient Language: Israeli Stand Alone Forms: General Discharge Information Follow-up/Referrals: Pedro Mclain [Other] - Call for Appointment Discharge Medications: New vancomycin 125 mg Capsule 125 mg PO QID Qty: 32 0RF Continued ondansetron 4 mg tablet,disintegrating 4 mg PO Q6H gabapentin 600 mg tablet 600 mg PO Q6H PRN (Reason: neuropathy) pantoprazole 40 mg tablet,delayed release (DR/EC) 40 mg PO QAM Creon 36,000-114,000- 180,000 unit capsule,delayed release(DR/EC) 2 cap PO TID Rx Instructions: administer with meals . Takes 2 capsuled TID with meals and 1 capsule with snacks buspirone 15 mg tablet 15 mg PO TID venlafaxine 75 mg capsule,extended release 24hr 150 mg PO DAILY ergocalciferol (vitamin D2) 1,250 mcg (50,000 unit) capsule 1,250 mcg PO WEEKLY atorvastatin [Lipitor] 40 mg tablet 40 mg PO DAILY lorazepam [Ativan] 2 mg tablet 2 mg PO Q6H PRN (Reason: anxiety) meclizine 25 mg tablet 25 mg PO BID venlafaxine 100 mg tablet 150 mg PO DAILY@0800 PRN (Reason: anxiety) Rx Instructions: Takes 150 mg po daily prn loperamide [Anti-Diarrheal (loperamide)] 2 mg tablet 2 mg PO QID PRN (Reason: loose stool) paliperidone [Invega] 3 mg tablet extended release 24hr 3 mg PO DAILY Patient Comments: 2weeks prior to invasive procedure Rx Instructions: Takes daily as needed prior to monthly injection. last injectable dose 06/25. zolpidem 10 mg tablet 10 mg PO HS PRN (Reason: insomnia) insulin degludec [Tresiba FlexTouch U-100] 100 unit/mL (3 mL) insulin pen 36 unit subcut QPM insulin aspart U-100 [Novolog FlexPen U-100 Insulin] 100 unit/mL (3 mL) insulin pen 30 unit subcut .before breakfast insulin aspart U-100 [Novolog FlexPen U-100 Insulin] 100 unit/mL (3 mL) insulin pen 22 unit subcut .before lunch insulin aspart U-100 [Novolog U-100 Insulin aspart] 100 unit/mL solution 22 unit subcut .before dinner Date of admission: 07/02/25 12:32 Primary Care Provider: Pedro Mclain Admitting Provider: Delia Alegre Attending physician on admission: Delia Alegre Condition: Stable
== END 2025-07-05 16:28 | disposition home or self-care (01) | DRG 395 ==
LOC: ANHED 12:15 → ANH3MEDSUR 14:28
PROVIDERS: Internal Medicine; Nurse Practitioner Adult Health; Admitting Provider Internal Medicine; Emergency Provider Nurse Practitioner Family; Visit Provider Internal Medicine
DX: R11.15 Cyclical vomiting syndrome unrelated to migraine (principal); K80.20 Calculus of gallbladder without cholecystitis without obstruction; K83.8 Other specified diseases of biliary tract; E11.65 Type 2 diabetes mellitus with hyperglycemia; E86.1 Hypovolemia; F20.9 Schizophrenia, unspecified; E11.42 Type 2 diabetes mellitus with diabetic polyneuropathy; E11.43 Type 2 diabetes mellitus with diabetic autonomic (poly)neuropathy; K31.84 Gastroparesis; F41.9 Anxiety disorder, unspecified; E78.5 Hyperlipidemia, unspecified; Z22.1 Carrier of other intestinal infectious diseases; Z87.891 Personal history of nicotine dependence; Z98.84 Bariatric surgery status; Z79.4 Long term (current) use of insulin
CPT/HCPCS: 36415; 71260; 74177; 74183; 76376; 76705; 78226; 80048; 80053; 80076; 81001; 81025; 82948; 83036; 83690; 83735; 84100; 85025; 87086; 87324; 87449; 87493; 96361; 96374; 99285; A9270; A9537; A9577; J0360; J0692; J1815; J2405; J2765; J7030; Q9967

== ENCOUNTER 2025-07-27 20:45 | Observation (INO) | payer MEDICARE, OTHER, SELFPAY ==
--- NOTE | ~2025-07-27 | XR_ITS ---
EXAMINATION: XR chest 1V portable DATE: 07/27/2025 21:33 INDICATION: Altered mental status. TECHNIQUE: A single frontal view of the chest was obtained. COMPARISON: CT chest 07/02/2025 FINDINGS: Heart size is normal. Lungs are clear of acute processes. Stable minimal linear fibrotic change in the right upper lobe. IMPRESSION: 1. No acute findings. Reviewed, dictated and finalized at location T. TH INFORMATION DIRECTOR IMPRESSION: 1. No acute findings.
--- NOTE | ~2025-07-27 | CT_ITS ---
EXAMINATION: CT brain wo con DATE: 07/27/2025 20:52 INDICATION: Altered mental status. Stroke code. TECHNIQUE: Computed tomography (CT) of the head was performed without intravenous contrast. The mA was adjusted according to patient size. Iterative reconstruction technique was employed. The dose-length product was 681.00 mGy-cm. COMPARISON: None FINDINGS: No acute bleed. No acute thrombus of middle cerebral arteries. No midline shift or effacement of sulci. IMPRESSION: 1. No acute findings in the noncontrast CT head. Report conveyed to the attending physician by telephone call at 8:59 PM. Reviewed, dictated and finalized at location T. NG MARKER IMPRESSION: 1. No acute findings in the noncontrast CT head. Report conveyed to the [facility] physician by telephone call at 8:59 PM.
--- NOTE | ~2025-07-27 | MR_ITS ---
EXAMINATION: MR brain with and without contrast: DATE: 07/28/2025. INDICATION: Altered mental status. TECHNIQUE: Axial coronal and sagittal images including postcontrast images IV contrast were obtained. COMPARISON: CT head dated 07/27/2025. CT) and carotid dated 07/27/2025. FINDINGS: No acute ischemia on the diffusion sequence. No intracranial bleed or extra-axial collections. No ventriculomegaly. Midline cavum septum is noted. No abnormal enhancement on postcontrast study. Chronic small vessel ischemic change of periventricular white matter on the FLAIR images. Pituitary gland is normal. IMPRESSION: 1. No acute infarct. No intracranial bleed. No intracranial space-occupying lesion or abnormal enhancement. 2. Chronic ischemic change of periventricular white matter. Reviewed, dictated and finalized at location T. WAY INSPECTOR IMPRESSION: 1. No acute infarct. No intracranial bleed. No intracranial space-occupying les ion or abnormal enhancement. 2. Chronic ischemic change of periventricular white matter.
--- NOTE | ~2025-07-27 | CT_ITS ---
EXAMINATION: CTA brain carotid DATE: 07/27/2025 22:46 INDICATION: Altered mental status. TECHNIQUE: Computed tomographic angiography (CTA) of the head was performed with 100 mL Omnipaque-350 intravenous contrast. CTA of the neck was performed with intravenous contrast. Automated exposure control and iterative reconstruction technique were employed. The dose-length product was 977.59 mGy-cm. Maximum intensity projection and volume rendered 3D-reconstructions were created by the technologist on a separate workstation. COMPARISON: Head CT 07/27/2025 FINDINGS: HEAD CTA: There are scattered areas of low attenuation in the cerebral white matter. There is no intracranial hemorrhage, acute infarction, or abnormal intracranial mass lesion. The ventricles are normal in size. There is cavum septum pellucidum and vergae. The paranasal sinuses are clear. The orbits are normal. The mastoid air cells are normal. The vertebral arteries are codominant. There is no significant stenosis of basilar artery or the posterior cerebral arteries. There is no significant stenosis of the intracranial internal carotid arteries or anterior or middle cerebral arteries. Anterior communicating artery is normal. The posterior communicating arteries are normal. There is no aneurysm. NECK CTA: The lungs demonstrate mild atelectasis. There are no pathologically enlarged lymph nodes. There is no significant stenosis of the vertebral arteries. There is plaque in the proximal internal carotid arteries. There is 0% stenosis of the proximal right internal carotid artery relative to normal distal artery lumen diameter (NASCET criteria). There is 0% stenosis of the proximal left internal carotid artery relative to normal distal artery lumen diameter. There is severe spondylosis at C4-C5 and mild spondylosis at other levels. IMPRESSION: 1. Mild nonspecific cerebral white matter disease, which likely represents chronic small vessel ischemic disease. 2. No aneurysm or significant intracranial arterial stenosis. 3. 0% stenosis of the proximal internal carotid arteries relative to normal distal artery lumen diameters (NASCET criteria). Reviewed, dictated and finalized at location E. ER UP IMPRESSION: 1. 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 2. No aneurysm or significant intracranial arterial stenosis. 3. 0% stenosis of the proximal internal carotid arteries relative to normal dis jr artery lumen diameters (NASCET criteria).
--- NOTE | 2025-07-27 20:47 | ECG_ITS ---
Test Date: 2025-07-27 21:18:13 Measurements Intervals [place] Rate: 77 P: 52 NV: 131 QRS: -2 QRSD: 86 T: 40 QT: 389 QTc: 443 Interpretive Statements SINUS RHYTHM VOLTAGE CRITERIA FOR LVH, CONSIDER NORMAL VARIANT Electronically Signed On 07-28-2025 05:54:36 [employer]INE [employer] by Jairo Mcnamara D.O
[2025-07-27 21:10] VITALS: BP 107/68; PULSE 80; RESP 16; TEMP 36.8; O2SAT 99
[2025-07-27 21:31] LABS: Hematocrit 36.5 % (37.0-47.0); Hemoglobin 11.1 g/dL (12.0-15.0); Immature Granulocyte Percent A 0.4 % (0-0.5); Lymphocytes Absolute Auto 3.49 K/mm3 (0.9-3.2); Mean Corpuscular HGB Conc 30.4 g/dl (32-36); Mean Corpuscular Hemoglobin 25.6 pg (26-34); Mean Corpuscular Volume 84.1 fl (80-100); Nucleated Red Blood Cells Absolute Auto 0.000 K/mm3 (0.0-0.012); Nucleated Red Blood Cells Perc 0.0 % (0.0-0.2); Platelet Count Result 254 k/mm3 (150-375); Red Blood Count 4.34 M/mm3 (4.2-5.4); White Blood Count 8.5 K/mm3 (4.5-10.0)
[2025-07-27 21:41] LABS: Alanine Aminotransferase 28 U/L (6-35); Albumin Level 3.8 g/dL (3.5-5.1); Alkaline Phosphatase 95 U/L (38-126); Anion Gap 7 mmol/L (4-12); Aspartate Amino Transferase 38 U/L (14-36); Bilirubin,Total 0.3 mg/dL (0.2-1.3); Blood Urea Nitrogen 10 mg/dL (7-17); Calcium 9.0 mg/dL (8.4-10.2); Carbon Dioxide 22 mmol/L (22-30); Chloride 112 mmol/L (98-107); Estimated CRCL calculation 58 ml/min; Estimated Glomerular Filt Rate 49; Glucose 85 mg/dL (65-110); Potassium 4.4 mmol/L (3.4-5.0); Sodium 141 mmol/L (137-145); Total Protein 7.8 g/dL (6.3-8.2)
[2025-07-27 21:53] LABS: Troponin I < 0.012 ng/mL (0.000-0.034)
[2025-07-27 22:03] LABS: INR 1.0; Prothrombin Time 13.6 Seconds (11.1-14.7)
[2025-07-27 22:04] LABS: Partial Thromboplastin Time 25.9 Seconds (22.3-36.8)
--- NOTE | 2025-07-27 22:18 | PC.NURSE ---
This tech assisted pt onto bedside commode to attempt to obtain urine. Pt. unable to void. This tech offered straight catheter option and pt refused. Nurse and EDP notified.
[2025-07-27 22:22] VITALS: BP 111/69; PULSE 95; RESP 16; O2SAT 98
[2025-07-27] MEDS: SODIUM CHLORIDE 0.9% IV 1,000 ML 999 ML IV CONT (22:51)
[2025-07-27 23:01] VITALS: BP 156/86; O2SAT 98
--- NOTE | 2025-07-27 23:04 | PC.NURSE ---
Pt calls out to RN and states that she feels like her blood sugar was low. blood sugar was checked at 2304 and it was 56. EDP notified, dextrose 50% 12.5 gm ordered and pt was given juice. will reassess.
--- NOTE | 2025-07-27 23:08 | ED.AMS ---
HPI - Altered Mental Status General Chief Complaint: Altered Mental Status <Nasra Ramon PA-C - Last Filed: 07/28/25 02:08> Stated Complaint: altered mental status <DHARA Yeh Last Filed: 07/28/25 02:08> Time Seen by Provider: 07/27/25 21:06 <DHARA Yeh Last Filed: 07/28/25 02:08> Source: patient and family <DHARA Yeh Last Filed: 07/28/25 02:08> Mode of arrival: EMS <DHARA Yeh Last Filed: 07/28/25 02:08> Limitations: no limitations <DHARA Yeh Last Filed: 07/28/25 02:08> History of Present Illness HPI narrative: Patient is a 60-year-old female, with PMH of DM, schizophrenia, who presents to the ED via EMS with report of AMS. Patient's at bedside assisted in providing information. Reports patient was sitting in the kitchen around 7:00 p.m. tonight when she began having some difficulty speaking. states she was talking off topic and had trouble finding certain words. She then had approximately 15 minute episode of altered/decreased responsiveness and zoning out. denies patient ever fully losing consciousness. EMS was then called. states patient is more back to her baseline currently, but seems slow to respond, somewhat hesitant with her speech. Patient denies any acute complaints. Denies chest pain, shortness of breath, headache, vision changes, dizziness, lightheadedness, tingling, weakness of arm or leg. <DHARA Yeh Last Filed: 07/28/25 02:08> Related Data Home Medications: Home Medications ?Medication ?Instructions ?Recorded ?Confirmed ?Last Taken ?Type atorvastatin 40 mg tablet (Lipitor) 40 mg PO DAILY 07/02/25 07/02/25 Unknown History buspirone 15 mg tablet 15 mg PO TID 07/02/25 07/02/25 Unknown History ergocalciferol (vitamin D2) 1,250 1,250 mcg PO WEEKLY 07/02/25 07/02/25 Unknown History mcg (50,000 unit) capsule gabapentin 600 mg tablet 600 mg PO Q6H PRN neuropathy 07/02/25 07/02/25 Unknown History insulin aspart U-100 100 unit/mL 30 unit subcut .before breakfast 07/02/25 07/03/25 Unknown History (3 mL) subcutaneous pen (Novolog FlexPen U-100 Insulin aspart) insulin degludec 100 unit/mL (3 36 unit subcut QPM 07/02/25 07/03/25 Unknown History mL) subcutaneous pen (Tresiba FlexTouch U-100 insulin) vifyxa-taedsyta-wuezsdr 2 cap PO TID 07/02/25 07/03/25 Unknown History (pork)36,000-114,000-180k unit capsule,del rel (Creon) loperamide 2 mg tablet 2 mg PO QID PRN loose stool 07/02/25 07/02/25 Unknown History (Anti-Diarrheal (loperamide)) lorazepam 2 mg tablet (Ativan) 2 mg PO Q6H PRN anxiety 07/02/25 07/02/25 Unknown History meclizine 25 mg tablet 25 mg PO BID 07/02/25 07/02/25 Unknown History ondansetron 4 mg disintegrating 4 mg PO Q6H 07/02/25 07/02/25 Unknown History tablet paliperidone 3 mg tablet,extended 3 mg PO DAILY 07/02/25 07/03/25 Unknown History release 24 hr (Invega) pantoprazole 40 mg tablet,delayed 40 mg PO QAM 07/02/25 07/02/25 Unknown History release venlafaxine 100 mg tablet 150 mg PO DAILY@0800 PRN anxiety 07/02/25 07/03/25 Unknown History venlafaxine 75 mg capsule,extended 150 mg PO DAILY 07/02/25 07/02/25 Unknown History release 24 hr zolpidem 10 mg tablet 10 mg PO HS PRN insomnia 07/02/25 07/02/25 Unknown History insulin aspart U-100 100 unit/mL 22 unit subcut .before lunch 07/03/25 07/03/25 07/02/25 History (3 mL) subcutaneous pen (Novolog FlexPen U-100 Insulin aspart) insulin aspart U-100 100 unit/mL 22 unit subcut .before dinner 07/03/25 07/03/25 07/02/25 History subcutaneous solution (Novolog U-100 Insulin aspart) <Nasra Ramon PA-C - Last Filed: 07/28/25 02:08> Allergies/Adverse Reactions: Allergies Allergy/AdvReac Type Severity Reaction Status Date / Time Penicillins Allergy Mild Unknown Verified 07/02/25 15:06 <Nasra Ramon PA-C - Last Filed: 07/28/25 02:08> Review of Systems Review of Systems: All systems reviewed & are unremarkable except as noted in HPI. <Nasra Ramon PA-C - Last Filed: 07/28/25 02:08> All systems reviewed & are unremarkable except as noted in HPI and below <Nasra Ramon PA-C - Last Filed: 07/28/25 02:08> [facility] Past Medical History Medical History: Medical History Diabetic gastroparesis Schizophrenia Insulin dependent diabetes mellitus <Nasra Ramon PA-C - Last Filed: 07/28/25 02:08> Family History Family History: Family History Other Unknown family medical history <Nasra Ramon PA-C - Last Filed: 07/28/25 02:08> Social History Social History: Social History Smoking status: Former smoker Tobacco type: cigarettes Alcohol intake: former Substance use: never Lack of Transportation: No Lack of Food: Never True Current Housing: I Have Housing Concerned About Future Housing: No Difficulty Paying Gas/Electric Bills: No Difficulty Paying for Meds: No Currently Unemployed: No Education: High School Diploma/GED Difficulty w/ Childcare or Family Care: No Spiritual care concerns: No <Nasra Ramon PA-C - Last Filed: 07/28/25 02:08> Exam Narrative: GENERAL: Well appearing, obese with BMI of 32.9, non-toxic, in no acute distress. HEAD: Normocephalic, atraumatic. EYES: PERRL/EOMI, conjunctivae clear bilaterally. No nystagmus. NECK: Supple. No meningeal signs. RESPIRATORY: Airway patent, respirations nonlabored. Clear to auscultation bilaterally, no rales, rhonchi, wheezing. CARDIOVASCULAR: Regular rate and rhythm without murmurs, rubs, or gallops. Peripheral pulses 2+ and equal bilaterally. MUSCULOSKELETAL: Moves all extremities. No gross deformities. SKIN: Warm, dry, normal color. No rashes. NEURO: A&O X3. Speech clear, but is somewhat slow to respond to questioning. Answers all questions and follows commands. CN II-XII intact. Sensation grossly intact. No ataxic movements. Strength 5/5 in upper and lower extremities bilaterally. Oujs-ea-pdpp and kcurql-nx-xula testing intact bilaterally. No pronator drift. 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 PSYCHIATRIC: Somewhat flat affect. Normal interaction. 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 I performed all aspects of the Medical Decision Making as documented. <Siddharth Shin MD - Last Filed: 07/28/25 02:10> Vital Signs Vital signs: Vital Signs Temperature 36.8 C 07/27/25 21:10 Pulse Rate 80 07/27/25 21:10 Respiratory Rate 16 07/27/25 21:10 Blood Pressure 107/68 07/27/25 21:10 Pulse Oximetry 99 07/27/25 21:10 Oxygen Delivery Room Air 07/27/25 21:10 Temperature 36.8 C 07/27/25 21:10 Pulse Rate 79 07/28/25 01:31 Respiratory Rate 14 07/28/25 01:31 Blood Pressure 156/79 H 07/28/25 01:31 Pulse Oximetry 100 07/28/25 01:31 Oxygen Delivery Room Air 07/27/25 21:10 <Nasra Ramon PA-C - Last Filed: 07/28/25 02:08> Vital Signs Temperature 36.8 C 07/27/25 21:10 Pulse Rate 80 07/27/25 21:10 Respiratory Rate 16 07/27/25 21:10 Blood Pressure 107/68 07/27/25 21:10 Pulse Oximetry 99 07/27/25 21:10 Oxygen Delivery Room Air 07/27/25 21:10 Temperature 36.8 C 07/27/25 21:10 Pulse Rate 79 07/28/25 01:31 Respiratory Rate 14 07/28/25 01:31 Blood Pressure 156/79 H 07/28/25 01:31 Pulse Oximetry 100 07/28/25 01:31 Oxygen Delivery Room Air 07/27/25 21:10 <Siddharth Shin MD - Last Filed: 07/28/25 02:10> MDM - Altered Mental Status MDM Narrative Medical decision making narrative: Patient presented to ED with episode of altered mental status. Vital signs stable upon arrival. Patient was presented as a code stroke. Fast ED score was 0. No focal deficits were appreciated upon arrival to the ED. CT brain non con was negative for acute abnormalities. Initial blood sugar 180. At the time of my evaluation, patient is alert oriented x3, answering all questions, following commands, neurologically intact. No focal deficits. NIH of 0. Basic laboratory studies without leukocytosis. Chronic mild anemia. CMP fairly unremarkable. Creatinine consistent with baseline. Blood sugar on CMP 85. EKG with sinus rhythm, no concerning ST changes. Troponin undetectable. Alcohol level negative. UA w/o evidence of significant infection. UDS positive for cannabinoids, otherwise negative. Chest x-ray clear. CTA brain/carotids without acute findings Patient did have a hypoglycemic episode in the ED, blood glucose dropped down to 56. Given amp of D50 and juice/crackers. reports patient last had 22U of insulin at 7pm. This was just prior to when sx's began. Patient reports she ate approximately 30 minutes prior to the insulin. Had not had anything further to eat tonight. does report she has been having persistent hypoglycemic episodes in the morning lately. He feels she is on too much insulin and has not had this adjusted in a while. Is not on any oral medications for DM. A1c 7.1%. Discussed case with Dr. Hastings, neurology, agrees with plan for admission, MRI/EEG. Discussed case with Dr. Rojas, hospitalist, accepted patient for admission. Recommended q4h accuchecks <Nasra Ramon PA-C - Last Filed: 07/28/25 02:08> Medical Records Attestation: I reviewed the patient's medical records. <Nasra Ramon PA-C - Last Filed: 07/28/25 02:08> Lab Data Attestation: I reviewed the patient's lab results. <Nasra Ramon PA-C - Last Filed: 07/28/25 02:08> Result diagrams: 07/27/25 21:26 07/27/25 21:26 <Nasra Ramon PA-C - Last Filed: 07/28/25 02:08> Labs: Lab Results 07/27/25 07/27/25 07/27/25 Range/Units 21:26 23:04 23:42 WBC 8.5 (4.5-10.0) K/mm3 RBC 4.34 (4.2-5.4) M/mm3 Hgb 11.1 L (12.0-15.0) g/dL Hct 36.5 L (37.0-47.0) % MCV 84.1 (80-100) fl MCH 25.6 L (26-34) pg MCHC 30.4 L (32-36) g/dl RDW 14.8 H (11.5-14.5) % Plt Count 254 (150-375) k/mm3 MPV 10.4 (7.4-10.4) fl Immature Gran % (Auto) 0.4 (0-0.5) % Neut % (Auto) 49.1 (45.5-73.1) % Lymph % (Auto) 40.9 (18.3-44.2) % Marshall % (Auto) 6.6 (2.6-8.5) % Eos % (Auto) 2.1 (0-4.4) % Baso % (Auto) 0.9 (0.2-1.2) % Lymph # (Auto) 3.49 H (0.9-3.2) K/mm3 Marshall # (Auto) 0.6 (0.1-0.6) K/mm3 Eos # (Auto) 0.2 (0-0.3) K/mm3 Baso # (Auto) 0.1 (0.0-0.1) K/mm3 Abs Immat Gran (auto) 0.03 (0.00-0.031) K/mm3 Absolute Neuts (auto) 4.2 (1.3-6.7) K/mm3 Absolute Nucleated RBC 0.000 (0.0-0.012) K/mm3 Nucleated RBC % 0.0 (0.0-0.2) % PT 13.6 (11.1-14.7) Seconds INR 1.0 APTT 25.9 (22.3-36.8) Seconds Sodium 141 (137-145) mmol/L Potassium 4.4 (3.4-5.0) mmol/L Chloride 112 H (98-107) mmol/L Carbon Dioxide 22 (22-30) mmol/L Anion Gap 7 (4-12) mmol/L BUN 10 D (7-17) mg/dL Creatinine 1.13 H (0.7-1.0) mg/dL Estim Creat Clear Calc 58 ml/min Estimated GFR 49 L (59 - ) Glucose 85 (65-110) mg/dL POC Capillary Glucose 56 L* 182 H (65-105) mg/dl Hemoglobin A1c 7.1 H (<5.7) % Lactic Acid (0.7-2.0) mmol/L Calcium 9.0 (8.4-10.2) mg/dL Total Bilirubin 0.3 (0.2-1.3) mg/dL AST 38 H (14-36) U/L ALT 28 (6-35) U/L Alkaline Phosphatase 95 (38-126) U/L Troponin I < 0.012 (0.000-0.034) ng/mL Total Protein 7.8 (6.3-8.2) g/dL Albumin 3.8 (3.5-5.1) g/dL Urine Color (Yellow) Urine Appearance (Clear) Urine pH (5.0-9.0) Ur Specific [place] (1.001-1.035) Urine Protein (Negative) mg/dL Urine Glucose (UA) (Negative) mg/dL Urine Ketones (Negative) mg/dL Ur Blood (Man) (Negative) Urine Nitrate (Negative) Urine Bilirubin (Negative) Urine Urobilinogen (<2.0) mg/dL Add Ur Microanalysis Leukocyte Esterase Rfl (Negative) NÉSTOR/UL Urine RBC (0-2) /hpf Urine WBC (0-3) /hpf Ur Squamous Epith Cells (Few) /hpf Urine Bacteria /hpf Urine Casts Urine Mucus /lpf Urine Opiates Screen (Negative) Urine Methadone Screen (Negative) Ur Barbiturates Screen (Negative) Ur Phencyclidine Scrn (Negative) Ur Amphetamine Screen (Negative) U Benzodiazepines Scrn (Negative) Urine Cocaine Screen (Negative) U Cannabinoids Screen (Negative) Ethyl Alcohol < 10 (<10) mg/dL 07/27/25 07/28/25 07/28/25 Range/Units 23:56 00:12 02:04 WBC (4.5-10.0) K/mm3 RBC (4.2-5.4) M/mm3 Hgb (12.0-15.0) g/dL Hct (37.0-47.0) % MCV (80-100) fl MCH (26-34) pg MCHC (32-36) g/dl RDW (11.5-14.5) % Plt Count (150-375) k/mm3 MPV (7.4-10.4) fl Immature Gran % (Auto) (0-0.5) % Neut % (Auto) (45.5-73.1) % Lymph % (Auto) (18.3-44.2) % Marshall % (Auto) (2.6-8.5) % Eos % (Auto) (0-4.4) % Baso % (Auto) (0.2-1.2) % Lymph # (Auto) (0.9-3.2) K/mm3 Marshall # (Auto) (0.1-0.6) K/mm3 Eos # (Auto) (0-0.3) K/mm3 Baso # (Auto) (0.0-0.1) K/mm3 Abs Immat Gran (auto) (0.00-0.031) K/mm3 Absolute Neuts (auto) (1.3-6.7) K/mm3 Absolute Nucleated RBC (0.0-0.012) K/mm3 Nucleated RBC % (0.0-0.2) % PT (11.1-14.7) Seconds INR APTT (22.3-36.8) Seconds Sodium (137-145) mmol/L Potassium (3.4-5.0) mmol/L Chloride (98-107) mmol/L Carbon Dioxide (22-30) mmol/L Anion Gap (4-12) mmol/L BUN (7-17) mg/dL Creatinine (0.7-1.0) mg/dL Estim Creat Clear Calc ml/min Estimated GFR (59 - ) Glucose (65-110) mg/dL POC Capillary Glucose 112 H (65-105) mg/dl Hemoglobin A1c (<5.7) % Lactic Acid 2.0 (0.7-2.0) mmol/L Calcium (8.4-10.2) mg/dL Total Bilirubin (0.2-1.3) mg/dL AST (14-36) U/L ALT (6-35) U/L Alkaline Phosphatase (38-126) U/L Troponin I (0.000-0.034) ng/mL Total Protein (6.3-8.2) g/dL Albumin (3.5-5.1) g/dL Urine Color Yellow (Yellow) Urine Appearance Turbid H (Clear) Urine pH 5.0 (5.0-9.0) Ur Specific [place] 1.039 H (1.001-1.035) Urine Protein Negative (Negative) mg/dL Urine Glucose (UA) Negative (Negative) mg/dL Urine Ketones Negative (Negative) mg/dL Ur Blood (Man) Negative (Negative) Urine Nitrate Negative (Negative) Urine Bilirubin Negative (Negative) Urine Urobilinogen 0.2 (<2.0) mg/dL Add Ur Microanalysis Reviewed Leukocyte Esterase Rfl Trace H (Negative) NÉSTOR/UL Urine RBC 3-5 H (0-2) /hpf Urine WBC 0-5 (0-3) /hpf Ur Squamous Epith Cells Few (Few) /hpf Urine Bacteria 4+ H /hpf Urine Casts 6-10 Urine Mucus Present /lpf Urine Opiates Screen Negative (Negative) Urine Methadone Screen Negative (Negative) Ur Barbiturates Screen Negative (Negative) Ur Phencyclidine Scrn Negative (Negative) Ur Amphetamine Screen Negative (Negative) U Benzodiazepines Scrn Negative (Negative) Urine Cocaine Screen Negative (Negative) U Cannabinoids Screen Positive A (Negative) Ethyl Alcohol (<10) mg/dL <Nasra Ramon PA-C - Last Filed: 07/28/25 02:08> Lab Results 07/27/25 07/27/25 07/27/25 Range/Units 21:26 23:04 23:42 WBC 8.5 (4.5-10.0) K/mm3 RBC 4.34 (4.2-5.4) M/mm3 Hgb 11.1 L (12.0-15.0) g/dL Hct 36.5 L (37.0-47.0) % MCV 84.1 (80-100) fl MCH 25.6 L (26-34) pg MCHC 30.4 L (32-36) g/dl RDW 14.8 H (11.5-14.5) % Plt Count 254 (150-375) k/mm3 MPV 10.4 (7.4-10.4) fl Immature Gran % (Auto) 0.4 (0-0.5) % Neut % (Auto) 49.1 (45.5-73.1) % Lymph % (Auto) 40.9 (18.3-44.2) % Marshall % (Auto) 6.6 (2.6-8.5) % Eos % (Auto) 2.1 (0-4.4) % Baso % (Auto) 0.9 (0.2-1.2) % Lymph # (Auto) 3.49 H (0.9-3.2) K/mm3 Marshall # (Auto) 0.6 (0.1-0.6) K/mm3 Eos # (Auto) 0.2 (0-0.3) K/mm3 Baso # (Auto) 0.1 (0.0-0.1) K/mm3 Abs Immat Gran (auto) 0.03 (0.00-0.031) K/mm3 Absolute Neuts (auto) 4.2 (1.3-6.7) K/mm3 Absolute Nucleated RBC 0.000 (0.0-0.012) K/mm3 Nucleated RBC % 0.0 (0.0-0.2) % PT 13.6 (11.1-14.7) Seconds INR 1.0 APTT 25.9 (22.3-36.8) Seconds Sodium 141 (137-145) mmol/L Potassium 4.4 (3.4-5.0) mmol/L Chloride 112 H (98-107) mmol/L Carbon Dioxide 22 (22-30) mmol/L Anion Gap 7 (4-12) mmol/L BUN 10 D (7-17) mg/dL Creatinine 1.13 H (0.7-1.0) mg/dL Estim Creat Clear Calc 58 ml/min Estimated GFR 49 L (59 - ) Glucose 85 (65-110) mg/dL POC Capillary Glucose 56 L* 182 H (65-105) mg/dl Hemoglobin A1c 7.1 H (<5.7) % Lactic Acid (0.7-2.0) mmol/L Calcium 9.0 (8.4-10.2) mg/dL Total Bilirubin 0.3 (0.2-1.3) mg/dL AST 38 H (14-36) U/L ALT 28 (6-35) U/L Alkaline Phosphatase 95 (38-126) U/L Troponin I < 0.012 (0.000-0.034) ng/mL Total Protein 7.8 (6.3-8.2) g/dL Albumin 3.8 (3.5-5.1) g/dL Urine Color (Yellow) Urine Appearance (Clear) Urine pH (5.0-9.0) Ur Specific [place] (1.001-1.035) Urine Protein (Negative) mg/dL Urine Glucose (UA) (Negative) mg/dL Urine Ketones (Negative) mg/dL Ur Blood (Man) (Negative) Urine Nitrate (Negative) Urine Bilirubin (Negative) Urine Urobilinogen (<2.0) mg/dL Add Ur Microanalysis Leukocyte Esterase Rfl (Negative) NÉSTOR/UL Urine RBC (0-2) /hpf Urine WBC (0-3) /hpf Ur Squamous Epith Cells (Few) /hpf Urine Bacteria /hpf Urine Casts Urine Mucus /lpf Urine Opiates Screen (Negative) Urine Methadone Screen (Negative) Ur Barbiturates Screen (Negative) Ur Phencyclidine Scrn (Negative) Ur Amphetamine Screen (Negative) U Benzodiazepines Scrn (Negative) Urine Cocaine Screen (Negative) U Cannabinoids Screen (Negative) Ethyl Alcohol < 10 (<10) mg/dL 07/27/25 07/28/25 07/28/25 Range/Units 23:56 00:12 02:04 WBC (4.5-10.0) K/mm3 RBC (4.2-5.4) M/mm3 Hgb (12.0-15.0) g/dL Hct (37.0-47.0) % MCV (80-100) fl MCH (26-34) pg MCHC (32-36) g/dl RDW (11.5-14.5) % Plt Count (150-375) k/mm3 MPV (7.4-10.4) fl Immature Gran % (Auto) (0-0.5) % Neut % (Auto) (45.5-73.1) % Lymph % (Auto) (18.3-44.2) % Marshall % (Auto) (2.6-8.5) % Eos % (Auto) (0-4.4) % Baso % (Auto) (0.2-1.2) % Lymph # (Auto) (0.9-3.2) K/mm3 Marshall # (Auto) (0.1-0.6) K/mm3 Eos # (Auto) (0-0.3) K/mm3 Baso # (Auto) (0.0-0.1) K/mm3 Abs Immat Gran (auto) (0.00-0.031) K/mm3 Absolute Neuts (auto) (1.3-6.7) K/mm3 Absolute Nucleated RBC (0.0-0.012) K/mm3 Nucleated RBC % (0.0-0.2) % PT (11.1-14.7) Seconds INR APTT (22.3-36.8) Seconds Sodium (137-145) mmol/L Potassium (3.4-5.0) mmol/L Chloride (98-107) mmol/L Carbon Dioxide (22-30) mmol/L Anion Gap (4-12) mmol/L BUN (7-17) mg/dL Creatinine (0.7-1.0) mg/dL Estim Creat Clear Calc ml/min Estimated GFR (59 - ) Glucose (65-110) mg/dL POC Capillary Glucose 112 H (65-105) mg/dl Hemoglobin A1c (<5.7) % Lactic Acid 2.0 (0.7-2.0) mmol/L Calcium (8.4-10.2) mg/dL Total Bilirubin (0.2-1.3) mg/dL AST (14-36) U/L ALT (6-35) U/L Alkaline Phosphatase (38-126) U/L Troponin I (0.000-0.034) ng/mL Total Protein (6.3-8.2) g/dL Albumin (3.5-5.1) g/dL Urine Color Yellow (Yellow) Urine Appearance Turbid H (Clear) Urine pH 5.0 (5.0-9.0) Ur Specific [place] 1.039 H (1.001-1.035) Urine Protein Negative (Negative) mg/dL Urine Glucose (UA) Negative (Negative) mg/dL Urine Ketones Negative (Negative) mg/dL Ur Blood (Man) Negative (Negative) Urine Nitrate Negative (Negative) Urine Bilirubin Negative (Negative) Urine Urobilinogen 0.2 (<2.0) mg/dL Add Ur Microanalysis Reviewed Leukocyte Esterase Rfl Trace H (Negative) NÉSTOR/UL Urine RBC 3-5 H (0-2) /hpf Urine WBC 0-5 (0-3) /hpf Ur Squamous Epith Cells Few (Few) /hpf Urine Bacteria 4+ H /hpf Urine Casts 6-10 Urine Mucus Present /lpf Urine Opiates Screen Negative (Negative) Urine Methadone Screen Negative (Negative) Ur Barbiturates Screen Negative (Negative) Ur Phencyclidine Scrn Negative (Negative) Ur Amphetamine Screen Negative (Negative) U Benzodiazepines Scrn Negative (Negative) Urine Cocaine Screen Negative (Negative) U Cannabinoids Screen Positive A (Negative) Ethyl Alcohol (<10) mg/dL <Siddharth Shin MD - Last Filed: 07/28/25 02:10> Imaging Data Attestation: I personally reviewed and interpreted this imaging study as follows: <Nasra Ramon PA-C - Last Filed: 07/28/25 02:08> Radiologist's impression: ITS Impressions Head CT 07/27/25 20:56 IMPRESSION: 1. No acute findings in the noncontrast CT head. Report conveyed to the attending physician by telephone call at 8:59 PM. Chest X-Ray 07/27/25 21:34 IMPRESSION: 1. No acute findings. STAT RAD CTA brain/carotids: No large vessel occlusion. No significant stenosis in the carotid or vertebral arteries. No dissection. <DEBBIE YehC - Last Filed: 07/28/25 02:08> ECG Data EKG #1: Attestation: I personally reviewed and interpreted this ECG as follows: <DHARA Yeh Last Filed: 07/28/25 02:08> ECG completion date: 07/27/25 <DHARA Yeh Last Filed: 07/28/25 02:08> ECG completion time: 21:18 <DHARA Yeh Last Filed: 07/28/25 02:08> EKG Interpretation: normal rate (77), sinus rhythm and no ST changes <DHARA Yeh Last Filed: 07/28/25 02:08> Discharge Plan Discharge Clinical Impression: Altered level of consciousness, Hypoglycemia Altered mental status Qualifiers: Altered mental status type: unspecified Qualified Code(s): R41.82 - Altered mental status, unspecified <DHARA Yeh Last Filed: 07/28/25 02:08> Patient Disposition: Still a Patient <DHARA Yeh Last Filed: 07/28/25 02:08> Condition: Stable <DHARA Yeh Last Filed: 07/28/25 02:08> Patient Language: Welsh <DHARA Yeh Last Filed: 07/28/25 02:08> Prescriptions: No Action ondansetron 4 mg tablet,disintegrating 4 mg PO Q6H gabapentin 600 mg tablet 600 mg PO Q6H PRN (Reason: neuropathy) pantoprazole 40 mg tablet,delayed release (DR/EC) 40 mg PO QAM Creon 36,000-114,000- 180,000 unit capsule,delayed release(DR/EC) 2 cap PO TID Rx Instructions: administer with meals . Takes 2 capsuled TID with meals and 1 capsule with snacks buspirone 15 mg tablet 15 mg PO TID venlafaxine 75 mg capsule,extended release 24hr 150 mg PO DAILY ergocalciferol (vitamin D2) 1,250 mcg (50,000 unit) capsule 1,250 mcg PO WEEKLY atorvastatin [Lipitor] 40 mg tablet 40 mg PO DAILY lorazepam [Ativan] 2 mg tablet 2 mg PO Q6H PRN (Reason: anxiety) meclizine 25 mg tablet 25 mg PO BID venlafaxine 100 mg tablet 150 mg PO DAILY@0800 PRN (Reason: anxiety) Rx Instructions: Takes 150 mg po daily prn loperamide [Anti-Diarrheal (loperamide)] 2 mg tablet 2 mg PO QID PRN (Reason: loose stool) paliperidone [Invega] 3 mg tablet extended release 24hr 3 mg PO DAILY Patient Comments: 2weeks prior to invasive procedure Rx Instructions: Takes daily as needed prior to monthly injection. last injectable dose 06/25. zolpidem 10 mg tablet 10 mg PO HS PRN (Reason: insomnia) insulin degludec [Tresiba FlexTouch U-100] 100 unit/mL (3 mL) insulin pen 36 unit subcut QPM insulin aspart U-100 [Novolog FlexPen U-100 Insulin] 100 unit/mL (3 mL) insulin pen 30 unit subcut .before breakfast insulin aspart U-100 [Novolog FlexPen U-100 Insulin] 100 unit/mL (3 mL) insulin pen 22 unit subcut .before lunch insulin aspart U-100 [Novolog U-100 Insulin aspart] 100 unit/mL solution 22 unit subcut .before dinner vancomycin 125 mg Capsule 125 mg PO QID Qty: 32 0RF <Nasra Ramon PA-C - Last Filed: 07/28/25 02:08> Follow-up/Referrals: Pedro Mclain [Other] <Nasra Ramon PA-C - Last Filed: 07/28/25 02:08> Quality Stroke Scale Stroke Scale 1: Stroke scale date:: 07/27/25 <Nasra Ramon PA-C - Last Filed: 07/28/25 02:08> Stroke scale time:: 22:00 <Nasra Ramon PA-C - Last Filed: 07/28/25 02:08> 1a Level of consciousness: alert-0 <Nasra Ramon PA-C - Last Filed: 07/28/25 02:08> 1b Level of consciousness questions: answers both correctly-0 <Nasra Ramon PA-C - Last Filed: 07/28/25 02:08> 1c Level of consciousness commands: obeys both correctly-0 <Nasra Ramon PA-C - Last Filed: 07/28/25 02:08> 2 Best gaze: normal-0 <Nasra Ramon PA-C - Last Filed: 07/28/25 02:08> 3 Visual: no visual loss-0 <Nasra Ramon PA-C - Last Filed: 07/28/25 02:08> 4 Facial palsy: normal-0 <Nasra Ramon PA-C - Last Filed: 07/28/25 02:08> 5a Motor: left arm: no drift-0 <Nasra Ramon PA-C - Last Filed: 07/28/25 02:08> 5b Motor: right arm: no drift-0 <Nasra Ramon PA-C - Last Filed: 07/28/25 02:08> 6a Motor: left leg: no drift-0 <Nasra Ramon PA-C - Last Filed: 07/28/25 02:08> 6b Motor: right leg: no drift-0 <Nasra Ramon PA-C - Last Filed: 07/28/25 02:08> 7 Limb ataxia: absent-0 <Nasra Ramon PA-C - Last Filed: 07/28/25 02:08> 8 Sensory: normal-0 <Nasra Ramon PA-C - Last Filed: 07/28/25 02:08> 9 Best language: no aphasia-0 <DHARA Yeh Last Filed: 07/28/25 02:08> 10 Dysarthria: normal-0 <DHARA Yeh Last Filed: 07/28/25 02:08> 11 Extinction and inattention: no abnormality-0 <Nasra Ramon PA-C - Last Filed: 07/28/25 02:08> Level:: 0 <Nasra Ramon PA-C - Last Filed: 07/28/25 02:08> 0 <Siddharth Shin MD - Last Filed: 07/28/25 02:10>
[2025-07-27] MEDS: DEXTROSE 50% 25 GM/50 ML SYRINGE IV PUSH (23:26)
--- NOTE | 2025-07-27 23:30 | PC.NURSE ---
pt states that she still can not provide a urine sample. pt is refusing a straight cath despite education. will check again shortly.
[2025-07-28] VITALS (16 sets, daily range): BP systolic 133–170; BP diastolic 65–94; PULSE 71–84; RESP 14–18; TEMP 36.3–37.2; O2SAT 96–100; BMI 32.8
--- NOTE | 2025-07-28 | ECHO_ITS ---
Patient Info Name: Cinthya Morocho Age: 60 years : 1965 Gender: Female Ht: 68 in Wt: 215 lbs BSA: 2.20 m2 HR: 82 bpm BP: 146 / 79 mmHg Heart Rhythm: Sinus Rhythm Technical Quality: Good Exam Date: 07/28/2025 3:24 PM Patient Status: I Admit Date: 07/28/2025 Exam Type: CA echo doppler w bubble study Complete two-dimensional, color flow and Doppler transthoracic echocardiogram is performed with agitated saline. Staff Referring Physician: Nasra Ramon Grab Setter: Lv Garcia III Attending Provider: Tammy Rojas DO Contrast/Agitated Saline Contrast/Ag. Saline: Agitated Saline Amount: 16.00 ml Administered By: Lv Garcia III Existing IV Access: Yes IV Access Condition: patent with no signs of infiltration Summary 1. Mild concentric left ventricular hypertrophy with normal systolic function and grade 1 diastolic noncompliance. 2. Mild left atrial enlargement. 3. Mild tricuspid regurgitation. 4. Agitated saline contrast study demonstrates no shunt. Left Ventricle Left ventricular chamber dimension is normal. Left ventricular systolic function is normal, estimated at 55-60. There is mild concentric increased left ventricular wall thickness. The left ventricular diastolic function is grade I diastolic dysfunction. Right Ventricle Right ventricular chamber dimension is normal. Left Atria Left atrial chamber dimension is mildly enlarged. Right Atria Right atrial chamber dimension is normal. Atrial Septum Intact interatrial septum visualized by agitated saline imaging. Aortic Valve The aortic valve is normal. Pulmonic Valve The pulmonic valve is normal. Mitral Valve The mitral valve has normal leaflets. Tricuspid Valve The tricuspid valve leaflets are normal. There is trace tricuspid valve regurgitation. Pericardium/Pleural The pericardium appears normal. Aorta The aortic root size at the sinus of Valsalva is normal. Left Ventricular Outflow Tract Name Value Normal LVOT 2D LVOT Diameter 2.3 cm LVOT Doppler LVOT Peak Velocity 98 cm/s LVOT Peak Gradient 4 mmHg LVOT Mean Gradient 2 mmHg LVOT VTI 25 cm LVOT VTI/AV VTI Ratio 0.8 LVOT Stroke Volume 102 ml LVOT CO 6.4 l/min LVOT CI 2.9 l/min/m2 Pulmonic Valve Name Value Normal PV Doppler PV Peak Velocity 74 cm/s PV Peak Gradient 2 mmHg PV Mean Gradient 1 mmHg Mitral Valve Name Value Normal MV Doppler MV Peak Gradient 5 mmHg MV Mean Gradient 2 mmHg MV Area (Cont Eq VTI) 4.8 cm2 MV Diastolic Function MV E Peak Velocity 62 cm/s MV A Peak Velocity 122 cm/s MV E/A 0.5 MV Decel Time (PW) 262 ms MV Annular TDI MV E/e' (Septal) 11.3 MV E/e' (Lateral) 9.9 MV E/e' (Average) 10.6 Tricuspid Valve Name Value Normal TV Regurgitation Doppler TR Peak Velocity 267 cm/s TR Peak Gradient 29 mmHg Estimated PAP/RSVP RA Pressure 10 mmHg <=5 PA Systolic Pressure 39 mmHg <36 RV Systolic Pressure 39 mmHg <36 TV Annular TDI TV Lateral Emiliana s' Velocity 14.3 cm/s >=9.5 Aortic Valve Name Value Normal AV Doppler AV Peak Velocity 145 cm/s AV Peak Gradient 8 mmHg AV Mean Gradient 5 mmHg AV VTI 31 cm AV Area (Cont Eq VTI) 3.3 cm2 >=3.0 AV Area (Cont Eq [place]) 2.7 cm2 AV DI ([place]) 0.68 AV Regurgitation 2D LVOT Area 4.0 cm2 Ventricles Name Value Normal LV Dimensions 2D/MM IVS Diastolic Thickness (2D) 1.4 cm 0.6-1.0 LVID Diastole (2D) 4.8 cm 3.8-5.2 LVIW Diastolic Thickness (2D) 1.5 cm 0.6-0.9 LVID Systole (2D) 3.6 cm 2.2-3.5 LVOT Diameter 2.3 cm LV Mass (2D Cubed) 281.02 g 67.00-162.00 LV Mass Index (2D Cubed) 128 g/m2 43-95 Relative Wall Thickness (2D) 0.64 <=0.42 LV Fractional Shortening/Ejection Fraction 2D/MM LV Fractional Shortening (2D) 23 % 27-45 LV EF (2D Teichholz) 47 % LV Diastolic Volume (4C MOD) 70 ml LV EF (4C MOD) 45 % LV Diastolic Volume (2C MOD) 70 ml LV EF (2C MOD) 47 % LV Diastolic Volume (BP MOD) 70 ml 46-106 LV Diastolic Volume Index (BP MOD) 32 ml/m2 29-61 LV Systolic Volume (BP MOD) 38 ml 14-42 LV Systolic Volume Index (BP MOD) 17 ml/m2 8-24 LV EF (BP MOD) 45 % 54-74 LV Diastolic Length (4C) 7.6 cm LV Systolic Length (4C) 6.3 cm LV Stroke Volume (4C MOD) 32 ml Atria Name Value Normal LA Dimensions LA Volume (4C A-L) 59 ml LA Volume (BP A-L) 61 ml RA Dimensions RA Systolic Major Richards Length (4C) 5.0 cm 2.2-2.8 RA Area (4C) 15.2 cm2 <=18.0 Report Signatures
[2025-07-28 00:19] LABS: Hemoglobin A1C 7.1 % (<5.7)
[2025-07-28 00:33] LABS: Add Urine Microscopic? YES; Appearance Urine Turbid (Clear); Glucose Urine UA Negative (Negative); Leukocyte Esterase Ur Trace LEU/UL (Negative); Need Manual Microscopic Reviewed; Nitrate Urine Negative (Negative); Specific Grav Ur 1.039 (1.001-1.035)
[2025-07-28 00:36] LABS: Cannabinoid Screen Urine Positive (Negative)
--- NOTE | 2025-07-28 02:27 | PC.NURSE ---
This RN called pt and gave update on pt status and pt going to room 341.
--- NOTE | 2025-07-28 02:47 | ADMGEN ---
This patient, Cinthya Morocho, was admitted to Medical Room 341-01. Patient/family oriented to hospital policies and general routines including ID bracelet, bed and alarms, visiting hours, pain management, procedures, bathroom and other care routines, personal items, smoking policy, room service/diet, and visiting hours. Information on how to activate the Rapid Response Team has been discussed. Patient/Family are encouraged to report perceived risks to care and to ask questions if they do not understand what they are told or what they should do.
--- NOTE | 2025-07-28 03:08 | WNDPHOTO ---
PHOTO ONLY - See Nursing Notes and/ or assessments for documentation.
--- NOTE | 2025-07-28 03:13 | PCWOUND ---
right foot ulcer
--- NOTE | 2025-07-28 09:03 | P.HP_ITS ---
H&P: HPI History of Present Illness Date/Time: 07/28/25 09:03 Chief Complaint: AMS Narrative: Patient is a 60 year old pleasant female with past medical HX of Diabetes, neuropathy, and schizophrenia who presented to the ED after an episode of alert mental status at home as reported from her . Information form the ED was mostly from stating while he was cooking dinner the patient had a moment of AMS described as patient staring off was not answering questions and at time not moving any extremities but never lost consciousness or fell. Upon arrival to the emergency department patient's symptoms had resolved and she was moving all extremities appropriately with no neurological deficits noted by ED physician. however during patient's time in the emergency department she did have a hypoglycemic event with BS of 56 at which time she was administered dextrose 50 with improvement to blood sugars. patient denied any chest pain, shortness a breath, nausea, vomiting, fever, chills, or dizziness. After speaking with patient she states the last thing she remembers was sitting at the kitchen table while her was cooking dinner and the next thing she remembers was arriving to the emergency department. I did review EMS report which showed a blood sugar of [address] patient did state she has been having episodes of hypoglycemia events at home and has been working with her full stack engineer Dr. Teetee Khoury at [facility] on insulin adjustments. In the ED: as stated patient did have blood sugar of 56, mild anemia with a hemoglobin of 11.1 no evidence of active bleed, drug screen was positive for cannabinoids and ETOH within normal limits, otherwise labs unremarkable. CT head and CTA with no acute intracranial findings. CXR with no acute findings. neurology was consulted and requested MRI and EEG for further diagnostic evaluation. patient admitted to the medical unit on telemetry. Review of Systems Review of Systems: All systems reviewed & are unremarkable except as noted in HPI and below PMFSH Past Medical History Medical History Clostridium difficile toxin not detected Cyclical vomiting syndrome Neuropathy associated with endocrine disorder Diabetic gastroparesis Schizophrenia Insulin dependent diabetes mellitus Family History Family History Father Diabetes mellitus Mother Diabetes mellitus Social History Social History Smoking status: Former smoker Alcohol intake: former Substance use: never Lack of Transportation: No Lack of Food: Never True Current Housing: I Have Housing Concerned About Future Housing: No Difficulty Paying Gas/Electric Bills: No Difficulty Paying for Meds: No Currently Unemployed: No Education: High School Diploma/GED Difficulty w/ Childcare or Family Care: No Spiritual care concerns: No Meds Home Medications and Allergies Home Medications ?Medication ?Instructions ?Recorded ?Confirmed ?Type atorvastatin 40 mg tablet (Lipitor) 40 mg PO DAILY 07/28/25 History buspirone 15 mg tablet 15 mg PO TID 07/02/25 History ergocalciferol (vitamin D2) 1,250 1,250 mcg PO WEEKLY 07/02/25 07/28/25 History mcg (50,000 unit) capsule gabapentin 600 mg tablet 600 mg PO Q6H PRN neuropathy 07/02/25 07/28/25 History insulin aspart U-100 100 unit/mL 30 unit subcut .befor e breakfast 07/02/25 07/28/25 History (3 mL) subcutaneous pen (Novolog FlexPen U-100 Insulin aspart) insulin degludec 100 unit/mL (3 36 unit subcut QPM 07/28/25 History mL) subcutaneous pen (Tresiba FlexTouch U-100 insulin) [id number] 2 cap PO TID 07/02/25 History (pork)36,000-114,000-180k unit capsule,del rel (Creon) loperamide 2 mg tablet 2 mg PO QID PRN loose stool 07/02/25 07/28/25 History (Anti-Diarrheal (loperamide)) lorazepam 2 mg tablet (Ativan) 2 mg PO Q6H PRN anxiety 07/02/25 07/28/25 History meclizine 25 mg tablet 25 mg PO BID 07/02/25 History ondansetron 4 mg disintegrating 4 mg PO Q6H 07/02/25 1 09/27/24 History tablet paliperidone 3 mg tablet,extended 3 mg PO DAILY 07/28/25 History release 24 hr (Invega) pantoprazole 40 mg tablet,delayed 40 mg PO QAM 5 07/28/25 History release venlafaxine 75 mg capsule,extended 150 mg PO DAILY 07/28/25 History release 24 hr zolpidem 10 mg tablet 10 mg PO HS PRN insomnia 07/28/25 History insulin aspart U-100 100 unit/mL 22 unit subcut .befor e lunch 07/03/25 07/28/25 History (3 mL) subcutaneous pen (Novolog FlexPen U-100 Insulin aspart) insulin aspart U-100 100 unit/mL 22 unit subcut .befor e dinner 07/03/25 07/28/25 History subcutaneous solution (Novolog U-100 Insulin aspart) Allergies Allergy/AdvReac Type Severity Reaction Status Date / Time Penicillins Allergy Mild Unknown Verified 07/28/25 02:53 Vital Signs Vital Signs - 24 hr 07/27/25 21:10 07/27/25 22:22 07/27/25 23:01 Temperature 98.2 F Pulse Rate 80 95 Respiratory Rate 16 16 Blood Pressure 107/68 111/69 156/86 H Pulse Oximetry 99 98 98 Oxygen Delivery Room Air 07/28/25 00:49 07/28/25 00:56 07/28/25 00:57 Temperature Pulse Rate 84 81 82 Respiratory Rate 16 15 Blood Pressure 140/77 Pulse Oximetry 99 100 Oxygen Delivery 07/28/25 01:01 07/28/25 01:30 07/28/25 01:31 Temperature Pulse Rate 78 80 79 Respiratory Rate 16 15 14 Blood Pressure 143/72 H 156/79 H Pulse Oximetry 100 100 Oxygen Delivery 07/28/25 02:29 07/28/25 03:06 07/28/25 04:00 Temperature 97.8 F Pulse Rate 77 75 78 Respiratory Rate 16 18 Blood Pressure 170/94 H 136/65 Pulse Oximetry 100 99 Oxygen Delivery 07/28/25 06:00 Temperature 97.3 F L Pulse Rate 82 Respiratory Rate 18 Blood Pressure 146/79 H Pulse Oximetry 96 Oxygen Delivery Exam Const: General: comfortable and no acute distress Eyes: General: appearance normal, both eyes and all related structures Neck: Neck: supple Resp: Effort & Inspection: normal respiratory effort Auscultation: clear to auscultation bilaterally Cardio: Rate: regular rate Rhythm: regular rhythm GI: GI Palp: Yes Soft to palpation Auscultation: normal bowel sounds Skin: General skin exam: normal color and no rashes or lesions noted Wounds: no wounds Neuro: General: gait normal Speech: normal speech Motor exam (neuro): 5/5 motor strength present throughout Sensory Exam: normal sensation Extrem: General: normal to inspection Psych: Mental Status: mental status grossly normal Other: Flat affect H&P: Results Labs Labs: Short CBC 07/27/25 Range/Units 21:26 WBC 8.5 (4.5-10.0) K/mm3 Hgb 11.1 L (12.0-15.0) g/dL Hct 36.5 L (37.0-47.0) % Plt Count 254 (150-375) k/mm3 BMP 07/27/25 21:26 Sodium 141 Potassium 4.4 Chloride 112 H Carbon Dioxide 22 BUN 10 D Creatinine 1.13 H Glucose 85 Calcium 9.0 Cardiac Enzymes 07/27/25 Range/Units 21:26 Troponin I < 0.012 (0.000-0.034) ng/mL Liver Function 07/27/25 Range/Units 21:26 Total Bilirubin 0.3 (0.2-1.3) mg/dL AST 38 H (14-36) U/L ALT 28 (6-35) U/L Alkaline Phosphatase 95 (38-126) U/L Albumin 3.8 (3.5-5.1) g/dL Urine 07/28/25 Range/Units 00:12 Urine Color Yellow (Yellow) Urine Appearance Turbid H (Clear) Urine pH 5.0 (5.0-9.0) Ur Specific Gully 1.039 H (1.001-1.035) Urine Protein Negative (Negative) mg/dL Urine Glucose (UA) Negative (Negative) mg/dL Imaging CT scan - head: Radiologist's impression: EXAMINATION: CTA brain carotid DATE: 07/27/2025 22:46 INDICATION: Altered mental status. TECHNIQUE: Computed tomographic angiography (CTA) of the head was performed with 100 mL Omnipaque-350 intravenous contrast. CTA of the neck was performed with intravenous contrast. Automated exposure control and iterative reconstruction technique were employed. The dose-length product was 977.59 mGy-cm. Maximum intensity projection and volume rendered 3D-reconstructions were created by the technologist on a separate workstation. COMPARISON: Head CT 07/27/2025 FINDINGS: HEAD CTA: There are scattered areas of low attenuation in the cerebral white matter. There is no intracranial hemorrhage, acute infarction, or abnormal intracranial mass lesion. The ventricles are normal in size. There is cavum septum pellucidum and vergae. The paranasal sinuses are clear. The orbits are normal. The mastoid air cells are normal. The vertebral arteries are codominant. There is no significant stenosis of basilar artery or the posterior cerebral arteries. There is no significant stenosis of the intracranial internal carotid arteries or anterior or middle cerebral arteries. Anterior communicating artery is normal. The posterior communicating arteries are normal. There is no aneu rysm. NECK CTA: The lungs demonstrate mild atelectasis. There are no pathologically enlarged lymph nodes. There is no significant stenosis of the vertebral arteries. There is plaque in the proximal internal carotid arteries. There is 0% stenosis of the proximal right internal carotid artery relative to normal distal artery lumen diameter (NASCET criteria). There is 0% stenosis of the proximal left internal carotid artery relative to normal distal artery lumen diameter. There is severe spondylosis at C4-C5 and mild spondylosis at other levels. IMPRESSION: 1. Mild nonspecific cerebral white matter disease, which likely represents chronic small vessel ischemic disease. 2. No aneurysm or significant intracranial arterial stenosis. 3. 0% stenosis of the proximal internal carotid arteries relative to normal distal artery lumen diameters (NASCET criteria). Assessment and Plan Assessment and plan (1) Altered level of consciousness: Code(s): R40.4 - Transient alteration of awareness Status: Acute Assessment and Plan: patient with altered mental status x1 no loss of consciousness, patient has reported she has been having episodes of hypoglycemia. TIA vs Seizure vs Hypoglycemic episodes. CT head/CTA with no acute intracranial abnormalities did show mild nonspecific cerebral white matter disease chronic small-vessel ischemic disease * Neurology consulted * EEG pending * MRI pending * resumed Atorvastatin/ F/U lipid panel pending * A1C 7.1 * Neurochecks * Telemetry * Echo with bubble study * BP control currently on no hypertensive medication would recommend low dose Losartan if needed (2) Hypoglycemia: Code(s): E16.2 - Hypoglycemia, unspecified Status: Acute Assessment and Plan: Patient with history of hypoglycemic events for the last 2 weeks has been in contact with her full stack engineer and adjusting her long-acting insulin. patient had hypoglycemic event in the emergency department with a blood sugar 56 and was given dextrose 50 with good response * I have a call out to Dr. Teetee Khoury at [facility] patient's full stack engineer to discuss patient's current dosing of insulin and adjustments * initially Accu-Cheks q.4 transition back to a.c. HS * if patient continues to have hypoglycemic events would recommend dextrose IV fluids (3) Insulin dependent diabetes mellitus: Status: Chronic Assessment and Plan: patient with chronic history of diabetes follows with full stack engineer as stated above waiting lead application architect back for insulin adjustments, patient's full stack engineer has been lowering her long-acting insulin due to hypoglycemic events * holding patient's long-acting until discussion with her full stack engineer for corrected dosing she is currently on * Accu-Cheks a.c. HS * high-dose SSI * hypoglycemic call * A1c 7.1 * community health educator consulted * diabetic diet (4) Neuropathy associated with endocrine disorder: Code(s): E34.9 - Endocrine disorder, unspecified; G63 - Polyneuropathy in diseases classified elsewhere Status: Acute Assessment and Plan: * will resume patient's gabapentin at a lower dose was taking 600mg Q6HR PRN lower 300mg (5) Schizophrenia: Qualifiers: Schizophrenia type: unspecified Qualified Code(s): F20.9 - Schizophrenia, unspecified Code(s): F20.9 - Schizophrenia, unspecified Status: Chronic Assessment and Plan: * Will need to bring in her Invega * continue Buspar and venlafaxine Plan Code status: Full code per patient DVT prophylaxis: Lovenox Stress ulcer prophylaxis: Protonix 40 daily home med PT/OT notes: ambulatory Disposition: patient was admitted to the medical unit on telemetry for further evaluation and treatment of episode of altered mental status with consult to Neurology for further evaluation TIA versus seizures versus hypoglycemia event. patient plans to return home at discharge with family. Quality VTE Prophylaxis VTE prophylaxis: pharmacologic ordered -Patient's previous records reviewed on admission -ER notes reviewed in detail on admission -discussed all findings and current treatment plan with patient/Family/POA -Consultations reviewed for recommendations -Patient's disposition for safe discharge discussed with director of casework -radiology imaging, EKG and test results I have personally reviewed and interpreted unless otherwise specified Dictation performed by [employer] direct speech recognition software, therefore accounts payable bookkeeper variants and typographical errors may occur. Hospitalist MIPS Advance Care Plan I have confirmed that the patient's Advanced Care Plan is present, code status is documented, or surrogate decision maker is listed in patient medical record.: Yes Medication Reconciliation I have utilized all available resources to obtain, update and review the patients current medications (includes all prescriptions, OTC, herbals, cannabis, and nutritional supplements).: Yes The patient is not eligible for med reconciliation; the patient is in a emergent medical situation where delaying treatment would jeopardize the patients health.: No
[2025-07-28 09:08] LABS: Hematocrit 36.1 % (37.0-47.0); Hemoglobin 10.8 g/dL (12.0-15.0); Immature Granulocyte Percent A 0.5 % (0-0.5); Lymphocytes Absolute Auto 2.54 K/mm3 (0.9-3.2); Mean Corpuscular HGB Conc 29.9 g/dl (32-36); Mean Corpuscular Hemoglobin 25.2 pg (26-34); Mean Corpuscular Volume 84.1 fl (80-100); Nucleated Red Blood Cells Absolute Auto 0.000 K/mm3 (0.0-0.012); Nucleated Red Blood Cells Perc 0.0 % (0.0-0.2); Platelet Count Result 261 k/mm3 (150-375); Red Blood Count 4.29 M/mm3 (4.2-5.4); White Blood Count 8.3 K/mm3 (4.5-10.0)
[2025-07-28 09:29] LABS: Alanine Aminotransferase 24 U/L (6-35); Albumin Level 3.5 g/dL (3.5-5.1); Alkaline Phosphatase 108 U/L (38-126); Anion Gap 5 mmol/L (4-12); Aspartate Amino Transferase 28 U/L (14-36); Bilirubin,Total 0.5 mg/dL (0.2-1.3); Blood Urea Nitrogen 8 mg/dL (7-17); Calcium 8.9 mg/dL (8.4-10.2); Carbon Dioxide 23 mmol/L (22-30); Chloride 110 mmol/L (98-107); Cholesterol 124 mg/dL (0-200); Estimated CRCL calculation 71 ml/min; Estimated Glomerular Filt Rate > 60; Glucose 97 mg/dL (65-110); HDL Direct 58 mg/dL; Magnesium 1.5 mg/dL (1.6-2.3); Potassium 4.2 mmol/L (3.4-5.0); Sodium 138 mmol/L (137-145); Total Protein 7.3 g/dL (6.3-8.2); Triglycerides 102 mg/dL (<150)
[2025-07-28 09:53] LABS: Burr Cells 1+; Hypochromasia 1+; Schistocytes Occasional
[2025-07-28] MEDS: ENOXAPARIN 40 MG/0.4 ML SYRINGE SUB-Q (10:25)
[2025-07-28] MEDS: LIPASE/AMYLASE/PROTEASE 12,000 UNITS CAP 6 CAP PO ×3 (10:26→18:05)
[2025-07-28] MEDS: MECLIZINE HCL 25 MG TABLET PO ×2 (10:27→18:04)
[2025-07-28] MEDS: PANTOPRAZOLE 40 MG TABLET PO (10:27)
[2025-07-28] MEDS: VENLAFAXINE HCL XR 75 MG CAP.ER.24H 150 MG PO (10:27)
[2025-07-28] MEDS: ATORVASTATIN 40 MG TABLET PO (10:28)
[2025-07-28] MEDS: MAGNESIUM SULF 1 GM/D5W 100 ML 1 GM/100 ML BAG IVPB (11:29)
--- NOTE | 2025-07-28 12:53 | WPDNEUROLOGY ---
Neurology EEG Report General Information Date of Study: 07/28/25 TEST EEG DIAGNOSIS acute mental status changes with decreased responsiveness. CONDITION OF RECORDING Awake, drowsy and asleep. EEG NUMBER [id number] CLINICAL HISTORY Patient was sitting there talking with and when she started talking without making sense and acting lethargic like she could not keep her eyes open. Patient's tried tapping face to try to keep her eyes open, but she struggle to that. This lasted about 15minutes. EEG DESCRIPTION Basic resting occipital frequency consists of well-organized low to medium voltage 10 to 11 hertz per 2nd alpha admixed with low-voltage 15 to 18 hertz per 2nd beta. Low-voltage beta activity seen diffusely admixed with waxing and waning posterior alpha rhythm during drowsiness. Hyperventilation produced normal and symmetrical buildup. Low-voltage beta activity seen diffusely during drowsiness. Bilateral symmetrical sleep activity is noted during sleep with symmetrical sleep spindles. Non paroxysmal. Nonfocal. Nonlateralizing. IMPRESSION Normal record.
[2025-07-28] MEDS: ONDANSETRON HCL ODT 4 MG TABLET PO ×3 (12:57→22:12)
--- NOTE | 2025-07-28 15:05 | WPDNEURCNPN ---
Assessment and Plan Assessment and plan (1) Neuropathy associated with endocrine disorder: Code(s): E34.9 - Endocrine disorder, unspecified; G63 - Polyneuropathy in diseases classified elsewhere Status: Acute (2) Altered mental status: Qualifiers: Altered mental status type: unspecified Qualified Code(s): R41.82 - Altered mental status, unspecified Code(s): R41.82 - Altered mental status, unspecified Status: Acute (3) Schizophrenia: Qualifiers: Schizophrenia type: unspecified Qualified Code(s): F20.9 - Schizophrenia, unspecified Code(s): F20.9 - Schizophrenia, unspecified Status: Chronic (4) TIA (transient ischemic attack): Code(s): G45.9 - Transient cerebral ischemic attack, unspecified Status: Acute Plan 1. Acute changes in the mental status rule out the possibility of TIA versus partial seizure 2. Diabetic neuropathy 3. Possibility of aneurysm has been ruled out. And possibility of extra and intracranial disease of the arteries has been in ruled out too. 4. EEG has been which is non paroxysmal nonfocal. Considering the possibility of TIA echocardiogram is warranted. 5. Ongoing depression and multiple medications as outlined Consult date: 07/28/25 HPI: Cinthya Morocho is a 60 year old female Admitted to the hospital through the emergency room with ongoing diagnosis of 1. Diabetes mellitus 2. Schizophrenia 3. Changes in the mental status with difficulties in speech. As per the reportedly she was talking off topic and was experiencing difficulties in finding the right words the whole episode lasted for 15minutes with altered and decreased responsiveness and zoning out though not becoming completely unconscious. She was somewhat slow in responding subsequently when the paramedics came to the home. She has been taking multiple medications particularly involving 1.BuSpar 15mg 3 times a day 2. Gabapentin 600mg q.6 hours p.r.n. 3. Insulin 30units subQ before breakfast and 36units in the evening 4. Lorazepam 2mg q.6 hours p.r.n. for the anxiety 5. Meclizine 25mg b.i.d. 6. Samantha padded own 3mg daily 7. Venlafaxine 150mg daily 8. Insulin she is reportedly allergic to penicillin she is a former smoker. Former alcohol intake. Initial exam in the emergency room documented no significant neurological deficit except her somewhat with flat affect. vital signs were normal, CBC was normal, BMP was normal, UA was positive for the cannabinoids screening, 4+ bacteria and trace leukocyte Estrace. Initial CT scan of the head was negative for the bleed or hydrocephalus and chest x-ray was negative EKG was without atrial fibrillation. Subsequently on the floor EEG has been done which was read as normal. Review of Systems Review of Systems: All systems reviewed & are unremarkable except as noted in HPI and below PMFSH Past Medical History Medical History Clostridium difficile toxin not detected Cyclical vomiting syndrome Neuropathy associated with endocrine disorder Diabetic gastroparesis Schizophrenia Insulin dependent diabetes mellitus Family History Family History Father Diabetes mellitus Mother Diabetes mellitus Social History Social History Smoking status: Former smoker Alcohol intake: former Substance use: never Lack of Transportation: No Lack of Food: Never True Current Housing: I Have Housing Concerned About Future Housing: No Difficulty Paying Gas/Electric Bills: No Difficulty Paying for Meds: No Currently Unemployed: No Education: High School Diploma/GED Difficulty w/ Childcare or Family Care: No Spiritual care concerns: No Meds Home Medications and Allergies Home Medications ?Medication ?Instructions ?Recorded ?Confirmed ?Type atorvastatin 40 mg tablet (Lipitor) 40 mg PO DAILY 07/02/25 07/28/25 History buspirone 15 mg tablet 15 mg PO TID 07/02/25 07/28/25 History ergocalciferol (vitamin D2) 1,250 1,250 mcg PO WEEKLY 07/02/25 07/28/25 History mcg (50,000 unit) capsule gabapentin 600 mg tablet 600 mg PO Q6H PRN neuropathy 07/02/25 07/28/25 History insulin aspart U-100 100 unit/mL 30 unit subcut .before breakfast 07/02/25 07/28/25 History (3 mL) subcutaneous pen (Novolog FlexPen U-100 Insulin aspart) insulin degludec 100 unit/mL (3 36 unit subcut QPM 07/02/25 07/28/25 History mL) subcutaneous pen (Tresiba FlexTouch U-100 insulin) [id number] 2 cap PO TID 07/02/25 07/28/25 History (pork)36,000-114,000-180k unit capsule,del rel (Creon) loperamide 2 mg tablet 2 mg PO QID PRN loose stool 07/02/25 07/28/25 History (Anti-Diarrheal (loperamide)) lorazepam 2 mg tablet (Ativan) 2 mg PO Q6H PRN anxiety 07/02/25 07/28/25 History meclizine 25 mg tablet 25 mg PO BID 07/02/25 07/28/25 History ondansetron 4 mg disintegrating 4 mg PO Q6H 07/02/25 07/28/25 History tablet paliperidone 3 mg tablet,extended 3 mg PO DAILY 07/02/25 07/28/25 History release 24 hr (Invega) pantoprazole 40 mg tablet,delayed 40 mg PO QAM 07/02/25 07/28/25 History release venlafaxine 75 mg capsule,extended 150 mg PO DAILY 07/02/25 07/28/25 History release 24 hr zolpidem 10 mg tablet 10 mg PO HS PRN insomnia 07/02/25 07/28/25 History insulin aspart U-100 100 unit/mL 22 unit subcut .before lunch 07/03/25 07/28/25 History (3 mL) subcutaneous pen (Novolog FlexPen U-100 Insulin aspart) insulin aspart U-100 100 unit/mL 22 unit subcut .before dinner 07/03/25 07/28/25 History subcutaneous solution (Novolog U-100 Insulin aspart) Allergies Allergy/AdvReac Type Severity Reaction Status Date / Time Penicillins Allergy Mild Unknown Verified 07/28/25 02:53 Vital Signs Vital Signs - 24 hr 07/27/25 21:10 07/27/25 22:22 07/27/25 23:01 Temperature 36.8 C Pulse Rate 80 95 Respiratory Rate 16 16 Blood Pressure 107/68 111/69 156/86 H Pulse Oximetry 99 98 98 Oxygen Delivery Room Air 07/28/25 00:49 07/28/25 00:56 07/28/25 00:57 Temperature Pulse Rate 84 81 82 Respiratory Rate 16 15 Blood Pressure 140/77 Pulse Oximetry 99 100 Oxygen Delivery 07/28/25 01:01 07/28/25 01:30 07/28/25 01:31 Temperature Pulse Rate 78 80 79 Respiratory Rate 16 15 14 Blood Pressure 143/72 H 156/79 H Pulse Oximetry 100 100 Oxygen Delivery 07/28/25 02:29 07/28/25 03:06 07/28/25 04:00 Temperature 36.6 C Pulse Rate 77 75 78 Respiratory Rate 16 18 Blood Pressure 170/94 H 136/65 Pulse Oximetry 100 99 Oxygen Delivery 07/28/25 06:00 07/28/25 14:00 Temperature 36.3 C L 37.2 C Pulse Rate 82 77 Respiratory Rate 18 18 Blood Pressure 146/79 H 139/82 Pulse Oximetry 96 98 Oxygen Delivery Exam Narrative: Exam today revealed her to be awake alert cooperative in no obvious acute distress, head normocephalic with no bruit, neck supple with no cervical bruit, heart regular with no murmur, lungs clear with no rhonchi or crepitations, abdomen is soft nontender with normal bowel sounds, neurologically she was awake alert was able to relate to the physician is speech was not dysphasic not dysarthric not dysphonic, pupils are round regular feels the vision are full extraocular movements full with no nystagmus facial sensation intact face symmetrical tongue midline uvula midline and motor examination revealed normal strength and tone in upper and lower extremities with no drift against gravity, reflexes were sluggish plantars were downgoing and she had decreased sensation distally in both lower extremities with positive Romberg with eyes closed. Results Labs 07/28/25 09:01 07/28/25 09:01 Labs: Short CBC 07/27/25 07/28/25 Range/Units 21:26 09:01 WBC 8.5 8.3 (4.5-10.0) K/mm3 Hgb 11.1 L 10.8 L (12.0-15.0) g/dL Hct 36.5 L 36.1 L (37.0-47.0) % Plt Count 254 261 (150-375) k/mm3 BMP 07/27/25 07/28/25 21:26 09:01 Sodium 141 138 Potassium 4.4 4.2 Chloride 112 H 110 H Carbon Dioxide 22 23 BUN 10 D 8 Creatinine 1.13 H 0.91 Glucose 85 97 Calcium 9.0 8.9 Cardiac Enzymes 07/27/25 Range/Units 21:26 Troponin I < 0.012 (0.000-0.034) ng/mL Liver Function 07/27/25 07/28/25 Range/Units 21:26 09:01 Total Bilirubin 0.3 0.5 (0.2-1.3) mg/dL AST 38 H 28 (14-36) U/L ALT 28 24 (6-35) U/L Alkaline Phosphatase 95 108 (38-126) U/L Albumin 3.8 3.5 (3.5-5.1) g/dL Urine 07/28/25 Range/Units 00:12 Urine Color Yellow (Yellow) Urine Appearance Turbid H (Clear) Urine pH 5.0 (5.0-9.0) Ur Specific [place] 1.039 H (1.001-1.035) Urine Protein Negative (Negative) mg/dL Urine Glucose (UA) Negative (Negative) mg/dL
[2025-07-28] MEDS: INSULIN GLARGINE (*BKC) 100 UNITS/ML 28 UNITS SUB-Q (18:55)
[2025-07-29] VITALS (7 sets, daily range): BP systolic 96–146; BP diastolic 66–76; PULSE 65–98; RESP 14–18; TEMP 36.6–37; O2SAT 98–100; BMI 32.8
[2025-07-29 05:10] LABS: Hematocrit 36.6 % (37.0-47.0); Hemoglobin 11.2 g/dL (12.0-15.0); Immature Granulocyte Percent A 0.2 % (0-0.5); Lymphocytes Absolute Auto 1.95 K/mm3 (0.9-3.2); Mean Corpuscular HGB Conc 30.6 g/dl (32-36); Mean Corpuscular Hemoglobin 25.5 pg (26-34); Mean Corpuscular Volume 83.2 fl (80-100); Nucleated Red Blood Cells Absolute Auto 0.000 K/mm3 (0.0-0.012); Nucleated Red Blood Cells Perc 0.0 % (0.0-0.2); Platelet Count Result 259 k/mm3 (150-375); Red Blood Count 4.40 M/mm3 (4.2-5.4); White Blood Count 8.3 K/mm3 (4.5-10.0)
[2025-07-29 05:25] LABS: Alanine Aminotransferase 23 U/L (6-35); Albumin Level 3.6 g/dL (3.5-5.1); Alkaline Phosphatase 109 U/L (38-126); Anion Gap 4 mmol/L (4-12); Aspartate Amino Transferase 27 U/L (14-36); Bilirubin,Total 0.5 mg/dL (0.2-1.3); Blood Urea Nitrogen 11 mg/dL (7-17); Calcium 9.3 mg/dL (8.4-10.2); Carbon Dioxide 26 mmol/L (22-30); Chloride 110 mmol/L (98-107); Estimated CRCL calculation 53 ml/min; Estimated Glomerular Filt Rate 44; Glucose 99 mg/dL (65-110); Magnesium 1.8 mg/dL (1.6-2.3); Potassium 4.5 mmol/L (3.4-5.0); Sodium 140 mmol/L (137-145); Total Protein 7.4 g/dL (6.3-8.2)
[2025-07-29] MEDS: ONDANSETRON HCL ODT 4 MG TABLET PO ×3 (06:10→17:49)
[2025-07-29] MEDS: LIPASE/AMYLASE/PROTEASE 12,000 UNITS CAP 6 CAP PO ×3 (08:33→17:49)
[2025-07-29] MEDS: VENLAFAXINE HCL XR 75 MG CAP.ER.24H 150 MG PO (08:33)
[2025-07-29] MEDS: ATORVASTATIN 40 MG TABLET PO (08:33)
[2025-07-29] MEDS: MECLIZINE HCL 25 MG TABLET PO ×2 (08:33→17:49)
[2025-07-29] MEDS: PANTOPRAZOLE 40 MG TABLET PO (08:33)
[2025-07-29] MEDS: INSULIN ASPART (*BKC) 100 UNITS/ML 18 UNITS SUB-Q ×2 (08:36→13:23)
[2025-07-29] MEDS: ENOXAPARIN 40 MG/0.4 ML SYRINGE SUB-Q (08:36)
--- NOTE | 2025-07-29 15:58 | PM.DS ---
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 Schizophrenia DS: Discharge Diagnosis Discharge Diagnosis (1) Altered level of consciousness: Code(s): R40.4 - Transient alteration of awareness Status: Acute (2) Hypoglycemia: Code(s): E16.2 - Hypoglycemia, unspecified Status: Acute (3) Insulin dependent diabetes mellitus: Status: Chronic (4) Neuropathy associated with endocrine disorder: Code(s): E34.9 - Endocrine disorder, unspecified; G63 - Polyneuropathy in diseases classified elsewhere Status: Acute (5) Schizophrenia: Qualifiers: Schizophrenia type: unspecified Qualified Code(s): F20.9 - Schizophrenia, unspecified Code(s): F20.9 - Schizophrenia, unspecified Status: Chronic DS: Summary Hospital Course Reason for hospitalization: [facility] Hospital Course: Altered level of consciousness patient with altered mental status x1 no loss of consciousness, patient has reported she has been having episodes of hypoglycemia. TIA vs Seizure vs Hypoglycemic episodes. CT head/CTA with no acute intracranial abnormalities did show mild nonspecific cerebral white matter disease chronic small-vessel ischemic disease Neurology consulted EEG read as normal MRI brain showed chronic ischemic change of periventricular white matter resumed Atorvastatin/ F/U lipid panel pending A1C 7.1 Neurochecks Telemetry without arrhythmias Echo with bubble study showed normal EF, grade 1 diastolic dysfunction, agitated saline contrast study demonstrates no shunt no new recommendations for medications, thought to possibly be due to hypoglycemia vs TIA Hypoglycemia Patient with history of hypoglycemic events for the last 2 weeks has been in contact with her certified veterinary technician and adjusting her long-acting insulin. patient had hypoglycemic event in the emergency department with a blood sugar 56 and was given dextrose 50 with good response [facility] Hospitalist spoke to Dr. Teetee Khoury at [facility] patient's certified veterinary technician to discuss patient's current dosing of insulin and adjustments, recommendations to decrease patient's Tresiba to 28 units QHS, Insulin aspart to 18 units with breakfast and lunch and 22 units with dinner Accu-Cheks a.c. 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 EYES: PERRLA. Conjunctivae clear. NOSE: Normal no drainage. THROAT: Pharynx clear, no exudate. NECK: Trachea midline. No adenopathy, no masses. RESPIRATORY: Airway patent, respirations nonlabored. CTA. CARDIOVASCULAR: Regular rate and rhythm BREASTS: Defer GASTROINTESTINAL: Abdomen is soft and nontender. No organomegaly. Bowel sounds normal in all quadrants. GENITOURINARY: Defer MUSCULOSKELETAL: Moves all extremities. No gross deformities. No calf tenderness. SKIN: Warm, dry, normal color. NEURO: A&O X4. Patient slow to respond PSYCHIATRIC: Flat affect DS: Data Data Completed and Pending Completed studies during hospitalization: ECHO Signed Patient: Cinthya Morocho : 1965 MR#: [id number] Age: 60 Acct:[id number] Loc: [id number] ADM Date: 07/28/[address]: Tammy Rojas D.O. Ordering Physician: Maryana Villareal APRN Date of Service: 07/28/25 Procedure(s): CA echo doppler w bubble study Accession Number(s): [id number] cc: Maryana Villareal APRN; Pedro Mclain~ Patient Info Name: Cinthya Morocho Age: 60 years : 1965 Gender: Female Ht: 68 in Wt: 215 lbs BSA: 2.20 m2 HR: 82 bpm BP: 146 / 79 mmHg Heart Rhythm: Sinus Rhythm Technical Quality: Good Exam Date: 07/28/2025 3:24 PM Patient Status: I Admit Date: 07/28/2025 Exam Type: CA echo doppler w bubble study Complete two-dimensional, color flow and Doppler transthoracic echocardiogram is performed with agitated saline. Staff Referring Physician: Nasra Ramon Health Information Technician: Lv Garcia III Attending Provider: Tammy Rojas DO Contrast/Agitated Saline Contrast/Ag. Saline: Agitated Saline Amount: 16.00 ml Administered By: Lv Garcia III Existing IV Access: Yes IV Access Condition: patent with no signs of infiltration Summary 1. Mild concentric left ventricular hypertrophy with normal systolic function and grade 1 diastolic noncompliance. 2. Mild left atrial enlargement. 3. Mild tricuspid regurgitation. 4. Agitated saline contrast study demonstrates no shunt. Left Ventricle Left ventricular chamber dimension is normal. Left ventricular systolic function is normal, estimated at 55-60. There is mild concentric increased left ventricular wall thickness. The left ventricular diastolic function is grade I diastolic dysfunction. Right Ventricle Right ventricular chamber dimension is normal. Left Atria Left atrial chamber dimension is mildly enlarged. Right Atria Right atrial chamber dimension is normal. Atrial Septum Intact interatrial septum visualized by agitated saline imaging. Aortic Valve The aortic valve is normal. Pulmonic Valve The pulmonic valve is normal. Mitral Valve The mitral valve has normal leaflets. Tricuspid Valve The tricuspid valve leaflets are normal. There is trace tricuspid valve regurgitation. Pericardium/Pleural The pericardium appears normal. Aorta The aortic root size at the sinus of Valsalva is normal. Left Ventricular Outflow Tract Name Value Normal LVOT 2D LVOT Diameter 2.3 cm LVOT Doppler LVOT Peak Velocity 98 cm/s LVOT Peak Gradient 4 mmHg LVOT Mean Gradient 2 mmHg LVOT VTI 25 cm LVOT VTI/AV VTI Ratio 0.8 LVOT Stroke Volume 102 ml LVOT CO 6.4 l/min LVOT CI 2.9 l/min/m2 Pulmonic Valve Name Value Normal PV Doppler PV Peak Velocity 74 cm/s PV Peak Gradient 2 mmHg PV Mean Gradient 1 mmHg Mitral Valve Name Value Normal MV Doppler MV Peak Gradient 5 mmHg MV Mean Gradient 2 mmHg MV Area (Cont Eq VTI) 4.8 cm2 MV Diastolic Function MV E Peak Velocity 62 cm/s MV A Peak Velocity 122 cm/s MV E/A 0.5 MV Decel Time (PW) 262 ms MV Annular TDI MV E/e' (Septal) 11.3 MV E/e' (Lateral) 9.9 MV E/e' (Average) 10.6 Tricuspid Valve Name Value Normal TV Regurgitation Doppler TR Peak Velocity 267 cm/s TR Peak Gradient 29 mmHg Estimated PAP/RSVP RA Pressure 10 mmHg <=5 PA Systolic Pressure 39 mmHg <36 RV Systolic Pressure 39 mmHg <36 TV Annular TDI TV Lateral Emiliana s' Velocity 14.3 cm/s >=9.5 Aortic Valve Name Value Normal AV Doppler AV Peak Velocity 145 cm/s AV Peak Gradient 8 mmHg AV Mean Gradient 5 mmHg AV VTI 31 cm AV Area (Cont Eq VTI) 3.3 cm2 >=3.0 AV Area (Cont Eq [place]) 2.7 cm2 AV DI ([place]) 0.68 AV Regurgitation 2D LVOT Area 4.0 cm2 Ventricles Name Value Normal LV Dimensions 2D/MM IVS Diastolic Thickness (2D) 1.4 cm 0.6-1.0 LVID Diastole (2D) 4.8 cm 3.8-5.2 LVIW Diastolic Thickness (2D) 1.5 cm 0.6-0.9 LVID Systole (2D) 3.6 cm 2.2-3.5 LVOT Diameter 2.3 cm LV Mass (2D Cubed) 281.02 g 67.00-162.00 LV Mass Index (2D Cubed) 128 g/m2 43-95 Relative Wall Thickness (2D) 0.64 <=0.42 LV Fractional Shortening/Ejection Fraction 2D/MM LV Fractional Shortening (2D) 23 % 27-45 LV EF (2D Teichholz) 47 % LV Diastolic Volume (4C MOD) 70 ml LV EF (4C MOD) 45 % LV Diastolic Volume (2C MOD) 70 ml LV EF (2C MOD) 47 % LV Diastolic Volume (BP MOD) 70 ml 46-106 LV Diastolic Volume Index (BP MOD) 32 ml/m2 29-61 LV Systolic Volume (BP MOD) 38 ml 14-42 LV Systolic Volume Index (BP MOD) 17 ml/m2 8-24 LV EF (BP MOD) 45 % 54-74 LV Diastolic Length (4C) 7.6 cm LV Systolic Length (4C) 6.3 cm LV Stroke Volume (4C MOD) 32 ml Atria Name Value Normal LA Dimensions LA Volume (4C A-L) 59 ml LA Volume (BP A-L) 61 ml RA Dimensions RA Systolic Major [place] Length (4C) 5.0 cm 2.2-2.8 RA Area (4C) 15.2 cm2 <=18.0 Report Signatures Please be advised this is a medical document. It is intended for bzvt-wf-[id number] communication. It is written in medical language and may contain unfamiliar abbreviations or verbiage. Medical documents are intended to carry relevant information, facts as evident, and the clinical opinion of the practitioner at the time of the encounter. This report may have been done utilizing a voice recognition system. Attempts have been made to correct errors. However, there may be uncorrected grammatical, spelling, and recognition errors present. The file time of this note does not necessarily represent the time of service. Dictated By: Liam Diaz MD 07/28/25 1524 Signed By: 07/28/25 1759 Neurology EEG Report General Information Date of Study: 07/28/25 TEST EEG DIAGNOSIS acute mental status changes with decreased responsiveness. CONDITION OF RECORDING Awake, drowsy and asleep. EEG NUMBER [id number] CLINICAL HISTORY Patient was sitting there talking with and when she started talking without making sense and acting lethargic like she could not keep her eyes open. Patient's tried tapping face to try to keep her eyes open, but she struggle to that. This lasted about 15minutes. EEG DESCRIPTION Basic resting occipital frequency consists of well-organized low to medium voltage 10 to 11 hertz per 2nd alpha admixed with low-voltage 15 to 18 hertz per 2nd beta. Low-voltage beta activity seen diffusely admixed with waxing and waning posterior alpha rhythm during drowsiness. Hyperventilation produced normal and symmetrical buildup. Low-voltage beta activity seen diffusely during drowsiness. Bilateral symmetrical sleep activity is noted during sleep with symmetrical sleep spindles. Non paroxysmal. Nonfocal. Nonlateralizing. IMPRESSION Normal record. Please be advised this is a medical document. It is intended for uimx-ko-cpbd communication. It is written in medical language and may contain unfamiliar abbreviations or verbiage. Medical documents are intended to carry relevant information, facts as evident, and the clinical opinion of the practitioner at the time of the encounter. This report may have been done utilizing a voice recognition system. Attempts have been made to correct errors. However, there may be uncorrected grammatical, spelling, and recognition errors present. The file time of this note does not necessarily represent the time the patient was seen. Report Initialized date/time: Cordell Nails MD 07/28/251255 Electronically signed by: Cordell Nails MD 07/28/251255 Labs on day of discharge: Labs from last 24 hours 07/29/25 07/29/25 07/29/25 11:20 07:35 06:54 WBC RBC Hgb Hct MCV MCH MCHC RDW Plt Count MPV Immature Gran % (Auto) Neut % (Auto) Lymph % (Auto) Dolores % (Auto) Eos % (Auto) Baso % (Auto) Lymph # (Auto) Dolores # (Auto) Eos # (Auto) Baso # (Auto) Abs Immat Gran (auto) Absolute Neuts (auto) Absolute Nucleated RBC Nucleated RBC % Sodium Potassium Chloride Carbon Dioxide Anion Gap BUN Creatinine Estim Creat Clear Calc Estimated GFR Glucose POC Capillary Glucose 114 H 99 114 H Calcium Magnesium Total Bilirubin AST ALT Alkaline Phosphatase Total Protein Albumin 07/29/25 07/29/25 07/28/25 04:58 01:33 21:14 WBC 8.3 RBC 4.40 Hgb 11.2 L Hct 36.6 L MCV 83.2 MCH 25.5 L MCHC 30.6 L RDW 14.6 H Plt Count 259 MPV 10.4 Immature Gran % (Auto) 0.2 Neut % (Auto) 67.8 Lymph % (Auto) 23.6 Dolores % (Auto) 5.7 Eos % (Auto) 2.1 Baso % (Auto) 0.6 Lymph # (Auto) 1.95 Dolores # (Auto) 0.5 Eos # (Auto) 0.2 Baso # (Auto) 0.1 Abs Immat Gran (auto) 0.02 Absolute Neuts (auto) 5.6 Absolute Nucleated RBC 0.000 Nucleated RBC % 0.0 Sodium 140 Potassium 4.5 Chloride 110 H Carbon Dioxide 26 Anion Gap 4 BUN 11 Creatinine 1.24 H Estim Creat Clear Calc 53 Estimated GFR 44 L Glucose 99 POC Capillary Glucose 102 173 H Calcium 9.3 Magnesium 1.8 Total Bilirubin 0.5 AST 27 ALT 23 Alkaline Phosphatase 109 Total Protein 7.4 Albumin 3.6 07/28/25 16:00 WBC RBC Hgb Hct MCV MCH MCHC RDW Plt Count MPV Immature Gran % (Auto) Neut % (Auto) Lymph % (Auto) Dolores % (Auto) Eos % (Auto) Baso % (Auto) Lymph # (Auto) Dolores # (Auto) Eos # (Auto) Baso # (Auto) Abs Immat Gran (auto) Absolute Neuts (auto) Absolute Nucleated RBC Nucleated RBC % Sodium Potassium Chloride Carbon Dioxide Anion Gap BUN Creatinine Estim Creat Clear Calc Estimated GFR Glucose POC Capillary Glucose 157 H Calcium Magnesium Total Bilirubin AST ALT Alkaline Phosphatase Total Protein Albumin Imaging Radiologist's impression: Ordering Physician: Manoj Heredia MD Date of Service: 07/27/25 Procedure(s): CT brain wo con Accession Number(s): [id number] cc: Pedro Mclain; Manoj Heredia MD~ EXAMINATION: CT brain wo con DATE: 07/27/2025 20:52 INDICATION: Altered mental status. Stroke code. TECHNIQUE: Computed tomography (CT) of the head was performed without intravenous contrast. The mA was adjusted according to patient size. Iterative reconstruction technique was employed. The dose-length product was 681.00 mGy-cm. COMPARISON: None FINDINGS: No acute bleed. No acute thrombus of middle cerebral arteries. No midline shift or effacement of sulci. IMPRESSION: 1. No acute findings in the noncontrast CT head. Report conveyed to the attending physician by telephone call at 8:59 PM. Reviewed, dictated and finalized at location T. ICIAN ALLERGIST IMMUNOLOGIST Please be advised this is a medical document. It is intended for xlrc-hc-[id number] communication. It is written in medical language and may contain unfamiliar abbreviations or verbiage. Medical documents are intended to carry relevant information, facts as evident, and the clinical opinion of the practitioner at the time of the encounter. This report may have been done utilizing a voice recognition system. Attempts have been made to correct errors. However, there may be uncorrected grammatical, spelling, and recognition errors present. The file time of this note does not necessarily represent the time of service. Dictated By: Jolynn Alvarenga 07/27/252055 Signed By: <Electronically signed by Jolynn Alvarenga in OV> 07/27/252058 Ordering Physician: Manoj Heredia MD Date of Service: 07/27/25 Procedure(s): XR chest 1V portable Accession Number(s): [id number] cc: Nasra Ramon PA-C; Pedro Mclain; Manoj Heredia MD~ EXAMINATION: XR chest 1V portable DATE: 07/27/2025 21:33 INDICATION: Altered mental status. TECHNIQUE: A single frontal view of the chest was obtained. COMPARISON: CT chest 07/02/2025 FINDINGS: Heart size is normal. Lungs are clear of acute processes. Stable minimal linear fibrotic change in the right upper lobe. IMPRESSION: 1. No acute findings. Reviewed, dictated and finalized at location T. ICIAN ALLERGIST IMMUNOLOGIST Ordering Physician: Nasra Ramon PA-C Date of Service: 07/27/25 Procedure(s): CTA brain carotid Accession Number(s): [id number] cc: Nasra Ramon PA-C; Tammy Rojas DO; Pedro Mclain~ EXAMINATION: CTA brain carotid DATE: 07/27/2025 22:46 INDICATION: Altered mental status. TECHNIQUE: Computed tomographic angiography (CTA) of the head was performed with 100 mL Omnipaque-350 intravenous contrast. CTA of the neck was performed with intravenous contrast. Automated exposure control and iterative reconstruction technique were employed. The dose-length product was 977.59 mGy-cm. Maximum intensity projection and volume rendered 3D-reconstructions were created by the technologist on a separate workstation. COMPARISON: Head CT 07/27/2025 FINDINGS: HEAD CTA: There are scattered areas of low attenuation in the cerebral white matter. There is no intracranial hemorrhage, acute infarction, or abnormal intracranial mass lesion. The ventricles are normal in size. There is cavum septum pellucidum and vergae. The paranasal sinuses are clear. The orbits are normal. The mastoid air cells are normal. The vertebral arteries are codominant. There is no significant stenosis of basilar artery or the posterior cerebral arteries. There is no significant stenosis of the intracranial internal carotid arteries or anterior or middle cerebral arteries. Anterior communicating artery is normal. The posterior communicating arteries are normal. There is no aneurysm. NECK CTA: The lungs demonstrate mild atelectasis. There are no pathologically enlarged lymph nodes. There is no significant stenosis of the vertebral arteries. There is plaque in the proximal internal carotid arteries. There is 0% stenosis of the proximal right internal carotid artery relative to normal distal artery lumen diameter (NASCET criteria). There is 0% stenosis of the proximal left internal carotid artery relative to normal distal artery lumen diameter. There is severe spondylosis at C4-C5 and mild spondylosis at other levels. IMPRESSION: 1. Mild nonspecific cerebral white matter disease, which likely represents chronic small vessel ischemic disease. 2. No aneurysm or significant intracranial arterial stenosis. 3. 0% stenosis of the proximal internal carotid arteries relative to normal distal artery lumen diameters (NASCET criteria). Reviewed, dictated and finalized at location E. ICIAN ALLERGIST IMMUNOLOGIST Ordering Physician: Nasra Ramon PA-C Date of Service: 07/28/25 Procedure(s): MR brain/brain stem wo/w con Accession Number(s): [id number] cc: Nasra Ramon PA-C; Tammy Rojas DO; Pedro Mclain~ EXAMINATION: MR brain with and without contrast: DATE: 07/28/2025. INDICATION: Altered mental status. TECHNIQUE: Axial coronal and sagittal images including postcontrast images IV contrast were obtained. COMPARISON: CT head dated 07/27/2025. CT) and carotid dated 07/27/2025. FINDINGS: No acute ischemia on the diffusion sequence. No intracranial bleed or extra-axial collections. No ventriculomegaly. Midline cavum septum is noted. No abnormal enhancement on postcontrast study. Chronic small vessel ischemic change of periventricular white matter on the FLAIR images. Pituitary gland is normal. IMPRESSION: 1. No acute infarct. No intracranial bleed. No intracranial space-occupying lesion or abnormal enhancement. 2. Chronic ischemic change of periventricular white matter. Reviewed, dictated and finalized at location T. ICIAN ALLERGIST IMMUNOLOGIST Discharge Plan Discharge Attending physician on discharge: Juventino Rosales Consulting providers: Maryana Villareal; Cordell Nails Discharging Clinician: Leilani Pettit Patient Disposition: Home Activity: as tolerated Diet: gestational diabetic Discharge Instructions: Please call and make a follow up appointment with your endocrinology clinic. Contact your endocrinology clinic for continued dose adjustments for your insulin. Patient Instructions: Antibiotic Form, Hypoglycemia in a Person with Diabetes (DC), What to Do if Your Blood Sugar is Low (DC) Patient Language: East Timorese Stand Alone Forms: General Discharge Information Follow-up/Referrals: Pedro Mclain [Other] Referral Note: Call for an appointment to be seen within 2 weeks of discharge. Discharge Medications: Continued ondansetron 4 mg tablet,disintegrating 4 mg PO Q6H gabapentin 600 mg tablet 600 mg PO Q6H PRN (Reason: neuropathy) pantoprazole 40 mg tablet,delayed release (DR/EC) 40 mg PO QAM Creon 36,000-114,000- 180,000 unit capsule,delayed release(DR/EC) 2 cap PO TID Rx Instructions: administer with meals . Takes 2 capsuled TID with meals and 1 capsule with snacks buspirone 15 mg tablet 15 mg PO TID venlafaxine 75 mg capsule,extended release 24hr 150 mg PO DAILY ergocalciferol (vitamin D2) 1,250 mcg (50,000 unit) capsule 1,250 mcg PO WEEKLY Patient Comments: sunday atorvastatin [Lipitor] 40 mg tablet 40 mg PO DAILY lorazepam [Ativan] 2 mg tablet 2 mg PO Q6H PRN (Reason: anxiety) meclizine 25 mg tablet 25 mg PO BID loperamide [Anti-Diarrheal (loperamide)] 2 mg tablet 2 mg PO QID PRN (Reason: loose stool) paliperidone [Invega] 3 mg tablet extended release 24hr 3 mg PO DAILY Patient Comments: 2weeks prior to invasive procedure Rx Instructions: Takes daily as needed prior to monthly injection. last injectable dose 06/25. zolpidem 10 mg tablet 10 mg PO HS PRN (Reason: insomnia) insulin aspart U-100 [Novolog U-100 Insulin aspart] 100 unit/mL solution 22 unit subcut .before dinner Changed insulin aspart U-100 [Novolog FlexPen U-100 Insulin] 100 unit/mL (3 mL) insulin pen 18 unit subcut .before lunch 30 Days 0RF insulin aspart U-100 [Novolog FlexPen U-100 Insulin] 100 unit/mL (3 mL) insulin pen 18 unit subcut .before breakfast 30 Days 0RF insulin degludec [Tresiba FlexTouch U-100] 100 unit/mL (3 mL) insulin pen 28 unit subcut QPM 30 Days Qty: 8.4 0RF Date of admission: 07/28/25 01:58 Primary Care Provider: Pedro Mclain Admitting Provider: Tammy Rojas Attending physician on admission: Tammy Rojas Condition: Stable
== END 2025-07-29 18:00 | disposition home or self-care (01) ==
LOC: ANHED 07-28 02:08 → ANH3MED 07-28 08:43
PROVIDERS: Emergency Medicine; Nurse Practitioner Family; Admitting Provider Internal Medicine; Emergency Provider Physician Assistant; Visit Provider Internal Medicine
DX: G45.9 Transient cerebral ischemic attack, unspecified (principal); E16.2 Hypoglycemia, unspecified; E11.43 Type 2 diabetes mellitus with diabetic autonomic (poly)neuropathy; K31.84 Gastroparesis; E34.9 Endocrine disorder, unspecified; G63 Polyneuropathy in diseases classified elsewhere; F20.9 Schizophrenia, unspecified; F41.8 Other specified anxiety disorders; R11.15 Cyclical vomiting syndrome unrelated to migraine; D53.9 Nutritional anemia, unspecified; E66.9 Obesity, unspecified; Z68.32 Body mass index [BMI] 32.0-32.9, adult; Z79.4 Long term (current) use of insulin; Z87.891 Personal history of nicotine dependence; Z83.3 Family history of diabetes mellitus
CPT/HCPCS: 36415; 70450; 70496; 70498; 70553; 71045; 80053; 80061; 80307; 81001; 82077; 82948; 83036; 83605; 83735; 84484; 85025; 85610; 85730; 93005; 93306; 95816; 96360; 96361; 96372; 96375; 99212; 99285; A9270; A9577; G0378; G0463; J1650; J1815; J3475; J7030; Q9967